=== PATIENT | male | born 1980 | race Caucasian/White ===

== ENCOUNTER 2016-07-17 12:05 | Inpatient (IN) | payer MEDICARE, OTHER ==
[2016-07-17] VITALS (30 sets, daily range): BP systolic 96–138; BP diastolic 54–75; PULSE 92–104; RESP 19–35; TEMP 97.5; Ht 165.1 cm; Wt 57.0 kg
[~2016-07-17] VITALS: Ht 165.1 cm; Wt 57.0 kg
[2016-07-17] MEDS ORDERED: MIDAZOLAM (DRIP) 50 mg/50 mL 50 ML IV STA (12:19)
[2016-07-17] MEDS ORDERED: ALBUTEROL 0.5% (NEB) 2.5 MG/0.5 ML AMP INH STA (12:19)
[2016-07-17] MEDS ORDERED: SOD CHLORIDE 0.9% 1,000 ML IV STA (12:19)
[2016-07-17] MEDS ORDERED: VANCOMYCIN 1 GM (PMX) 250 ML IVPB SCH (12:30)
[2016-07-17] MEDS ORDERED: CEFTRIAXONE 1 GM/50 ML (PMX) 50 ML IVPB ONE (12:30)
[2016-07-17] MEDS ORDERED: PIPER-TAZO 3.375 GM IV (PMX) 100 ML IVPB ONE (12:30)
[2016-07-17 12:50] LABS: ADD SCAN DIFF NO
[2016-07-17 12:53] LABS: ABNORMAL IP MESSAGE 1; HEMATOCRIT 21.5 % (42.0-52.0); MEAN CORPUSCULAR HEMOGLOBIN 30.9 pg (29.0-33.0); MEAN CORPUSCULAR HGB CONC 29.3 g/dl (32.0-37.0); MEAN CORPUSCULAR VOLUME 105.4 fl (82.0-101.0); MEAN PLATELET VOLUME 9.6 fl (7.4-10.4); PLATELET COUNT 353 10^3/UL (140-415); RED BLOOD COUNT 2.04 10^6/ul (4.70-6.10); RED CELL DISTRIBUTION WIDTH 18.2 % (11.5-14.5)
[2016-07-17] MEDS ORDERED: GLUC1KIT IJ (12:59)
[2016-07-17] MEDS ORDERED: ACET160O41 GTB (13:00)
--- NOTE | 2016-07-17 13:00 | RADRPT ---
AMENDMENT: 07/17/2016 1:02:32 PM Carlos Avila MD Addendum: This is a repeat dictation. The prior dictation was accidentally prematurely signed. Findings: No central line is identified as indicated by history. No pneumothorax is seen. Tracheo stomy tube is in good position. Heart is normal in size. There are diffuse bilateral alveolar lung infiltrates likely reflecting multilobar pneumonia. Component of edema is not completely excluded. Moderate right and small left pleural effusion is identified. The bones are osteopenic. Impression: 1. No central venous line is identified as indicated by history. Recommend clinical correlation. 2. There is no evidence of pneumothorax. 3. Diffuse bilateral alveolar lung densities. This may represent edema or pneumonia.. 3. Moderate right and small left pleural effusion. 4. Tracheostomy tube PROCEDURE: Chest x-ray CLINICAL INDICATION: Central line TECHNIQUE: Chest single view COMPARISON: None FINDINGS: No central line is identified as indicated by history. There is no evidence of IMPRESSION: No acute cardiopulmonary disease. RPTAT: HH .Carlos Avila MD, MD Date Time Electronically viewed and signed by .Carlos Avila MD, on 07/17/2016 13:02 .W/
[2016-07-17] MEDS ORDERED: BISA10SU75 PR (13:01)
[2016-07-17] MEDS ORDERED: BEN25 GTB (13:02)
[2016-07-17] MEDS ORDERED: DOCU-159 GTB ×2 (13:03→13:09)
[2016-07-17] MEDS ORDERED: MAG-19 GTB (13:03)
[2016-07-17] MEDS ORDERED: ATR1OO35 BOTH EYES (13:04)
[2016-07-17 13:07] LABS: POTASSIUM 4.8 mmol/L (3.5-5.1); SODIUM 133 mmol/L (135-144)
[2016-07-17] MEDS ORDERED: ONDA4TAB8 GTB (13:08)
[2016-07-17 13:09] LABS: ALANINE AMINOTRANSFERASE 37 IU/L (13-69); ALBUMIN/GLOBULIN RATIO 0.75; ALKALINE PHOSPHATASE 213 IU/L (42-121); ANION GAP 25 (8-16); ASPARTATE AMINO TRANSFERASE 89 IU/L (15-46); BLOOD UREA NITROGEN 84 mg/dl (7-20); CARBON DIOXIDE 13 mmol/L (21-31); CREATININE 3.87 mg/dl (0.61-1.24); GLUCOSE 273 mg/dl (70-220)
[2016-07-17] MEDS ORDERED: ZOLP5TAB GTB (13:09)
[2016-07-17] MEDS ORDERED: LORA-441 GTB (13:10)
[2016-07-17] MEDS ORDERED: CLON0.2T12 GTB (13:11)
[2016-07-17] MEDS ORDERED: QUET25TA26 GTB (13:11)
[2016-07-17 13:13] LABS: CHLORIDE 100 mmol/L (97-110)
[2016-07-17] MEDS ORDERED: INSU100C SQ (13:15)
[2016-07-17] MEDS ORDERED: LANT3I SC (13:16)
[2016-07-17 13:20] LABS: TROPONIN-I < 0.012 ng/ml (0.00-0.12)
[2016-07-17 13:26] LABS: ADD UMIC YES; URINE BILIRUBIN (Dip) NEGATIVE (NEGATIVE); URINE BLOOD (Dip) 2+ (NEGATIVE); URINE COLOR LT. YELLOW (YELLOW); URINE KETONES (Dip) NEGATIVE (NEGATIVE); URINE LEUKOCYTE ESTERASE (Dip) 2+ (NEGATIVE); URINE NITRITE (Dip) NEGATIVE (NEGATIVE); URINE TOTAL PROTEIN (Dip) 4+ (NEGATIVE); URINE UROBILINOGEN (Dip) 0.2 E.U./dL (0.1-1.0)
[2016-07-17 13:46] LABS: BACTERIA,URINE MODERATE; SQUAMOUS EPITHELIAL CELL,UR FEW; URINE RBCS >50 /HPF (0)
[2016-07-17 13:54] LABS: EOSINOPHILS # 0.5 10^3/ul (0.0-0.5); LYMPHOCYTES # 2.3 10^3/ul (0.8-2.9); MONOCYTE # 2.3 10^3/ul (0.3-0.9); MYELOCYTES # 0.5; NEUTROPHIL # 26.7 10^3/ul (1.6-7.5)
--- NOTE | 2016-07-17 14:08 | ERA ---
ER Documentation Chief Complaint Date/Time DATE: 07/17/16 TIME: 13:59 Chief Complaint BIB RA 79 S/P FULL ARREST AT SNF. ROSC ON ARRIVAL. HPI 35-year-old man brought in by EMS from skilled nursing for cardiac arrest. Nurses at the facility found him pulseless and apneic and started chest compressions and called 911, upon EMS arrival he was asystole IV line was established and they gave him 2 rounds of epinephrine 1 mg IV. Patient has at least a one-year history of tracheostomy and normally breathes spontaneously and has a fairly normal mental status. He has a history of diabetes mellitus type 1 and developed hemodialysis dependent end-stage kidney failure about a decade ago. Mom who I later spoke to states about a year ago he developed severe pneumonia requiring inpatient management, IV antibiotics, and intubation. At that time he required a tracheostomy and since then has remained on tracheostomy and developed at least 2 or 3 other episodes of pneumonia. Resuscitation at the facility resulted in return of spontaneous circulation although patient remained mostly unresponsive and was transported here on high flow oxygen via tracheostomy tube. HPI supplemented by reviewing medical records, speaking to EMS, and later his mom over the phone. ROS All systems reviewed and are negative except as per history of present illness. Medications Home Meds Reported Medications Insulin Glargine* (Lantus*) 100 Unit/Ml Soln, 3 UNIT SC QAM, #1 VIAL 07/17/16 Insulin Lispro (Humalog) 100 Unit/1 Ml Cartridge, 0-15 UNIT SQ Q6 07/17/16 Clonidine Hcl* (Catapres*) 0.2 Mg Tablet, 0.2 MG GTB Q4H Y for ELEVATED BLOOD PRESSURE, TAB FOR SBP>170 07/17/16 Quetiapine Fumarate* (Seroquel*) 25 Mg Tablet, 25 MG GTB TID, #60 TAB 07/17/16 Lorazepam* (Ativan*) 0.5 Mg Tablet, 0.5 MG GTB BID Y for ANXIETY, #30 TAB 07/17/16 Zolpidem Tartrate* (Ambien*) 5 Mg Tablet, 5 MG GTB QHS Y for INSOMNIA, #30 TAB 07/17/16 Docusate Sodium* (Docusate Sodium*) 100 Mg Capsule, 100 MG GTB BID, #60 CAP 07/17/16 Ondansetron Hcl* (Zofran*) 4 Mg Tablet, 4 MG GTB Q6 Y for NAUSEA AND/OR VOMITING , TAB 07/17/16 Atropine Sulfate* (Atropine Sulfate*) 3.5 Gm Oint, 1 APPLIC BOTH EYES QID, #1 TUB 07/17/16 Magaldrate/Simethicone* (Mylanta*) 355 Ml Susp, 30 ML GTB Q6H Y for GASTROINTESTINAL UPSET, ML 07/17/16 Docusate Sodium* (Docusate Sodium*) 100 Mg Capsule, 100 MG GTB BID, #30 CAP 07/17/16 Diphenhydramine Hcl* (Benadryl*) 25 Mg Cap, 25 MG GTB Q4 Y for ITCHING, CAP 07/17/16 Bisacodyl* (Bisacodyl*) 10 Mg Supp, 10 MG MA Q24H Y for CONSTIPATION, SUPP 07/17/16 Acetaminophen* (Acetaminophen* Susp) 160 Mg/5 Ml Oral.susp, 160 MG GTB Q4H Y for PAIN OR TEMP ABOVE 38C, ML 07/17/16 Glucagon,Human Recombinant (Glucagon Emergency Kit) 1 Mg Kit, 1 MG IJ DAILY Y for LOW GLUCOSE, KIT 07/17/16 Allergies Allergies: Coded Allergies: aspirin (Verified Allergy, Severe, 07/17/16) PMhx/Soc History of diabetes mellitus type 1 resulting in hemodialysis dependent kidney failure many years ago, respiratory failure and pneumonia developed 1 year ago necessitating tracheostomy tube placement, he has had recurrent pneumonias History of Surgery: Yes (TRACH, GTBUE) Hx Respiratory Disorders: Yes (RESP FAILURE ON TRACH, PNA) Smoking Status: Unknown if ever smoked FmHx Family History: No diabetes Physical Exam Vitals Vital Signs Date Time Temp Pulse Resp B/P Pulse Ox O2 Delivery O2 Flow Rate FiO2 07/17/16 13:30 101 16 119/62 100 Mechanical Ventilator Trach Collar 07/17/16 13:00 101 16 121/61 100 Mechanical Ventilator Trach Collar 07/17/16 12:31 109 20 100 100 07/17/16 12:30 80 16 64/38 81 Mechanical Ventilator Trach Collar 07/17/16 12:24 97.2 80 20 62/39 90 Physical Exam GENERAL: Poorly developed emaciated young man, unresponsive HEENT: Dry mucous membranes, pale conjunctival, no cervical spine deformity, no goiter, no jaundice, tracheostomy tube in place NEURO: Eyes closed, pupils minimally reactive, nonverbal, no obvious focal deficits or facial asymmetry CARDIAC: Regular rate and rhythm, no murmurs rubs or gallops LUNGS: Poor breath sounds bilaterally with diffuse crackles no stridor ABDOMEN: Soft nontender, no guarding, no rigidity, no rebound, no psoas sign no obturator sign. Normoactive bowel sounds SKIN: Cool to touch and dry, pale, no lacerations or hematomas EXTREMITIES: diffuse muscular wasting, callus bilaterally symmetrical PSYCH: Unable to assess Result Diagram: 07/17/16 1230 07/17/16 1230 Results 24 hrs Laboratory Tests Test 07/17/16 12:30 07/17/16 13:05 White Blood Count 46.010^3/ul Red Blood Count 2.0410^6/ul Hemoglobin 6.3g/dl Hematocrit 21.5% Mean Corpuscular Volume 105.4fl Mean Corpuscular Hemoglobin 30.9pg Mean Corpuscular Hemoglobin Concent 29.3g/dl Red Cell Distribution Width 18.2% Platelet Count 57174^3/UL Mean Platelet Volume 9.6fl Neutrophils % 58.0% Band Neutrophils % 29.0% Lymphocytes % 5.0% Monocytes % 5.0% Eosinophils % 1.0% Metamyelocytes % 1.0% Myelocytes % 1.0% Neutrophils # 26.710^3/ul Lymphocytes # 2.310^3/ul Monocytes # 2.310^3/ul Eosinophils # 0.510^3/ul Metamyelocytes # 0.5 Myelocytes # 0.5 Activated Partial Thromboplast Time 68.7Sec Sodium Level 133mmol/L Potassium Level 4.8mmol/L Chloride Level 100mmol/L Carbon Dioxide Level 13mmol/L Anion Gap 25 Blood Urea Nitrogen 84mg/dl Creatinine 3.87mg/dl Glucose Level 273mg/dl Lactic Acid Level 10.9mmol/L Calcium Level 9.0mg/dl Total Bilirubin 0.0mg/dl Direct Bilirubin 0.00mg/dl Indirect Bilirubin 0.0mg/dl Aspartate Amino Transf (AST/SGOT) 89IU/L Alanine Aminotransferase (ALT/SGPT) 37IU/L Alkaline Phosphatase 213IU/L Troponin I < 0.012ng/ml Total Protein 7.0g/dl Albumin 3.0g/dl Globulin 4.00g/dl Albumin/Globulin Ratio 0.75 Lipase 170U/L Urine Color LT. YELLOW Urine Clarity CLOUDY Urine pH 7.5 Urine Specific [place] 1.015 Urine Ketones NEGATIVE Urine Nitrite NEGATIVE Urine Bilirubin NEGATIVE Urine Urobilinogen 0.2 E.U./dL Urine Leukocyte Esterase 2+ Urine Microscopic RBC >50/HPF Urine Microscopic WBC >50/HPF Urine Squamous Epithelial Cells FEW Urine Bacteria MODERATE Urine Hemoglobin 2+ Urine Glucose 0.1%% Urine Total Protein 4+ Current Medications Medications (Trade) Dose Ordered Sig/Ozzie Route PRN Reason Start Time Stop Time Status Last Admin Dose Admin Sodium Chloride (NS) 1,000 ml @ 2,000 mls/hr Q30M STAT IV 07/17/16 12:19 07/17/16 12:48 DC 07/17/16 13:59 Albuterol 10 mg 10 mg ONCE STAT INH 07/17/16 12:19 07/17/16 12:26 DC 07/17/16 14:18 Ceftriaxone Sodium 50 ml @ 100 mls/hr ONCE ONCE IVPB 07/17/16 12:30 07/17/16 12:59 DC 07/17/16 14:01 Piperacillin Sod/ Tazobactam Sod 100 ml @ 200 mls/hr ONCE ONCE IVPB 07/17/16 12:30 07/17/16 12:59 DC 07/17/16 14:29 Vancomycin HCl 250 ml @ 125 mls/hr ONCE IVPB 07/17/16 12:30 07/17/16 14:29 DC 07/17/16 14:41 Midazolam HCl 50 ml @ 3 mls/hr ONCE STAT IV 07/17/16 12:19 07/18/16 04:58 Norepinephrine/ Dextrose (Levophed/D5W) 500 ml @ 1.87 mls/hr TITRATE IV 07/17/16 12:30 07/17/16 14:01 Procedures/MDM IV line was established patient was placed on child monitor rhythm strip revealed a sinus tachycardia at 100 bpm with upright P and T waves. Patient was afebrile, although I do suspect sepsis. Patient had strong pulses here in the emergency department he suffered asystolic cardiac arrest with return of spontaneous circulation, so I proceeded with IV fluid and cardiac pressor medications via central line which I placed in the ED. patient also initially received albuterol 10 mg nebulized. Tracheostomy tube was immediately placed on mechanical ventilator. Central Line Placement by me: Patient consented, sterilely draped, full prep, gown, glove, mask, time out performed. Anesthesia: 1% lidocaine locally Location: Right femoral vein Device: Multiple lumen Technique: Seldinger technique. Secured with suture. Results: Venous return from all ports with easy saline flush. No complications. The entire Guide wire retrieved and disposed of. One view chest x-ray performed, read by me revealed bilateral large infiltrates , no pneumothorax, no air under the diaphragm, tracheostomy is in place. Patient's infectious symptoms have not stabilized and the patient is at risk of rapid decompensation. The patient will be admitted for careful hydration, antibiotic therapy, and infectious source control. Severe Sepsis Assessment: Infectious Source: Bilateral pulmonary infiltrates and urinary tract infection End organ damage indicated by: Lactate > 2.0 mmol/L Hypotension( SBP < 90 or >40 mmHG drop or MAP < 65) Acute Resp Failure (sat < 92% w/o oxygen) Private [employer] Guard > 2.0 INR > 1.5 Plt < 100 Bili > 2 Severe Sepsis Managment: Blood Culture before broad spectrum antibiotics initiated within 3 hours of recognition. I treated the patient with ceftriaxone 1 g IV, vancomycin 1 g IV, and Pipracil and tazobactam 2.375 g IV. 30 ml/kg NS bolus patient received 2 L of normal saline intravenously he does have hemodialysis dependent renal failure and further fluids have been held Initial Lactate: Over 10 Repeat Lactate pending Critical Care: Time: 50 minutes, this was time separate from other procedures Treatments/Evaluations: Emergent fluid management, while maintaining close respiratory support. Immediate broad spectrum antibiotic therapy. Simultaneous assessment for possible sources in order to direct therapy. Consideration for invasive and chemical support to prevent respiratory or cardiac collapse. Septic Shock Assessment (1 hour post 30 ml/kg fluid bolus): Hypotension (SBP < 90 or 40 mmHg drop, MAP < 65): Yes Lactic acid > 4.0 yes Perfusion Reassessment for Septic Shock: Patient was afebrile, pulse equals 110 bpm, respiratory rate 16 breaths per minute on mechanical ventilator, blood pressure initially 80/60 mmHg Heart Exam: Tachycardic Lung Exam: Bilateral crackles Capillary Refill: Delayed Peripheral Pulses: Radially present Skin: Mottled, pale Hypotensive Treatment (not required for isolated lactic acid elevation): Comfort Care: No Central LIne: Right femoral vein Vasopressor started: norepinephrine EKG performed, read by me revealed a sinus tachycardia at 103 bpm, normal axis, narrow QRS complex, no concerning ST elevations or depressions noted. I considered further perfusion assessment with CVP measurement, SCVO2, bedside ultrasound volume assessment, passive leg raise, trial of further fluid bolus. And preceded with aggressive broad-spectrum IV antibiotic therapy, cardiac pressor medications, IV fluids CBC revealed a leukocytosis of 46 and severe anemia with a hematocrit of 22, electrolytes revealed kidney failure and dehydration with a BUN of 84 and a creatinine of 3.9, lactic acid was about 11, liver function tests normal, troponin negative. Urine analysis was positive for infection, ABG on mechanical ventilator revealed a pH of 7.14, PCO2 44, PaO2 250 revealing metabolic acidosis. I ordered transfusion 2 units PRBCs IV over 2 hours for severe anemia Accepting Care Team: Current data and ongoing care discussed. Time: Time of admission Primary Provider: Hospitalist Consulting: Infectious disease and pulmonary Outstanding Data: none Departure Diagnosis: Primary Impression: Cardiac arrest Additional Impressions: Bilateral pneumonia Qualified Code: J18.9 - Pneumonia of both lower lobes due to infectious organism UTI (urinary tract infection) Qualified Code: N30.00 - Acute cystitis without hematuria Anemia Qualified Code: D64.9 - Anemia, unspecified type Respiratory failure Qualified Code: J96.21 - Acute on chronic respiratory failure with hypoxia and hypercapnia End stage kidney disease Septic shock Condition: Critical MICHELLE DANIELS MD Jul 17, 2016 14:08
[2016-07-17 14:44] LABS: AADO2 Arterial 419.7 mmHg (7.0-24.0); Allen Test ACCEPTAB; Arterial Base Excess -13.6 mmol/L (-3.0-3); Arterial COHb 0.7 % (0.0-3.0); Arterial Fraction of Oxyhgb 98.1 % (93.0-99.0); Arterial HCO3 14.5 mmol/L (22.0-26.0); Arterial MetHb 0.6 % (0.0-1.5); Arterial Total Hemglobin 7.3 g/dl (12.0-18.0); MODE VENT - AC
[2016-07-17] MEDS ORDERED: SOD CHLORIDE 0.45% 1,000 ML IV SCH (15:54)
[2016-07-17] MEDS ORDERED: DEXTROSE 50% 50 ML SYRINGE IV PRN ×2 (16:00)
[2016-07-17] MEDS: ACCU-CHEK XX SCH ×8 (16:00→23:11)
[2016-07-17] MEDS ORDERED: NACL 0.9% 3 ML SYG IV SCH (16:00)
[2016-07-17] MEDS ORDERED: ONDANSETRON 4 MG INJ IV PRN (16:00)
[2016-07-17] MEDS ORDERED: BISACODYL 10 MG SUPP PR PRN (16:00)
[2016-07-17] MEDS ORDERED: INSULIN REGULAR, HUMAN 100 UNIT in SOD CHLORIDE 0.9% 99 ML IV SCH ×2 (16:00)
--- NOTE | 2016-07-17 16:23 | HP ---
DATE OF ADMISSION: 07/17/2016 CHIEF COMPLAINT: Pulseless. HISTORY OF PRESENT ILLNESS: The patient is a 35-year-old male with a history of type 1 diabetes, mu ltiple episodes of pneumonia, status post chronic vent dependency with trach as well as PEG tube. T he patient resides in a [facility] facility. Apparently, he became altered and was found to be pulseless. Paramedics were called and patient had ACLS performed and was given epinephrine and the patient had a return of circulation. In the ED, the patient has not gone pulseless. He is current ly obtunded, unable to provide any history and history is obtained by ER physician. PAST MEDICAL HISTORY: Diabetes type 1 with persistent episodes of pneumonia, status post trach and PEG. HOME MEDICATIONS: See medication reconciliation. ALLERGIES: ASPIRIN. FAMILY HISTORY: Unknown. SOCIAL HISTORY: Unknown except for resides in a [facility] facility. REVIEW OF SYSTEMS: A review of systems cannot be obtained secondary to poor mentation. PHYSICAL EXAMINATION: VITAL SIGNS: Temperature is 97.2, pulse is 104, respiratory rate is 20, blood pressure 162/63, satu ration 100% on mechanical ventilation. GENERAL: Nonverbal, not alert. HEENT: Normocephalic, atraumatic. LUNGS: Clear to auscultation. CARDIOVASCULAR: Regular rate and rhythm. ABDOMEN: Nondistended, nontender, soft. PEG noted. EXTREMITIES: No clubbing, cyanosis, or edema. LABORATORIES: White count 26.0, hemoglobin 6.3, platelets are 363. Chemistry: Sodium is 133, pota ssium is 4.8, chloride is 100, carbon dioxide 13, anion gap is 25, BUN 34, creatinine 2.87, glucose 273, lactic acid 10.9. DIAGNOSTICS: Chest x-ray shows no active disease. ASSESSMENT AND PLAN: 1. Cardiac arrest, likely secondary to pulseless electrical activity. Etiology is unknown, but the patient does have renal failure. It is unclear if it is acute or chronic. Consult nephrology. Qamar melendez has not gone pulseless since arriving to [facility]. We will admit to ICU. 2. Acute encephalopathy secondary to cardiac arrest. Will need to continue with neuro checks and e valuate for anoxic encephalopathy. 3. History of debility secondary to uncontrolled diabetes type 1 with persistent episodes of pneumo kathi, status post tracheostomy and PEG in the past. The patient does reside in a skilled nurse [facility]. The patient's sugars are elevated at this time. Will check A1c. Will put patient on an insul in drip. 4. Acute versus chronic kidney disease. The patient's renal function is unknown, likely has chroni c kidney disease. He does have lifelong ____type 1. We will get a nephrology consultation. 5. Macrocytic anemia. The patient's hemoglobin is low at 6.3. We will check stool occult blood. Will check a B12 and folate as his MCV is 105.4. 6. Prophylaxis, sequential compression devices. Dictated By: DIANE GIBBONS MD BS/NTS Conf#: [id number] DID#: [id number]
--- NOTE | 2016-07-17 16:45 | CONS ---
Date/Time of Note Date/Time of Note DATE: 07/17/16 TIME: 16:34 Assessment/Plan Assessment/Plan Chief Complaint/Hosp Course Assessment: Status post cardiac arrest - likely due to septic shock Severe sepsis with septic shock Acute hypoxic respiratory failure - on mechanical ventilation, prior tracheostomy Healthcare-associated pneumonia Diabetes mellitus, type 1 End-stage renal disease - on hemodialysis Anemia - receiving pRBC transfusions Recommendations: -Levophed as needed to keep MAP>65 -obtain transthoracic echocardiogram Problems: Consultation Date/Type/Reason Admit Date/Time Type of Consultation: Cardiology Reason for Consultation cardiac arrest Hx of Present Illness The patient is currently unresponsive. History is obtain via medical records and conversation with the emergency department physician. The patient is a 35 year-old male who is status post cardiac arrest at his long term facility. The initial rhythm is unknown. He was successfully resuscitated in the field and brought into the emergency department. He was hypotensive, and a central line has been placed and the patient has been started on a Levophed drip. Initial laboratory work up is notable for WBC 46, Hgb 6.3, and lactic acid of 10.9. Chest x-ray shows evidence of multilobar pneumonia. Unable to obtain, patient is unresponsive. Past Medical History Diabetes mellitus, type 1 End-stage renal disease - on hemodialysis Status post tracheostomy - secondary to prior respiratory failure from pneumonia Past Surgical History Tracheostomy Gastric tube Family History Significant Family History: other (unknown) Social History Unknown Smoking Status: Unknown if ever smoked Exam/Review of Systems Vital Signs Vitals Vital Signs Date Time Temp Pulse Resp B/P Pulse Ox O2 Delivery O2 Flow Rate FiO2 07/17/16 16:15 97.5 103 18 122/69 100 Mechanical Ventilator Trach Collar 07/17/16 16:09 80 Exam Constitutional: non-verbal, No alert Psych: No nl mood/affect Head: atraumatic, normocephalic Eyes: nl conjunctiva, nl lids ENMT: nl external ears & nose, nl nasal mucosa & septum Neck: other (tracheostomy) Respiratory: crackles/rales Cardiovascular: No regular rate and rhythm (tachycardic) Gastrointestinal: non-tender, soft Extremities: No clubbing, No cyanosis, No edema Neurological: No nl mental status, No nl speech Results Result Diagram: 07/17/16 1230 07/17/16 1230 Results 24 hrs Laboratory Tests Test 07/17/16 12:30 07/17/16 13:05 07/17/16 14:27 White Blood Count 46.0 H Red Blood Count 2.04 L Hemoglobin 6.3 *L Hematocrit 21.5 L Mean Corpuscular Volume 105.4 H Mean Corpuscular Hemoglobin 30.9 Mean Corpuscular Hemoglobin Concent 29.3 L Red Cell Distribution Width 18.2 H Platelet Count 353 Mean Platelet Volume 9.6 Neutrophils % 58.0 Band Neutrophils % 29.0 H Lymphocytes % 5.0 L Monocytes % 5.0 Eosinophils % 1.0 Metamyelocytes % 1.0 H Myelocytes % 1.0 H Neutrophils # 26.7 H Lymphocytes # 2.3 Monocytes # 2.3 H Eosinophils # 0.5 Metamyelocytes # 0.5 Myelocytes # 0.5 Activated Partial Thromboplast Time 68.7 H Sodium Level 133 L Potassium Level 4.8 Chloride Level 100 Carbon Dioxide Level 13 L Anion Gap 25 H Blood Urea Nitrogen 84 H Creatinine 3.87 H Glucose Level 273 H Lactic Acid Level 10.9 *H Calcium Level 9.0 Total Bilirubin 0.0 L Direct Bilirubin 0.00 Indirect Bilirubin 0.0 Aspartate Amino Transf (AST/SGOT) 89 H Alanine Aminotransferase (ALT/SGPT) 37 Alkaline Phosphatase 213 H Troponin I < 0.012 Total Protein 7.0 Albumin 3.0 L Globulin 4.00 H Albumin/Globulin Ratio 0.75 Lipase 170 Urine Color LT. YELLOW Urine Clarity CLOUDY H Urine pH 7.5 Urine Specific [place] 1.015 Urine Ketones NEGATIVE Urine Nitrite NEGATIVE Urine Bilirubin NEGATIVE Urine Urobilinogen 0.2 E.U./dL Urine Leukocyte Esterase 2+ H Urine Microscopic RBC >50 Urine Microscopic WBC >50 Urine Squamous Epithelial Cells FEW Urine Bacteria MODERATE Urine Hemoglobin 2+ H Urine Glucose 0.1% H Urine Total Protein 4+ H Blood Gas Specimen Source Blood arterial Arterial Blood Date Drawn 07/17/2016 2:35:00 PM Arterial Blood pH (Temp corrected) 7.135 *L Arterial Blood pCO2 (Temp correct) 44.1 Arterial Blood pO2 (Temp corrected) 249.2 H Arterial Blood HCO3 14.5 L Arterial Blood Base Excess -13.6 L Arterial Blood Oxygen Saturation 99.4 H Endy Test ACCEPTAB Arterial Blood Gas Puncture Site Right Radial Arterial Blood Carboxyhemoglobin 0.7 Arterial Blood Methemoglobin 0.6 Blood Gas A-a O2 Differential 419.7 H Oxyhemoglobin Percent 98.1 Total Hemoglobin 7.3 L Blood Gas Temperature 37.0 Blood Gas Respiration Rate 20.0 Blood Gas Actual Respiration Rate 26 Blood Gas Modality VENT - AC FiO2 100.0 Blood Gas Tidal Volume 500.0 Blood Gas Low PEEP Setting 5.0 Blood Gas Critical Value Read Back DR. DANIELS Blood Gas Notified Whom [place] Blood Gas Notified Time 07/17/2016 2:44:00 PM Medications Medications Current Medications Norepinephrine 16 mg/Dextrose 500 ml @ 1.87 mls/hr TITRATE IV Last administered on 07/17/16t 14:01; Admin Dose 18.75 MLS/HR; Start 07/17/16 at 12: 30 Sodium Chloride (1/2 NS) 1,000 ml @ 100 mls/hr Q10H IV ; Start 07/17/16 at 15: 54 Ondansetron HCl (Zofran Inj) 4 mg Q6H PRN IV NAUSEA AND/OR VOMITING; Start at 16:00 Pantoprazole (Protonix Iv) 40 mg DAILY@06 IV ; Start 07/18/16 at 06:00 Diagnostic Test (Pha) (Accu-Chek) 1 ea Q1H XX ; Start 07/17/16 at 16:00 Dextrose (D50w Syringe) 25 ml Q15M PRN IV Till BS 80 mg/dL or above x2; Start 07/17/16 at 16:00 Dextrose (D50w Syringe) 50 ml Q15M PRN IV Till BS 80 mg/dL or above x2; Start 07/17/16 at 16:00 Atropine Sulfate (Atropine 1% Oph Oint) 1 applic QID BOTH EYES ; Start 07/17/16 at 17:00 Bisacodyl (Dulcolax Supp) 10 mg Q24H PRN [place] CONSTIPATION; Start 07/17/16 at 16: 00 LENI DAVID MD Jul 17, 2016 16:44
[2016-07-17] MEDS ORDERED: SOD CHLORIDE 0.9% 1,000 ML IV SCH (19:30)
[2016-07-17 20:20] LABS: AADO2 Arterial 308.9 mmHg (7.0-24.0); Allen Test ACCEPTAB; Arterial Base Excess -13.3 mmol/L (-3.0-3); Arterial COHb 0.3 % (0.0-3.0); Arterial HCO3 14.2 mmol/L (22.0-26.0); Arterial MetHb 0.4 % (0.0-1.5); Arterial Total Hemglobin 8.7 g/dl (12.0-18.0); MODE VENT - AC
[2016-07-17] MEDS: ATROPINE 1% 3.5 GM OPH OINT BOTH EYES SCH ×2 (21:00→21:39)
[2016-07-17] MEDS ORDERED: LORAZEPAM 2 MG INJ IM PRN (21:30)
[2016-07-17] MEDS ORDERED: LORAZEPAM 2 MG INJ IM ONE (21:30)
[2016-07-17] MEDS ORDERED: LORAZEPAM 2 MG INJ IV ONE (22:00)
[2016-07-17] MEDS ORDERED: LORAZEPAM 2 MG INJ IV PRN ×2 (22:00→22:30)
[2016-07-17] MEDS: DEXTROSE 5%-0.9% NACL 1,000 ML IV SCH (23:11)
[2016-07-18] VITALS (66 sets, daily range): BP systolic 98–137; BP diastolic 55–78; PULSE 82–144; RESP 19–34
[2016-07-18] MEDS: ACCU-CHEK XX SCH ×3 (00:07→02:50)
[2016-07-18] MEDS ORDERED: GLUCAGON 1 MG INJ IM PRN (02:00)
[2016-07-18] MEDS ORDERED: GLUCOSE GEL 15 GRAM TUBE PO PRN ×2 (02:00)
[2016-07-18] MEDS ORDERED: INSULIN GLARGINE [LANtus] 3 ML PEN SC ONE (02:00)
[2016-07-18] MEDS ORDERED: GLUCOSE GEL 15 GRAM TUBE BUCCAL PRN (02:00)
[2016-07-18] MEDS: ACETAMINOPHEN 650MG/20.3ML CUP GTB PRN (02:03)
[2016-07-18 02:23] LABS: HEMATOCRIT 24.1 % (42.0-52.0); HEMOGLOBIN 7.8 g/dl (14.0-18.0)
[2016-07-18] MEDS: CEFEPIME 1GM/50 ML (PMX) 50 ML IVPB SCH ×3 (02:50→20:29)
[2016-07-18 05:29] LABS: ADD SCAN DIFF NO
[2016-07-18 05:53] LABS: ALBUMIN 3.1 g/dl (3.3-4.9)
[2016-07-18 05:54] LABS: POTASSIUM 5.3 mmol/L (3.5-5.1)
[2016-07-18 05:56] LABS: CREATININE 3.77 mg/dl (0.61-1.24)
[2016-07-18 05:57] LABS: ALBUMIN/GLOBULIN RATIO 0.68; CALCIUM 8.5 mg/dl (8.4-10.2); PHOSPHORUS 4.3 mg/dl (2.5-4.9); TOTAL PROTEIN 7.6 g/dl (6.1-8.1)
[2016-07-18 05:58] LABS: MAGNESIUM 2.2 mg/dl (1.7-2.5)
[2016-07-18] MEDS: INSULIN ASPART [NOVOLOG] 3 ML PEN SC SCH ×4 (06:00→20:50)
[2016-07-18 06:06] LABS: ABNORMAL IP MESSAGE 1; HEMOGLOBIN 8.1 g/dl (14.0-18.0); MEAN CORPUSCULAR HEMOGLOBIN 30.2 pg (29.0-33.0); MEAN CORPUSCULAR HGB CONC 31.2 g/dl (32.0-37.0); MEAN PLATELET VOLUME 10.2 fl (7.4-10.4); PLATELET COUNT 303 10^3/UL (140-415); RED BLOOD COUNT 2.68 10^6/ul (4.70-6.10); WHITE BLOOD COUNT 42.2 10^3/ul (4.8-10.8)
[2016-07-18] MEDS: PANTOPRAZOLE 40 MG INJ IV SCH (06:15)
--- NOTE | 2016-07-18 06:59 | CONS ---
DATE OF ADMISSION: 07/17/2016 DATE OF CONSULTATION: 07/17/2016 NEPHROLOGY CONSULTATION PHYSICIAN REQUESTING CONSULT: Dr. Stone. REASON FOR CONSULTATION: End-stage renal disease. HISTORY OF PRESENT ILLNESS: This is a 35-year-old male with a past medical history of oxygen-depend ent respiratory failure, history of diabetes, history of pneumonia, history of end-stage renal disea se on dialysis Wednesday, Wednesday, Wednesday with access left AV fistula. history of dysphagia status po st PEG, history of encephalopathy who presents to [facility] after suffering a cod e arrest at the skilled nurse facility. The patient apparently was found pulseless and 911 was call ed. The patient underwent compressions. When EMS services came, the patient was found to be in asys tole. He was given 2 rounds of epi with spontaneous return of circulation. The patient was then bro ught over to [facility]. Upon arrival, the patient had a chest x-ray which showed findings of bilateral alveolar densities that may represent pneumonia or edema. The patient, on ad mission, had a white count of 46,000, hemoglobin 6.3 and platelet count 352. The patient was also n oted to be in shock upon admission. He was given IV fluids, IV pressors and given broad spectrum an tibiotics, and was admitted to intensive care unit for continued care. Upon my evaluation of the patient at this time he is currently nonresponsive, retracts to deep painf ul stimuli. There have been no reports of hemoptysis, hematemesis or hematochezia. PAST MEDICAL HISTORY: History of diabetes, history of end-stage renal disease, history of pneumonia , history of dysphagia, history of ventilator dependent respiratory failure, history of anemia. HOME MEDICATIONS: Please see list. PAST SURGICAL HISTORY: Status post AV fistula, status post trach, status post PEG. ALLERGIES: ASPIRIN. FAMILY HISTORY: Noncontributory. SOCIAL HISTORY: Lives at a skilled nurse facility. REVIEW OF SYSTEMS: Unable to do adequate review of systems as patient is obtunded. Pertinent posit karen obtained by reviewing medical records and speaking to hospital staff as stated in HPI, otherwis e negative. PHYSICAL EXAMINATION: VITAL SIGNS: Blood pressure is 132/67, respirations 16, pulse 103, temperature 97.5. HEENT: Head is normocephalic. NECK: Shows trach. HEART: Tachycardic. LUNGS: Show diminished breath sounds at base. Also crackles. ABDOMEN: Soft, nontender to palpation. Positive PEG. EXTREMITIES: Negative for clubbing, cyanosis, or edema. DERMATOLOGIC: No rashes. MUSCULOSKELETAL: The patient has noted AV fistula in left upper extremity. NEUROLOGIC: Limited exam due to lack of patient cooperation. LABORATORY DATA: White count 46,000, hemoglobin 6.3, hematocrit 21.5, platelet count 353. Sodium 1 33, potassium 4.9, chloride 100, bicarbonate 13, BUN 84, creatinine 3.87. Lactic acid . pH 7 .135, pCO2 of 44. ASSESSMENT AND PLAN: This is a 35-year-old male who presents with: 1. End-stage renal disease: The patient is on dialysis Wednesday, Wednesday, Wednesday with access left upper extremity AV fistula. Plan is for hemodialysis. Anticipate will dialyze tomorrow morning. W ill dialyze for 3 hours on 3 K bath, calcium 2.5 for clearance. Will minimize ultrafiltration as the patient is in shock. Monitor closely. 2. Anemia: Etiology is secondary likely to chronic disease. The patient received 2 units of PRBC. Will give Epogen and monitor closely. 3. Mineral bone disease: Will monitor calcium and phosphorus levels. 4. Mixed acid base disorder: The patient has a metabolic anion gap acidosis due to chronic kidney disease., lactic acid and respiratory acidosis. The patient's pH is 1.35, pCO2 of 44. Patient's pC O2 is inappropriately elevated given this level of acidemia. Plan at this point is to continue the patient on current vent settings. Will repeat an ABG to see if acidemia has improved. If the patie nt remains significantly acidemic, would consider hemodialysis. 5. Septic shock: Etiology secondary to healthcare-associated pneumonia. The patient's chest x-ray shows bilateral infiltrates. Plan at this point is to continue pressor support. Continue IV fluid s. Continue antibiotic therapy. Follow up cultures and monitor closely. 6. Cardiac arrest secondary to PEA: Underlying etiology may have been due to underlying sepsis. T he patient is currently on pressor support. Continue to monitor. Follow up with cardiology. 7. Acute encephalopathy: Etiology is likely toxic metabolic, possible anoxic injury. Continue to monitor. 8. Hyponatremia secondary to end-stage renal disease: Continue to monitor. Thank you, Dr. Stone, for this interesting consultation. It will be a pleasure to follow patient with you throughout the hospital course. Dictated By: KENTON MATAMOROS/LAURA Conf#: [id number] DID#: [id number]
[2016-07-18 07:10] LABS: FOLATE > 20.0 ng/ml (2.8-20.0)
--- NOTE | 2016-07-18 07:57 | PN ---
DATE: 07/18/2016 SUBJECTIVE: The patient remains critically ill on full ventilatory support. The patient has minima l response, only to deep painful stimuli, but does have minimal gag. The patient is being weaned of f pressor support. No other events noted. No hemoptysis, hematemesis or hematochezia. OBJECTIVE: VITAL SIGNS: Blood pressure is 114/57, respiration 22, pulse 93, temperature 98.6. I's and O's: 1 300 in, 210 out. HEENT: Head is normocephalic. Pupils are reactive. NECK: Shows trach. HEART: Regular rate, tachycardic. LUNGS: Show diminished breath sounds at base. ABDOMEN: Soft, nontender to palpation. No rebound or guarding. EXTREMITIES: Negative for clubbing, cyanosis, edema. DERMATOLOGIC: No rashes. MUSCULOSKELETAL: No joint effusions. NEUROLOGIC: Limited exam as the patient is obtunded. LABORATORY DATA: Sodium 136, potassium 5.3, chloride 103, bicarbonate 17, BUN 93, creatinine 2.77. Lactic acid 2.9. White count 42.2, hemoglobin 8.1, hematocrit 36.0, platelet count 303. Repeat ABG shows pH 7.178, pCO2 of 39 base excess 13. MEDICATIONS: The patient's medications have been reviewed. MICROBIOLOGY: C. diff is negative. Lactic acid 2.9. ASSESSMENT AND PLAN: This is a 35-year-old male who presents with: 1. End-stage renal disease, on dialysis Wednesday, Wednesday, Wednesday. Will plan for dialysis today fo r 3 hours, 2K bath, calcium 2.5, ultrafiltrate as tolerated. 2. Anemia of chronic disease: Questionable bleed. The patient is status post blood transfusion. Will monitor hemoglobin and hematocrit. I will also give Epogen with hemodialysis. 3. Mixed acid base disorder: The patient has a metabolic anion gap acidosis and respiratory acidos is. The patient's pH is 7.178 with a pCO2 of 39. Patient's pCO2 levels are inappropriately elevate d for this level of acidemia. Plan at this point is for the patient to be dialyzed on a 40 bicarbon ate bath with considering increasing respiratory rate and tidal volume, defer to Pulmonary. Monitor blood gases closely. 4. Hyperkalemia: Secondary to end-stage renal disease, acidemia. The patient will be dialyzed on a 2 potassium bath and monitor. 5. Mineral bone disorder: Monitor calcium and phosphorus levels. 6. Status post code arrest: Etiology likely from septic shock. The patient is currently hemodynam ically stable. Continue to monitor. Follow up with cardiology. 7. Ventilator dependent respiratory failure: Vent settings have been reviewed. ABG has been revie wed. Continue to monitor. Follow up with Pulmonary. 8. Dysphagia: The patient's tube feedings are currently on hold. 9. Septic shock: Etiology is secondary to healthcare-associated pneumonia. The patient is current ly on IV antibiotics on IV fluids, being weaned off pressor support. Once the patient is off presso r support, we will discontinue IV fluids. We will follow up cultures. Consider an infectious disea se evaluation. 10. Diabetes: Continue Accu-Cheks, insulin sliding scale. 11. Acute on chronic encephalopathy: Etiology is toxic metabolic, possible anoxic injury. We will continue to monitor. 12. Leukocytosis: Etiology is presumed to be secondary to pneumonia. We will continue to monitor. Please note I spent over 40 minutes of critical care time with this patient. Dictated By: KENTON MATAMOROS/LAURA Conf#: [id number] DID#: [id number]
[2016-07-18] MEDS: ATROPINE 1% 3.5 GM OPH OINT BOTH EYES SCH ×4 (09:48→20:28)
[2016-07-18 11:38] LABS: LYMPHOCYTES # 0.4 10^3/ul (0.8-2.9); MONOCYTE # 1.3 10^3/ul (0.3-0.9); NEUTROPHIL # 24.9 10^3/ul (1.6-7.5)
[2016-07-18 12:21] LABS: HEMOGLOBIN 6.3 g/dl (14.0-18.0)
--- NOTE | 2016-07-18 13:58 | PN ---
Date/Time of Note Date/Time of Note DATE: 07/18/16 TIME: 13:51 Assessment/Plan VTE Prophylaxis VTE Prophylaxis Intervention: SCD's Assessment/Plan Chief Complaint/Hosp Course 1. Cardiac arrest possibly 2/2 Septic Shock -cont Cefepime and Levo gtt as needed, F/U on Cx's 2. Acute encephalopathy secondary to cardiac arrest -EEG to eval for anoxic encephalopathy, Neuro checks 3. History of debility secondary to uncontrolled diabetes type 1 with persistent episodes of pneumonia, status post tracheostomy and PEG in the past -Pulm consult 4. ESRD -Nephro consult 5. Macrocytic anemia -B12 and folate are WNL's PPX- SCDs Problems: Subjective 24 Hr Interval Summary Subjective hx not possible: pt non-verbal Exam/Review of Systems Vital Signs Vitals Vital Signs Date Time Temp Pulse Resp B/P Pulse Ox O2 Delivery O2 Flow Rate FiO2 07/18/16 13:00 89 26 131/75 100 Mechanical Ventilator 07/18/16 12:00 97.6 07/18/16 11:29 50 Intake and Output 07/17/16 07/17/16 07/18/16 15:00 23:00 07:00 Intake Total 673.75 ml 676.32 ml Output Total 200 ml 10 ml Balance 473.75 ml 666.32 ml Exam Constitutional: non-verbal ENMT: intubated Respiratory: clear to auscultation Cardiovascular: regular rate and rhythm Gastrointestinal: soft, No distended Musculoskeletal: nl extremities to inspection Results Result Diagram: 07/18/16 0458 07/18/16 0458 Results 24 hrs Laboratory Tests Test 07/17/16 14:27 07/17/16 17:36 07/17/16 19:06 07/17/16 19:15 Blood Gas Specimen Source Blood arterial Blood arterial Arterial Blood Date Drawn 07/17/2016 2:35:00 PM 07/17/2016 8:10:59 PM Arterial Blood pH (Temp corrected) 7.135 *L 7.178 *L Arterial Blood pCO2 (Temp correct) 44.1 39.0 Arterial Blood pO2 (Temp corrected) 249.2 H 76.0 L Arterial Blood HCO3 14.5 L 14.2 L Arterial Blood Base Excess -13.6 L -13.3 L Arterial Blood Oxygen Saturation 99.4 H 93.7 L Endy Test ACCEPTAB ACCEPTAB Arterial Blood Gas Puncture Site Right Radial Right Radial Arterial Blood Carboxyhemoglobin 0.7 0.3 Arterial Blood Methemoglobin 0.6 0.4 Blood Gas A-a O2 Differential 419.7 H 308.9 H Oxyhemoglobin Percent 98.1 93.0 Total Hemoglobin 7.3 L 8.7 L Blood Gas Temperature 37.0 37.0 Blood Gas Respiration Rate 20.0 20.0 Blood Gas Actual Respiration Rate 26 Blood Gas Modality VENT - AC VENT - AC FiO2 100.0 60.0 Blood Gas Tidal Volume 500.0 500.0 Blood Gas Low PEEP Setting 5.0 5.0 Blood Gas Critical Value Read Back DR. FRANCES LEUNG. RAJI Blood Gas Notified Whom Chester FONTANEZ Blood Gas Notified Time 07/17/2016 2:44:00 PM 07/17/2016 8:20:01 PM Bedside Glucose 282 H 343 H Test 07/17/16 19:55 07/17/16 21:19 07/17/16 21:51 07/17/16 22:55 Bedside Glucose 299 H 204 172 115 Test 07/18/16 00:05 07/18/16 01:07 07/18/16 02:11 07/18/16 02:54 Bedside Glucose 82 87 121 Hemoglobin 7.8 #L Hematocrit 24.1 L Lactic Acid Level 2.6 H Test 07/18/16 04:58 07/18/16 06:08 07/18/16 11:24 07/18/16 12:33 White Blood Count 42.2 H Red Blood Count 2.68 #L Hemoglobin 8.1 L Hematocrit 26.0 L Mean Corpuscular Volume 97.0 Mean Corpuscular Hemoglobin 30.2 Mean Corpuscular Hemoglobin Concent 31.2 L Red Cell Distribution Width 18.0 H Platelet Count 303 Mean Platelet Volume 10.2 Neutrophils % 59.0 Band Neutrophils % 37.0 H Lymphocytes % 1.0 L Monocytes % 3.0 Neutrophils # 24.9 H Lymphocytes # 0.4 L Monocytes # 1.3 H Sodium Level 136 Potassium Level 5.3 H Chloride Level 103 Carbon Dioxide Level 17 L Anion Gap 21 H Blood Urea Nitrogen 93 H Creatinine 3.77 H Glucose Level 118 # Hemoglobin A1c 5.8 Lactic Acid Level 2.9 H Calcium Level 8.5 Phosphorus Level 4.3 Magnesium Level 2.2 Total Bilirubin 0.0 L Direct Bilirubin 0.00 Indirect Bilirubin 0.0 Aspartate Amino Transf (AST/SGOT) 90 H Alanine Aminotransferase (ALT/SGPT) 39 Alkaline Phosphatase 157 H Total Protein 7.6 Albumin 3.1 L Globulin 4.50 H Albumin/Globulin Ratio 0.68 Vitamin B12 Level 828 Folate > 20.0 H Bedside Glucose 119 106 109 Medications Medications Current Medications Norepinephrine/ Dextrose (Levophed/D5W) 500 ml @ 1.87 mls/hr TITRATE IV Last administered on 07/17/16 14:01; Admin Dose 18.75 MLS/HR; Start 07/17/16 at 12: 30 Ondansetron HCl (Zofran Inj) 4 mg Q6H PRN IV NAUSEA AND/OR VOMITING; Start at 16:00 Pantoprazole (Protonix Iv) 40 mg DAILY@06 IV Last administered on 07/18/16 06: 15; Admin Dose 40 MG; Start 07/18/16 at 06:00 Atropine Sulfate (Atropine 1% Oph Oint) 1 applic QID BOTH EYES Last administered on 07/18/16 09:48; Admin Dose 1 APPLIC; Start 07/17/16 at 17:00 Bisacodyl (Dulcolax Supp) 10 mg Q24H PRN NV CONSTIPATION; Start 07/17/16 at 16: 00 Lorazepam (Ativan) 1 mg Q1H PRN IV seziure activity; Start 07/17/16 at 22:30 Lorazepam 1 mg 1 mg Q1H PRN IV seizure activity; Start 07/17/16 at 22:00 Dextrose/Sodium Chloride 1,000 ml @ 40 mls/hr Q24H IV Last administered on 23:11; Admin Dose 50 MLS/HR; Start 07/17/16 at 22:30 Cefepime HCl (Maxipime 1gm/50 ml (Pmx)) 50 ml @ 100 mls/hr Q12 IVPB Last administered on 07/18/16 11:21; Admin Dose 100 MLS/HR; Start 07/18/16 at 02:01 Acetaminophen (Tylenol Liquid) 650 mg Q6H PRN GTB PAIN AND OR ELEVATED TEMP Last administered on 07/18/16 02:03; Admin Dose 650 MG; Start 07/18/16 at 02:00 Miscellaneous Information 1 ea NOTE XX ; Start 07/18/16 at 02:00 Glucose (Glutose) 15 gm Q15M PRN PO DECREASED GLUCOSE; Start 07/18/16 at 02:00 Glucose (Glutose) 22.5 gm Q15M PRN PO DECREASED GLUCOSE; Start 07/18/16 at 02:00 Dextrose (D50w Syringe) 25 ml Q15M PRN IV DECREASED GLUCOSE; Start 07/18/16 at 02:00 Dextrose (D50w Syringe) 50 ml Q15M PRN IV DECREASED GLUCOSE; Start 07/18/16 at 02:00 Glucagon (Glucagen) 1 mg Q15M PRN IM DECREASED GLUCOSE; Start 07/18/16 at 02:00 Glucose (Glutose) 15 gm Q15M PRN BUCCAL DECREASED GLUCOSE; Start 07/18/16 at 02: 00 Insulin Aspart (Novolog Insulin Pen) NOVOLOG *MILD* ALGORI... Q4 SC ; Start 07/18 at 17:00 DIANE GIBBONS Jul 18, 2016 13:58
[2016-07-18] MEDS ORDERED: VANCOMYCIN 1 GM (PMX) 250 ML IVPB SCH (14:30)
[2016-07-18 15:05] LABS: PLATELET COUNT 289 10^3/UL (140-415)
[2016-07-18] MEDS: LEVETIRACETAM IV 750 MG in SOD CHLORIDE 0.9% 100 ML IVPB SCH ×2 (15:20→21:25)
[2016-07-18 15:28] LABS: POTASSIUM 3.8 mmol/L (3.5-5.1)
[2016-07-18 15:32] LABS: MAGNESIUM 1.9 mg/dl (1.7-2.5)
[2016-07-18] MEDS: AZITHROMYCIN 500MG/NS (PMX) 250 ML IVPB SCH (15:52)
[2016-07-18 15:53] LABS: INR 1.67; PROTIME 19.8 Sec (12.2-14.2); PT RATIO 1.5
[2016-07-18 15:54] LABS: PARTIAL THROMBOPLASTIN TIME 41.2 Sec (25.0-35.0)
--- NOTE | 2016-07-18 15:54 | CONS ---
DATE OF ADMISSION: 07/17/2016 DATE OF CONSULTATION: 07/18/2016 REASON FOR CONSULTATION: Respiratory failure. HISTORY OF PRESENT ILLNESS: Briefly, this is an unfortunate 35-year-old man with a history of type 1 diabetes, multiple episodes of prior pneumonia, status post tracheostomy for chronic vent-dependen t respiratory failure, status post G-tube, a resident of a half-way facility, who apparently at baseline is alert, awake, and completely communicative. Apparently, yesterday he was found alter ed and pulseless in his detention. When paramedics arrived ACLS was performed, with return of sp ontaneous circulation. However, the amount of time that he required CPR is unclear. He is currentl y obtunded, unresponsive, and unable to follow any commands. PAST MEDICAL HISTORY: As noted above. PAST SURGICAL HISTORY: Status post trach and PEG. MEDICATIONS: Please see MAR. ALLERGIES: ASPIRIN. FAMILY HISTORY: Unknown. SOCIAL HISTORY: Resident of a half-way facility, otherwise unknown. REVIEW OF SYSTEMS: Unable to obtain. PHYSICAL EXAMINATION: VITAL SIGNS: Blood pressure 134/78, heart rate is 90, oxygen saturation is 100% on 60% FIO2. HEENT: Tracheostomy is in place. NECK: Supple. No thyromegaly. Trach site is clear. CARDIOVASCULAR: Regular rate and rhythm. S1, S2. CHEST: There are coarse bilateral breath sounds, with some rhonchi heard bilaterally. ABDOMEN: Soft. G-tube is in place. EXTREMITIES: No cyanosis, clubbing or edema. NEUROLOGIC: He is flaccid. He is overbreathing the ventilator; however, there is no gag or corneals present. LABORATORY: WBC is 42.2, hemoglobin 6.1. ABG: pH of 7.18, pCO2 is 39, pO2 is 76, this is on 50%. PTT is 68.7. Lactic acid is 2.9. UA shows greater than 50 WBCs. Chest x-ray shows bilateral silvestre hilar airspace opacities, both in the left and right lung carter, both in the lower and upper lung z ones. IMPRESSION: 1. Status post cardiopulmonary arrest. This is likely a respiratory event, possibly due to acute m ucus plugging and central airway obstruction versus an aspiration event that led to his demise. 2. Respiratory failure, vent dependence. 3. Encephalopathy. Very concerning for severe anoxic brain injury, status post ACLS, however, is t oo soon to determine. Must also rule out non-convulsive status. 4. Chronic kidney disease. On hemodialysis. 5. Lactic acidosis. Now improved status post resuscitation post code. 6. Multifocal pneumonia. Possibly aspiration versus healthcare associated. RECOMMENDATIONS: 1. Ventilatory support. Will adjust vent settings to optimize gas exchange and ventilation. 2. Broaden antibiotics to include cefepime, vancomycin and azithromycin. 3. Will follow cultures and deescalate accordingly. 4. Patient will need an EEG to assess for possible non-convulsive status. 5. Will add Keppra for the time being. 6. The patient's prognosis is extremely poor; however, will need a little bit more time to determin e the severity of his likely anoxic brain injury. Dictated By: MARY BETH ALBA MD NK/NTS Conf#: [id number] DID#: [id number] CC: ENDER PORTER MD; DIANE GIBBONS MD;*End*
--- NOTE | 2016-07-18 16:10 | CONS ---
DATE OF ADMISSION: 07/17/2016 DATE OF CONSULTATION: 07/18/2016 TYPE OF CONSULTATION: Infectious Disease. REASON FOR CONSULTATION: Antibiotic management. HISTORY OF PRESENT ILLNESS: Juan Luis Baeza is a 35-year-old male who comes in pulseless and i s being seen now for antibiotic management. His past problems include: 1. Adult-onset diabetes mellitus. 2. Multiple episodes of pneumonia. 3. Status post chronic ventilator dependency. 4. Tracheostomy. 5. G-tube placement. The patient resides in a long term facility. He was found to be pulsel ess and he had ACLS performed, was given epinephrine with return of circulation. He is obtunded, u nable to give any history in the emergency room and noted he is status post trach and PEG. PAST MEDICAL HISTORY: Operations as outlined. FAMILY HISTORY: Noncontributory. SOCIAL HISTORY: He lives in a fdc. ALLERGIES: ASPIRIN. MEDICATIONS: Per chart. REVIEW OF SYSTEMS: Noncontributory. PHYSICAL EXAMINATION: GENERAL: The patient is a chronically ill-appearing male who is obtunded on a respirator. SKIN: Without generalized rash. HEENT: Within normal limits. NECK: Supple. Tracheostomy in place. LYMPH NODES: None palpable. CHEST: Decreased breath sounds at the bases. HEART: Without murmur or gallop. ABDOMEN: Soft, nontender, without organosplenomegaly or masses. G-tube is noted. EXTREMITIES: Without cyanosis, clubbing, or edema. RECTAL AND GENITAL: Deferred. NEUROLOGIC: No focal neurological abnormality. ANCILLARY LABORATORY DATA: On admission, his white count was 26,000, hemoglobin 6.3, platelet count 363,000. Anion gap 25, BUN and creatinine 34/2.87. IMPRESSION AND PLAN: The patient presents with cardiac arrest and was pulseless. With regards to h is blood cultures, they are negative. His Clostridium difficile was negative. Urine culture is neg ative. Chest x-ray shows a central venous line. There are diffuse bilateral alveolar densities, ei ther edema or pneumonia, no evidence of pneumothorax. He has a tracheostomy in place and moderate r ight and small left pleural effusions. There is no central line identified. The patient was begun on vancomycin and azithromycin and cefepime. ____ is grossly covered. He has had blood cultures dr lanier, lactic acid, urine cultures done and he was given vancomycin, Zosyn, ceftriaxone and now he is on vancomycin, azithromycin and cefepime. We will await his cultures. I will dictate my findings to the hospitalist and also to Dr. Serrato. Dictated By: RENEE URIOSTEGUI MD, JD/LAURA Conf#: [id number] DID#: [id number]
--- NOTE | 2016-07-18 16:28 | RADRPT ---
Echocardiogram Report Patient Name: KJ SHEKIH Gender: Male Date: 1980 Study Date: 18-Jul-2016 [place]ill Technician: MILO Location: E Ref. Physician: DIANE GIBBONS Quality: Technically Difficult Study Procedures: Transthoracic echocardiogram with complete 2D, M-Mode, and Doppler examination. Indications: Cardiac Arrest. 2D/M Mode Doppler Measurement Value Normal Ranges Measurement Value Normal Ranges AoR Diam MM 3.1 cm AV Peak Tigre 1.0 m/sec ACS MM 2.0 cm AV Peak PG 4.1 mmHg LVIDd 2D 4.3 3.5 - 5.6 cm LVOT Peak Tigre 0.8 m/sec LVIDs 2D 3.2 2.1 - 4.1 cm LVOT Peak PG 2.3 mmHg LVPWd 2D 1.3 0.6 - 1.1 cm MV E Peak Tigre 1.0 m/sec IVSd 2D 1.5 0.6 - 1.1 cm MV A Peak Tigre 0.4 m/sec EDV 2D 82.1 cm3 MV E/A 2.5 ESV 2D 32.2 cm3 MV Decel Time 178 msec LA Dimen 2D 2.7 2.3 - 4.0 cm MV Decel [place] 5 MV E/A 2.5 TR Peak Tigre 3.0 m/sec TR Peak PG 36.4 mmHg PV Peak Tigre 0.7 m/sec PV Peak PG 2.0 mmHg RVSP 39.4 mmHg Findings Left Ventricle: Lower limits of normal systolic function, but all wall segments not imaged in apical views. Normal left ventricular cavity size. Mild concentric left ventricular hypertrophy. Ejection fraction is visually estimated at 5055 %. Tissue Doppler/Mitral Doppler indices are within normal limits. Right Ventricle: Normal right ventricular size. Left Atrium: The left atrium is normal in size. Right Atrium: The right atrium is normal in size. Atrial Septum: Normal atrial septum. Ventricular septum: Normal/intact ventricular septum. Mitral Valve: Normal appearance of the mitral valve. Mild mitral valve regurgitation. Aortic Valve: No significant aortic stenosis or insufficiency. Normal trileaflet aortic valve structure. Tricuspid Valve: Normal appearance of the tricuspid valve. Estimated peak PA systolic pressure 39 mmHg. There is mild tricuspid regurgitation. Pulmonic Valve: Normal pulmonic valve appearance. There is mild pulmonic regurgitation. Pericardium: Normal pericardium with no significant pericardial effusion. Aorta: Normal aortic root. IVC: Inferior vena cava without respiratory collapse, however, patient on ventilator. Pulmonary Artery: Normal pulmonary artery size. Conclusions 1.Technically challenging study. 2.The left ventricle is normal in size with lower limits of normal systolic function. However, not all wall segments well-visualized. 3.Estimated left ventricular ejection fraction of 50-55%. 4.Mild concentric left ventricular hypertrophy. Electronically Signed By: Trenton Clark 18-Jul-2016 16:27:27 -0700 Patient Name: KJ SHEIKH Study Date: 18-Jul-2016 [id number]
[2016-07-18 16:35] LABS: D-DIMER 9545.83 ng/ml (<460)
--- NOTE | 2016-07-18 17:18 | CONS ---
Date/Time of Note Date/Time of Note DATE: 07/18/16 TIME: 17:14 Assessment/Plan Assessment/Plan Chief Complaint/Hosp Course Assessment: Status post cardiac arrest - likely due to septic shock vs respiratory event Acute encephalopathy - possible anoxic brain injury Severe sepsis with septic shock - improved and off pressors Acute hypoxic respiratory failure - on mechanical ventilation, prior tracheostomy Healthcare-associated pneumonia Diabetes mellitus, type 1 End-stage renal disease - on hemodialysis Anemia - status post pRBC transfusions Recommendations: -echocardiogram showed LVEF 50-55%, mild LVH -follow up neurology, infectious disease, pulmonology, nephrology recommendations Problems: Consultation Date/Type/Reason Admit Date/Time Jul 17, 2016 at 13:33 Initial Consult Date Type of Consultation: Cardiology 24 HR Interval Summary Free Text/Dictation On mechanical ventilation via tracheostomy. Unresponsive. Detailed Summary Additional Comments Unable to obtain review of systems due to patient's mental status. Exam/Review of Systems Vital Signs Vitals Vital Signs Date Time Temp Pulse Resp B/P Pulse Ox O2 Delivery O2 Flow Rate FiO2 07/18/16 16:00 98.6 135 24 123/69 100 Mechanical Ventilator 07/18/16 11:29 50 Intake and Output 07/17/16 07/17/16 07/18/16 15:00 23:00 07:00 Intake Total 673.75 ml 676.32 ml Output Total 200 ml 15 ml Balance 473.75 ml 661.32 ml Exam Constitutional: non-verbal, No alert Psych: No nl mood/affect Head: atraumatic, normocephalic Eyes: nl conjunctiva, nl lids ENMT: nl external ears & nose, nl nasal mucosa & septum Neck: other (tracheostomy) Respiratory: crackles/rales Cardiovascular: No regular rate and rhythm (tachycardic) Gastrointestinal: non-tender, soft Extremities: No clubbing, No cyanosis, No edema Neurological: No nl mental status, No nl speech Results Result Diagram: 07/18/16 1440 07/18/16 1440 Results 24 hrs Laboratory Tests Test 07/17/16 17:36 07/17/16 19:06 07/17/16 19:15 07/17/16 19:55 Bedside Glucose 282 H 343 H 299 H Blood Gas Specimen Source Blood arterial Arterial Blood Date Drawn 07/17/2016 8:10:59 PM Arterial Blood pH (Temp corrected) 7.178 *L Arterial Blood pCO2 (Temp correct) 39.0 Arterial Blood pO2 (Temp corrected) 76.0 L Arterial Blood HCO3 14.2 L Arterial Blood Base Excess -13.3 L Arterial Blood Oxygen Saturation 93.7 L Endy Test ACCEPTAB Arterial Blood Gas Puncture Site Right Radial Arterial Blood Carboxyhemoglobin 0.3 Arterial Blood Methemoglobin 0.4 Blood Gas A-a O2 Differential 308.9 H Oxyhemoglobin Percent 93.0 Total Hemoglobin 8.7 L Blood Gas Temperature 37.0 Blood Gas Respiration Rate 20.0 Blood Gas Modality VENT - AC FiO2 60.0 Blood Gas Tidal Volume 500.0 Blood Gas Low PEEP Setting 5.0 Blood Gas Critical Value Read Back RN. ALEGRIA Blood Gas Notified Whom EG Blood Gas Notified Time 07/17/2016 8:20:01 PM Test 07/17/16 21:19 07/17/16 21:51 07/17/16 22:55 07/18/16 00:05 Bedside Glucose 204 172 115 82 Test 07/18/16 01:07 07/18/16 02:11 07/18/16 02:54 07/18/16 04:58 Bedside Glucose 87 121 Hemoglobin 7.8 #L 8.1 L Hematocrit 24.1 L 26.0 L Lactic Acid Level 2.6 H 2.9 H White Blood Count 42.2 H Red Blood Count 2.68 #L Mean Corpuscular Volume 97.0 Mean Corpuscular Hemoglobin 30.2 Mean Corpuscular Hemoglobin Concent 31.2 L Red Cell Distribution Width 18.0 H Platelet Count 303 Mean Platelet Volume 10.2 Neutrophils % 59.0 Band Neutrophils % 37.0 H Lymphocytes % 1.0 L Monocytes % 3.0 Neutrophils # 24.9 H Lymphocytes # 0.4 L Monocytes # 1.3 H Sodium Level 136 Potassium Level 5.3 H Chloride Level 103 Carbon Dioxide Level 17 L Anion Gap 21 H Blood Urea Nitrogen 93 H Creatinine 3.77 H Glucose Level 118 # Hemoglobin A1c 5.8 Calcium Level 8.5 Phosphorus Level 4.3 Magnesium Level 2.2 Total Bilirubin 0.0 L Direct Bilirubin 0.00 Indirect Bilirubin 0.0 Aspartate Amino Transf (AST/SGOT) 90 H Alanine Aminotransferase (ALT/SGPT) 39 Alkaline Phosphatase 157 H Total Protein 7.6 Albumin 3.1 L Globulin 4.50 H Albumin/Globulin Ratio 0.68 Vitamin B12 Level 828 Folate > 20.0 H Test 07/18/16 06:08 07/18/16 11:24 07/18/16 12:33 07/18/16 14:40 Bedside Glucose 119 106 109 Platelet Count 289 Prothrombin Time 19.8 H Prothrombin Time Ratio 1.5 INR International Normalized Ratio 1.67 Activated Partial Thromboplast Time 41.2 H Thrombin Time 15.0 Fibrinogen 438.0 Plasma Fibrin Degradation Products Pending D-Dimer 9545.83 H D-Dimer Comment Potassium Level 3.8 Magnesium Level 1.9 Medications Medications Current Medications Norepinephrine/ Dextrose (Levophed/D5W) 500 ml @ 1.87 mls/hr TITRATE IV Last administered on 07/17/16 14:01; Admin Dose 18.75 MLS/HR; Start 07/17/16 at 12: 30 Ondansetron HCl (Zofran Inj) 4 mg Q6H PRN IV NAUSEA AND/OR VOMITING; Start at 16:00 Pantoprazole (Protonix Iv) 40 mg DAILY@06 IV Last administered on 07/18/16 06: 15; Admin Dose 40 MG; Start 07/18/16 at 06:00 Atropine Sulfate (Atropine 1% Oph Oint) 1 applic QID BOTH EYES Last administered on 07/18/16 15:22; Admin Dose 1 APPLIC; Start 07/17/16 at 17:00 Bisacodyl (Dulcolax Supp) 10 mg Q24H PRN [place] CONSTIPATION; Start 07/17/16 at 16: 00 Lorazepam (Ativan) 1 mg Q1H PRN IV seziure activity; Start 07/17/16 at 22:30 Lorazepam 1 mg 1 mg Q1H PRN IV seizure activity; Start 07/17/16 at 22:00 Dextrose/Sodium Chloride 1,000 ml @ 40 mls/hr Q24H IV Last administered on 23:11; Admin Dose 50 MLS/HR; Start 07/17/16 at 22:30 Cefepime HCl (Maxipime 1gm/50 ml (Pmx)) 50 ml @ 100 mls/hr Q12 IVPB Last administered on 07/18/16 11:21; Admin Dose 100 MLS/HR; Start 07/18/16 at 02:01 Acetaminophen (Tylenol Liquid) 650 mg Q6H PRN GTB PAIN AND OR ELEVATED TEMP Last administered on 07/18/16 02:03; Admin Dose 650 MG; Start 07/18/16 at 02:00 Miscellaneous Information 1 ea NOTE XX ; Start 07/18/16 at 02:00 Glucose (Glutose) 15 gm Q15M PRN PO DECREASED GLUCOSE; Start 07/18/16 at 02:00 Glucose (Glutose) 22.5 gm Q15M PRN PO DECREASED GLUCOSE; Start 07/18/16 at 02:00 Dextrose (D50w Syringe) 25 ml Q15M PRN IV DECREASED GLUCOSE; Start 07/18/16 at 02:00 Dextrose (D50w Syringe) 50 ml Q15M PRN IV DECREASED GLUCOSE; Start 07/18/16 at 02:00 Glucagon (Glucagen) 1 mg Q15M PRN IM DECREASED GLUCOSE; Start 07/18/16 at 02:00 Glucose (Glutose) 15 gm Q15M PRN BUCCAL DECREASED GLUCOSE; Start 07/18/16 at 02: 00 Insulin Aspart NOVOLOG *MILD* ALGORI... Q4 SC ; Start 07/18/16 at 17:00 Azithromycin 250 ml @ 250 mls/hr Q24H IVPB Last administered on 07/18/16 15:52 ; Admin Dose 250 MLS/HR; Start 07/18/16 at 16:00 Levetiracetam/ Sodium Chloride (Keppra Iv/NS) 107.5 ml @ 430 mls/hr Q12 IVPB Last administered on 07/18/16 15:20; Admin Dose 430 MLS/HR; Start 07/18/16 at 15: 00 LENI DAVID MD Jul 18, 2016 17:17
[2016-07-18] MEDS: DEXTROSE 50% 50 ML SYRINGE IV PRN ×2 (17:59→20:44)
[2016-07-19] VITALS (64 sets, daily range): BP systolic 98–138; BP diastolic 53–87; PULSE 86–102; RESP 19–48
[2016-07-19] MEDS: INSULIN ASPART [NOVOLOG] 3 ML PEN SC SCH ×6 (01:00→20:51)
[2016-07-19] MEDS: DEXTROSE 5%-0.9% NACL 1,000 ML IV SCH ×2 (03:45→21:22)
[2016-07-19 04:51] LABS: AADO2 Arterial 197.9 mmHg (7.0-24.0); Allen Test ACCEPTAB; Arterial Base Excess -5.9 mmol/L (-3.0-3); Arterial COHb 0.6 % (0.0-3.0); Arterial HCO3 19.3 mmol/L (22.0-26.0); Arterial MetHb 0.4 % (0.0-1.5); Arterial Total Hemglobin 8.9 g/dl (12.0-18.0); MODE VENT - AC
[2016-07-19 04:55] LABS: ADD SCAN DIFF NO
[2016-07-19 05:13] LABS: ABNORMAL IP MESSAGE 1; HEMATOCRIT 24.6 % (42.0-52.0); HEMOGLOBIN 7.6 g/dl (14.0-18.0); MEAN CORPUSCULAR HEMOGLOBIN 29.8 pg (29.0-33.0); MEAN CORPUSCULAR HGB CONC 30.9 g/dl (32.0-37.0); MEAN CORPUSCULAR VOLUME 96.5 fl (82.0-101.0); MEAN PLATELET VOLUME 10.8 fl (7.4-10.4); PLATELET COUNT 302 10^3/UL (140-415); RED BLOOD COUNT 2.55 10^6/ul (4.70-6.10); RED CELL DISTRIBUTION WIDTH 18.3 % (11.5-14.5); WHITE BLOOD COUNT 43.9 10^3/ul (4.8-10.8)
[2016-07-19 05:34] LABS: MAGNESIUM 2.1 mg/dl (1.7-2.5); PHOSPHORUS 5.2 mg/dl (2.5-4.9)
[2016-07-19 05:41] LABS: ALBUMIN 2.8 g/dl (3.3-4.9)
[2016-07-19 05:42] LABS: POTASSIUM 4.4 mmol/L (3.5-5.1)
[2016-07-19 05:44] LABS: ALBUMIN/GLOBULIN RATIO 0.7; CREATININE 2.88 mg/dl (0.61-1.24); TOTAL PROTEIN 6.8 g/dl (6.1-8.1)
[2016-07-19] MEDS: PANTOPRAZOLE 40 MG INJ IV SCH (06:34)
--- NOTE | 2016-07-19 08:24 | PN ---
DATE: 07/19/2016 SUBJECTIVE: The patient is currently off pressor support and has been hemodynamically stable. He h ad hemodialysis and tolerated well. OBJECTIVE: GENERAL: The patient remains unresponsive. VITAL SIGNS: Blood pressure 114/68, respiratory 25, pulse 93, temperature 98.6. I's AND O'S: The patient had 2 liters in with 2.3 liters out. HEENT: Head is normocephalic. NECK: Supple. HEART: Regular rate. LUNGS: Show diminished breath sounds at base. ABDOMEN: Soft, nontender to palpation without rebound or guarding. EXTREMITIES: Negative for clubbing, cyanosis, edema. DERMATOLOGIC: No rashes. MUSCULOSKELETAL: No joint effusions. NEUROLOGIC: No change in exam. MEDICATIONS: The patient's medications have been reviewed. LABORATORY DATA: Shows sodium 136, potassium 4.4, chloride 103, BUN 68, creatinine 2.88. White cou nt 43.7, hemoglobin 7.6, hematocrit 24.6, platelet count is 302. The patient's stool culture has be en reviewed. Blood culture is negative to date. ASSESSMENT AND PLAN: 1. End-stage renal disease. The patient is on dialysis Wednesday, Wednesday, Wednesday. Currently, the patient is off schedule. Plan for dialysis again today for solute clearance and volume removal. 2. Anemia of chronic disease, questionable bleed. The patient is status post blood transfusion. C ontinue Epogen with hemodialysis. 3. Hyperkalemia secondary to end-stage renal disease, acidemia, improved. Continue dialysis on a l ow potassium bath. 4. Mineral bone disorder. Continue to monitor calcium and phosphorus levels. 5. Metabolic acidosis, resolved. 6. Status post code arrest, likely from septic shock. Continue to monitor. 7. Ventilator-dependent respiratory failure. Vent settings reviewed. ABGs reviewed. Continue to monitor. Follow with pulmonary. 8. Dysphagia status post PEG. Continue tube feeding. 9. Sepsis status post shock secondary to healthcare-associated pneumonia. Continue IV antibiotics. IV fluids are being titrated down. Continue to monitor. Follow up cultures. Follow up with Infe ctious Disease. 10. Diabetes. Continue Accu-Cheks and sliding scale. 11. Acute on chronic encephalopathy. Etiology is toxic metabolic. Continue to monitor. 12. Leukocytosis. Etiology is presumed to be secondary to infectious. Continue to monitor. Please note I spent over 40 minutes of critical care time with this patient. Dictated By: KENTON MATAMOROS/LAURA Conf#: [id number] DID#: [id number]
[2016-07-19] MEDS: CEFEPIME 1GM/50 ML (PMX) 50 ML IVPB SCH (09:21)
[2016-07-19] MEDS: ATROPINE 1% 3.5 GM OPH OINT BOTH EYES SCH ×4 (09:21→20:49)
[2016-07-19] MEDS: LEVETIRACETAM IV 750 MG in SOD CHLORIDE 0.9% 100 ML IVPB SCH ×2 (09:21→22:23)
[2016-07-19 09:59] LABS: LYMPHOCYTES # 2.2 10^3/ul (0.8-2.9); MONOCYTE # 2.2 10^3/ul (0.3-0.9); NEUTROPHIL # 31.6 10^3/ul (1.6-7.5)
[2016-07-19] MEDS: MUPIROCIN 2% 22 GM OINT TOP SCH ×2 (12:32→22:24)
[2016-07-19] MEDS ORDERED: VANCOMYCIN IV PER PHARMACY XX SCH (13:00)
--- NOTE | 2016-07-19 13:24 | CONS ---
Date/Time of Note Date/Time of Note DATE: 07/19/16 TIME: 13:21 Consult Date/Type/Reason Admit Date/Time Jul 17, 2016 at 13:33 Initial Consult Date Type of Consultation: Pulm/CCM Subjective No events. Remains unresponsive on MV. Objective Vital Signs Date Time Temp Pulse Resp B/P Pulse Ox O2 Delivery O2 Flow Rate FiO2 07/19/16 12:00 94 07/19/16 11:30 28 138/87 99 07/19/16 11:00 Mechanical Ventilator 07/19/16 10:55 40 07/19/16 08:00 98.9 Intake and Output 07/18/16 07/18/16 07/19/16 15:00 23:00 07:00 Intake Total 910 ml 835.0 ml 320 ml Output Total 4100 ml 0 ml 10 ml Balance -3190 ml 835.0 ml 310 ml Exam NECK: Supple. No thyromegaly. Trach site is clear. CARDIOVASCULAR: Regular rate and rhythm. S1, S2. CHEST: There are coarse bilateral breath sounds, with some rhonchi heard bilaterally. ABDOMEN: Soft. G-tube is in place. EXTREMITIES: No cyanosis, clubbing or edema. NEUROLOGIC: He is flaccid. He is overbreathing the ventilator; however, there is no gag or corneals present. Results/Medications Result Diagram: 07/19/16 0400 07/19/16 0400 Results 24 hrs Laboratory Tests Test 07/18/16 14:40 07/18/16 17:51 07/18/16 18:15 07/18/16 20:17 Platelet Count 289 Prothrombin Time 19.8 H Prothrombin Time Ratio 1.5 INR International Normalized Ratio 1.67 Activated Partial Thromboplast Time 41.2 H Thrombin Time 15.0 Fibrinogen 438.0 Plasma Fibrin Degradation Products D-Dimer 9545.83 H D-Dimer Comment Potassium Level 3.8 Magnesium Level 1.9 Bedside Glucose 62 L 202 72 Test 07/18/16 20:36 07/18/16 21:23 07/18/16 23:19 07/19/16 00:58 Bedside Glucose 61 L 93 83 95 Test 07/19/16 04:00 07/19/16 05:00 07/19/16 05:04 07/19/16 09:11 White Blood Count 43.9 H Red Blood Count 2.55 L Hemoglobin 7.6 L Hematocrit 24.6 L Mean Corpuscular Volume 96.5 Mean Corpuscular Hemoglobin 29.8 Mean Corpuscular Hemoglobin Concent 30.9 L Red Cell Distribution Width 18.3 H Platelet Count 302 Mean Platelet Volume 10.8 H Neutrophils % 72.0 Band Neutrophils % 18.0 H Lymphocytes % 5.0 L Monocytes % 5.0 Neutrophils # 31.6 H Lymphocytes # 2.2 Monocytes # 2.2 H Sodium Level 136 Potassium Level 4.4 Chloride Level 103 Carbon Dioxide Level 21 Anion Gap 16 Blood Urea Nitrogen 68 H Creatinine 2.88 H Glucose Level 106 Lactic Acid Level 1.1 Calcium Level 8.0 L Phosphorus Level 5.2 H Magnesium Level 2.1 Total Bilirubin 0.0 L Direct Bilirubin 0.00 Indirect Bilirubin 0.0 Aspartate Amino Transf (AST/SGOT) 56 H Alanine Aminotransferase (ALT/SGPT) 36 Alkaline Phosphatase 162 H Total Protein 6.8 Albumin 2.8 L Globulin 4.00 H Albumin/Globulin Ratio 0.70 Blood Gas Specimen Source Blood arterial Arterial Blood Date Drawn 07/19/2016 4:39:23 AM Arterial Blood pH (Temp corrected) 7.337 L Arterial Blood pCO2 (Temp correct) 36.9 Arterial Blood pO2 (Temp corrected) 117.1 H Arterial Blood HCO3 19.3 L Arterial Blood Base Excess -5.9 L Arterial Blood Oxygen Saturation 98.0 Endy Test ACCEPTAB Arterial Blood Gas Puncture Site Right Radial Arterial Blood Carboxyhemoglobin 0.6 Arterial Blood Methemoglobin 0.4 Blood Gas A-a O2 Differential 197.9 H Oxyhemoglobin Percent 97.0 Total Hemoglobin 8.9 L Blood Gas Temperature 37.0 Blood Gas Respiration Rate 20.0 Blood Gas Actual Respiration Rate 20 Blood Gas Modality VENT - AC FiO2 50.0 Blood Gas Tidal Volume 500.0 Blood Gas Low PEEP Setting 5.0 Blood Gas Notified Whom LW Blood Gas Notified Time 07/19/2016 4:51:08 AM Bedside Glucose 153 258 H Medications Current Medications Norepinephrine/ Dextrose (Levophed/D5W) 500 ml @ 1.87 mls/hr TITRATE IV Last administered on 07/17/16t 14:01; Admin Dose 18.75 MLS/HR; Start 07/17/16 at 12: 30 Ondansetron HCl (Zofran Inj) 4 mg Q6H PRN IV NAUSEA AND/OR VOMITING; Start at 16:00 Pantoprazole (Protonix Iv) 40 mg DAILY@06 IV Last administered on 07/19/16 06: 34; Admin Dose 40 MG; Start 07/18/16 at 06:00 Atropine Sulfate (Atropine 1% Oph Oint) 1 applic QID BOTH EYES Last administered on 07/19/16 09:21; Admin Dose 1 APPLIC; Start 07/17/16 at 17:00 Bisacodyl (Dulcolax Supp) 10 mg Q24H PRN [place] CONSTIPATION; Start 07/17/16 at 16: 00 Lorazepam (Ativan) 1 mg Q1H PRN IV seziure activity; Start 07/17/16 at 22:30 Lorazepam 1 mg 1 mg Q1H PRN IV seizure activity; Start 07/17/16 at 22:00 Dextrose/Sodium Chloride (D5-NS) 1,000 ml @ 40 mls/hr Q24H IV Last administered on 07/19/16 03:45; Admin Dose 40 MLS/HR; Start 07/17/16 at 22:30 Acetaminophen (Tylenol Liquid) 650 mg Q6H PRN GTB PAIN AND OR ELEVATED TEMP Last administered on 07/18/16 02:03; Admin Dose 650 MG; Start 07/18/16 at 02:00 Miscellaneous Information 1 ea NOTE XX ; Start 07/18/16 at 02:00 Glucose (Glutose) 15 gm Q15M PRN PO DECREASED GLUCOSE; Start 07/18/16 at 02:00 Glucose (Glutose) 22.5 gm Q15M PRN PO DECREASED GLUCOSE; Start 07/18/16 at 02:00 Dextrose (D50w Syringe) 25 ml Q15M PRN IV DECREASED GLUCOSE Last administered on 07/18/16 20:44; Admin Dose 25 ML; Start 07/18/16 at 02:00 Dextrose (D50w Syringe) 50 ml Q15M PRN IV DECREASED GLUCOSE; Start 07/18/16 at 02:00 Glucagon (Glucagen) 1 mg Q15M PRN IM DECREASED GLUCOSE; Start 07/18/16 at 02:00 Glucose (Glutose) 15 gm Q15M PRN BUCCAL DECREASED GLUCOSE; Start 07/18/16 at 02: 00 Insulin Aspart NOVOLOG *MILD* ALGORI... Q4 SC Last administered on 07/19/16 09: 22; Admin Dose 2 UNIT; Start 07/18/16 at 17:00 Azithromycin 250 ml @ 250 mls/hr Q24H IVPB Last administered on 07/18/16 15:52 ; Admin Dose 250 MLS/HR; Start 07/18/16 at 16:00 Levetiracetam/ Sodium Chloride (Keppra Iv/NS) 107.5 ml @ 430 mls/hr Q12 IVPB Last administered on 07/19/16 09:21; Admin Dose 430 MLS/HR; Start 07/18/16 at 15: 00 Mupirocin 1 applic 1 applic BID TOP ; Start 07/19/16 at 12:00 Meropenem (Merrem 500 Mg/ 100 ml (Pmx)) 100 ml @ 200 mls/hr Q12 IVPB ; Start at 21:00; Status UNV Metronidazole (Flagyl) 500 mg Q8 PO ; Start 07/19/16 at 14:00 Assessment/Plan Additional Assessment/Plan IMPRESSION: 1. Status post cardiopulmonary arrest. This was likely a respiratory event, possibly due to mucus plugging and central airway obstruction versus an aspiration event that led to his demise. 2. Respiratory failure, vent dependence. 3. Encephalopathy. ? Anoxic 4. Chronic kidney disease. On hemodialysis. 5. Lactic acidosis. Now improved status post resuscitation post code. 6. Multifocal pneumonia. Possibly aspiration versus healthcare associated. RECOMMENDATIONS: 1. Ventilatory support. 2. Abx with plans to de-escalate pending cultures 3. Follow-up EEG to assess for possible non-convulsive status. 5. Continue keppra for the time being 6. The patient's prognosis is extremely poor; however, will need a little bit more time to determine the severity of his likely anoxic brain injury. 35 min critical care time MARY BETH ALBA MD Jul 19, 2016 13:24
[2016-07-19] MEDS: metroNIDAZOLE 500 MG TAB PO SCH ×2 (14:02→22:24)
--- NOTE | 2016-07-19 14:10 | SP ---
DATE OF PROCEDURE: 07/18/2016 INDICATION: A 35-year-old gentleman status post cardiopulmonary arrest, intubated, comatose, curren tly on Keppra. DESCRIPTION OF PROCEDURE: Routine EEG was recorded digitally. [id number] and [id number] akbar ages were recorded and reviewed. All impedances were measured and recorded. Cap electrodes were pl aced in accordance with International 10-20 system of electrode placement. Suppression burst pattern of electrical activity seen throughout the recording with suppression epis ode lasts usually from 3 to 10 seconds and bursts of electrical activity shorter usually for 1 to 3 seconds. During burst of background, background seems to be slower predominantly 4 to 6 cycles per second. No epileptiform transients were seen. No signs of ongoing electrographic seizures. IMPRESSION: Abnormal study secondary to suppression-burst pattern of background activity, as well a s slowing of background during burst of background. All reflect severity of anoxic encephalopathy. Dictated By: YARELI MENG/LAURA Conf#: [id number] DID#: [id number] CC: HUBER IBARRA MD;*End*
--- NOTE | 2016-07-19 14:26 | RADRPT ---
PROCEDURE: XR Chest. CLINICAL INDICATION: Shortness of breath TECHNIQUE: 2 frontal views of the chest COMPARISON: Chest radiograph July 17, 2016 FINDINGS: There is a tracheostomy tube. There is left mid lung and right lower lung airspace disease, slightl y improved from prior. The heart size is normal. Small bilateral pleural effusions are noted. There is no pneumothorax. There is no acute osseous abnormality. IMPRESSION: 1. Interval improvement in the left mid lung and right lower lung airspace disease, though some air space disease persists. 2. Small bilateral pleural effusions. 3. Tracheostomy tube. RPTAT: [facility] .Cornelius Mcneal MD, MD Date Time Electronically viewed and signed by .Cornelius Mcneal MD, on 07/19/2016 14:26 .K/
[2016-07-19] MEDS ORDERED: MEROPENEM 500 MG/100 ML (PMX) 100 ML IVPB SCH (15:00)
--- NOTE | 2016-07-19 15:01 | PN ---
DATE: 07/19/2016 SUBJECTIVE: No events overnight. Patient spiked a fever yesterday of 101.7. Had been afebrile ove rnight. He is lying comfortably in bed, nonverbal, noncommunicative. Mother at bedside. VITAL SIGNS: Temperature 98.9, pulse 93, respirations 28, blood pressure 138/77, saturation 99% on 40. WBC 43.9, H and H 7.6 and 24.6, platelets 302, neutrophils 72. MICROBIOLOGY: Blood cultures have been negative. 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 INDWELLINGS: Trach, PEG, Baker, left upper extremity AV fistula, right femoral triple lumen cathete r, rectal tube. ANTIMICROBIALS: The patient is on IV vancomycin, cefepime, Zithromax. PHYSICAL EXAMINATION: GENERAL: Chronically ill-appearing, middle-aged white man who is in no distress. HEENT: Head atraumatic, normocephalic. Sclerae anicteric. Buccal mucosa dry. NECK: Supple. Tracheostomy present. CHEST: Rise symmetrical. Breath sounds diminished to bases. HEART: S1, S2. ABDOMEN: Soft, bowel tones present. EXTREMITIES: With trace edema. ASSESSMENT: 1. Sepsis with persistent leukocytosis. 2. Status post cardiac arrest. 3. Diarrhea. 4. Possible aspiration pneumonia. 5. Acute encephalopathy, possibly anoxic. 6. End-stage renal disease. 7. Diabetes. PLAN: We are going to change cefepime to Meropenem, add Flagyl. Continue Bactroban to nares and ad d Hibiclens baths daily for 5 days for MRSA decolonization. Consider CT of the brain and neurology evaluation. Send sputum for cultures. Dictated By: MICKY MIRANDA PRACTICING DERMATOLOGIST for RENEE CURRY/NTS Conf#: [id number] DID#: [id number]
[2016-07-19] MEDS: AZITHROMYCIN 500MG/NS (PMX) 250 ML IVPB SCH (15:53)
--- NOTE | 2016-07-19 17:10 | PN ---
Date/Time of Note Date/Time of Note DATE: 07/19/16 TIME: 17:08 Assessment/Plan VTE Prophylaxis VTE Prophylaxis Intervention: SCD's Assessment/Plan Chief Complaint/Hosp Course 1. Cardiac arrest possibly 2/2 Septic Shock -cont Cefepime and Levo gtt as needed, F/U on Cx's 2. Acute encephalopathy secondary to cardiac arrest -EEG suggests anoxic encephalopathy, Neuro consult- aware -CT Brain today to eval 3. History of debility secondary to uncontrolled diabetes type 1 with persistent episodes of pneumonia, status post tracheostomy and PEG in the past -Pulm consult 4. ESRD -Nephro consult 5. Macrocytic anemia -B12 and folate are WNL's PPX- SCDs Problems: Subjective 24 Hr Interval Summary Subjective hx not possible: pt non-verbal Exam/Review of Systems Vital Signs Vitals Vital Signs Date Time Temp Pulse Resp B/P Pulse Ox O2 Delivery O2 Flow Rate FiO2 07/19/16 15:30 101 26 107/60 100 07/19/16 15:25 40 07/19/16 15:00 Mechanical Ventilator 07/19/16 12:30 97.9 Intake and Output 07/18/16 07/18/16 07/19/16 15:00 23:00 07:00 Intake Total 910 ml 835.0 ml 320 ml Output Total 4100 ml 0 ml 10 ml Balance -3190 ml 835.0 ml 310 ml Exam Constitutional: non-verbal Respiratory: clear to auscultation Cardiovascular: regular rate and rhythm Gastrointestinal: soft, No distended Musculoskeletal: nl extremities to inspection Results Result Diagram: 07/19/16 0400 07/19/16 0400 Results 24 hrs Laboratory Tests Test 07/18/16 17:51 07/18/16 18:15 07/18/16 20:17 07/18/16 20:36 Bedside Glucose 62 L 202 72 61 L Test 07/18/16 21:23 07/18/16 23:19 07/19/16 00:58 07/19/16 04:00 Bedside Glucose 93 83 95 White Blood Count 43.9 H Red Blood Count 2.55 L Hemoglobin 7.6 L Hematocrit 24.6 L Mean Corpuscular Volume 96.5 Mean Corpuscular Hemoglobin 29.8 Mean Corpuscular Hemoglobin Concent 30.9 L Red Cell Distribution Width 18.3 H Platelet Count 302 Mean Platelet Volume 10.8 H Neutrophils % 72.0 Band Neutrophils % 18.0 H Lymphocytes % 5.0 L Monocytes % 5.0 Neutrophils # 31.6 H Lymphocytes # 2.2 Monocytes # 2.2 H Sodium Level 136 Potassium Level 4.4 Chloride Level 103 Carbon Dioxide Level 21 Anion Gap 16 Blood Urea Nitrogen 68 H Creatinine 2.88 H Glucose Level 106 Lactic Acid Level 1.1 Calcium Level 8.0 L Phosphorus Level 5.2 H Magnesium Level 2.1 Total Bilirubin 0.0 L Direct Bilirubin 0.00 Indirect Bilirubin 0.0 Aspartate Amino Transf (AST/SGOT) 56 H Alanine Aminotransferase (ALT/SGPT) 36 Alkaline Phosphatase 162 H Total Protein 6.8 Albumin 2.8 L Globulin 4.00 H Albumin/Globulin Ratio 0.70 Test 07/19/16 05:00 07/19/16 05:04 07/19/16 09:11 07/19/16 16:28 Blood Gas Specimen Source Blood arterial Arterial Blood Date Drawn 07/19/2016 4:39:23 AM Arterial Blood pH (Temp corrected) 7.337 L Arterial Blood pCO2 (Temp correct) 36.9 Arterial Blood pO2 (Temp corrected) 117.1 H Arterial Blood HCO3 19.3 L Arterial Blood Base Excess -5.9 L Arterial Blood Oxygen Saturation 98.0 Endy Test ACCEPTAB Arterial Blood Gas Puncture Site Right Radial Arterial Blood Carboxyhemoglobin 0.6 Arterial Blood Methemoglobin 0.4 Blood Gas A-a O2 Differential 197.9 H Oxyhemoglobin Percent 97.0 Total Hemoglobin 8.9 L Blood Gas Temperature 37.0 Blood Gas Respiration Rate 20.0 Blood Gas Actual Respiration Rate 20 Blood Gas Modality VENT - AC FiO2 50.0 Blood Gas Tidal Volume 500.0 Blood Gas Low PEEP Setting 5.0 Blood Gas Notified Whom LW Blood Gas Notified Time 07/19/2016 4:51:08 AM Bedside Glucose 153 258 H 220 Medications Medications Current Medications Norepinephrine/ Dextrose (Levophed/D5W) 500 ml @ 1.87 mls/hr TITRATE IV Last administered on 07/17/16t 14:01; Admin Dose 18.75 MLS/HR; Start 07/17/16 at 12: 30 Ondansetron HCl (Zofran Inj) 4 mg Q6H PRN IV NAUSEA AND/OR VOMITING; Start at 16:00 Pantoprazole (Protonix Iv) 40 mg DAILY@06 IV Last administered on 07/19/16 06: 34; Admin Dose 40 MG; Start 07/18/16 at 06:00 Atropine Sulfate (Atropine 1% Oph Oint) 1 applic QID BOTH EYES Last administered on 07/19/16 13:55; Admin Dose 1 APPLIC; Start 07/17/16 at 17:00 Bisacodyl (Dulcolax Supp) 10 mg Q24H PRN [place] CONSTIPATION; Start 07/17/16 at 16: 00 Lorazepam (Ativan) 1 mg Q1H PRN IV seziure activity; Start 07/17/16 at 22:30 Lorazepam 1 mg 1 mg Q1H PRN IV seizure activity; Start 07/17/16 at 22:00 Dextrose/Sodium Chloride (D5-NS) 1,000 ml @ 40 mls/hr Q24H IV Last administered on 07/19/16 03:45; Admin Dose 40 MLS/HR; Start 07/17/16 at 22:30 Acetaminophen (Tylenol Liquid) 650 mg Q6H PRN GTB PAIN AND OR ELEVATED TEMP Last administered on 07/18/16 02:03; Admin Dose 650 MG; Start 07/18/16 at 02:00 Miscellaneous Information 1 ea NOTE XX ; Start 07/18/16 at 02:00 Glucose (Glutose) 15 gm Q15M PRN PO DECREASED GLUCOSE; Start 07/18/16 at 02:00 Glucose (Glutose) 22.5 gm Q15M PRN PO DECREASED GLUCOSE; Start 07/18/16 at 02:00 Dextrose (D50w Syringe) 25 ml Q15M PRN IV DECREASED GLUCOSE Last administered on 07/18/16 20:44; Admin Dose 25 ML; Start 07/18/16 at 02:00 Dextrose (D50w Syringe) 50 ml Q15M PRN IV DECREASED GLUCOSE; Start 07/18/16 at 02:00 Glucagon (Glucagen) 1 mg Q15M PRN IM DECREASED GLUCOSE; Start 07/18/16 at 02:00 Glucose (Glutose) 15 gm Q15M PRN BUCCAL DECREASED GLUCOSE; Start 07/18/16 at 02: 00 Insulin Aspart NOVOLOG *MILD* ALGORI... Q4 SC Last administered on 07/19/16 13: 58; Admin Dose 2 UNIT; Start 07/18/16 at 17:00 Azithromycin 250 ml @ 250 mls/hr Q24H IVPB Last administered on 07/19/16 15:53 ; Admin Dose 250 MLS/HR; Start 07/18/16 at 16:00 Levetiracetam/ Sodium Chloride (Keppra Iv/NS) 107.5 ml @ 430 mls/hr Q12 IVPB Last administered on 07/19/16 09:21; Admin Dose 430 MLS/HR; Start 07/18/16 at 15: 00 Mupirocin 1 applic 1 applic BID TOP Last administered on 07/19/16 12:32; Admin Dose 1 APPLIC; Start 07/19/16 at 12:00 Meropenem (Merrem 500 Mg/ 100 ml (Pmx)) 100 ml @ 200 mls/hr Q12 IVPB Last administered on 07/19/16 15:53; Admin Dose 200 MLS/HR; Start 07/19/16 at 15:00; Stop 07/19/16 at 20:00 Metronidazole 500 mg 500 mg Q8 PO Last administered on 07/19/16 14:02; Admin Dose 500 MG; Start 07/19/16 at 14:00 Meropenem (Merrem 500 Mg/ 100 ml (Pmx)) 100 ml @ 200 mls/hr Q24H IVPB ; Start 07/20/16 at 14:00 DIANE GIBBONS Jul 19, 2016 17:10
--- NOTE | 2016-07-19 20:27 | CONS ---
Date/Time of Note Date/Time of Note DATE: 07/19/16 TIME: 20:26 Assessment/Plan Assessment/Plan Chief Complaint/Hosp Course Assessment: Status post cardiac arrest - likely due to septic shock vs respiratory event Acute encephalopathy - possible anoxic brain injury Severe sepsis with septic shock - improved and off pressors Acute hypoxic respiratory failure - on mechanical ventilation, prior tracheostomy Healthcare-associated pneumonia Diabetes mellitus, type 1 End-stage renal disease - on hemodialysis Anemia - status post pRBC transfusions Recommendations: -echocardiogram showed LVEF 50-55%, mild LVH -follow up neurology, infectious disease, pulmonology, nephrology recommendations Problems: Consultation Date/Type/Reason Admit Date/Time Jul 17, 2016 at 13:33 Type of Consultation: Cardiology 24 HR Interval Summary Free Text/Dictation Remains unresponsive. Detailed Summary Additional Comments Unable to obtain review of systems, patient is unresponsive. Exam/Review of Systems Vital Signs Vitals Vital Signs Date Time Temp Pulse Resp B/P Pulse Ox O2 Delivery O2 Flow Rate FiO2 07/19/16 17:30 97 44 98/53 99 07/19/16 17:10 40 07/19/16 17:00 Mechanical Ventilator 07/19/16 16:00 98.5 Intake and Output 07/18/16 07/18/16 07/19/16 15:00 23:00 07:00 Intake Total 910 ml 835.0 ml 320 ml Output Total 4100 ml 0 ml 10 ml Balance -3190 ml 835.0 ml 310 ml Exam Constitutional: non-verbal, No alert Psych: No nl mood/affect Head: atraumatic, normocephalic Eyes: nl conjunctiva, nl lids ENMT: nl external ears & nose, nl nasal mucosa & septum Neck: other (tracheostomy) Respiratory: crackles/rales Cardiovascular: No regular rate and rhythm (tachycardic) Gastrointestinal: non-tender, soft Extremities: No clubbing, No cyanosis, No edema Neurological: No nl mental status, No nl speech Results Result Diagram: 07/19/16 0400 07/19/16 0400 Results 24 hrs Laboratory Tests Test 07/18/16 20:36 07/18/16 21:23 07/18/16 23:19 07/19/16 00:58 Bedside Glucose 61 L 93 83 95 Test 07/19/16 04:00 07/19/16 05:00 07/19/16 05:04 07/19/16 09:11 White Blood Count 43.9 H Red Blood Count 2.55 L Hemoglobin 7.6 L Hematocrit 24.6 L Mean Corpuscular Volume 96.5 Mean Corpuscular Hemoglobin 29.8 Mean Corpuscular Hemoglobin Concent 30.9 L Red Cell Distribution Width 18.3 H Platelet Count 302 Mean Platelet Volume 10.8 H Neutrophils % 72.0 Band Neutrophils % 18.0 H Lymphocytes % 5.0 L Monocytes % 5.0 Neutrophils # 31.6 H Lymphocytes # 2.2 Monocytes # 2.2 H Sodium Level 136 Potassium Level 4.4 Chloride Level 103 Carbon Dioxide Level 21 Anion Gap 16 Blood Urea Nitrogen 68 H Creatinine 2.88 H Glucose Level 106 Lactic Acid Level 1.1 Calcium Level 8.0 L Phosphorus Level 5.2 H Magnesium Level 2.1 Total Bilirubin 0.0 L Direct Bilirubin 0.00 Indirect Bilirubin 0.0 Aspartate Amino Transf (AST/SGOT) 56 H Alanine Aminotransferase (ALT/SGPT) 36 Alkaline Phosphatase 162 H Total Protein 6.8 Albumin 2.8 L Globulin 4.00 H Albumin/Globulin Ratio 0.70 Blood Gas Specimen Source Blood arterial Arterial Blood Date Drawn 07/19/2016 4:39:23 AM Arterial Blood pH (Temp corrected) 7.337 L Arterial Blood pCO2 (Temp correct) 36.9 Arterial Blood pO2 (Temp corrected) 117.1 H Arterial Blood HCO3 19.3 L Arterial Blood Base Excess -5.9 L Arterial Blood Oxygen Saturation 98.0 Endy Test ACCEPTAB Arterial Blood Gas Puncture Site Right Radial Arterial Blood Carboxyhemoglobin 0.6 Arterial Blood Methemoglobin 0.4 Blood Gas A-a O2 Differential 197.9 H Oxyhemoglobin Percent 97.0 Total Hemoglobin 8.9 L Blood Gas Temperature 37.0 Blood Gas Respiration Rate 20.0 Blood Gas Actual Respiration Rate 20 Blood Gas Modality VENT - AC FiO2 50.0 Blood Gas Tidal Volume 500.0 Blood Gas Low PEEP Setting 5.0 Blood Gas Notified Whom LW Blood Gas Notified Time 07/19/2016 4:51:08 AM Bedside Glucose 153 258 H Test 07/19/16 16:28 07/19/16 17:37 Bedside Glucose 220 264 H Medications Medications Current Medications Norepinephrine/ Dextrose (Levophed/D5W) 500 ml @ 1.87 mls/hr TITRATE IV Last administered on 07/17/16 14:01; Admin Dose 18.75 MLS/HR; Start 07/17/16 at 12: 30 Ondansetron HCl (Zofran Inj) 4 mg Q6H PRN IV NAUSEA AND/OR VOMITING; Start at 16:00 Pantoprazole (Protonix Iv) 40 mg DAILY@06 IV Last administered on 07/19/16 06: 34; Admin Dose 40 MG; Start 07/18/16 at 06:00 Atropine Sulfate (Atropine 1% Oph Oint) 1 applic QID BOTH EYES Last administered on 07/19/16 17:41; Admin Dose 1 APPLIC; Start 07/17/16 at 17:00 Bisacodyl (Dulcolax Supp) 10 mg Q24H PRN [place] CONSTIPATION; Start 07/17/16 at 16: 00 Lorazepam (Ativan) 1 mg Q1H PRN IV seziure activity; Start 07/17/16 at 22:30 Lorazepam 1 mg 1 mg Q1H PRN IV seizure activity; Start 07/17/16 at 22:00 Dextrose/Sodium Chloride (D5-NS) 1,000 ml @ 40 mls/hr Q24H IV Last administered on 07/19/16 03:45; Admin Dose 40 MLS/HR; Start 07/17/16 at 22:30 Acetaminophen (Tylenol Liquid) 650 mg Q6H PRN GTB PAIN AND OR ELEVATED TEMP Last administered on 07/18/16 02:03; Admin Dose 650 MG; Start 07/18/16 at 02:00 Miscellaneous Information 1 ea NOTE XX ; Start 07/18/16 at 02:00 Glucose (Glutose) 15 gm Q15M PRN PO DECREASED GLUCOSE; Start 07/18/16 at 02:00 Glucose (Glutose) 22.5 gm Q15M PRN PO DECREASED GLUCOSE; Start 07/18/16 at 02:00 Dextrose (D50w Syringe) 25 ml Q15M PRN IV DECREASED GLUCOSE Last administered on 07/18/16 20:44; Admin Dose 25 ML; Start 07/18/16 at 02:00 Dextrose (D50w Syringe) 50 ml Q15M PRN IV DECREASED GLUCOSE; Start 07/18/16 at 02:00 Glucagon (Glucagen) 1 mg Q15M PRN IM DECREASED GLUCOSE; Start 07/18/16 at 02:00 Glucose (Glutose) 15 gm Q15M PRN BUCCAL DECREASED GLUCOSE; Start 07/18/16 at 02: 00 Insulin Aspart NOVOLOG *MILD* ALGORI... Q4 SC Last administered on 07/19/16 17: 40; Admin Dose 4 UNIT; Start 07/18/16 at 17:00 Azithromycin 250 ml @ 250 mls/hr Q24H IVPB Last administered on 07/19/16 15:53 ; Admin Dose 250 MLS/HR; Start 07/18/16 at 16:00 Levetiracetam/ Sodium Chloride (Keppra Iv/NS) 107.5 ml @ 430 mls/hr Q12 IVPB Last administered on 07/19/16 09:21; Admin Dose 430 MLS/HR; Start 07/18/16 at 15: 00 Mupirocin (Bactroban) 1 applic BID TOP Last administered on 07/19/16 12:32; Admin Dose 1 APPLIC; Start 07/19/16 at 12:00 Metronidazole 500 mg 500 mg Q8 PO Last administered on 07/19/16 14:02; Admin Dose 500 MG; Start 07/19/16 at 14:00 Meropenem (Merrem 500 Mg/ 100 ml (Pmx)) 100 ml @ 200 mls/hr Q24H IVPB ; Start 07/20/16 at 14:00 Miscellaneous Information (*Rx Drug Level Order Reminder*) RANDOM VANCOMYCIN LEVEL ... ONCE ONCE XX ; Start 07/20/16 at 05:00; Stop 07/20/16 at 05:01 LENI DAVID MD Jul 19, 2016 20:27
[2016-07-19] MEDS ORDERED: MUPIROCIN 2% 22 GM OINT TOP SCH (21:00)
[2016-07-20] VITALS (40 sets, daily range): BP systolic 75–137; BP diastolic 40–85; PULSE 77–106; RESP 19–46
[2016-07-20] MEDS: INSULIN ASPART [NOVOLOG] 3 ML PEN SC SCH ×6 (01:02→20:34)
--- NOTE | 2016-07-20 04:55 | RADRPT ---
PROCEDURE: CT Brain without contrast. CLINICAL INDICATION: Seizure TECHNIQUE: Axial images from the skull base through the vertex without IV contrast. Multiplanar r eformatted images were made. Images were reviewed on a PACS workstation. The CTDIvol is 45.01 mGy and the DLP is 810.25 mGycm. One or more of the following dose reduction techniques were used: auto mated exposure control, adjustment of the mA and/or kV according to patient size, or use of iterativ e reconstruction technique. COMPARISON: None. FINDINGS: The ventricles and cisterns are normal for age. There is a single tiny low attenuation focus in the left frontal lobe white matter. There is no definite evidence for acute territorial infarction or intracranial hemorrhage. No mass or midline shift is seen. No extraaxial fluid collection is seen. The espinosa - white differentiation is somewhat less than expected bilaterally and diffusely. The vi sualized paranasal sinuses are clear. There is complete opacification of both mastoids which may be due to acute or chronic mastoiditis. IMPRESSION: Slightly less espinosa-white differentiation than expected bilaterally and diffusely. This may well be incidental but MRI followup is suggested. Thin section coronal imaging can also help to evaluate fo r possible source of seizure. Acute versus chronic bilateral mastoiditis. RPTAT: [facility]BE Physician Bayron Date Time Electronically viewed and signed by Physician Bayron on 07/20/2016 04:55 LE/
[2016-07-20 04:58] LABS: AADO2 Arterial 173.4 mmHg (7.0-24.0); Allen Test ACCEPTAB; Arterial COHb 0.4 % (0.0-3.0); Arterial Fraction of Oxyhgb 92.9 % (93.0-99.0); Arterial HCO3 19.7 mmol/L (22.0-26.0); Arterial MetHb 0.3 % (0.0-1.5); Arterial Total Hemglobin 8.9 g/dl (12.0-18.0); MODE VENT - AC
[2016-07-20] MEDS: PANTOPRAZOLE 40 MG INJ IV SCH (06:01)
[2016-07-20] MEDS: metroNIDAZOLE 500 MG TAB PO SCH ×3 (06:01→21:45)
[2016-07-20] MEDS: ACETAMINOPHEN 650MG/20.3ML CUP GTB PRN ×2 (06:25→08:14)
[2016-07-20 06:34] LABS: ADD SCAN DIFF NO
[2016-07-20 06:38] LABS: ABNORMAL IP MESSAGE 1; HEMATOCRIT 25.4 % (42.0-52.0); HEMOGLOBIN 7.9 g/dl (14.0-18.0); MEAN CORPUSCULAR HEMOGLOBIN 30.3 pg (29.0-33.0); MEAN CORPUSCULAR HGB CONC 31.1 g/dl (32.0-37.0); MEAN CORPUSCULAR VOLUME 97.3 fl (82.0-101.0); MEAN PLATELET VOLUME 10.6 fl (7.4-10.4); PLATELET COUNT 345 10^3/UL (140-415); RED BLOOD COUNT 2.61 10^6/ul (4.70-6.10); RED CELL DISTRIBUTION WIDTH 17.8 % (11.5-14.5); WHITE BLOOD COUNT 37.8 10^3/ul (4.8-10.8)
[2016-07-20 06:53] LABS: POTASSIUM 3.5 mmol/L (3.5-5.1)
[2016-07-20 06:55] LABS: CREATININE 2.52 mg/dl (0.61-1.24)
[2016-07-20 06:56] LABS: CALCIUM 8.2 mg/dl (8.4-10.2); PHOSPHORUS 5.2 mg/dl (2.5-4.9)
[2016-07-20] MEDS ORDERED: EPOETIN 4000 UNITS/1 ML INJ (ESRD) SC ONE (07:30)
--- NOTE | 2016-07-20 07:54 | PN ---
DATE: 07/20/2016 SUBJECTIVE: The patient had hemodialysis yesterday with 2 liters removed. No other events noted. No hemoptysis, hematemesis, or hematochezia. OBJECTIVE: VITAL SIGNS: Blood pressure 112/155, respirations 21, pulse , temperature 101.3. HEENT: Head is normocephalic. NECK: Supple. HEART: Regular rate. LUNGS: Show diminished breath sounds at the base. ABDOMEN: Soft, nontender to palpation. No rebound or guarding. EXTREMITIES: Negative for clubbing, cyanosis. No edema. DERMATOLOGIC: No rashes. MUSCULOSKELETAL: No joint effusions. NEUROLOGIC: No change in exam. LABORATORY DATA: Shows a white count of 37.8, hemoglobin 7.9, hematocrit of 25.4, platelet count is 345. Sodium 137, potassium 3.5, chloride 97, BUN ____, creatinine 2.52. The patient's ABG was rev iewed. IMAGING: Chest x-ray on 07/19/2016 shows small bilateral pleural effusion and improvement in right mid lung airspace disease. CT scan of brain was reviewed. No acute findings. ASSESSMENT AND PLAN: 1. End-stage renal disease. The patient is on dialysis Wednesday, Wednesday, Wednesday with access via t he AV fistula. The patient is currently off schedule. Will anticipate next dialysis tomorrow with for 3 hours, 2K bath, calcium 2.5. 2. Anemia of chronic disease, questionable bleed. The patient is status post blood transfusion. C ontinue to monitor hemoglobin and hematocrit levels. Continue Epogen. 3. Mineral bone disorder. Continue to monitor calcium and phosphorus levels. 4. Status post code arrest, likely from septic shock. Continue to monitor. 5. Ventilator dependent respiratory failure. Vent settings reviewed. ABGs reviewed. Continue to monitor. 6. Dysphagia. Status post percutaneous endoscopic gastrostomy. Continue tube feeding. 7. Sepsis, status post shock secondary to healthcare-associated pneumonia. The patient is currentl y on intravenous antibiotics and off pressors. Will discontinue intravenous fluids and monitor. 8. Diabetes. Continue Accu-Cheks and sliding scale. 9. Acute on chronic encephalopathy. Etiology is toxic metabolic. 10. Leukocytosis, etiology is presumed to be infectious. Continue to monitor. 11. Status post metabolic acidosis. Please note I spent over 40 minutes of critical care time with this patient. Dictated By: KENTON MATAMOROS/LAURA Conf#: [id number] DID#: [id number]
[2016-07-20] MEDS: LEVETIRACETAM IV 750 MG in SOD CHLORIDE 0.9% 100 ML IVPB SCH ×2 (08:14→20:32)
[2016-07-20] MEDS: ATROPINE 1% 3.5 GM OPH OINT BOTH EYES SCH ×4 (08:15→20:32)
[2016-07-20] MEDS: MUPIROCIN 2% 22 GM OINT TOP SCH ×2 (08:15→20:35)
--- NOTE | 2016-07-20 08:27 | RADRPT ---
PROCEDURE: XR Chest. CLINICAL INDICATION: Shortness of breath. TECHNIQUE: Single frontal view. COMPARISON: 07/19/2016. FINDINGS: The tracheostomy tube remains in satisfactory position. There is air space disease in the right low er lung zone and left upper lung zone is not with bilateral multifocal pneumonia, unchanged. The ketty ngs are otherwise clear. The heart size is normal. There are small bilateral pleural effusions, unchanged. There is no pneumothorax. IMPRESSION: 1. No change from 07/19/2016. RPTAT: QQ .Dank Snyder MD, MD Date Time Electronically viewed and signed by .Dank Snyder MD, MD on 07/20/2016 08:27 .R/
--- NOTE | 2016-07-20 09:50 | CONS ---
Date/Time of Note Date/Time of Note DATE: 07/20/16 TIME: 09:46 Consult Date/Type/Reason Admit Date/Time Jul 17, 2016 at 13:33 Initial Consult Date Type of Consultation: pulmona/critical care medicine Subjective Patient remains unresponsive on mechanical ventilation, No gag reflex Not breathing above the set ventilator rate Objective Vital Signs Date Time Temp Pulse Resp B/P Pulse Ox O2 Delivery O2 Flow Rate FiO2 07/20/16 09:00 94 20 118/62 100 Mechanical Ventilator 07/20/16 08:00 100.1 07/20/16 05:05 40 Intake and Output 07/19/16 07/19/16 07/20/16 15:00 23:00 07:00 Intake Total 517.5 ml 1277.5 ml 460 ml Output Total 0 ml 2500 ml 5 ml Balance 517.5 ml -1222.5 ml 455 ml Exam PHYSICAL EXAMINATION GENERAL: Chronically ill-appearing young gentleman on mechanical ventilation via tracheostomy VITAL SIGNS: see below. HEENT: Pupils equal, round, and reactive to light. Tracheostomy site clean and intact. CARDIAC: S1, S2, no added sounds or murmurs CHEST: Diminished air entry bilaterally. ABDOMEN: Mildly distended. Diminished bowel sounds bilaterally no rales or wheezes EXTREMITIES: No cyanosis, clubbing or edema. NEUROLOGIC: Significant weakness opening eyes or following commands no gag reflex Results/Medications Result Diagram: 07/20/16 0430 07/20/16 0430 Results 24 hrs Laboratory Tests Test 07/19/16 16:28 07/19/16 17:37 07/19/16 20:47 07/20/16 00:58 Bedside Glucose 220 264 H 214 232 H Test 07/20/16 04:30 07/20/16 05:00 07/20/16 06:00 07/20/16 08:13 White Blood Count 37.8 H Red Blood Count 2.61 L Hemoglobin 7.9 L Hematocrit 25.4 L Mean Corpuscular Volume 97.3 Mean Corpuscular Hemoglobin 30.3 Mean Corpuscular Hemoglobin Concent 31.1 L Red Cell Distribution Width 17.8 H Platelet Count 345 Mean Platelet Volume 10.6 H Sodium Level 137 Potassium Level 3.5 Chloride Level 97 Carbon Dioxide Level 20 L Anion Gap 24 #H Blood Urea Nitrogen 56 H Creatinine 2.52 H Glucose Level 221 #H Calcium Level 8.2 L Phosphorus Level 5.2 H Magnesium Level 2.0 Random Vancomycin Level 13.7 Blood Gas Specimen Source Blood arterial Arterial Blood Date Drawn 07/20/2016 4:25:33 AM Arterial Blood pH (Temp corrected) 7.373 Arterial Blood pCO2 (Temp correct) 34.6 L Arterial Blood pO2 (Temp corrected) 72.0 L Arterial Blood HCO3 19.7 L Arterial Blood Base Excess -5.0 L Arterial Blood Oxygen Saturation 93.6 L Endy Test ACCEPTAB Arterial Blood Gas Puncture Site Right Radial Arterial Blood Carboxyhemoglobin 0.4 Arterial Blood Methemoglobin 0.3 Blood Gas A-a O2 Differential 173.4 H Oxyhemoglobin Percent 92.9 L Total Hemoglobin 8.9 L Blood Gas Temperature 37.0 Blood Gas Respiration Rate 20.0 Blood Gas Actual Respiration Rate 20 Blood Gas Modality VENT - AC FiO2 40.0 Blood Gas Tidal Volume 500.0 Blood Gas Low PEEP Setting 5.0 Blood Gas Notified Whom MG Blood Gas Notified Time 07/20/2016 4:58:43 AM Bedside Glucose 264 H 229 H Medications Current Medications Norepinephrine/ Dextrose (Levophed/D5W) 500 ml @ 1.87 mls/hr TITRATE IV Last administered on 07/17/16 14:01; Admin Dose 18.75 MLS/HR; Start 07/17/16 at 12: 30 Ondansetron HCl (Zofran Inj) 4 mg Q6H PRN IV NAUSEA AND/OR VOMITING; Start at 16:00 Pantoprazole (Protonix Iv) 40 mg DAILY@06 IV Last administered on 07/20/16 06: 01; Admin Dose 40 MG; Start 07/18/16 at 06:00 Atropine Sulfate (Atropine 1% Oph Oint) 1 applic QID BOTH EYES Last administered on 07/20/16 08:15; Admin Dose 1 APPLIC; Start 07/17/16 at 17:00 Bisacodyl (Dulcolax Supp) 10 mg Q24H PRN [place] CONSTIPATION; Start 07/17/16 at 16: 00 Lorazepam (Ativan) 1 mg Q1H PRN IV seziure activity; Start 07/17/16 at 22:30 Lorazepam (Ativan) 1 mg Q1H PRN IV seizure activity; Start 07/17/16 at 22:00 Acetaminophen (Tylenol Liquid) 650 mg Q6H PRN GTB PAIN AND OR ELEVATED TEMP Last administered on 07/20/16 08:14; Admin Dose 650 MG; Start 07/18/16 at 02:00 Miscellaneous Information 1 ea NOTE XX ; Start 07/18/16 at 02:00 Glucose (Glutose) 15 gm Q15M PRN PO DECREASED GLUCOSE; Start 07/18/16 at 02:00 Glucose (Glutose) 22.5 gm Q15M PRN PO DECREASED GLUCOSE; Start 07/18/16 at 02:00 Dextrose (D50w Syringe) 25 ml Q15M PRN IV DECREASED GLUCOSE Last administered on 07/18/16 20:44; Admin Dose 25 ML; Start 07/18/16 at 02:00 Dextrose (D50w Syringe) 50 ml Q15M PRN IV DECREASED GLUCOSE; Start 07/18/16 at 02:00 Glucagon (Glucagen) 1 mg Q15M PRN IM DECREASED GLUCOSE; Start 07/18/16 at 02:00 Glucose (Glutose) 15 gm Q15M PRN BUCCAL DECREASED GLUCOSE; Start 07/18/16 at 02: 00 Insulin Aspart NOVOLOG *MILD* ALGORI... Q4 SC Last administered on 07/20/16 08: 17; Admin Dose 3 UNIT; Start 07/18/16 at 17:00 Azithromycin 250 ml @ 250 mls/hr Q24H IVPB Last administered on 07/19/16 15:53 ; Admin Dose 250 MLS/HR; Start 07/18/16 at 16:00 Levetiracetam/ Sodium Chloride (Keppra Iv/NS) 107.5 ml @ 430 mls/hr Q12 IVPB Last administered on 07/20/16 08:14; Admin Dose 430 MLS/HR; Start 07/18/16 at 15: 00 Mupirocin (Bactroban) 1 applic BID TOP Last administered on 07/20/16 08:15; Admin Dose 1 APPLIC; Start 07/19/16 at 12:00 Metronidazole 500 mg 500 mg Q8 PO Last administered on 07/20/16 06:01; Admin Dose 500 MG; Start 07/19/16 at 14:00 Meropenem (Merrem 500 Mg/ 100 ml (Pmx)) 100 ml @ 200 mls/hr Q24H IVPB ; Start 07/20/16 at 14:00 Assessment/Plan Chief Complaint/Hosp Course IMPRESSION: 1. Status post cardiopulmonary arrest. This was likely a respiratory event, possibly due to mucus plugging and central airway obstruction versus an aspiration event that led to his demise. 2. Respiratory failure, vent dependence. 3. Encephalopathy. ? Anoxic pending EEG may require apnea testing 4. Chronic kidney disease. On hemodialysis. 5. Lactic acidosis. Now improved status post resuscitation post code. 6. Multifocal pneumonia. Possibly aspiration versus healthcare associated. Worsening right lower lobe infiltrate RECOMMENDATIONS: 1. Ventilatory support. 2. Abx with plans to de-escalate pending cultures 3. Follow-up EEG to assess for possible non-convulsive status. 5. Continue keppra for the time being 6. The patient's prognosis is extremely poor; however, will need a little bit more time to determine the severity of his likely anoxic brain injury. 35 min critical care time Disposition Discussion with patient's mother at bedside explained clinical condition and possibility of significant anoxic brain injury which she understands. Palliative care input Problems: ENDER PORTER MD, [facility] Jul 20, 2016 09:50
[2016-07-20 09:57] LABS: LYMPHOCYTES # 1.5 10^3/ul (0.8-2.9); MONOCYTE # 2.3 10^3/ul (0.3-0.9)
[2016-07-20 09:58] LABS: POLYCHROMASIA 1+
[2016-07-20] MEDS ORDERED: VANCOMYCIN 1 GM in NS 250 ML IVPB SCH (10:30)
[2016-07-20] MEDS ORDERED: INSULIN GLARGINE [LANtus] 3 ML PEN SC SCH (10:30)
--- NOTE | 2016-07-20 10:32 | PN ---
Date/Time of Note Date/Time of Note DATE: 07/20/16 TIME: 10:01 Assessment/Plan VTE Prophylaxis VTE Prophylaxis Intervention: SCD's Lines/Catheters IV Catheter Type (from [facility]): Peripheral IV Urinary Cath still in place: Yes Reason Cath still needed: other (indicate) Assessment/Plan Assessment/Plan 1. Cardiac arrest possibly 2/2 Septic Shock now off pressors 2. Acute encephalopathy likely anoxic secondary to cardiac arrest with possible brain 3. Diabetes type 1 : Uncontrolled 4. Chronic debility secondary to uncontrolled diabetes type 1 with persistent episodes of pneumonia, status post tracheostomy and PEG in the past with chronic msc wasting and foot drop 5. ESRD on HD 6. Macrocytic anemia 2/2 CKD 7. Acute on chronic resp failure chronically vent dependent 8. MRSA nares PLAN: * F/u EEG / neurology assessment on brain * Will also order NM brain scan * Continue ICU care * Cont Cefepime and Levo gtt as needed, * Start low dose lantus * Spoke with mother in detail at bedside PPX- SCDs / Protonix CRITICAL CARE TIME: >35 mins Subjective 24 Hr Interval Summary Free Text/Dictation spoke with mother no pupillary reflex Subjective hx not possible: pt non-verbal Exam/Review of Systems Vital Signs Vitals Vital Signs Date Time Temp Pulse Resp B/P Pulse Ox O2 Delivery O2 Flow Rate FiO2 07/20/16 09:00 94 20 118/62 100 Mechanical Ventilator 07/20/16 08:00 100.1 07/20/16 05:05 40 Intake and Output 07/19/16 07/19/16 07/20/16 15:00 23:00 07:00 Intake Total 517.5 ml 1277.5 ml 460 ml Output Total 0 ml 2500 ml 5 ml Balance 517.5 ml -1222.5 ml 455 ml Exam Constitutional: non-verbal, No alert, No oriented Head: normocephalic Eyes: other (Pupils fixed and dilated), No PERRL Neck: other (Trach to vent) Respiratory: clear to auscultation, diminished breath sounds Cardiovascular: regular rate and rhythm, No murmurs/extra sounds Gastrointestinal: non-tender, soft Extremities: other (foot drop R >>L ) Neurological: unresponsive, No nl mental status, No reflexes Results Result Diagram: 07/20/160 07/20/16 043 Results 24 hrs Laboratory Tests Test 07/19/16 16:28 07/19/16 17:37 07/19/16 20:47 07/20/16 00:58 Bedside Glucose 220 264 H 214 232 H Test 07/20/16 04:30 07/20/16 05:00 07/20/16 06:00 07/20/16 08:13 White Blood Count 37.8 H Red Blood Count 2.61 L Hemoglobin 7.9 L Hematocrit 25.4 L Mean Corpuscular Volume 97.3 Mean Corpuscular Hemoglobin 30.3 Mean Corpuscular Hemoglobin Concent 31.1 L Red Cell Distribution Width 17.8 H Platelet Count 345 Mean Platelet Volume 10.6 H Neutrophils % 90.0 H Lymphocytes % 4.0 L Monocytes % 6.0 Neutrophils # 34.0 H Lymphocytes # 1.5 Monocytes # 2.3 H Polychromasia 1+ Sodium Level 137 Potassium Level 3.5 Chloride Level 97 Carbon Dioxide Level 20 L Anion Gap 24 #H Blood Urea Nitrogen 56 H Creatinine 2.52 H Glucose Level 221 #H Calcium Level 8.2 L Phosphorus Level 5.2 H Magnesium Level 2.0 Random Vancomycin Level 13.7 Blood Gas Specimen Source Blood arterial Arterial Blood Date Drawn 07/20/2016 4:25:33 AM Arterial Blood pH (Temp corrected) 7.373 Arterial Blood pCO2 (Temp correct) 34.6 L Arterial Blood pO2 (Temp corrected) 72.0 L Arterial Blood HCO3 19.7 L Arterial Blood Base Excess -5.0 L Arterial Blood Oxygen Saturation 93.6 L Endy Test ACCEPTAB Arterial Blood Gas Puncture Site Right Radial Arterial Blood Carboxyhemoglobin 0.4 Arterial Blood Methemoglobin 0.3 Blood Gas A-a O2 Differential 173.4 H Oxyhemoglobin Percent 92.9 L Total Hemoglobin 8.9 L Blood Gas Temperature 37.0 Blood Gas Respiration Rate 20.0 Blood Gas Actual Respiration Rate 20 Blood Gas Modality VENT - AC FiO2 40.0 Blood Gas Tidal Volume 500.0 Blood Gas Low PEEP Setting 5.0 Blood Gas Notified Whom MG Blood Gas Notified Time 07/20/2016 4:58:43 AM Bedside Glucose 264 H 229 H Medications Medications Current Medications Norepinephrine/ Dextrose (Levophed/D5W) 500 ml @ 1.87 mls/hr TITRATE IV Last administered on 07/17/16t 14:01; Admin Dose 18.75 MLS/HR; Start 07/17/16 at 12: 30 Ondansetron HCl (Zofran Inj) 4 mg Q6H PRN IV NAUSEA AND/OR VOMITING; Start at 16:00 Pantoprazole (Protonix Iv) 40 mg DAILY@06 IV Last administered on 07/20/16 06: 01; Admin Dose 40 MG; Start 07/18/16 at 06:00 Atropine Sulfate (Atropine 1% Oph Oint) 1 applic QID BOTH EYES Last administered on 07/20/16 08:15; Admin Dose 1 APPLIC; Start 07/17/16 at 17:00 Bisacodyl (Dulcolax Supp) 10 mg Q24H PRN [place] CONSTIPATION; Start 07/17/16 at 16: 00 Lorazepam (Ativan) 1 mg Q1H PRN IV seziure activity; Start 07/17/16 at 22:30 Acetaminophen (Tylenol Liquid) 650 mg Q6H PRN GTB PAIN AND OR ELEVATED TEMP Last administered on 07/20/16 08:14; Admin Dose 650 MG; Start 07/18/16 at 02:00 Miscellaneous Information 1 ea NOTE XX ; Start 07/18/16 at 02:00 Glucose (Glutose) 15 gm Q15M PRN PO DECREASED GLUCOSE; Start 07/18/16 at 02:00 Glucose (Glutose) 22.5 gm Q15M PRN PO DECREASED GLUCOSE; Start 07/18/16 at 02:00 Dextrose (D50w Syringe) 25 ml Q15M PRN IV DECREASED GLUCOSE Last administered on 07/18/16 20:44; Admin Dose 25 ML; Start 07/18/16 at 02:00 Dextrose (D50w Syringe) 50 ml Q15M PRN IV DECREASED GLUCOSE; Start 07/18/16 at 02:00 Glucagon (Glucagen) 1 mg Q15M PRN IM DECREASED GLUCOSE; Start 07/18/16 at 02:00 Glucose (Glutose) 15 gm Q15M PRN BUCCAL DECREASED GLUCOSE; Start 07/18/16 at 02: 00 Insulin Aspart NOVOLOG *MILD* ALGORI... Q4 SC Last administered on 07/20/16 08: 17; Admin Dose 3 UNIT; Start 07/18/16 at 17:00 Azithromycin 250 ml @ 250 mls/hr Q24H IVPB Last administered on 07/19/16 15:53 ; Admin Dose 250 MLS/HR; Start 07/18/16 at 16:00 Levetiracetam/ Sodium Chloride (Keppra Iv/NS) 107.5 ml @ 430 mls/hr Q12 IVPB Last administered on 07/20/16 08:14; Admin Dose 430 MLS/HR; Start 07/18/16 at 15: 00 Mupirocin (Bactroban) 1 applic BID TOP Last administered on 07/20/16 08:15; Admin Dose 1 APPLIC; Start 07/19/16 at 12:00 Metronidazole 500 mg 500 mg Q8 PO Last administered on 07/20/16 06:01; Admin Dose 500 MG; Start 07/19/16 at 14:00 Meropenem (Merrem 500 Mg/ 100 ml (Pmx)) 100 ml @ 200 mls/hr Q24H IVPB ; Start 07/20/16 at 14:00 Procedures Procedures PROCEDURE: XR Chest. CLINICAL INDICATION: Shortness of breath. TECHNIQUE: Single frontal view. COMPARISON: 07/19/2016. FINDINGS: The tracheostomy tube remains in satisfactory position. There is air space disease in the right lower lung zone and left upper lung zone is not with bilateral multifocal pneumonia, unchanged. The lungs are otherwise clear. The heart size is normal. There are small bilateral pleural effusions, unchanged. There is no pneumothorax. IMPRESSION: 1. No change from 07/19/2016. RPTAT: QQ .Dank Snyder MD, MD Date Time Electronically viewed and signed by .Dank Snyder MD, MD on 07/20/2016 08:27 .R/ CC: MARY BETH ALBA MD, BOLATITO M. Jul 20, 2016 10:11
[2016-07-20] MEDS: MEROPENEM 500 MG/100 ML (PMX) 100 ML IVPB SCH (13:42)
--- NOTE | 2016-07-20 14:38 | PN ---
DATE: 07/20/2016 INFECTIOUS DISEASE PROGRESS NOTE SUBJECTIVE: The patient is lying comfortably in bed, spiked a fever of 101.3 this morning. He is n onverbal, noncommunicative. VITAL SIGNS: Pulse 87, respirations 20, blood pressure 97/54, saturation 100 on vent. LABORATORY DATA: WBC 37.8, H and H 7.9 and 25.4, platelets 345, neutrophils 90, no bands. MICROBIOLOGY: Stool for C difficile was negative. Nares swab was positive for MRSA. INDWELLINGS: Trach, PEG, right femoral triple lumen catheter, left upper extremity AV fistula, rect al tube. ANTIMICROBIALS: The patient is on: 1. IV vancomycin. 2. Meropenem. 3. Flagyl. 4. Topical Bactroban to nares. 5. Zithromax. PHYSICAL EXAMINATION: GENERAL: This is a chronically ill-appearing, middle-aged white man who is lying comfortably in bed . HEENT: Head atraumatic, normocephalic. Sclerae anicteric. Buccal mucosa dry. NECK: Supple. Tracheostomy present. CHEST: Rise symmetrical. Breath sounds diminished. HEART: S1, S2. ABDOMEN: Soft, bowel sounds present. EXTREMITIES: Without cyanosis. ASSESSMENT: 1. Acute encephalopathy status post cardiopulmonary arrest with EEG-revealed anoxia. 2. Persistent fevers with leukocytosis, on broad-spectrum antibiotics. 3. Possible aspiration pneumonia. 4. Diarrhea, on empiric Flagyl. 5. Chronic respiratory failure. 6. Diabetes. PLAN: The patient remains hemodynamically stable, again with on and off fevers. We are going to [place] repeat blood cultures. Continue him on current antimicrobials. Pending apnea test today. The patient is full code. Dictated By: MICKY MIRANDA CAFE COOK for RENEE CURRY/NTS Conf#: [id number] DID#: [id number]
[2016-07-20 14:43] LABS: AADO2 Arterial 150.9 mmHg (7.0-24.0); Allen Test ACCEPTAB; Arterial Base Excess -2.8 mmol/L (-3.0-3); Arterial COHb 0.3 % (0.0-3.0); Arterial Fraction of Oxyhgb 96.4 % (93.0-99.0); Arterial HCO3 21.2 mmol/L (22.0-26.0); Arterial MetHb 0.2 % (0.0-1.5); Arterial Total Hemglobin 8.6 g/dl (12.0-18.0); MODE VENT - AC
--- NOTE | 2016-07-20 15:43 | CONS ---
Date/Time of Note Date/Time of Note DATE: 07/20/16 TIME: 15:42 Assessment/Plan Assessment/Plan Chief Complaint/Hosp Course Assessment: Status post cardiac arrest - likely due to septic shock vs respiratory event Acute encephalopathy - likely anoxic brain injury Status post septic shock - off pressors Acute hypoxic respiratory failure - on mechanical ventilation, prior tracheostomy Healthcare-associated pneumonia Diabetes mellitus, type 1 End-stage renal disease - on hemodialysis Anemia - status post pRBC transfusions Recommendations: -echocardiogram showed LVEF 50-55%, mild LVH -follow up neurology, infectious disease, pulmonology, nephrology recommendations Problems: Consultation Date/Type/Reason Admit Date/Time Jul 17, 2016 at 13:33 Type of Consultation: Cardiology 24 HR Interval Summary Free Text/Dictation Remains unresponsive. Detailed Summary Additional Comments Unable to obtain review of systems, patient is unresponsive. Exam/Review of Systems Vital Signs Vitals Vital Signs Date Time Temp Pulse Resp B/P Pulse Ox O2 Delivery O2 Flow Rate FiO2 07/20/16 15:00 77 20 108/68 100 Mechanical Ventilator 07/20/16 14:35 100 07/20/16 12:00 98.4 Intake and Output 07/19/16 07/19/16 07/20/16 14:59 22:59 06:59 Intake Total 517.5 ml 1170 ml 607.5 ml Output Total 0 ml 2500 ml 5 ml Balance 517.5 ml -1330 ml 602.5 ml Exam Constitutional: non-verbal, No alert Psych: No nl mood/affect Head: atraumatic, normocephalic Eyes: nl conjunctiva, nl lids ENMT: nl external ears & nose, nl nasal mucosa & septum Neck: other (tracheostomy) Respiratory: crackles/rales Cardiovascular: No regular rate and rhythm (tachycardic) Gastrointestinal: non-tender, soft Extremities: No clubbing, No cyanosis, No edema Neurological: No nl mental status, No nl speech Results Result Diagram: 07/20/16 0430 07/20/16 0430 Results 24 hrs Laboratory Tests Test 07/19/16 16:28 07/19/16 17:37 07/19/16 20:47 07/20/16 00:58 Bedside Glucose 220 264 H 214 232 H Test 07/20/16 04:30 07/20/16 05:00 07/20/16 06:00 07/20/16 08:13 White Blood Count 37.8 H Red Blood Count 2.61 L Hemoglobin 7.9 L Hematocrit 25.4 L Mean Corpuscular Volume 97.3 Mean Corpuscular Hemoglobin 30.3 Mean Corpuscular Hemoglobin Concent 31.1 L Red Cell Distribution Width 17.8 H Platelet Count 345 Mean Platelet Volume 10.6 H Neutrophils % 90.0 H Lymphocytes % 4.0 L Monocytes % 6.0 Neutrophils # 34.0 H Lymphocytes # 1.5 Monocytes # 2.3 H Polychromasia 1+ Sodium Level 137 Potassium Level 3.5 Chloride Level 97 Carbon Dioxide Level 20 L Anion Gap 24 #H Blood Urea Nitrogen 56 H Creatinine 2.52 H Glucose Level 221 #H Calcium Level 8.2 L Phosphorus Level 5.2 H Magnesium Level 2.0 Random Vancomycin Level 13.7 Blood Gas Specimen Source Blood arterial Arterial Blood Date Drawn 07/20/2016 4:25:33 AM Arterial Blood pH (Temp corrected) 7.373 Arterial Blood pCO2 (Temp correct) 34.6 L Arterial Blood pO2 (Temp corrected) 72.0 L Arterial Blood HCO3 19.7 L Arterial Blood Base Excess -5.0 L Arterial Blood Oxygen Saturation 93.6 L Endy Test ACCEPTAB Arterial Blood Gas Puncture Site Right Radial Arterial Blood Carboxyhemoglobin 0.4 Arterial Blood Methemoglobin 0.3 Blood Gas A-a O2 Differential 173.4 H Oxyhemoglobin Percent 92.9 L Total Hemoglobin 8.9 L Blood Gas Temperature 37.0 Blood Gas Respiration Rate 20.0 Blood Gas Actual Respiration Rate 20 Blood Gas Modality VENT - AC FiO2 40.0 Blood Gas Tidal Volume 500.0 Blood Gas Low PEEP Setting 5.0 Blood Gas Notified Whom MG Blood Gas Notified Time 07/20/2016 4:58:43 AM Bedside Glucose 264 H 229 H Test 07/20/16 12:05 07/20/16 14:26 Bedside Glucose 173 Blood Gas Specimen Source Blood arterial Arterial Blood Date Drawn 07/20/2016 2:30:02 PM Arterial Blood pH (Temp corrected) 7.423 Arterial Blood pCO2 (Temp correct) 33.2 L Arterial Blood pO2 (Temp corrected) 96.1 Arterial Blood HCO3 21.2 L Arterial Blood Base Excess -2.8 Arterial Blood Oxygen Saturation 96.9 Endy Test ACCEPTAB Arterial Blood Gas Puncture Site Right Radial Arterial Blood Carboxyhemoglobin 0.3 Arterial Blood Methemoglobin 0.2 Blood Gas A-a O2 Differential 150.9 H Oxyhemoglobin Percent 96.4 Total Hemoglobin 8.6 L Blood Gas Temperature 37.0 Blood Gas Respiration Rate 20.0 Blood Gas Actual Respiration Rate 20 Blood Gas Modality VENT - AC FiO2 40.0 Blood Gas Tidal Volume 500.0 Blood Gas Low PEEP Setting 5.0 Blood Gas Notified Whom JLD Blood Gas Notified Time 07/20/2016 2:43:45 PM Medications Medications Current Medications Norepinephrine/ Dextrose (Levophed/D5W) 500 ml @ 1.87 mls/hr TITRATE IV Last administered on 07/17/16 14:01; Admin Dose 18.75 MLS/HR; Start 07/17/16 at 12: 30 Ondansetron HCl (Zofran Inj) 4 mg Q6H PRN IV NAUSEA AND/OR VOMITING; Start at 16:00 Pantoprazole (Protonix Iv) 40 mg DAILY@06 IV Last administered on 07/20/16 06: 01; Admin Dose 40 MG; Start 07/18/16 at 06:00 Atropine Sulfate (Atropine 1% Oph Oint) 1 applic QID BOTH EYES Last administered on 07/20/16 12:07; Admin Dose 1 APPLIC; Start 07/17/16 at 17:00 Bisacodyl (Dulcolax Supp) 10 mg Q24H PRN [place] CONSTIPATION; Start 07/17/16 at 16: 00 Lorazepam (Ativan) 1 mg Q1H PRN IV seziure activity; Start 07/17/16 at 22:30 Acetaminophen (Tylenol Liquid) 650 mg Q6H PRN GTB PAIN AND OR ELEVATED TEMP Last administered on 07/20/16 08:14; Admin Dose 650 MG; Start 07/18/16 at 02:00 Miscellaneous Information 1 ea NOTE XX ; Start 07/18/16 at 02:00 Glucose (Glutose) 15 gm Q15M PRN PO DECREASED GLUCOSE; Start 07/18/16 at 02:00 Glucose (Glutose) 22.5 gm Q15M PRN PO DECREASED GLUCOSE; Start 07/18/16 at 02:00 Dextrose (D50w Syringe) 25 ml Q15M PRN IV DECREASED GLUCOSE Last administered on 07/18/16 20:44; Admin Dose 25 ML; Start 07/18/16 at 02:00 Dextrose (D50w Syringe) 50 ml Q15M PRN IV DECREASED GLUCOSE; Start 07/18/16 at 02:00 Glucagon (Glucagen) 1 mg Q15M PRN IM DECREASED GLUCOSE; Start 07/18/16 at 02:00 Glucose 15 gm 15 gm Q15M PRN BUCCAL DECREASED GLUCOSE; Start 07/18/16 at 02:00 Azithromycin 250 ml @ 250 mls/hr Q24H IVPB Last administered on 07/19/16 15:53 ; Admin Dose 250 MLS/HR; Start 07/18/16 at 16:00 Levetiracetam/ Sodium Chloride (Keppra Iv/NS) 107.5 ml @ 430 mls/hr Q12 IVPB Last administered on 07/20/16 08:14; Admin Dose 430 MLS/HR; Start 07/18/16 at 15: 00 Mupirocin (Bactroban) 1 applic BID TOP Last administered on 07/20/16 08:15; Admin Dose 1 APPLIC; Start 07/19/16 at 12:00 Metronidazole 500 mg 500 mg Q8 PO Last administered on 07/20/16 13:42; Admin Dose 500 MG; Start 07/19/16 at 14:00 Meropenem (Merrem 500 Mg/ 100 ml (Pmx)) 100 ml @ 200 mls/hr Q24H IVPB Last administered on 07/20/16 13:42; Admin Dose 200 MLS/HR; Start 07/20/16 at 14:00 Insulin Aspart (Novolog Insulin Pen) NOVOLOG *MODERATE* ALGORI... Q4 SC Last administered on 07/20/16 12:08; Admin Dose 2 UNIT; Start 07/20/16 at 13:00 Insulin Glargine (Lantus) 10 unit DAILY@08 SC Last administered on 07/20/16 12: 08; Admin Dose 10 UNIT; Start 07/20/16 at 10:30 LENI DAVID MD Jul 20, 2016 15:43
[2016-07-20] MEDS: AZITHROMYCIN 500MG/NS (PMX) 250 ML IVPB SCH (16:20)
--- NOTE | 2016-07-20 17:06 | CONS ---
DATE OF ADMISSION: 07/17/2016 DATE OF CONSULTATION: 07/20/2016 HISTORY OF PRESENT ILLNESS: This is a 35-year-old gentleman who is in the intensive care unit at [facility] who was brought to the emergency room from a subacute unit on 07/17/2016 status post cardiac arrest. The patient currently still remains in the intensive care unit and is si gnificantly encephalopathic currently undergoing an apnea test. He has already had an EEG done which shows acute encephalopathy secondary to anoxic injury. Going back to his previous admission medica l problems, gentleman has a history of type 1 diabetes. Apparently has had multiple episodes of pne umonia in the past. He is chronically PEG trached, but it is unclear. We have an incomplete databa se as to why this gentleman at this age group is PEG trached and is a resident of subacute facility or how long he has been there. It is known from speaking with his primary care team and information obtained from the patient's mother, that the patient possibly had his trach tube plugged and had a c ardiac arrest thereafter. This is day #4, the patient has been evaluated by [facility], and because he does not fit criteria for brain , he will not be considered for organ transplantation. Thi s gentleman is a FULL CODE at this time, the mother's has been at the bedside, however she is not av ailable at this time. MEDICATIONS: Please refer to reconciliation sheets. ALLERGIES: ASPIRIN. MAJOR MEDICAL PROBLEMS IN THE PAST: As per history of present illness, otherwise we have an incompl ete database. SOCIAL HISTORY: Unknown. FAMILY HISTORY: Unknown. REVIEW OF SYSTEMS: Cannot be obtained. PHYSICAL EXAMINATION: GENERAL: Shows a nonresponsive male, nonresponsive to any verbal or tactile stimulation. VITAL SIGNS: Blood pressure was 94/55, pulse of 83 and regular, respirations are 20, temperature 98 .4 degrees, 100% saturations on 40% FIO2. HEENT: He is normocephalic and atraumatic. Anicteric, acyanotic. He appears to be very ashen-appe aring on examination. CHEST: Shows distant breath sounds throughout both lung carter. COR: S1, S2, without S3, S4, murmur, gallop, rub. Normal rate, normal rhythm. ABDOMEN: Benign and scaphoid. Grossly without rigidity on abdomen examination. He has distant giuliana l sounds. NEUROLOGIC: He is off sedation and he has no response to any verbal or tactile stimulation. There is no pupillary light reflex, cornea reflex, gag reflex or doll's eyes on examination. He does no s pontaneous movement. He is not over breathing on the ventilator. ASSESSMENT AND PLAN: This is an unfortunate 35-year-old gentleman status post cardiac arrest, unkno wn exact etiology, who has been in the intensive care unit since 07/17/2016 and displays signs of cl inical brain without objective criteria, although he is having an apnea test to be done at thi s time. His EEG shows severe anoxic injury. IMPRESSIONS: Abnormal study secondary to suppressive depression burst pattern of background activit y, as well as slowing of background during bursts of background. All reflect severity of anoxic ence phalopathy read out by Rashaun Pedersen MD. Once again, this gentleman is a FULL CODE. I will reach out to the patient's mother, unfortunately there is no hope for recovery. We will support her and establish level of care that is in conducive to the patient's mother's expectation for goals of recovery. Dictated By: IBETH COLLIER MD, LP/LAURA Conf#: [id number] DID#: [id number]
[2016-07-20] MEDS ORDERED: ALBUMIN HUMAN 25% 100 ML IV ONE (18:00)
[2016-07-20] MEDS ORDERED: SOD CHLORIDE 0.9% 250 ML IV ONE (18:00)
[2016-07-20] MEDS: DEXTROSE 50% 50 ML SYRINGE IV PRN ×3 (20:11→21:53)
[2016-07-20 20:26] LABS: CHLORIDE 101 mmol/L (97-110); POTASSIUM 3.2 mmol/L (3.5-5.1); SODIUM 137 mmol/L (135-144)
[2016-07-20 20:29] LABS: ANION GAP 17 (8-16); BLOOD UREA NITROGEN 65 mg/dl (7-20); CALCIUM 8.3 mg/dl (8.4-10.2); CARBON DIOXIDE 22 mmol/L (21-31)
[2016-07-20 20:45] LABS: GLUCOSE < 20 mg/dl (70-220)
[2016-07-20] MEDS ORDERED: DEXTROSE 10% 1,000 ML IV SCH (21:10)
[2016-07-20] MEDS ORDERED: METOCLOPRAMIDE 10 MG INJ IV PRN (22:00)
--- NOTE | 2016-07-20 22:25 | CONS ---
DATE OF ADMISSION: 07/17/2016 DATE OF CONSULTATION: 07/20/2016 HISTORY OF PRESENT ILLNESS: The patient is a 35-year-old gentleman with diabetes, chronic ventilator dependency with tracheostomy and a PEG tube, who went into pulseless electrical activity at his subacute place and does not seem to be improving. He had EEG done, which shows a burst suppression pattern of background as well as slowing of background, so reflects severity of anoxic encephalopathy. He had CAT scan of the head, which was read as slight less espinosa-white differentiation than expected bilaterally and diffusely. MRI followup suggested. His labs show a WBC count 37, hemoglobin 7.9, hematocrit 25, platelets 345, neutrophils 90. BUN 56, creatinine 2.52. Rest of basic metabolic panel within normal limits. AST 56, alkaline phosphatase 162. Albumin 2.8. PT 19, PTT 41. Urinalysis: 2+ leukocyte esterase, more than 50 WBCs. CURRENT MEDICATIONS: 1. Meropenem. 2. Insulin. 3. Flagyl. 4. Vancomycin. 5. Keppra 500 twice daily. 6. Protonix. ALLERGIES: ASPIRIN. SOCIAL HISTORY: No alcohol, tobacco, drug use. FAMILY HISTORY: Noncontributory. PHYSICAL EXAMINATION: VITAL SIGNS: T-max 101.3, 83 pulse, respirations 20, 108/68 blood pressure. GENERAL: He is not in acute distress, somewhat emaciated. HEENT: Normocephalic head. NECK: Status post tracheostomy. LUNGS: Clear bilaterally. CARDIAC: Normal cardiac rhythm and sounds. ABDOMEN: Soft, nontender. EXTREMITIES: No cyanosis, clubbing, or edema. NEUROLOGIC: He is lethargic, not sedated. Unresponsive to voice or command. Eyes closed. No response to visual threat. Pupils about 4 mm, fixed. No spontaneous eye movements or movements on oculocephalic maneuver. Corneal reflexes absent bilaterally. I was not able to obtain gag reflex. Flaccid extremities. No response to painful stimuli. Deep tendon reflexes 1+ upper extremities, absent in lower extremities. No response to plantar stimulation. IMPRESSION: Complete unresponsiveness on examination. Electroencephalogram 2 days ago shows electrical activity, though severely abnormal pattern of suppression burst activity. Per nurse, apnea test provoked respiratory movements. Severe anoxic encephalopathy. Poor prognosis. Thank you very much for this interesting consultation. Dictated By: YARELI MENG/LAURA Conf#: [id number] DID#: [id number] CC: HUBER IBARRA MD;*EndCC* MTDD
[2016-07-21] VITALS (44 sets, daily range): BP systolic 98–139; BP diastolic 59–82; PULSE 75–101; RESP 20–25
[2016-07-21] MEDS: POTASSIUM CHLORIDE 50 ML IVPB SCH ×2 (00:07→02:24)
[2016-07-21] MEDS: INSULIN ASPART [NOVOLOG] 3 ML PEN SC SCH ×6 (01:00→20:54)
[2016-07-21 04:41] LABS: ADD SCAN DIFF NO
[2016-07-21 05:20] LABS: CREATININE 3.02 mg/dl (0.61-1.24)
[2016-07-21 05:21] LABS: CALCIUM 8.3 mg/dl (8.4-10.2); PHOSPHORUS 5.7 mg/dl (2.5-4.9)
[2016-07-21] MEDS: metroNIDAZOLE 500 MG TAB PO SCH ×3 (05:25→21:36)
[2016-07-21] MEDS: PANTOPRAZOLE 40 MG INJ IV SCH (05:25)
[2016-07-21 05:27] LABS: ABNORMAL IP MESSAGE 1; BASOPHIL # 0.1 10^3/ul (0.0-0.1); BASOPHILS % 0.3 % (0.0-2.0); EOSINOPHILS # 0.1 10^3/ul (0.0-0.5); EOSINOPHILS % 0.3 % (0.0-7.0); HEMATOCRIT 26.1 % (42.0-52.0); HEMOGLOBIN 8.3 g/dl (14.0-18.0); LYMPHOCYTES # 1.2 10^3/ul (0.8-2.9); LYMPHOCYTES % 6.1 % (15.0-51.0); MEAN CORPUSCULAR HEMOGLOBIN 30.2 pg (29.0-33.0); MEAN CORPUSCULAR HGB CONC 31.8 g/dl (32.0-37.0); MEAN CORPUSCULAR VOLUME 94.9 fl (82.0-101.0); MEAN PLATELET VOLUME 10.4 fl (7.4-10.4); MONOCYTE # 1.6 10^3/ul (0.3-0.9); MONOCYTES % 7.9 % (0.0-11.0); NEUTROPHILS % 84.9 % (39.0-77.0); PLATELET COUNT 323 10^3/UL (140-415); RED BLOOD COUNT 2.75 10^6/ul (4.70-6.10); RED CELL DISTRIBUTION WIDTH 17.6 % (11.5-14.5)
[2016-07-21] MEDS: ATROPINE 1% 3.5 GM OPH OINT BOTH EYES SCH (08:46)
[2016-07-21] MEDS: MUPIROCIN 2% 22 GM OINT TOP SCH ×2 (08:59→20:51)
[2016-07-21] MEDS: LEVETIRACETAM IV 750 MG in SOD CHLORIDE 0.9% 100 ML IVPB SCH ×2 (08:59→20:51)
--- NOTE | 2016-07-21 09:11 | PN ---
DATE: 07/21/2016 SUBJECTIVE: Overnight the patient had an episode of hypoglycemia, was placed on D10 drip. No other acute events noted. No hemoptysis, hematemesis or hematochezia. OBJECTIVE: VITAL SIGNS: Blood pressure is 142/71, respiratory rate 20, pulse 81, temperature 98.0. HEENT: Head is normocephalic. NECK: Supple. HEART: Regular rate. LUNGS: Show diminished breath sounds at the base. ABDOMEN: Soft, nontender to palpation. No rebound or guarding. EXTREMITIES: Negative for clubbing, cyanosis, no edema. DERMATOLOGIC: No rashes. MUSCULOSKELETAL: No joint effusions. NEUROLOGIC: No change in exam. LABORATORY DATA: Shows a white count 20.0, hemoglobin 8.3, hematocrit 26.1, platelet count 323. So dium 136, potassium 4.0, chloride 100, bicarbonate 20, BUN 70, creatinine 3.02, phosphorus 5.7. ASSESSMENT AND PLAN: 1. End-stage renal disease. The patient is on dialysis Wednesday, Wednesday, Wednesday, access AV fistul a. The patient is currently off schedule, anticipate dialysis today for 3 hours on a 3 K bath, calc ium 2.5 with minimal ultrafiltration. 3. Anemia of chronic disease. Continue to monitor hemoglobin and hematocrit levels. Continue Epog en. The patient is status post blood transfusion. 4. Mineral bone disorder. Continue to monitor calcium and phosphorus levels. 5. Status post code arrest, likely secondary from sepsis. Continue to monitor. 6. Ventilator dependent respiratory failure. Vent settings have been reviewed. ABG is reviewed. Follow up with pulmonary. 7. Dysphagia status post percutaneous endoscopic gastrostomy. Continue tube feeds. 8. Sepsis, status post shock secondary to ____/pneumonia. Continue current antibiotic regimen off pressors. Follow up cultures. 9. Diabetes. Continue current insulin regimen. 10. Acute on chronic encephalopathy. The patient's EEG showed diffuse slowing and follow up with n eurology. Possible apnea test to assess whether there is brain . 11. Leukocytosis secondary to sepsis, clinically improving. Continue to monitor. Dictated By: KENTON MATAMOROS/NTS Conf#: [id number] DID#: [id number]
--- NOTE | 2016-07-21 09:21 | CONS ---
Date/Time of Note Date/Time of Note DATE: 07/21/16 TIME: 09:19 Assessment/Plan Assessment/Plan Additional Assessment/Plan Ventilator settings; AC of 20, tidal volume 500, PEEP of 5, 30% FiO2. Chest x-ray was reviewed from yesterday which is showing improvement in extensive bilateral pneumonia. Assessment recommendations; next 1. Patient admitted for cardiac arrest status post CPR resulting in what appears to be significant anoxic brain injury. 2. History of chronic respiratory failure patient apparently maintained on tracheostomy. Not requiring invasive mechanical ventilation. 3. Severe bilateral pneumonia possibly multifocal aspiration with significant radiological improvement. 4. Chronic renal failure on hemodialysis. Continue current treatment. Prognosis is poor. Consultation Date/Type/Reason Admit Date/Time Jul 17, 2016 at 13:33 Initial Consult Date Type of Consultation: Pulmonary/critical care 24 HR Interval Summary Free Text/Dictation Patient condition remains critical. Requiring full ventilator support. Remains completely unresponsive. No seizure activity noted. Has remained hemodynamically stable. General exam; young male, on ventilator via tracheostomy unresponsive. Currently in no distress. Exam/Review of Systems Vital Signs Vitals Vital Signs Date Time Temp Pulse Resp B/P Pulse Ox O2 Delivery O2 Flow Rate FiO2 07/21/16 06:00 98.0 81 20 114/71 99 Mechanical Ventilator 07/21/16 05:25 30 Intake and Output 07/20/16 07/20/16 07/21/16 15:00 23:00 07:00 Intake Total 557.5 ml 657.5 ml 550 ml Output Total 65 ml 155 ml 215 ml Balance 492.5 ml 502.5 ml 335 ml Exam HEENT exam is; supple neck, no JVD. No lymphadenopathy. Midline trachea. No thyromegaly. Tracheostomy placed with clean insertion site. Pupils are dilated and nonreactive to light. Chest examination UT: Diminished but clear breath sounds. S1-S2 audible, no murmurs. Regular rhythm. Abdomen examination; soft, nondistended. No organomegaly. Bowel is audible. Extremity exam is; no peripheral edema. Pulses 1+ bilaterally. UNDERWEAR TRIMMER examination; patient remains unresponsive. Severe generalized muscular wasting. Results Result Diagram: 07/21/16 0430 07/21/16 0430 Results 24 hrs Laboratory Tests Test 07/20/16 12:05 07/20/16 14:26 07/20/16 16:25 07/20/16 16:43 Bedside Glucose 173 59 L 113 Blood Gas Specimen Source Blood arterial Arterial Blood Date Drawn 07/20/2016 2:30:02 PM Arterial Blood pH (Temp corrected) 7.423 Arterial Blood pCO2 (Temp correct) 33.2 L Arterial Blood pO2 (Temp corrected) 96.1 Arterial Blood HCO3 21.2 L Arterial Blood Base Excess -2.8 Arterial Blood Oxygen Saturation 96.9 Endy Test ACCEPTAB Arterial Blood Gas Puncture Site Right Radial Arterial Blood Carboxyhemoglobin 0.3 Arterial Blood Methemoglobin 0.2 Blood Gas A-a O2 Differential 150.9 H Oxyhemoglobin Percent 96.4 Total Hemoglobin 8.6 L Blood Gas Temperature 37.0 Blood Gas Respiration Rate 20.0 Blood Gas Actual Respiration Rate 20 Blood Gas Modality VENT - AC FiO2 40.0 Blood Gas Tidal Volume 500.0 Blood Gas Low PEEP Setting 5.0 Blood Gas Notified Whom JLD Blood Gas Notified Time 07/20/2016 2:43:45 PM Test 07/20/16 17:07 07/20/16 20:04 07/20/16 20:07 07/20/16 20:12 Bedside Glucose 109 < 13 *L 19 *L Sodium Level 137 Potassium Level 3.2 L Chloride Level 101 Carbon Dioxide Level 22 Anion Gap 17 #H Blood Urea Nitrogen 65 H Creatinine 2.80 H Glucose Level < 20 #*L Calcium Level 8.3 L Test 07/20/16 20:17 07/20/16 20:25 07/20/16 20:36 07/20/16 20:48 Bedside Glucose 137 108 97 68 L Test 07/20/16 21:04 07/20/16 21:25 07/20/16 21:47 07/20/16 22:10 Bedside Glucose 104 73 63 L 115 Test 07/20/16 22:30 07/20/16 22:50 07/20/16 23:25 07/21/16 00:10 Bedside Glucose 95 87 76 71 Test 07/21/16 00:47 07/21/16 01:55 07/21/16 02:52 07/21/16 04:27 Bedside Glucose 79 76 86 109 Test 07/21/16 04:30 07/21/16 06:36 07/21/16 08:52 White Blood Count 20.0 #H Red Blood Count 2.75 L Hemoglobin 8.3 L Hematocrit 26.1 L Mean Corpuscular Volume 94.9 Mean Corpuscular Hemoglobin 30.2 Mean Corpuscular Hemoglobin Concent 31.8 L Red Cell Distribution Width 17.6 H Platelet Count 323 Mean Platelet Volume 10.4 Neutrophils % 84.9 H Lymphocytes % 6.1 L Monocytes % 7.9 Eosinophils % 0.3 Basophils % 0.3 Nucleated Red Blood Cells % 0.0 Neutrophils # 17.0 H Lymphocytes # 1.2 Monocytes # 1.6 H Eosinophils # 0.1 Basophils # 0.1 Nucleated Red Blood Cells # 0.0 Sodium Level 136 Potassium Level 4.0 Chloride Level 100 Carbon Dioxide Level 20 L Anion Gap 20 H Blood Urea Nitrogen 70 H Creatinine 3.02 H Glucose Level 120 # Calcium Level 8.3 L Phosphorus Level 5.7 H Magnesium Level 2.0 Bedside Glucose 193 263 H Medications Medications Current Medications Norepinephrine/ Dextrose (Levophed/D5W) 500 ml @ 1.87 mls/hr TITRATE IV Last administered on 07/17/16 14:01; Admin Dose 18.75 MLS/HR; Start 07/17/16 at 12: 30 Ondansetron HCl (Zofran Inj) 4 mg Q6H PRN IV NAUSEA AND/OR VOMITING; Start at 16:00 Pantoprazole (Protonix Iv) 40 mg DAILY@06 IV Last administered on 07/21/16 05: 25; Admin Dose 40 MG; Start 07/18/16 at 06:00 Atropine Sulfate (Atropine 1% Oph Oint) 1 applic QID BOTH EYES Last administered on 07/20/16 20:32; Admin Dose 1 APPLIC; Start 07/17/16 at 17:00 Bisacodyl (Dulcolax Supp) 10 mg Q24H PRN [place] CONSTIPATION; Start 07/17/16 at 16: 00 Lorazepam (Ativan) 1 mg Q1H PRN IV seziure activity; Start 07/17/16 at 22:30 Acetaminophen (Tylenol Liquid) 650 mg Q6H PRN GTB PAIN AND OR ELEVATED TEMP Last administered on 07/20/16 08:14; Admin Dose 650 MG; Start 07/18/16 at 02:00 Miscellaneous Information 1 ea NOTE XX ; Start 07/18/16 at 02:00 Glucose (Glutose) 15 gm Q15M PRN PO DECREASED GLUCOSE; Start 07/18/16 at 02:00 Glucose (Glutose) 22.5 gm Q15M PRN PO DECREASED GLUCOSE; Start 07/18/16 at 02:00 Dextrose (D50w Syringe) 25 ml Q15M PRN IV DECREASED GLUCOSE Last administered on 07/20/16 21:53; Admin Dose 25 ML; Start 07/18/16 at 02:00 Dextrose (D50w Syringe) 50 ml Q15M PRN IV DECREASED GLUCOSE Last administered on 07/20/16 20:11; Admin Dose 50 ML; Start 07/18/16 at 02:00 Glucagon (Glucagen) 1 mg Q15M PRN IM DECREASED GLUCOSE; Start 07/18/16 at 02:00 Glucose 15 gm 15 gm Q15M PRN BUCCAL DECREASED GLUCOSE; Start 07/18/16 at 02:00 Azithromycin 250 ml @ 250 mls/hr Q24H IVPB Last administered on 07/20/16 16:20 ; Admin Dose 250 MLS/HR; Start 07/18/16 at 16:00 Levetiracetam/ Sodium Chloride (Keppra Iv/NS) 107.5 ml @ 430 mls/hr Q12 IVPB Last administered on 07/21/16 08:59; Admin Dose 430 MLS/HR; Start 07/18/16 at 15: 00 Mupirocin (Bactroban) 1 applic BID TOP Last administered on 07/21/16 08:59; Admin Dose 1 APPLIC; Start 07/19/16 at 12:00 Metronidazole 500 mg 500 mg Q8 PO Last administered on 07/21/16 05:25; Admin Dose 500 MG; Start 07/19/16 at 14:00 Meropenem (Merrem 500 Mg/ 100 ml (Pmx)) 100 ml @ 200 mls/hr Q24H IVPB Last administered on 07/20/16 13:42; Admin Dose 200 MLS/HR; Start 07/20/16 at 14:00 Insulin Aspart (Novolog Insulin Pen) NOVOLOG *MODERATE* ALGORI... Q4 SC Last administered on 07/20/16 12:08; Admin Dose 2 UNIT; Start 07/20/16 at 13:00 Insulin Glargine 10 unit 10 unit DAILY@08 SC Last administered on 07/20/16 12: 08; Admin Dose 10 UNIT; Start 07/20/16 at 10:30; Status Future Hold Dextrose (D10w) 1,000 ml @ 50 mls/hr Q20H IV Last administered on 07/20/16 21: 41; Admin Dose 30 MLS/HR; Start 07/20/16 at 21:10 Metoclopramide HCl (Reglan) 10 mg Q6H PRN IV GI MOTILITY Last administered on 22:05; Admin Dose 10 MG; Start 07/20/16 at 22:00 CHANCE AVILA Jul 21, 2016 09:21
[2016-07-21] MEDS: POLYETHYLENE GLYCOL 17 GM PACKET NGT SCH (10:56)
--- NOTE | 2016-07-21 11:29 | PN ---
DATE: 07/21/2016 FAMILY CONFERENCE I had an extensive 1 hour conversation with the patient's mother. She gave me a past medical histor y of this gentleman being type 1 diabetes since it was 12 years old, and having had multiple complic ations over the years, culminating in unfortunately patient having respiratory failure and required PEG and trach in September and October of 2015. He has been on hemodialysis for an extended period of time also. We covered his current medical condition and I reviewed the EEG and results of the apnea test and discussed that with patient's mother in detail. Unfortunately, she did not completely and unfo rtunately grasp the gravity of Mr. Baeza's current neurological condition. She asked me to speak with her brother, who I did. He does understand and he says he was afraid that this was going to h appen and that he was not surprised that patient was severely impaired. I did discuss options at th is point. He states he wanted to speak with her understandably and would get back to us, options be ing continue on in his vegetative condition and eventually being transferred back to a subacute unit or compassionate extubation. Followup note will be done after I speak with patient's uncle and mot her once again. Dictated By: IBETH COLLIER MD, LP/LAURA Conf#: [id number] DID#: [id number]
--- NOTE | 2016-07-21 11:37 | PN ---
DATE: 07/21/2016 SUBJECTIVE: Nursing reports no new clinical overnight events. The patient remains completely unres ponsive and remains on ____ liters. In testing findings from yesterday include: 1. The patient did have 2 breaths within 4 minutes during the ____. 2. The patient has been on ____ since admission, but indication that is not quite clear at this lena e. PHYSICAL EXAMINATION: VITAL SIGNS: Temperature 96, pulse 86, respirations 20, blood pressure 119/76, saturation is 99%, r emains on mechanical ventilator with FIO2 of 30%. GENERAL: Obtunded, unresponsive. HEENT: Head is normocephalic. Pupils fixed and dilated. NECK: Trach to vent. RESPIRATORY: Clear to auscultation. Diminished breath sounds. CARDIOVASCULAR: Regular rate and rhythm. No murmurs. ABDOMEN: Soft, nondistended. Having high residuals per report. EXTREMITIES: Chronic muscle wasting, foot drop right greater than left bilaterally. NEUROLOGIC: Unresponsive. No mental status. No reflexes. GENITOURINARY: Baker to bedside draining minimal concentrated urine. LABORATORY DATA: Today, WBC count is down to 20,000, hemoglobin is better at 8.3, continues to have mild hypochromia and platelet count is normal. Neutrophilia is 84%. No bandemia at this time. Ch emistry: The patient had an episode of hypoglycemia to 14 overnight, but this is much better now on the glucose infusion. His creatinine is 3.02, BUN 70. Phosphorus is elevated at 5.7. Magnesium i s normal at 2. Coagulation profile, there is nothing to report today. His last INR was 1.6, 2016 MICROBIOLOGY: Urine culture is stained with mixed gram-positive organisms. Stool did show 3+ colif orm and C. difficile assay was negative. Blood cultures on admission on 07/18/2015 have been negati ve to date. ASSESSMENT: A 35-year-old unfortunate male, who was admitted after a cardiac arrest, managed now in the intensive care unit as follows: 1. Cardiac arrest secondary to septic shock. The patient now remains off pressors. 2. Acute encephalopathy, likely anoxic secondary to cardiac arrest with possibility of brain or definitely severe anoxic brain injury. 3. 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 4. Chronic debility secondary to chronically uncontrolled diabetes type 1 with recurrent episodes o f pneumonia causing recurrent hospitalization and now trach and gastrostomy placement, with chronic muscle wasting and foot drop. 5. End-stage renal disease on hemodialysis. 6. Acute on chronic respiratory failure, remains ventilator-dependent. 7. Anemia secondary to chronic kidney disease. 8. Methicillin-resistant Staphylococcus aureus nares. 9. Chronic dysphagia, on PEG feeds with high residuals. PLAN 1. Appreciate neurology review and input. Recommendation is to follow up nuclear medicine brain st [facility] to assess presence of brain . However, with nonspecific apnea testing and the use of ____ chronically on this patient, I will hold off on nuclear medicine testing for now and see how the pat ient does over the next couple of days. If there is no improvement, we will order a nuclear medicin e brain flow at that time. 2. Continue aggressive antibiotics and p.r.n. pressor support as needed. 3. Continue ventilator management and care. Appreciate pulmonary input. 4. Stop all insulin for now and use sliding scale only with low-dose dextrose in the IV fluids. I f the patient remains hyperglycemic, change IV fluids to plain NS. 5. Hold tube feeds for now until the residuals have cleared. Continue Reglan therapy. Also start fiber supplementation. 6. Continue Bactroban for MRSA nares. 7. Repeat coagulation profile. 8. Continue Keppra for seizure prophylaxis based on EEG findings. 9. For prophylaxis, the patient to be continued on PPI intravenously and as he was coagulopathic wi th an INR of 1.6, we will continue with SCDs only. I have spoken extensively with mother at the bedside. She is aware of the fact that patient has a v jamaal grim prognosis. She, however, remains hopeful for the best. Critical care time so far has been about 45 minutes. I have also spoken with palliative care, I hav e spoken with pulmonary. I will be speaking with infectious disease. [facility]. Dictated By: ERMA JACOBS MD, BA/NTS Conf#: [id number] DID#: [id number]
--- NOTE | 2016-07-21 12:45 | PN ---
DATE: 07/21/2016 SUBJECTIVE: No acute changes. No fevers. The patient is lying comfortably in bed. VITAL SIGNS: Temperature 98.6, pulse 86, respirations 20, blood pressure 121/71, saturation 100% on vent. LABORATORY DATA: WBC 20, H and H 8.3 and 26.1, platelets 323. INDWELLINGS: Right femoral triple-lumen catheter, trach, PEG, rectal tube, left upper extremity AV fistula. ANTIMICROBIALS: 1. Vancomycin IV. 2. Flagyl. 3. Zithromax. 4. Meropenem. PHYSICAL EXAMINATION: GENERAL: Chronically ill-appearing, middle-aged white man who is lying comfortably in bed. HEENT: Head atraumatic, normocephalic. Sclerae anicteric. Buccal mucosa dry. NECK: Supple. Tracheostomy present. CHEST: Rise symmetrical. Breath sounds diminished to bases. HEART: S1, S2. ABDOMEN: Soft. Bowel sounds present. EXTREMITIES: No cyanosis. ASSESSMENT: 1. Sepsis, status post shock. 2. Anoxic encephalopathy status post cardiopulmonary arrest. 3. Healthcare-associated pneumonia, possibly aspiration. 4. Diarrhea, on empiric Flagyl. 5. End-stage renal disease, hemodialysis dependent. 6. Diabetes. 7. Methicillin-resistant Staphylococcus aureus nares colonization. PLAN: The patient remains unchanged. Neurology on case. He is covered with broad-spectrum antibio tics, pending sputum cultures. He is getting topical Bactroban to nares and Hibiclens baths daily. Dictated By: MICKY MIRANDA SURFACE LAY OUT TECHNICIAN for RENEE CURRY/NTS Conf#: [id number] DID#: [id number]
--- NOTE | 2016-07-21 13:48 | CONS ---
Date/Time of Note Date/Time of Note DATE: 07/21/16 TIME: 13:47 Assessment/Plan Assessment/Plan Chief Complaint/Hosp Course Assessment: Status post cardiac arrest - likely due to septic shock vs respiratory event Acute encephalopathy - likely severe anoxic brain injury, rule out brain Status post septic shock - off pressors Acute hypoxic respiratory failure - on mechanical ventilation, prior tracheostomy Healthcare-associated pneumonia Diabetes mellitus, type 1 End-stage renal disease - on hemodialysis Anemia - status post pRBC transfusions Recommendations: -echocardiogram showed LVEF 50-55%, mild LVH -follow up neurology, infectious disease, pulmonology, nephrology recommendations Problems: Consultation Date/Type/Reason Admit Date/Time Jul 17, 2016 at 13:33 Type of Consultation: Cardiology 24 HR Interval Summary Free Text/Dictation Remains unresponsive. On mechanical ventilation. Detailed Summary Additional Comments Unable to obtain review of systems, patient is unresponsive. Exam/Review of Systems Vital Signs Vitals Vital Signs Date Time Temp Pulse Resp B/P Pulse Ox O2 Delivery O2 Flow Rate FiO2 07/21/16 13:00 97 22 98/59 98 Mechanical Ventilator 07/21/16 12:00 98.7 07/21/16 11:00 30 Intake and Output 07/20/16 07/20/16 07/21/16 15:00 23:00 07:00 Intake Total 557.5 ml 657.5 ml 550 ml Output Total 65 ml 155 ml 215 ml Balance 492.5 ml 502.5 ml 335 ml Exam Constitutional: non-verbal, No alert Psych: No nl mood/affect Head: atraumatic, normocephalic Eyes: nl conjunctiva, nl lids ENMT: nl external ears & nose, nl nasal mucosa & septum Neck: other (tracheostomy) Respiratory: crackles/rales Cardiovascular: No regular rate and rhythm (tachycardic) Gastrointestinal: non-tender, soft Extremities: No clubbing, No cyanosis, No edema Neurological: No nl mental status, No nl speech Results Result Diagram: 07/21/16 0430 07/21/16 0430 Results 24 hrs Laboratory Tests Test 07/20/16 14:26 07/20/16 16:25 07/20/16 16:43 07/20/16 17:07 Blood Gas Specimen Source Blood arterial Arterial Blood Date Drawn 07/20/2016 2:30:02 PM Arterial Blood pH (Temp corrected) 7.423 Arterial Blood pCO2 (Temp correct) 33.2 L Arterial Blood pO2 (Temp corrected) 96.1 Arterial Blood HCO3 21.2 L Arterial Blood Base Excess -2.8 Arterial Blood Oxygen Saturation 96.9 Endy Test ACCEPTAB Arterial Blood Gas Puncture Site Right Radial Arterial Blood Carboxyhemoglobin 0.3 Arterial Blood Methemoglobin 0.2 Blood Gas A-a O2 Differential 150.9 H Oxyhemoglobin Percent 96.4 Total Hemoglobin 8.6 L Blood Gas Temperature 37.0 Blood Gas Respiration Rate 20.0 Blood Gas Actual Respiration Rate 20 Blood Gas Modality VENT - AC FiO2 40.0 Blood Gas Tidal Volume 500.0 Blood Gas Low PEEP Setting 5.0 Blood Gas Notified Whom JLD Blood Gas Notified Time 07/20/2016 2:43:45 PM Bedside Glucose 59 L 113 109 Test 07/20/16 20:04 07/20/16 20:07 07/20/16 20:12 07/20/16 20:17 Bedside Glucose < 13 *L 19 *L 137 Sodium Level 137 Potassium Level 3.2 L Chloride Level 101 Carbon Dioxide Level 22 Anion Gap 17 #H Blood Urea Nitrogen 65 H Creatinine 2.80 H Glucose Level < 20 #*L Calcium Level 8.3 L Test 07/20/16 20:25 07/20/16 20:36 07/20/16 20:48 07/20/16 21:04 Bedside Glucose 108 97 68 L 104 Test 07/20/16 21:25 07/20/16 21:47 07/20/16 22:10 07/20/16 22:30 Bedside Glucose 73 63 L 115 95 Test 07/20/16 22:50 07/20/16 23:25 07/21/16 00:10 07/21/16 00:47 Bedside Glucose 87 76 71 79 Test 07/21/16 01:55 07/21/16 02:52 07/21/16 04:27 07/21/16 04:30 Bedside Glucose 76 86 109 White Blood Count 20.0 #H Red Blood Count 2.75 L Hemoglobin 8.3 L Hematocrit 26.1 L Mean Corpuscular Volume 94.9 Mean Corpuscular Hemoglobin 30.2 Mean Corpuscular Hemoglobin Concent 31.8 L Red Cell Distribution Width 17.6 H Platelet Count 323 Mean Platelet Volume 10.4 Neutrophils % 84.9 H Lymphocytes % 6.1 L Monocytes % 7.9 Eosinophils % 0.3 Basophils % 0.3 Nucleated Red Blood Cells % 0.0 Neutrophils # 17.0 H Lymphocytes # 1.2 Monocytes # 1.6 H Eosinophils # 0.1 Basophils # 0.1 Nucleated Red Blood Cells # 0.0 Sodium Level 136 Potassium Level 4.0 Chloride Level 100 Carbon Dioxide Level 20 L Anion Gap 20 H Blood Urea Nitrogen 70 H Creatinine 3.02 H Glucose Level 120 # Calcium Level 8.3 L Phosphorus Level 5.7 H Magnesium Level 2.0 Test 07/21/16 06:36 07/21/16 08:52 07/21/16 12:31 Bedside Glucose 193 263 H 266 H Medications Medications Current Medications Norepinephrine/ Dextrose (Levophed/D5W) 500 ml @ 1.87 mls/hr TITRATE IV Last administered on 07/17/16 14:01; Admin Dose 18.75 MLS/HR; Start 07/17/16 at 12: 30 Ondansetron HCl (Zofran Inj) 4 mg Q6H PRN IV NAUSEA AND/OR VOMITING; Start at 16:00 Pantoprazole (Protonix Iv) 40 mg DAILY@06 IV Last administered on 07/21/16 05: 25; Admin Dose 40 MG; Start 07/18/16 at 06:00 Bisacodyl (Dulcolax Supp) 10 mg Q24H PRN [place] CONSTIPATION; Start 07/17/16 at 16: 00 Lorazepam (Ativan) 1 mg Q1H PRN IV seziure activity; Start 07/17/16 at 22:30 Acetaminophen (Tylenol Liquid) 650 mg Q6H PRN GTB PAIN AND OR ELEVATED TEMP Last administered on 07/20/16 08:14; Admin Dose 650 MG; Start 07/18/16 at 02:00 Miscellaneous Information 1 ea NOTE XX ; Start 07/18/16 at 02:00 Glucose (Glutose) 15 gm Q15M PRN PO DECREASED GLUCOSE; Start 07/18/16 at 02:00 Glucose (Glutose) 22.5 gm Q15M PRN PO DECREASED GLUCOSE; Start 07/18/16 at 02:00 Dextrose (D50w Syringe) 25 ml Q15M PRN IV DECREASED GLUCOSE Last administered on 07/20/16 21:53; Admin Dose 25 ML; Start 07/18/16 at 02:00 Dextrose (D50w Syringe) 50 ml Q15M PRN IV DECREASED GLUCOSE Last administered on 07/20/16 20:11; Admin Dose 50 ML; Start 07/18/16 at 02:00 Glucagon (Glucagen) 1 mg Q15M PRN IM DECREASED GLUCOSE; Start 07/18/16 at 02:00 Glucose 15 gm 15 gm Q15M PRN BUCCAL DECREASED GLUCOSE; Start 07/18/16 at 02:00 Azithromycin 250 ml @ 250 mls/hr Q24H IVPB Last administered on 07/20/16 16:20 ; Admin Dose 250 MLS/HR; Start 07/18/16 at 16:00 Levetiracetam/ Sodium Chloride (Keppra Iv/NS) 107.5 ml @ 430 mls/hr Q12 IVPB Last administered on 07/21/16 08:59; Admin Dose 430 MLS/HR; Start 07/18/16 at 15: 00 Mupirocin (Bactroban) 1 applic BID TOP Last administered on 07/21/16 08:59; Admin Dose 1 APPLIC; Start 07/19/16 at 12:00 Metronidazole 500 mg 500 mg Q8 PO Last administered on 07/21/16 05:25; Admin Dose 500 MG; Start 07/19/16 at 14:00 Meropenem 100 ml @ 200 mls/hr Q24H IVPB Last administered on 07/20/16 13:42; Admin Dose 200 MLS/HR; Start 07/20/16 at 14:00 Dextrose (D10w) 1,000 ml @ 50 mls/hr Q20H IV Last administered on 07/20/16 21: 41; Admin Dose 30 MLS/HR; Start 07/20/16 at 21:10 Insulin Aspart (Novolog Insulin Pen) NOVOLOG *MILD* ALGORI... Q4 SC ; Start 07/21 at 13:00 Insulin Glargine (Lantus) 3 unit DAILY@08 SC ; Start 07/22/16 at 08:00 Metoclopramide HCl (Reglan) 5 mg Q6H IV ; Start 07/21/16 at 16:00 Polyethylene Glycol (Miralax) 17 gm DAILY NGT ; Start 07/21/16 at 11:00 LENI DAVID MD Jul 21, 2016 13:48
[2016-07-21] MEDS: MEROPENEM 500 MG/100 ML (PMX) 100 ML IVPB SCH (13:59)
[2016-07-21] MEDS ORDERED: DEXTROSE 5%-0.45% NACL 1,000 ML IV SCH (14:00)
[2016-07-21] MEDS ORDERED: LIDOCAINE 1% (MDV) 20 ML INJ SC ONE (14:00)
[2016-07-21] MEDS ORDERED: SOD CHLORIDE 0.9% 100 ML ONE (15:35)
[2016-07-21] MEDS: AZITHROMYCIN 500MG/NS (PMX) 250 ML IVPB SCH (17:10)
[2016-07-21] MEDS: METOCLOPRAMIDE 10 MG INJ IV SCH ×2 (17:10→21:36)
[2016-07-21] MEDS: EPOETIN 4000 UNITS/1 ML INJ (ESRD) SC SCH (18:31)
[2016-07-22] VITALS (35 sets, daily range): BP systolic 120–161; BP diastolic 76–95; PULSE 82–98; RESP 20–27
[2016-07-22] MEDS: INSULIN ASPART [NOVOLOG] 3 ML PEN SC SCH ×6 (00:45→20:53)
[2016-07-22] MEDS: ACETAMINOPHEN 650MG/20.3ML CUP GTB PRN (01:05)
[2016-07-22] MEDS: METOCLOPRAMIDE 10 MG INJ IV SCH ×4 (04:50→22:26)
[2016-07-22 04:58] LABS: ADD SCAN DIFF NO
[2016-07-22] MEDS: PANTOPRAZOLE 40 MG INJ IV SCH (05:00)
[2016-07-22 05:03] LABS: BASOPHILS % 0.4 % (0.0-2.0); EOSINOPHILS % 0.2 % (0.0-7.0); HEMATOCRIT 27.8 % (42.0-52.0); HEMOGLOBIN 8.6 g/dl (14.0-18.0); LYMPHOCYTES # 1.1 10^3/ul (0.8-2.9); LYMPHOCYTES % 10.1 % (15.0-51.0); MEAN CORPUSCULAR HEMOGLOBIN 29.7 pg (29.0-33.0); MEAN CORPUSCULAR HGB CONC 30.9 g/dl (32.0-37.0); MEAN CORPUSCULAR VOLUME 95.9 fl (82.0-101.0); MEAN PLATELET VOLUME 10.4 fl (7.4-10.4); MONOCYTE # 1.4 10^3/ul (0.3-0.9); NEUTROPHILS % 75.9 % (39.0-77.0); PLATELET COUNT 322 10^3/UL (140-415); RED CELL DISTRIBUTION WIDTH 17.6 % (11.5-14.5); WHITE BLOOD COUNT 10.6 10^3/ul (4.8-10.8)
[2016-07-22 05:25] LABS: POTASSIUM 3.3 mmol/L (3.5-5.1)
[2016-07-22 05:27] LABS: INR 1.56; PROTIME 18.8 Sec (12.2-14.2); PT RATIO 1.5
[2016-07-22 05:28] LABS: CREATININE 2.28 mg/dl (0.61-1.24); PARTIAL THROMBOPLASTIN TIME 34.3 Sec (25.0-35.0)
[2016-07-22 05:29] LABS: CALCIUM 8.7 mg/dl (8.4-10.2); MAGNESIUM 2.1 mg/dl (1.7-2.5)
[2016-07-22 05:31] LABS: ALBUMIN 2.9 g/dl (3.3-4.9)
[2016-07-22 05:34] LABS: TOTAL PROTEIN 6.7 g/dl (6.1-8.1)
[2016-07-22] MEDS: metroNIDAZOLE 500 MG TAB PO SCH ×3 (05:34→22:25)
[2016-07-22] MEDS: POTASSIUM CHLORIDE 50 ML IVPB SCH ×2 (07:51→09:14)
[2016-07-22] MEDS ORDERED: INSULIN GLARGINE [LANtus] 3 ML PEN SC SCH (08:00)
--- NOTE | 2016-07-22 08:50 | PN ---
DATE: 07/22/2016 SUBJECTIVE: The patient had hemodialysis yesterday, tolerated it well. No other acute events noted . No hemoptysis, hematemesis, or hematochezia. The patient remains unresponsive. OBJECTIVE: VITAL SIGNS: Blood pressure 141/87, respirations 20, pulse 87, temperature 98.6. HEENT: Head is normocephalic. NECK: Supple. HEART: Regular rate. LUNGS: Show diminished breath sounds at the base. ABDOMEN: Soft, nontender to palpation, no rebound or guarding. EXTREMITIES: Negative for clubbing, cyanosis, no edema. DERMATOLOGIC: No rashes. MUSCULOSKELETAL: No joint effusions. NEUROLOGIC: No change in exam. MEDICATIONS: The patient's medications have been reviewed. LABORATORY DATA: Shows a sodium 144, potassium 3.3, chloride 106, BUN 41, creatinine 2.28. White c ount 10.6, hemoglobin 9.6, hematocrit 27.8, platelet count is 322. ASSESSMENT AND PLAN: 1. End-stage renal disease. The patient's dialysis Wednesday, Wednesday, Wednesday, access AV fistula. The patient is currently off schedule. Will anticipate dialysis tomorrow for 3 hours, 4K bath, calc ium 2.5. 2. Hypokalemia, replete potassium chloride, dialyzed on a high potassium bath. 3. Anemia of chronic disease. Continue to monitor H and H levels. Continue Epogen. 4. Mineral bone disorder. Continue to monitor calcium and phosphorus levels. 5. Status post code arrest. Continue to monitor. 6. Ventilator dependent respiratory failure. Vent settings have been reviewed. ABG has been revie wed. Continue to monitor. Follow up with pulmonary 7. Dysphagia, status post PEG. Continue tube feeding. 8. Sepsis, status post shock. The patient is currently on IV antibiotics, continue. Cultures have been reviewed. 9. Diabetes, continue Accu-Cheks and insulin sliding scale. 10. Ckylz-bu-zqqkfzu encephalopathy. The patient's EEG shows diffuse slowing, severe anoxic injury . Continue to monitor. Dictated By: KENTON MATAMOROS/LAURA Conf#: [id number] DID#: [id number]
[2016-07-22] MEDS: MUPIROCIN 2% 22 GM OINT TOP SCH ×2 (09:03→20:48)
[2016-07-22] MEDS: LEVETIRACETAM IV 750 MG in SOD CHLORIDE 0.9% 100 ML IVPB SCH ×2 (09:03→20:46)
[2016-07-22] MEDS: POLYETHYLENE GLYCOL 17 GM PACKET NGT SCH (09:03)
--- NOTE | 2016-07-22 09:43 | CONS ---
Date/Time of Note Date/Time of Note DATE: 07/22/16 TIME: 09:39 Assessment/Plan Assessment/Plan Additional Assessment/Plan Ventilator settings; AC of 20, tidal volume 500, PEEP of 5, 30% FiO2. Assessment recommendations; Patient admitted with a cardiac arrest status post CPR likely resulting in significant anoxic brain injury. 2. Multifocal pneumonia likely aspiration. However clinically and radiologically improved. 3. History of seizure disorder. 4. Status post tracheostomy and G-tube placement. Continue current supportive care. Prognosis appears extremely poor. Consultation Date/Type/Reason Admit Date/Time Jul 17, 2016 at 13:33 Type of Consultation: Pulmonary/critical care 24 HR Interval Summary Free Text/Dictation Patient condition remains critical. Remains completely unresponsive. However no overt seizure activity noted. General exam; young male, on ventilator via tracheostomy unresponsive, currently in no distress. Exam/Review of Systems Vital Signs Vitals Vital Signs Date Time Temp Pulse Resp B/P Pulse Ox O2 Delivery O2 Flow Rate FiO2 07/22/16 07:00 86 20 141/87 100 Mechanical Ventilator 07/22/16 05:21 30 07/22/16 03:00 98.5 Intake and Output 07/21/16 07/21/16 07/22/16 15:00 23:00 07:00 Intake Total 707.5 ml 757.5 ml 400 ml Output Total 2600 ml 0 ml 0 ml Balance -1892.5 ml 757.5 ml 400 ml Exam H EENT exam; supple neck, dilated pupils nonreactive to light , no neck masses. Patient has fair dentition. Tracheostomy in place with clean insertion site. Chest exam is; diminished but clear vessel bilaterally. S1-S2 audible, no murmurs. Regular rhythm. Abdomen examination; soft, G-tube in place. Nondistended. Bowel sounds audible. Extremity exam is; no peripheral edema. WOMEN'S SWIM COACH examination; patient remains completely unresponsive. Results Result Diagram: 07/22/16 0410 07/22/16 0410 Results 24 hrs Laboratory Tests Test 07/21/16 12:31 07/21/16 17:10 07/21/16 20:52 07/22/16 00:41 Bedside Glucose 266 H 282 H 241 H 296 H Test 07/22/16 04:10 07/22/16 04:48 07/22/16 09:01 White Blood Count 10.6 # Red Blood Count 2.90 L Hemoglobin 8.6 L Hematocrit 27.8 L Mean Corpuscular Volume 95.9 Mean Corpuscular Hemoglobin 29.7 Mean Corpuscular Hemoglobin Concent 30.9 L Red Cell Distribution Width 17.6 H Platelet Count 322 Mean Platelet Volume 10.4 Neutrophils % 75.9 Lymphocytes % 10.1 L Monocytes % 13.0 H Eosinophils % 0.2 Basophils % 0.4 Nucleated Red Blood Cells % 0.0 Neutrophils # 8.0 H Lymphocytes # 1.1 Monocytes # 1.4 H Eosinophils # 0.0 Basophils # 0.0 Nucleated Red Blood Cells # 0.0 Prothrombin Time 18.8 H Prothrombin Time Ratio 1.5 INR International Normalized Ratio 1.56 Activated Partial Thromboplast Time 34.3 Sodium Level 144 Potassium Level 3.3 L Chloride Level 106 Carbon Dioxide Level 22 Anion Gap 19 H Blood Urea Nitrogen 41 #H Creatinine 2.28 H Glucose Level 218 Calcium Level 8.7 Phosphorus Level 4.0 Magnesium Level 2.1 Total Bilirubin 0.0 L Direct Bilirubin 0.00 Indirect Bilirubin 0.0 Aspartate Amino Transf (AST/SGOT) 46 Alanine Aminotransferase (ALT/SGPT) 23 Alkaline Phosphatase 135 H Total Protein 6.7 Albumin 2.9 L Bedside Glucose 226 H 306 H Medications Medications Current Medications Norepinephrine/ Dextrose (Levophed/D5W) 500 ml @ 1.87 mls/hr TITRATE IV Last administered on 07/17/16 14:01; Admin Dose 18.75 MLS/HR; Start 07/17/16 at 12: 30 Ondansetron HCl (Zofran Inj) 4 mg Q6H PRN IV NAUSEA AND/OR VOMITING; Start at 16:00 Pantoprazole (Protonix Iv) 40 mg DAILY@06 IV Last administered on 07/22/16 05: 00; Admin Dose 40 MG; Start 07/18/16 at 06:00 Bisacodyl (Dulcolax Supp) 10 mg Q24H PRN [place] CONSTIPATION; Start 07/17/16 at 16: 00 Lorazepam (Ativan) 1 mg Q1H PRN IV seziure activity; Start 07/17/16 at 22:30 Acetaminophen (Tylenol Liquid) 650 mg Q6H PRN GTB PAIN AND OR ELEVATED TEMP Last administered on 07/22/16 01:05; Admin Dose 650 MG; Start 07/18/16 at 02:00 Miscellaneous Information 1 ea NOTE XX ; Start 07/18/16 at 02:00 Glucose (Glutose) 15 gm Q15M PRN PO DECREASED GLUCOSE; Start 07/18/16 at 02:00 Glucose (Glutose) 22.5 gm Q15M PRN PO DECREASED GLUCOSE; Start 07/18/16 at 02:00 Dextrose (D50w Syringe) 25 ml Q15M PRN IV DECREASED GLUCOSE Last administered on 07/20/16 21:53; Admin Dose 25 ML; Start 07/18/16 at 02:00 Dextrose (D50w Syringe) 50 ml Q15M PRN IV DECREASED GLUCOSE Last administered on 07/20/16 20:11; Admin Dose 50 ML; Start 07/18/16 at 02:00 Glucagon (Glucagen) 1 mg Q15M PRN IM DECREASED GLUCOSE; Start 07/18/16 at 02:00 Glucose 15 gm 15 gm Q15M PRN BUCCAL DECREASED GLUCOSE; Start 07/18/16 at 02:00 Azithromycin 250 ml @ 250 mls/hr Q24H IVPB Last administered on 07/21/16 17:10 ; Admin Dose 250 MLS/HR; Start 07/18/16 at 16:00 Levetiracetam/ Sodium Chloride (Keppra Iv/NS) 107.5 ml @ 430 mls/hr Q12 IVPB Last administered on 07/22/16 09:03; Admin Dose 430 MLS/HR; Start 07/18/16 at 15: 00 Mupirocin (Bactroban) 1 applic BID TOP Last administered on 07/22/16 09:03; Admin Dose 1 APPLIC; Start 07/19/16 at 12:00 Metronidazole 500 mg 500 mg Q8 PO Last administered on 07/22/16 05:34; Admin Dose 500 MG; Start 07/19/16 at 14:00 Meropenem (Merrem 500 Mg/ 100 ml (Pmx)) 100 ml @ 200 mls/hr Q24H IVPB Last administered on 07/21/16 13:59; Admin Dose 200 MLS/HR; Start 07/20/16 at 14:00 Insulin Aspart (Novolog Insulin Pen) NOVOLOG *MILD* ALGORI... Q4 SC Last administered on 07/22/16 09:05; Admin Dose 4 UNIT; Start 07/21/16 at 13:00 Metoclopramide HCl (Reglan) 5 mg Q6H IV Last administered on 07/22/16 04:50; Admin Dose 5 MG; Start 07/21/16 at 16:00 Polyethylene Glycol 17 gm 17 gm DAILY NGT Last administered on 07/22/16 09:03; Admin Dose 17 GM; Start 07/21/16 at 11:00 Dextrose/Sodium Chloride 1,000 ml @ 50 mls/hr Q20H IV Last administered on 07/21 14:56; Admin Dose 50 MLS/HR; Start 07/21/16 at 14:00 Potassium Chloride (KCl 20 MEQ/50 ML SW) 50 ml @ 25 mls/hr Q2H IVPB Last administered on 07/22/16 09:14; Admin Dose 25 MLS/HR; Start 07/22/16 at 07:30; Stop 07/22/16 at 11:29 CHANCE AVILA Jul 22, 2016 09:43
[2016-07-22] MEDS: SOD CHLORIDE 0.45% 1,000 ML IV SCH (10:46)
--- NOTE | 2016-07-22 11:02 | PN ---
Date/Time of Note Date/Time of Note DATE: 07/22/16 TIME: 10:58 Assessment/Plan VTE Prophylaxis VTE Prophylaxis Intervention: SCD's Lines/Catheters IV Catheter Type (from [facility]): Central Line Central line still needed: Yes Urinary Cath still in place: Yes Reason Cath still needed: other (indicate) Assessment/Plan Assessment/Plan A 35-year-old unfortunate male, who was admitted after a cardiac arrest, managed now in the intensive care unit as follows: 1. Cardiac arrest secondary to septic shock. The patient now remains off pressors. 2. Acute encephalopathy, likely anoxic secondary to cardiac arrest with possibility of brain or definitely severe anoxic brain injury. 3. 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 4. Chronic debility secondary to chronically uncontrolled diabetes type 1 with recurrent episodes of pneumonia causing recurrent hospitalization and now trach and gastrostomy placement, with chronic muscle wasting and foot drop. 5. End-stage renal disease on hemodialysis. 6. Acute on chronic respiratory failure, remains ventilator-dependent. 7. Anemia secondary to chronic kidney disease. 8. Methicillin-resistant Staphylococcus aureus nares. 9. Chronic dysphagia, on PEG feeds with high residuals. PLAN * resume PEG feeds at low dose and uptitrate * d/c D5 IVF and change to 1/2 NS for 1L only for hyperglycemia (hyperglycemia is likely 2/2 D5IVF) * Continue SSI for now, will determine insulin requirements based on SSI values * patient has been 2 days off atropine drops and pupils remain dilated. Will get brain scan to assess for brain * Continue vent support * Continue abx * Continuie HD per renal * Continue supportive care CRITICAL CARE TIME: >35 mins Subjective 24 Hr Interval Summary Subjective hx not possible: pt non-verbal, pt critical status Exam/Review of Systems Vital Signs Vitals Vital Signs Date Time Temp Pulse Resp B/P Pulse Ox O2 Delivery O2 Flow Rate FiO2 07/22/16 07:00 86 20 141/87 100 Mechanical Ventilator 07/22/16 05:21 30 07/22/16 03:00 98.5 Intake and Output 07/21/16 07/21/16 07/22/16 15:00 23:00 07:00 Intake Total 707.5 ml 757.5 ml 400 ml Output Total 2600 ml 0 ml 0 ml Balance -1892.5 ml 757.5 ml 400 ml Exam GENERAL: Obtunded, unresponsive. HEENT: Head is normocephalic. Pupils remain fixed and dilated. NECK: Trach to vent. RESPIRATORY: Clear to auscultation. Diminished breath sounds. CARDIOVASCULAR: Regular rate and rhythm. No murmurs. ABDOMEN: Soft, nondistended. Having high residuals per report. EXTREMITIES: Chronic muscle wasting, foot drop right greater than left bilaterally. NEUROLOGIC: Unresponsive. No mental status. No reflexes. GENITOURINARY: Baker to bedside draining minimal concentrated urine. Results Result Diagram: 07/22/16 0410 07/22/16 0410 Results 24 hrs Laboratory Tests Test 07/21/16 12:31 07/21/16 17:10 07/21/16 20:52 07/22/16 00:41 Bedside Glucose 266 H 282 H 241 H 296 H Test 07/22/16 04:10 07/22/16 04:48 07/22/16 09:01 White Blood Count 10.6 # Red Blood Count 2.90 L Hemoglobin 8.6 L Hematocrit 27.8 L Mean Corpuscular Volume 95.9 Mean Corpuscular Hemoglobin 29.7 Mean Corpuscular Hemoglobin Concent 30.9 L Red Cell Distribution Width 17.6 H Platelet Count 322 Mean Platelet Volume 10.4 Neutrophils % 75.9 Lymphocytes % 10.1 L Monocytes % 13.0 H Eosinophils % 0.2 Basophils % 0.4 Nucleated Red Blood Cells % 0.0 Neutrophils # 8.0 H Lymphocytes # 1.1 Monocytes # 1.4 H Eosinophils # 0.0 Basophils # 0.0 Nucleated Red Blood Cells # 0.0 Prothrombin Time 18.8 H Prothrombin Time Ratio 1.5 INR International Normalized Ratio 1.56 Activated Partial Thromboplast Time 34.3 Sodium Level 144 Potassium Level 3.3 L Chloride Level 106 Carbon Dioxide Level 22 Anion Gap 19 H Blood Urea Nitrogen 41 #H Creatinine 2.28 H Glucose Level 218 Calcium Level 8.7 Phosphorus Level 4.0 Magnesium Level 2.1 Total Bilirubin 0.0 L Direct Bilirubin 0.00 Indirect Bilirubin 0.0 Aspartate Amino Transf (AST/SGOT) 46 Alanine Aminotransferase (ALT/SGPT) 23 Alkaline Phosphatase 135 H Total Protein 6.7 Albumin 2.9 L Bedside Glucose 226 H 306 H Medications Medications Current Medications Norepinephrine/ Dextrose (Levophed/D5W) 500 ml @ 1.87 mls/hr TITRATE IV Last administered on 07/17/16 14:01; Admin Dose 18.75 MLS/HR; Start 07/17/16 at 12: 30 Ondansetron HCl (Zofran Inj) 4 mg Q6H PRN IV NAUSEA AND/OR VOMITING; Start at 16:00 Pantoprazole (Protonix Iv) 40 mg DAILY@06 IV Last administered on 07/22/16 05: 00; Admin Dose 40 MG; Start 07/18/16 at 06:00 Bisacodyl (Dulcolax Supp) 10 mg Q24H PRN [place] CONSTIPATION; Start 07/17/16 at 16: 00 Lorazepam (Ativan) 1 mg Q1H PRN IV seziure activity; Start 07/17/16 at 22:30 Acetaminophen (Tylenol Liquid) 650 mg Q6H PRN GTB PAIN AND OR ELEVATED TEMP Last administered on 07/22/16 01:05; Admin Dose 650 MG; Start 07/18/16 at 02:00 Miscellaneous Information 1 ea NOTE XX ; Start 07/18/16 at 02:00 Glucose (Glutose) 15 gm Q15M PRN PO DECREASED GLUCOSE; Start 07/18/16 at 02:00 Glucose (Glutose) 22.5 gm Q15M PRN PO DECREASED GLUCOSE; Start 07/18/16 at 02:00 Dextrose (D50w Syringe) 25 ml Q15M PRN IV DECREASED GLUCOSE Last administered on 07/20/16 21:53; Admin Dose 25 ML; Start 07/18/16 at 02:00 Dextrose (D50w Syringe) 50 ml Q15M PRN IV DECREASED GLUCOSE Last administered on 07/20/16 20:11; Admin Dose 50 ML; Start 07/18/16 at 02:00 Glucagon (Glucagen) 1 mg Q15M PRN IM DECREASED GLUCOSE; Start 07/18/16 at 02:00 Glucose 15 gm 15 gm Q15M PRN BUCCAL DECREASED GLUCOSE; Start 07/18/16 at 02:00 Azithromycin 250 ml @ 250 mls/hr Q24H IVPB Last administered on 07/21/16 17:10 ; Admin Dose 250 MLS/HR; Start 07/18/16 at 16:00 Levetiracetam/ Sodium Chloride (Keppra Iv/NS) 107.5 ml @ 430 mls/hr Q12 IVPB Last administered on 07/22/16 09:03; Admin Dose 430 MLS/HR; Start 07/18/16 at 15: 00 Mupirocin (Bactroban) 1 applic BID TOP Last administered on 07/22/16 09:03; Admin Dose 1 APPLIC; Start 07/19/16 at 12:00 Metronidazole 500 mg 500 mg Q8 PO Last administered on 07/22/16 05:34; Admin Dose 500 MG; Start 07/19/16 at 14:00 Meropenem (Merrem 500 Mg/ 100 ml (Pmx)) 100 ml @ 200 mls/hr Q24H IVPB Last administered on 07/21/16 13:59; Admin Dose 200 MLS/HR; Start 07/20/16 at 14:00 Insulin Aspart (Novolog Insulin Pen) NOVOLOG *MILD* ALGORI... Q4 SC Last administered on 07/22/16 09:05; Admin Dose 4 UNIT; Start 07/21/16 at 13:00 Metoclopramide HCl (Reglan) 5 mg Q6H IV Last administered on 07/22/16 10:46; Admin Dose 5 MG; Start 07/21/16 at 16:00 Polyethylene Glycol 17 gm 17 gm DAILY NGT Last administered on 07/22/16 09:03; Admin Dose 17 GM; Start 07/21/16 at 11:00 Potassium Chloride 50 ml @ 25 mls/hr Q2H IVPB Last administered on 07/22/16 09: 14; Admin Dose 25 MLS/HR; Start 07/22/16 at 07:30; Stop 07/22/16 at 11:29 Sodium Chloride (1/2 NS) 1,000 ml @ 50 mls/hr Q20H IV Last administered on 07/22 10:46; Admin Dose 50 MLS/HR; Start 07/22/16 at 10:30 ERMA JACOBS Jul 22, 2016 11:02
--- NOTE | 2016-07-22 12:35 | PN ---
DATE: 07/22/2016 PALLIATIVE CARE PROGRESS NOTE SUBJECTIVE: There has been no change in patient's overall medical condition. He remains unresponsi ve. Mother is not at the bedside at this time. Please refer to my note, 07/21/2016, for my convers ation with his mother and uncle. At the end of the conversation yesterday, the uncle states that he would get back to me after he spoke to his sister. OBJECTIVE: VITAL SIGNS: Blood pressure 137/82, pulse of 96 and regular, respirations of 20, 100% saturation on 30% FIO2. NEUROLOGICAL: He has no corneal reflex, pupillary light reflex, or doll's eyes on examination. He is not over breathing the ventilator, and there is no obvious gag reflex. LABORATORY: Tests have been reviewed. ASSESSMENT AND PLAN: I will reorder EEG at this time. Reevaluate the patient's underlying neurolog ical condition once again. Refer further workup to Dr. Rashaun Pedersen. Dictated By: IBETH COLLIER MD, LP/LAURA Conf#: [id number] DID#: [id number]
[2016-07-22] MEDS: MEROPENEM 500 MG/100 ML (PMX) 100 ML IVPB SCH (13:07)
--- NOTE | 2016-07-22 13:50 | PN ---
DATE: 07/22/2016 INFECTIOUS DISEASE PROGRESS NOTE SUBJECTIVE: No acute events. The patient is lying comfortably in bed. VITAL SIGNS: T-max 101.1, T-current 98.4, heart rate 96, respirations 20, blood pressure 137/82, sa turation 100 on vent. WBC 10.6, H and H 8.6 and 27.8, platelets 322, neutrophils 75.9, no bands. MICROBIOLOGY: Blood cultures since 07/20/2016 remain negative. ANTIMICROBIALS: The patient is on 1. Flagyl. 2. Meropenem. 3. Vancomycin. 4. He is also getting Bactroban to nares. 5. He is on Zithromax. INDWELLINGS: Trach, PEG, left upper extremity AV fistula and rectal tube and right femoral triple-l umen catheter. PHYSICAL EXAMINATION: GENERAL: Chronically ill-appearing, middle-aged white man who is unresponsive. HEENT: Head atraumatic, normocephalic. Pupils are dilated. Buccal mucosa dry. NECK: Supple. Tracheostomy present. CHEST: Rise symmetrical. Breath sounds diminished to bases. HEART: S1, S2. ABDOMEN: Soft. Bowel tones present. EXTREMITIES: Without cyanosis. ASSESSMENT: 1. Sepsis with recurrent fevers and resolving leukocytosis. 2. Urinary tract infection per urinalysis. 3. Diarrhea, on empiric Flagyl. 4. Chronic respiratory failure, possible aspiration. 5. Anoxic encephalopathy status post cardiopulmonary arrest. 6. Diabetes. 7. Methicillin-resistant Staphylococcus aureus nares colonization. 8. End-stage renal disease, hemodialysis dependent. PLAN: The patient remains unchanged. We are going to repeat urine culture. Continue him on curren t antimicrobials. Continue Bactroban to nares and Hibiclens bath daily, pending brain perfusion susan t. Prognosis poor. The patient is FULL CODE. Dictated By: MICKY MIRANDA TINT LAYER for RENEE CURRY/NTS Conf#: [id number] DID#: [id number]
[2016-07-22] MEDS: AZITHROMYCIN 500MG/NS (PMX) 250 ML IVPB SCH (16:48)
--- NOTE | 2016-07-22 18:33 | RADRPT ---
PROCEDURE: Intracerebral perfusion study CLINICAL INDICATION: 35 year old patient with altered mental status. TECHNIQUE: Following the intravenous injection of approximately 15.0 mCi of Tc-99m pertechnetate, multiple dynamic anterior images of the head were obtained along with multiple delayed anterior, pos terior and lateral images of the head up to 20 minutes post injection. COMPARISON: CT scan of the brain dated July 19, 2016. FINDINGS: Multiple anterior dynamic images of the head demonstrate blood flow in the carotid arteries bilatera lly. Normally expected trident appearance of the intracerebral vessels is visualized. Delayed anterior, posterior and lateral spot images of the head demonstrate activity in the transver se and sagittal sinuses. IMPRESSION: No definite scintigraphic evidence to suggest the presence of brain . RPTAT: HH .Margaret Richards MD, Date Time Electronically viewed and signed by .Margaret Richards MD, on 07/22/2016 18:33 .L/
[2016-07-23] VITALS (38 sets, daily range): BP systolic 90–148; BP diastolic 57–98; PULSE 69–111; RESP 17–27
[2016-07-23] MEDS: INSULIN ASPART [NOVOLOG] 3 ML PEN SC SCH ×6 (00:17→21:00)
[2016-07-23 05:27] LABS: ADD SCAN DIFF NO
[2016-07-23] MEDS: PANTOPRAZOLE 40 MG INJ IV SCH (05:28)
[2016-07-23] MEDS: metroNIDAZOLE 500 MG TAB PO SCH ×3 (05:28→21:40)
[2016-07-23] MEDS: METOCLOPRAMIDE 10 MG INJ IV SCH ×4 (05:28→21:40)
[2016-07-23 05:35] LABS: BASOPHIL # 0.1 10^3/ul (0.0-0.1); BASOPHILS % 0.3 % (0.0-2.0); EOSINOPHILS # 0.2 10^3/ul (0.0-0.5); EOSINOPHILS % 1.2 % (0.0-7.0); HEMATOCRIT 32.9 % (42.0-52.0); LYMPHOCYTES # 1.7 10^3/ul (0.8-2.9); LYMPHOCYTES % 11.4 % (15.0-51.0); MEAN CORPUSCULAR HEMOGLOBIN 29.9 pg (29.0-33.0); MEAN CORPUSCULAR HGB CONC 30.4 g/dl (32.0-37.0); MEAN CORPUSCULAR VOLUME 98.5 fl (82.0-101.0); MEAN PLATELET VOLUME 10.2 fl (7.4-10.4); MONOCYTE # 1.2 10^3/ul (0.3-0.9); MONOCYTES % 8.4 % (0.0-11.0); NEUTROPHIL # 11.4 10^3/ul (1.6-7.5); NEUTROPHILS % 78.2 % (39.0-77.0); PLATELET COUNT 328 10^3/UL (140-415); RED BLOOD COUNT 3.34 10^6/ul (4.70-6.10); RED CELL DISTRIBUTION WIDTH 17.4 % (11.5-14.5); WHITE BLOOD COUNT 14.6 10^3/ul (4.8-10.8)
[2016-07-23 05:57] LABS: POTASSIUM 4.3 mmol/L (3.5-5.1)
[2016-07-23 05:59] LABS: CREATININE 2.99 mg/dl (0.61-1.24)
[2016-07-23 06:00] LABS: PHOSPHORUS 4.3 mg/dl (2.5-4.9)
[2016-07-23 06:01] LABS: CALCIUM 8.7 mg/dl (8.4-10.2); MAGNESIUM 2.1 mg/dl (1.7-2.5)
[2016-07-23] MEDS: SOD CHLORIDE 0.45% 1,000 ML IV SCH (08:00)
[2016-07-23] MEDS: POLYETHYLENE GLYCOL 17 GM PACKET NGT SCH (08:31)
[2016-07-23] MEDS: LEVETIRACETAM IV 750 MG in SOD CHLORIDE 0.9% 100 ML IVPB SCH ×2 (08:36→23:57)
[2016-07-23] MEDS: MUPIROCIN 2% 22 GM OINT TOP SCH ×2 (08:36→21:43)
--- NOTE | 2016-07-23 09:16 | CONS ---
Date/Time of Note Date/Time of Note DATE: 07/23/16 TIME: 09:13 Assessment/Plan Assessment/Plan Additional Assessment/Plan Ventilator settings are; AC of 20, tidal volume 500, PEEP of 5, 30% FiO2. Assessment recommendations; next 1. Patient admitted for cardiac arrest status post CPR likely with severe resulting anoxic encephalopathy. 2. History of chronic respiratory failure. 3. History of renal failure. 4. Severe bilateral pneumonia. Continue current supportive care. Prognosis is dismal. Consultation Date/Type/Reason Admit Date/Time Jul 17, 2016 at 13:33 Type of Consultation: Pulmonary/critical care 24 HR Interval Summary Free Text/Dictation Patient condition remains critical. Remains completely unresponsive. No overt seizure activity noted. General exam; young male, on ventilator via tracheostomy unresponsive. Exam/Review of Systems Vital Signs Vitals Vital Signs Date Time Temp Pulse Resp B/P Pulse Ox O2 Delivery O2 Flow Rate FiO2 07/23/16 08:00 95 07/23/16 08:00 30 07/23/16 06:00 23 141/91 100 07/23/16 04:00 97.8 07/23/16 00:00 Mechanical Ventilator Intake and Output 07/22/16 07/22/16 07/23/16 15:00 23:00 07:00 Intake Total 757.5 ml 840 ml 540 ml Output Total 15 ml 300 ml 500 ml Balance 742.5 ml 540 ml 40 ml Exam HEENT exam is; supple neck, no JVD. No lymphadenopathy. Midline trachea. Tracheostomy placed with clean insertion site. Pupils are widely dilated and nonreactive to light. Doll's eye movements are absent. Chest examination IL: Diminished but clear breath sounds. S1-S2 audible, no murmurs. Regular rhythm. Abdomen exam is; soft, G-tube in place. Bowel sounds audible. No organomegaly. Nondistended. Extremity exam is; no peripheral edema. ELECTRONICS WORKER exam; patient remains completely unresponsive. Results Result Diagram: 07/23/16 0500 07/23/16 0500 Results 24 hrs Laboratory Tests Test 07/22/16 13:06 07/22/16 16:54 07/22/16 20:47 07/23/16 00:14 Bedside Glucose 202 179 202 174 Test 07/23/16 05:00 07/23/16 05:06 07/23/16 08:36 White Blood Count 14.6 #H Red Blood Count 3.34 L Hemoglobin 10.0 L Hematocrit 32.9 L Mean Corpuscular Volume 98.5 Mean Corpuscular Hemoglobin 29.9 Mean Corpuscular Hemoglobin Concent 30.4 L Red Cell Distribution Width 17.4 H Platelet Count 328 Mean Platelet Volume 10.2 Neutrophils % 78.2 H Lymphocytes % 11.4 L Monocytes % 8.4 Eosinophils % 1.2 Basophils % 0.3 Nucleated Red Blood Cells % 0.0 Neutrophils # 11.4 H Lymphocytes # 1.7 Monocytes # 1.2 H Eosinophils # 0.2 Basophils # 0.1 Nucleated Red Blood Cells # 0.0 Sodium Level 144 Potassium Level 4.3 Chloride Level 106 Carbon Dioxide Level 18 L Anion Gap 24 H Blood Urea Nitrogen 48 H Creatinine 2.99 H Glucose Level 297 H Calcium Level 8.7 Phosphorus Level 4.3 Magnesium Level 2.1 Random Vancomycin Level 17.3 Bedside Glucose 284 H 272 H Medications Medications Current Medications Norepinephrine/ Dextrose (Levophed/D5W) 500 ml @ 1.87 mls/hr TITRATE IV Last administered on 07/17/16 14:01; Admin Dose 18.75 MLS/HR; Start 07/17/16 at 12: 30 Ondansetron HCl (Zofran Inj) 4 mg Q6H PRN IV NAUSEA AND/OR VOMITING; Start at 16:00 Pantoprazole (Protonix Iv) 40 mg DAILY@06 IV Last administered on 07/23/16 05: 28; Admin Dose 40 MG; Start 07/18/16 at 06:00 Bisacodyl (Dulcolax Supp) 10 mg Q24H PRN [place] CONSTIPATION; Start 07/17/16 at 16: 00 Lorazepam (Ativan) 1 mg Q1H PRN IV seziure activity; Start 07/17/16 at 22:30 Acetaminophen (Tylenol Liquid) 650 mg Q6H PRN GTB PAIN AND OR ELEVATED TEMP Last administered on 07/22/16 01:05; Admin Dose 650 MG; Start 07/18/16 at 02:00 Miscellaneous Information 1 ea NOTE XX ; Start 07/18/16 at 02:00 Glucose (Glutose) 15 gm Q15M PRN PO DECREASED GLUCOSE; Start 07/18/16 at 02:00 Glucose (Glutose) 22.5 gm Q15M PRN PO DECREASED GLUCOSE; Start 07/18/16 at 02:00 Dextrose (D50w Syringe) 25 ml Q15M PRN IV DECREASED GLUCOSE Last administered on 07/20/16 21:53; Admin Dose 25 ML; Start 07/18/16 at 02:00 Dextrose (D50w Syringe) 50 ml Q15M PRN IV DECREASED GLUCOSE Last administered on 07/20/16 20:11; Admin Dose 50 ML; Start 07/18/16 at 02:00 Glucagon (Glucagen) 1 mg Q15M PRN IM DECREASED GLUCOSE; Start 07/18/16 at 02:00 Glucose 15 gm 15 gm Q15M PRN BUCCAL DECREASED GLUCOSE; Start 07/18/16 at 02:00 Azithromycin 250 ml @ 250 mls/hr Q24H IVPB Last administered on 07/22/16 16:48 ; Admin Dose 250 MLS/HR; Start 07/18/16 at 16:00 Levetiracetam/ Sodium Chloride (Keppra Iv/NS) 107.5 ml @ 430 mls/hr Q12 IVPB Last administered on 07/23/16 08:36; Admin Dose 430 MLS/HR; Start 07/18/16 at 15: 00 Mupirocin (Bactroban) 1 applic BID TOP Last administered on 07/23/16 08:36; Admin Dose 1 APPLIC; Start 07/19/16 at 12:00 Metronidazole 500 mg 500 mg Q8 PO Last administered on 07/23/16 05:28; Admin Dose 500 MG; Start 07/19/16 at 14:00 Meropenem (Merrem 500 Mg/ 100 ml (Pmx)) 100 ml @ 200 mls/hr Q24H IVPB Last administered on 07/22/16 13:07; Admin Dose 200 MLS/HR; Start 07/20/16 at 14:00 Insulin Aspart (Novolog Insulin Pen) NOVOLOG *MILD* ALGORI... Q4 SC Last administered on 07/23/16 08:38; Admin Dose 3 UNIT; Start 07/21/16 at 13:00 Metoclopramide HCl (Reglan) 5 mg Q6H IV Last administered on 07/23/16 05:28; Admin Dose 5 MG; Start 07/21/16 at 16:00 Polyethylene Glycol 17 gm 17 gm DAILY NGT Last administered on 07/22/16 09:03; Admin Dose 17 GM; Start 07/21/16 at 11:00 Sodium Chloride (1/2 NS) 1,000 ml @ 50 mls/hr Q20H IV Last administered on 07/22 10:46; Admin Dose 50 MLS/HR; Start 07/22/16 at 10:30 Collagenase 1 applic 1 applic DAILY PRN TOP WHEN SOILED; Start 07/22/16 at 16:30 Vancomycin HCl/ Sodium Chloride (Vancocin/NS) 150 ml @ 75 mls/hr Q96H IVPB ; Start 07/23/16 at 17:00 CHANCE AVILA Jul 23, 2016 09:16
[2016-07-23] MEDS ORDERED: VANCOMYCIN 1 GM in NS 250 ML IVPB ONE (10:00)
--- NOTE | 2016-07-23 10:38 | PN ---
Date/Time of Note Date/Time of Note DATE: 07/23/16 TIME: 10:28 Assessment/Plan VTE Prophylaxis VTE Prophylaxis Intervention: heparin Lines/Catheters IV Catheter Type (from [facility]): Central Line Central line still needed: Yes Urinary Cath still in place: Yes Reason Cath still needed: other (indicate) Assessment/Plan Assessment/Plan A 35-year-old unfortunate male, who was admitted after a cardiac arrest, managed now as follows: 1. Cardiac arrest secondary to septic shock. The patient now remains off pressors. 2. Severe anoxic encephalopathy with rasta fixed and dilated pupils * Brain assessment shows residual brain function * Patient was chronically on atropine eye drops which might explain dilated pupils. these have been stopped since 07/20/16 3. 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 4. Bilateral Multifocal Pneumonia causing Sepsis 5. End-stage renal disease on hemodialysis. 6. Acute on chronic respiratory failure, remains ventilator-dependent. 7. Anemia secondary to chronic kidney disease. 8. Methicillin-resistant Staphylococcus aureus nares. 9. Chronic dysphagia, on PEG feeds with high residuals. 10. Chronic debility secondary to chronically uncontrolled diabetes type 1 with recurrent episodes of pneumonia causing recurrent hospitalization and now trach and gastrostomy placement, with chronic muscle wasting and foot drop. PLAN * Start low dose lantus and Continue SSI for now. Titrate insulin depending on SSI * Continue vent support * Continue abx * Continue HD per renal * Continue supportive care * Ok to downgrade to tele [facility] bed if ok with pulm CRITICAL CARE TIME: >35 mins Subjective 24 Hr Interval Summary Free Text/Dictation Patient seen and examined. Remains unresponsive Subjective hx not possible: pt non-verbal Exam/Review of Systems Vital Signs Vitals Vital Signs Date Time Temp Pulse Resp B/P Pulse Ox O2 Delivery O2 Flow Rate FiO2 07/23/16 10:16 104 07/23/16 09:00 20 07/23/16 08:00 30 07/23/16 07:20 100 07/23/16 06:00 141/91 07/23/16 04:00 97.8 07/23/16 00:00 Mechanical Ventilator Intake and Output 07/22/16 07/22/16 07/23/16 14:59 22:59 06:59 Intake Total 747.5 ml 830 ml 610 ml Output Total 10 ml 305 ml 500 ml Balance 737.5 ml 525 ml 110 ml Exam GENERAL: Obtunded, unresponsive. HEENT: Head is normocephalic. Pupils remain fixed and dilated. NECK: Trach to vent. RESPIRATORY: Clear to auscultation. Diminished breath sounds. CARDIOVASCULAR: Regular rate and rhythm. No murmurs. ABDOMEN: Soft, nondistended. Having high residuals per report. EXTREMITIES: Chronic muscle wasting, foot drop right greater than left bilaterally. NEUROLOGIC: Unresponsive. No mental status. No reflexes. GENITOURINARY: Baker to bedside draining minimal concentrated urine. Results Result Diagram: 07/23/16 0500 07/23/16 0500 Results 24 hrs Laboratory Tests Test 07/22/16 13:06 07/22/16 16:54 07/22/16 20:47 07/23/16 00:14 Bedside Glucose 202 179 202 174 Test 07/23/16 05:00 07/23/16 05:06 07/23/16 08:36 White Blood Count 14.6 #H Red Blood Count 3.34 L Hemoglobin 10.0 L Hematocrit 32.9 L Mean Corpuscular Volume 98.5 Mean Corpuscular Hemoglobin 29.9 Mean Corpuscular Hemoglobin Concent 30.4 L Red Cell Distribution Width 17.4 H Platelet Count 328 Mean Platelet Volume 10.2 Neutrophils % 78.2 H Lymphocytes % 11.4 L Monocytes % 8.4 Eosinophils % 1.2 Basophils % 0.3 Nucleated Red Blood Cells % 0.0 Neutrophils # 11.4 H Lymphocytes # 1.7 Monocytes # 1.2 H Eosinophils # 0.2 Basophils # 0.1 Nucleated Red Blood Cells # 0.0 Sodium Level 144 Potassium Level 4.3 Chloride Level 106 Carbon Dioxide Level 18 L Anion Gap 24 H Blood Urea Nitrogen 48 H Creatinine 2.99 H Glucose Level 297 H Calcium Level 8.7 Phosphorus Level 4.3 Magnesium Level 2.1 Random Vancomycin Level 17.3 Bedside Glucose 284 H 272 H Medications Medications Current Medications Norepinephrine/ Dextrose (Levophed/D5W) 500 ml @ 1.87 mls/hr TITRATE IV Last administered on 07/17/16t 14:01; Admin Dose 18.75 MLS/HR; Start 07/17/16 at 12: 30 Ondansetron HCl (Zofran Inj) 4 mg Q6H PRN IV NAUSEA AND/OR VOMITING; Start at 16:00 Pantoprazole (Protonix Iv) 40 mg DAILY@06 IV Last administered on 07/23/16 05: 28; Admin Dose 40 MG; Start 07/18/16 at 06:00 Bisacodyl (Dulcolax Supp) 10 mg Q24H PRN [place] CONSTIPATION; Start 07/17/16 at 16: 00 Lorazepam (Ativan) 1 mg Q1H PRN IV seziure activity; Start 07/17/16 at 22:30 Acetaminophen (Tylenol Liquid) 650 mg Q6H PRN GTB PAIN AND OR ELEVATED TEMP Last administered on 07/22/16 01:05; Admin Dose 650 MG; Start 07/18/16 at 02:00 Miscellaneous Information 1 ea NOTE XX ; Start 07/18/16 at 02:00 Glucose (Glutose) 15 gm Q15M PRN PO DECREASED GLUCOSE; Start 07/18/16 at 02:00 Glucose (Glutose) 22.5 gm Q15M PRN PO DECREASED GLUCOSE; Start 07/18/16 at 02:00 Dextrose (D50w Syringe) 25 ml Q15M PRN IV DECREASED GLUCOSE Last administered on 07/20/16 21:53; Admin Dose 25 ML; Start 07/18/16 at 02:00 Dextrose (D50w Syringe) 50 ml Q15M PRN IV DECREASED GLUCOSE Last administered on 07/20/16 20:11; Admin Dose 50 ML; Start 07/18/16 at 02:00 Glucagon (Glucagen) 1 mg Q15M PRN IM DECREASED GLUCOSE; Start 07/18/16 at 02:00 Glucose 15 gm 15 gm Q15M PRN BUCCAL DECREASED GLUCOSE; Start 07/18/16 at 02:00 Azithromycin 250 ml @ 250 mls/hr Q24H IVPB Last administered on 07/22/16 16:48 ; Admin Dose 250 MLS/HR; Start 07/18/16 at 16:00 Levetiracetam/ Sodium Chloride (Keppra Iv/NS) 107.5 ml @ 430 mls/hr Q12 IVPB Last administered on 07/23/16 08:36; Admin Dose 430 MLS/HR; Start 07/18/16 at 15: 00 Mupirocin (Bactroban) 1 applic BID TOP Last administered on 07/23/16 08:36; Admin Dose 1 APPLIC; Start 07/19/16 at 12:00 Metronidazole 500 mg 500 mg Q8 PO Last administered on 07/23/16 05:28; Admin Dose 500 MG; Start 07/19/16 at 14:00 Meropenem (Merrem 500 Mg/ 100 ml (Pmx)) 100 ml @ 200 mls/hr Q24H IVPB Last administered on 07/22/16 13:07; Admin Dose 200 MLS/HR; Start 07/20/16 at 14:00 Insulin Aspart (Novolog Insulin Pen) NOVOLOG *MILD* ALGORI... Q4 SC Last administered on 07/23/16 08:38; Admin Dose 3 UNIT; Start 07/21/16 at 13:00 Metoclopramide HCl (Reglan) 5 mg Q6H IV Last administered on 07/23/16 05:28; Admin Dose 5 MG; Start 07/21/16 at 16:00 Polyethylene Glycol 17 gm 17 gm DAILY NGT Last administered on 07/22/16 09:03; Admin Dose 17 GM; Start 07/21/16 at 11:00 Sodium Chloride (1/2 NS) 1,000 ml @ 50 mls/hr Q20H IV Last administered on 07/22 10:46; Admin Dose 50 MLS/HR; Start 07/22/16 at 10:30 Collagenase 1 applic 1 applic DAILY PRN TOP WHEN SOILED; Start 07/22/16 at 16:30 Vancomycin HCl/ Sodium Chloride (Vancocin/NS) 150 ml @ 75 mls/hr Q96H IVPB ; Start 07/23/16 at 17:00 Procedures Procedures PROCEDURE: Intracerebral perfusion study CLINICAL INDICATION: 35 year old patient with altered mental status. TECHNIQUE: Following the intravenous injection of approximately 15.0 mCi of Tc -99m pertechnetate, multiple dynamic anterior images of the head were obtained along with multiple delayed anterior, posterior and lateral images of the head up to 20 minutes post injection. COMPARISON: CT scan of the brain dated July 19, 2016. FINDINGS: Multiple anterior dynamic images of the head demonstrate blood flow in the carotid arteries bilaterally. Normally expected trident appearance of the intracerebral vessels is visualized. Delayed anterior, posterior and lateral spot images of the head demonstrate activity in the transverse and sagittal sinuses. IMPRESSION: No definite scintigraphic evidence to suggest the presence of brain . RPTAT: HH .Margaret Richards MD, MD Date Time Electronically viewed and signed by .Margaret Richards MD, MD on 07/22/2016 18:33 .L/ CC: ERMA JACOBS BOLATITO M. Jul 23, 2016 10:38
--- NOTE | 2016-07-23 11:51 | PN ---
DATE: 07/23/2016 PALLIATIVE CARE PROGRESS NOTE Mr. Baeza has not had any improvement in his overall neurological condition. Cognitively, he rem ains vegetative, although he is overbreathing the ventilator. Family members and decision makers a re primarily the patient's mother and uncle. His uncle lives in [place] and has been very helpf ul in communication between his and caregivers. Hopes, quality of life had been discussed with the patient's mother. However, she is conflicted at this time and another conference will be sched uled with her. PHYSICAL EXAMINATION: There is no response to any verbal or tactile stimulation. He has no oculoce phalics on examination, no gag reflex, but he is overbreathing the ventilator. Prognosis is extrem bridgette poor. Goals of care will be discussed with patient's once again. PTS is less than 10. RECOMMENDATIONS: Family support and once again, we will have a family meeting and discuss options, which I have discussed with patient's mother already. Once again, she seems conflicted and may not understand the gravity of his neurological condition. There are no ethical issues at this time. Th e patient's code status is FULL CODE and I will discuss this with his mother as soon as she visits michi coates. Dictated By: IBETH COLLIER MD, LP/LAURA Conf#: [id number] DID#: [id number]
[2016-07-23] MEDS: INSULIN GLARGINE [LANtus] 3 ML PEN SC SCH (11:56)
[2016-07-23] MEDS: MEROPENEM 500 MG/100 ML (PMX) 100 ML IVPB SCH (15:04)
[2016-07-23] MEDS: EPOETIN 4000 UNITS/1 ML INJ (ESRD) SC SCH (15:05)
--- NOTE | 2016-07-23 15:08 | CONS ---
Date/Time of Note Date/Time of Note DATE: 07/23/16 TIME: 15:05 Consult Date/Type/Reason Admit Date/Time Jul 17, 2016 at 13:33 Initial Consult Date Type of Consultation: neph Subjective The patient is on hemodialysis today, tolerated it well. No other acute events noted. No hemoptysis, hematemesis, or hematochezia. The patient remains unresponsive. palliative care dw family. OBJECTIVE: HEENT: Head is normocephalic. NECK: Supple. HEART: Regular rate. LUNGS: Show diminished breath sounds at the base. ABDOMEN: Soft, nontender to palpation, no rebound or guarding. EXTREMITIES: Negative for clubbing, cyanosis, no edema. DERMATOLOGIC: No rashes. MUSCULOSKELETAL: No joint effusions. NEUROLOGIC: No change in exam. MEDICATIONS: The patient's medications have been reviewed. Objective Vital Signs Date Time Temp Pulse Resp B/P Pulse Ox O2 Delivery O2 Flow Rate FiO2 07/23/16 13:49 96 07/23/16 13:03 20 99 30 07/23/16 13:00 97.9 113/72 Mechanical Ventilator Intake and Output 07/22/16 07/22/16 07/23/16 15:00 23:00 07:00 Intake Total 757.5 ml 840 ml 540 ml Output Total 15 ml 300 ml 500 ml Balance 742.5 ml 540 ml 40 ml Results/Medications Result Diagram: 07/23/16 0500 07/23/16 0500 Results 24 hrs Laboratory Tests Test 07/22/16 16:54 07/22/16 20:47 07/23/16 00:14 07/23/16 05:00 Bedside Glucose 179 202 174 White Blood Count 14.6 #H Red Blood Count 3.34 L Hemoglobin 10.0 L Hematocrit 32.9 L Mean Corpuscular Volume 98.5 Mean Corpuscular Hemoglobin 29.9 Mean Corpuscular Hemoglobin Concent 30.4 L Red Cell Distribution Width 17.4 H Platelet Count 328 Mean Platelet Volume 10.2 Neutrophils % 78.2 H Lymphocytes % 11.4 L Monocytes % 8.4 Eosinophils % 1.2 Basophils % 0.3 Nucleated Red Blood Cells % 0.0 Neutrophils # 11.4 H Lymphocytes # 1.7 Monocytes # 1.2 H Eosinophils # 0.2 Basophils # 0.1 Nucleated Red Blood Cells # 0.0 Sodium Level 144 Potassium Level 4.3 Chloride Level 106 Carbon Dioxide Level 18 L Anion Gap 24 H Blood Urea Nitrogen 48 H Creatinine 2.99 H Glucose Level 297 H Calcium Level 8.7 Phosphorus Level 4.3 Magnesium Level 2.1 Random Vancomycin Level 17.3 Test 07/23/16 05:06 07/23/16 08:36 07/23/16 11:50 Bedside Glucose 284 H 272 H 212 Medications Current Medications Ondansetron HCl (Zofran Inj) 4 mg Q6H PRN IV NAUSEA AND/OR VOMITING; Start at 16:00 Pantoprazole (Protonix Iv) 40 mg DAILY@06 IV Last administered on 07/23/16 05: 28; Admin Dose 40 MG; Start 07/18/16 at 06:00 Bisacodyl (Dulcolax Supp) 10 mg Q24H PRN [place] CONSTIPATION; Start 07/17/16 at 16: 00 Lorazepam (Ativan) 1 mg Q1H PRN IV seziure activity; Start 07/17/16 at 22:30 Acetaminophen (Tylenol Liquid) 650 mg Q6H PRN GTB PAIN AND OR ELEVATED TEMP Last administered on 07/22/16 01:05; Admin Dose 650 MG; Start 07/18/16 at 02:00 Miscellaneous Information 1 ea NOTE XX ; Start 07/18/16 at 02:00 Glucose (Glutose) 15 gm Q15M PRN PO DECREASED GLUCOSE; Start 07/18/16 at 02:00 Glucose (Glutose) 22.5 gm Q15M PRN PO DECREASED GLUCOSE; Start 07/18/16 at 02:00 Dextrose (D50w Syringe) 25 ml Q15M PRN IV DECREASED GLUCOSE Last administered on 07/20/16 21:53; Admin Dose 25 ML; Start 07/18/16 at 02:00 Dextrose (D50w Syringe) 50 ml Q15M PRN IV DECREASED GLUCOSE Last administered on 07/20/16 20:11; Admin Dose 50 ML; Start 07/18/16 at 02:00 Glucagon (Glucagen) 1 mg Q15M PRN IM DECREASED GLUCOSE; Start 07/18/16 at 02:00 Glucose 15 gm 15 gm Q15M PRN BUCCAL DECREASED GLUCOSE; Start 07/18/16 at 02:00 Azithromycin 250 ml @ 250 mls/hr Q24H IVPB Last administered on 07/22/16 16:48 ; Admin Dose 250 MLS/HR; Start 07/18/16 at 16:00 Levetiracetam/ Sodium Chloride (Keppra Iv/NS) 107.5 ml @ 430 mls/hr Q12 IVPB Last administered on 07/23/16 08:36; Admin Dose 430 MLS/HR; Start 07/18/16 at 15: 00 Mupirocin (Bactroban) 1 applic BID TOP Last administered on 07/23/16 08:36; Admin Dose 1 APPLIC; Start 07/19/16 at 12:00 Metronidazole 500 mg 500 mg Q8 PO Last administered on 07/23/16 14:26; Admin Dose 500 MG; Start 07/19/16 at 14:00 Meropenem (Merrem 500 Mg/ 100 ml (Pmx)) 100 ml @ 200 mls/hr Q24H IVPB Last administered on 07/22/16 13:07; Admin Dose 200 MLS/HR; Start 07/20/16 at 14:00 Insulin Aspart (Novolog Insulin Pen) NOVOLOG *MILD* ALGORI... Q4 SC Last administered on 07/23/16 12:01; Admin Dose 2 UNIT; Start 07/21/16 at 13:00 Metoclopramide HCl (Reglan) 5 mg Q6H IV Last administered on 07/23/16 14:26; Admin Dose 5 MG; Start 07/21/16 at 16:00 Polyethylene Glycol (Miralax) 17 gm DAILY NGT Last administered on 07/22/16 09: 03; Admin Dose 17 GM; Start 07/21/16 at 11:00 Collagenase 1 applic 1 applic DAILY PRN TOP WHEN SOILED; Start 07/22/16 at 16:30 Vancomycin HCl/ Sodium Chloride (Vancocin/NS) 150 ml @ 75 mls/hr Q96H IVPB ; Start 07/23/16 at 17:00 Heparin Sodium (Porcine) (Heparin (5000 Units/0.5 ml)) 5,000 unit BID SC ; Start 07/23/16 at 21:00 Insulin Glargine (Lantus) 5 unit DAILY@08 SC Last administered on 07/23/16 11: 56; Admin Dose 5 UNIT; Start 07/23/16 at 11:00 Assessment/Plan Chief Complaint/Hosp Course ASSESSMENT AND PLAN: 1. End-stage renal disease. The patient's dialysis Wednesday, Wednesday, Wednesday, access AV fistula. The patient is currently off schedule. Will anticipate dialysis qod. assess daily for hd needs.all meds dosed ok for renal function 2. Hypokalemia, replete potassium chloride, dialyzed on a high potassium bath. 3. Anemia of chronic disease. Continue to monitor H and H levels. Continue Epogen. 4. Mineral bone disorder. Continue to monitor calcium and phosphorus levels. 5. Status post code arrest. Continue to monitor. 6. Ventilator dependent respiratory failure. Vent settings have been reviewed. ABG has been reviewed. Continue to monitor. Follow up with pulmonary 7. Dysphagia, status post PEG. Continue tube feeding. 8. Sepsis, status post shock. The patient is currently on IV antibiotics, continue. Cultures have been reviewed. 9. Diabetes, continue Accu-Cheks and insulin sliding scale. 10. Gpbvy-sd-[id number] encephalopathy. The patient's EEG shows diffuse slowing, severe anoxic injury. Continue to monitor. Problems: IQRA TSANG MD Jul 23, 2016 15:08
--- NOTE | 2016-07-23 15:21 | CONS ---
Date/Time of Note Date/Time of Note DATE: 07/23/16 TIME: 15:19 Assessment/Plan Assessment/Plan Chief Complaint/Hosp Course SUBJECTIVE: No acute events. The patient is lying comfortably in bed. No fevers MICROBIOLOGY: Blood cultures since 07/20/2016 remain negative. ANTIMICROBIALS: The patient is on 1. Flagyl. 2. Meropenem. 3. Vancomycin. 4. Bactroban to nares. 5. Zithromax. INDWELLINGS: Trach, PEG, left upper extremity AV fistula and rectal tube and right femoral triple-lumen catheter. PHYSICAL EXAMINATION: GENERAL: Chronically ill-appearing, middle-aged white man who is unresponsive. HEENT: Head atraumatic, normocephalic. Pupils are dilated. Buccal mucosa dry. NECK: Supple. Tracheostomy present. CHEST: Rise symmetrical. Breath sounds diminished to bases. HEART: S1, S2. ABDOMEN: Soft. Bowel tones present. EXTREMITIES: Without cyanosis. ASSESSMENT: 1. Sepsis ==> resolving 2. Urinary tract infection per urinalysis. 3. Diarrhea, on empiric Flagyl. 4. Chronic respiratory failure, possible aspiration. 5. Anoxic encephalopathy status post cardiopulmonary arrest. 6. Diabetes. 7. Methicillin-resistant Staphylococcus aureus nares colonization. 8. End-stage renal disease, hemodialysis dependent. PLAN: The patient remains unchanged. Continue abx, f/u repeat urine culture. Dc Zithromax. [facility] staff Problems: Consultation Date/Type/Reason Admit Date/Time Jul 17, 2016 at 13:33 Initial Consult Date Type of Consultation: id Exam/Review of Systems Vital Signs Vitals Vital Signs Date Time Temp Pulse Resp B/P Pulse Ox O2 Delivery O2 Flow Rate FiO2 07/23/16 15:13 98.2 90 19 105/59 99 07/23/16 13:03 30 07/23/16 13:00 Mechanical Ventilator Intake and Output 07/22/16 07/22/16 07/23/16 15:00 23:00 07:00 Intake Total 757.5 ml 840 ml 540 ml Output Total 15 ml 300 ml 500 ml Balance 742.5 ml 540 ml 40 ml Results Result Diagram: 07/23/16 0500 07/23/16 0500 Results 24 hrs Laboratory Tests Test 07/22/16 16:54 07/22/16 20:47 07/23/16 00:14 07/23/16 05:00 Bedside Glucose 179 202 174 White Blood Count 14.6 #H Red Blood Count 3.34 L Hemoglobin 10.0 L Hematocrit 32.9 L Mean Corpuscular Volume 98.5 Mean Corpuscular Hemoglobin 29.9 Mean Corpuscular Hemoglobin Concent 30.4 L Red Cell Distribution Width 17.4 H Platelet Count 328 Mean Platelet Volume 10.2 Neutrophils % 78.2 H Lymphocytes % 11.4 L Monocytes % 8.4 Eosinophils % 1.2 Basophils % 0.3 Nucleated Red Blood Cells % 0.0 Neutrophils # 11.4 H Lymphocytes # 1.7 Monocytes # 1.2 H Eosinophils # 0.2 Basophils # 0.1 Nucleated Red Blood Cells # 0.0 Sodium Level 144 Potassium Level 4.3 Chloride Level 106 Carbon Dioxide Level 18 L Anion Gap 24 H Blood Urea Nitrogen 48 H Creatinine 2.99 H Glucose Level 297 H Calcium Level 8.7 Phosphorus Level 4.3 Magnesium Level 2.1 Random Vancomycin Level 17.3 Test 07/23/16 05:06 07/23/16 08:36 07/23/16 11:50 Bedside Glucose 284 H 272 H 212 Medications Medications Current Medications Ondansetron HCl (Zofran Inj) 4 mg Q6H PRN IV NAUSEA AND/OR VOMITING; Start at 16:00 Pantoprazole (Protonix Iv) 40 mg DAILY@06 IV Last administered on 07/23/16 05: 28; Admin Dose 40 MG; Start 07/18/16 at 06:00 Bisacodyl (Dulcolax Supp) 10 mg Q24H PRN [place] CONSTIPATION; Start 07/17/16 at 16: 00 Lorazepam (Ativan) 1 mg Q1H PRN IV seziure activity; Start 07/17/16 at 22:30 Acetaminophen (Tylenol Liquid) 650 mg Q6H PRN GTB PAIN AND OR ELEVATED TEMP Last administered on 07/22/16 01:05; Admin Dose 650 MG; Start 07/18/16 at 02:00 Miscellaneous Information 1 ea NOTE XX ; Start 07/18/16 at 02:00 Glucose (Glutose) 15 gm Q15M PRN PO DECREASED GLUCOSE; Start 07/18/16 at 02:00 Glucose (Glutose) 22.5 gm Q15M PRN PO DECREASED GLUCOSE; Start 07/18/16 at 02:00 Dextrose (D50w Syringe) 25 ml Q15M PRN IV DECREASED GLUCOSE Last administered on 07/20/16 21:53; Admin Dose 25 ML; Start 07/18/16 at 02:00 Dextrose (D50w Syringe) 50 ml Q15M PRN IV DECREASED GLUCOSE Last administered on 07/20/16 20:11; Admin Dose 50 ML; Start 07/18/16 at 02:00 Glucagon (Glucagen) 1 mg Q15M PRN IM DECREASED GLUCOSE; Start 07/18/16 at 02:00 Glucose 15 gm 15 gm Q15M PRN BUCCAL DECREASED GLUCOSE; Start 07/18/16 at 02:00 Azithromycin 250 ml @ 250 mls/hr Q24H IVPB Last administered on 07/22/16 16:48 ; Admin Dose 250 MLS/HR; Start 07/18/16 at 16:00 Levetiracetam/ Sodium Chloride (Keppra Iv/NS) 107.5 ml @ 430 mls/hr Q12 IVPB Last administered on 07/23/16 08:36; Admin Dose 430 MLS/HR; Start 07/18/16 at 15: 00 Mupirocin (Bactroban) 1 applic BID TOP Last administered on 07/23/16 08:36; Admin Dose 1 APPLIC; Start 07/19/16 at 12:00 Metronidazole 500 mg 500 mg Q8 PO Last administered on 07/23/16 14:26; Admin Dose 500 MG; Start 07/19/16 at 14:00 Meropenem (Merrem 500 Mg/ 100 ml (Pmx)) 100 ml @ 200 mls/hr Q24H IVPB Last administered on 07/23/16 15:04; Admin Dose 200 MLS/HR; Start 07/20/16 at 14:00 Insulin Aspart (Novolog Insulin Pen) NOVOLOG *MILD* ALGORI... Q4 SC Last administered on 07/23/16 12:01; Admin Dose 2 UNIT; Start 07/21/16 at 13:00 Metoclopramide HCl (Reglan) 5 mg Q6H IV Last administered on 07/23/16 14:26; Admin Dose 5 MG; Start 07/21/16 at 16:00 Polyethylene Glycol (Miralax) 17 gm DAILY NGT Last administered on 07/22/16 09: 03; Admin Dose 17 GM; Start 07/21/16 at 11:00 Collagenase 1 applic 1 applic DAILY PRN TOP WHEN SOILED; Start 07/22/16 at 16:30 Vancomycin HCl/ Sodium Chloride (Vancocin/NS) 150 ml @ 75 mls/hr Q96H IVPB Last administered on 07/23/16 15:06; Admin Dose 75 MLS/HR; Start 07/23/16 at 17: 00 Heparin Sodium (Porcine) (Heparin (5000 Units/0.5 ml)) 5,000 unit BID SC ; Start 07/23/16 at 21:00 Insulin Glargine (Lantus) 5 unit DAILY@08 SC Last administered on 07/23/16 11: 56; Admin Dose 5 UNIT; Start 07/23/16 at 11:00 MICKY MIRANDA NP Jul 23, 2016 15:21
[2016-07-23] MEDS ORDERED: VANCOMYCIN 750 MG in SOD CHLORIDE 0.9% 150 ML IVPB SCH (17:00)
--- NOTE | 2016-07-23 20:04 | CONS ---
Date/Time of Note Date/Time of Note DATE: 07/23/16 TIME: 20:02 Assessment/Plan Assessment/Plan Chief Complaint/Hosp Course Assessment: Status post cardiac arrest - likely due to septic shock vs respiratory event Acute encephalopathy - likely severe anoxic brain injury, rule out brain Status post septic shock - off pressors Acute hypoxic respiratory failure - on mechanical ventilation, prior tracheostomy Healthcare-associated pneumonia Diabetes mellitus, type 1 End-stage renal disease - on hemodialysis Anemia - status post pRBC transfusions Recommendations: -echocardiogram showed LVEF 50-55%, mild LVH -follow up neurology, infectious disease, pulmonology, nephrology recommendations Problems: Consultation Date/Type/Reason Admit Date/Time Jul 17, 2016 at 13:33 Type of Consultation: Cardiology 24 HR Interval Summary Free Text/Dictation Transferred out of ICU. Remains unresponsive. Detailed Summary Additional Comments Unable to obtain review of systems, patient is unresponsive. Exam/Review of Systems Vital Signs Vitals Vital Signs Date Time Temp Pulse Resp B/P Pulse Ox O2 Delivery O2 Flow Rate FiO2 07/23/16 19:29 85 20 100 30 07/23/16 15:13 98.2 105/59 07/23/16 13:00 Mechanical Ventilator Intake and Output 07/22/16 07/22/16 07/23/16 15:00 23:00 07:00 Intake Total 757.5 ml 840 ml 540 ml Output Total 15 ml 300 ml 500 ml Balance 742.5 ml 540 ml 40 ml Exam Constitutional: non-verbal, No alert Psych: No nl mood/affect Head: atraumatic, normocephalic Eyes: nl conjunctiva, nl lids ENMT: nl external ears & nose, nl nasal mucosa & septum Neck: other (tracheostomy) Respiratory: crackles/rales Cardiovascular: Regular rate and rhythm Gastrointestinal: non-tender, soft Extremities: No clubbing, No cyanosis, No edema Neurological: No nl mental status, No nl speech Results Result Diagram: 07/23/16 0500 07/23/16 0500 Results 24 hrs Laboratory Tests Test 07/22/16 20:47 07/23/16 00:14 07/23/16 05:00 07/23/16 05:06 Bedside Glucose 202 174 284 H White Blood Count 14.6 #H Red Blood Count 3.34 L Hemoglobin 10.0 L Hematocrit 32.9 L Mean Corpuscular Volume 98.5 Mean Corpuscular Hemoglobin 29.9 Mean Corpuscular Hemoglobin Concent 30.4 L Red Cell Distribution Width 17.4 H Platelet Count 328 Mean Platelet Volume 10.2 Neutrophils % 78.2 H Lymphocytes % 11.4 L Monocytes % 8.4 Eosinophils % 1.2 Basophils % 0.3 Nucleated Red Blood Cells % 0.0 Neutrophils # 11.4 H Lymphocytes # 1.7 Monocytes # 1.2 H Eosinophils # 0.2 Basophils # 0.1 Nucleated Red Blood Cells # 0.0 Sodium Level 144 Potassium Level 4.3 Chloride Level 106 Carbon Dioxide Level 18 L Anion Gap 24 H Blood Urea Nitrogen 48 H Creatinine 2.99 H Glucose Level 297 H Calcium Level 8.7 Phosphorus Level 4.3 Magnesium Level 2.1 Random Vancomycin Level 17.3 Test 07/23/16 08:36 07/23/16 11:50 07/23/16 16:51 Bedside Glucose 272 H 212 84 Medications Medications Current Medications Ondansetron HCl (Zofran Inj) 4 mg Q6H PRN IV NAUSEA AND/OR VOMITING; Start at 16:00 Pantoprazole (Protonix Iv) 40 mg DAILY@06 IV Last administered on 07/23/16 05: 28; Admin Dose 40 MG; Start 07/18/16 at 06:00 Bisacodyl (Dulcolax Supp) 10 mg Q24H PRN [place] CONSTIPATION; Start 07/17/16 at 16: 00 Lorazepam (Ativan) 1 mg Q1H PRN IV seziure activity; Start 07/17/16 at 22:30 Acetaminophen (Tylenol Liquid) 650 mg Q6H PRN GTB PAIN AND OR ELEVATED TEMP Last administered on 07/22/16 01:05; Admin Dose 650 MG; Start 07/18/16 at 02:00 Miscellaneous Information 1 ea NOTE XX ; Start 07/18/16 at 02:00 Glucose (Glutose) 15 gm Q15M PRN PO DECREASED GLUCOSE; Start 07/18/16 at 02:00 Glucose (Glutose) 22.5 gm Q15M PRN PO DECREASED GLUCOSE; Start 07/18/16 at 02:00 Dextrose (D50w Syringe) 25 ml Q15M PRN IV DECREASED GLUCOSE Last administered on 07/20/16 21:53; Admin Dose 25 ML; Start 07/18/16 at 02:00 Dextrose (D50w Syringe) 50 ml Q15M PRN IV DECREASED GLUCOSE Last administered on 07/20/16 20:11; Admin Dose 50 ML; Start 07/18/16 at 02:00 Glucagon (Glucagen) 1 mg Q15M PRN IM DECREASED GLUCOSE; Start 07/18/16 at 02:00 Glucose 15 gm 15 gm Q15M PRN BUCCAL DECREASED GLUCOSE; Start 07/18/16 at 02:00 Levetiracetam/ Sodium Chloride (Keppra Iv/NS) 107.5 ml @ 430 mls/hr Q12 IVPB Last administered on 07/23/16 08:36; Admin Dose 430 MLS/HR; Start 07/18/16 at 15: 00 Mupirocin (Bactroban) 1 applic BID TOP Last administered on 07/23/16 08:36; Admin Dose 1 APPLIC; Start 07/19/16 at 12:00 Metronidazole 500 mg 500 mg Q8 PO Last administered on 07/23/16 14:26; Admin Dose 500 MG; Start 07/19/16 at 14:00 Meropenem (Merrem 500 Mg/ 100 ml (Pmx)) 100 ml @ 200 mls/hr Q24H IVPB Last administered on 07/23/16 15:04; Admin Dose 200 MLS/HR; Start 07/20/16 at 14:00 Insulin Aspart (Novolog Insulin Pen) NOVOLOG *MILD* ALGORI... Q4 SC Last administered on 07/23/16 12:01; Admin Dose 2 UNIT; Start 07/21/16 at 13:00 Metoclopramide HCl (Reglan) 5 mg Q6H IV Last administered on 07/23/16 14:26; Admin Dose 5 MG; Start 07/21/16 at 16:00 Polyethylene Glycol (Miralax) 17 gm DAILY NGT Last administered on 07/22/16 09: 03; Admin Dose 17 GM; Start 07/21/16 at 11:00 Collagenase 1 applic 1 applic DAILY PRN TOP WHEN SOILED; Start 07/22/16 at 16:30 Vancomycin HCl/ Sodium Chloride (Vancocin/NS) 150 ml @ 75 mls/hr Q96H IVPB Last administered on 07/23/16 15:06; Admin Dose 75 MLS/HR; Start 07/23/16 at 17: 00 Heparin Sodium (Porcine) (Heparin (5000 Units/0.5 ml)) 5,000 unit BID SC ; Start 07/23/16 at 21:00 Insulin Glargine (Lantus) 5 unit DAILY@08 SC Last administered on 07/23/16t 11: 56; Admin Dose 5 UNIT; Start 07/23/16 at 11:00 LENI DAVID MD Jul 23, 2016 20:04
[2016-07-23] MEDS: HEPARIN 5,000 UNIT/0.5 ML VIAL SC SCH (21:42)
[2016-07-24] VITALS (24 sets, daily range): BP systolic 116–147; BP diastolic 69–84; PULSE 85–109; RESP 16–26
[2016-07-24] MEDS: INSULIN ASPART [NOVOLOG] 3 ML PEN SC SCH ×6 (01:00→21:00)
[2016-07-24] MEDS: METOCLOPRAMIDE 10 MG INJ IV SCH ×4 (04:07→22:05)
[2016-07-24] MEDS: PANTOPRAZOLE 40 MG INJ IV SCH (06:16)
[2016-07-24] MEDS: metroNIDAZOLE 500 MG TAB PO SCH ×3 (06:16→22:05)
[2016-07-24] MEDS: INSULIN GLARGINE [LANtus] 3 ML PEN SC SCH ×2 (08:00→12:08)
[2016-07-24] MEDS: POLYETHYLENE GLYCOL 17 GM PACKET NGT SCH (08:17)
[2016-07-24] MEDS: MUPIROCIN 2% 22 GM OINT TOP SCH ×2 (09:01→21:11)
[2016-07-24] MEDS: HEPARIN 5,000 UNIT/0.5 ML VIAL SC SCH ×2 (09:02→21:21)
[2016-07-24] MEDS: LEVETIRACETAM IV 750 MG in SOD CHLORIDE 0.9% 100 ML IVPB SCH ×2 (09:05→21:10)
[2016-07-24] MEDS: COLLAGENASE 30 GM TUBE TOP PRN (12:07)
--- NOTE | 2016-07-24 14:27 | PN ---
Date/Time of Note Date/Time of Note DATE: 07/24/16 TIME: 14:23 Assessment/Plan VTE Prophylaxis VTE Prophylaxis Intervention: other Lines/Catheters IV Catheter Type (from Nrs): Central Line Central line still needed: Yes Urinary Cath still in place: Yes Reason Cath still needed: urinary retention Assessment/Plan Assessment/Plan 1. End-stage renal disease. The patient's dialysis Wednesday, Wednesday, Wednesday, access AV fistula. The patient is currently off schedule. Will anticipate dialysis qod. assess daily for hd needs.all meds dosed ok for renal function 2. Hypokalemia, replete potassium chloride, dialyzed on a high potassium bath. 3. Anemia of chronic disease. Continue to monitor H and H levels. Continue Epogen. 4. Mineral bone disorder. Continue to monitor calcium and phosphorus levels. 5. Status post code arrest. Continue to monitor. 6. Ventilator dependent respiratory failure. Vent settings have been reviewed. ABG has been reviewed. Continue to monitor. Follow up with pulmonary 7. Dysphagia, status post PEG. Continue tube feeding. 8. Sepsis, status post shock. The patient is currently on IV antibiotics, continue. Cultures have been reviewed. 9. Diabetes, continue Accu-Cheks and insulin sliding scale. 10. [id number] encephalopathy. The patient's EEG shows diffuse slowing, severe anoxic injury. Continue to monitor. Subjective 24 Hr Interval Summary Free Text/Dictation had hd yesterday. No other acute events noted. No hemoptysis, hematemesis, or hematochezia. The patient remains unresponsive. OBJECTIVE: HEENT: Head is normocephalic. NECK: Supple. HEART: Regular rate. LUNGS: Show diminished breath sounds at the base. ABDOMEN: Soft, nontender to palpation, no rebound or guarding. EXTREMITIES: Negative for clubbing, cyanosis, no edema. DERMATOLOGIC: No rashes. MUSCULOSKELETAL: No joint effusions. NEUROLOGIC: No change in exam. MEDICATIONS: The patient's medications have been reviewed. Exam/Review of Systems Vital Signs Vitals Vital Signs Date Time Temp Pulse Resp B/P Pulse Ox O2 Delivery O2 Flow Rate FiO2 07/24/16 13:08 94 26 100 30 07/24/16 12:19 98.3 120/74 07/23/16 13:00 Mechanical Ventilator Intake and Output 07/23/16 07/23/16 07/24/16 15:00 23:00 07:00 Intake Total 807.5 ml 170 ml Output Total 2300 ml 1000 ml Balance -1492.5 ml -830 ml Results Result Diagram: 07/23/16 0500 07/23/16 0500 Results 24 hrs Laboratory Tests Test 07/23/16 16:51 07/23/16 20:49 07/24/16 01:36 07/24/16 05:41 Bedside Glucose 84 98 163 282 H Test 07/24/16 07:54 07/24/16 09:09 07/24/16 12:00 Bedside Glucose 277 H 297 H 232 H Medications Medications Current Medications Ondansetron HCl (Zofran Inj) 4 mg Q6H PRN IV NAUSEA AND/OR VOMITING; Start at 16:00 Pantoprazole (Protonix Iv) 40 mg DAILY@06 IV Last administered on 07/24/16 06: 16; Admin Dose 40 MG; Start 07/18/16 at 06:00 Bisacodyl (Dulcolax Supp) 10 mg Q24H PRN [place] CONSTIPATION; Start 07/17/16 at 16: 00 Lorazepam (Ativan) 1 mg Q1H PRN IV seziure activity; Start 07/17/16 at 22:30 Acetaminophen (Tylenol Liquid) 650 mg Q6H PRN GTB PAIN AND OR ELEVATED TEMP Last administered on 07/22/16 01:05; Admin Dose 650 MG; Start 07/18/16 at 02:00 Miscellaneous Information 1 ea NOTE XX ; Start 07/18/16 at 02:00 Glucose (Glutose) 15 gm Q15M PRN PO DECREASED GLUCOSE; Start 07/18/16 at 02:00 Glucose (Glutose) 22.5 gm Q15M PRN PO DECREASED GLUCOSE; Start 07/18/16 at 02:00 Dextrose (D50w Syringe) 25 ml Q15M PRN IV DECREASED GLUCOSE Last administered on 07/20/16 21:53; Admin Dose 25 ML; Start 07/18/16 at 02:00 Dextrose (D50w Syringe) 50 ml Q15M PRN IV DECREASED GLUCOSE Last administered on 07/20/16 20:11; Admin Dose 50 ML; Start 07/18/16 at 02:00 Glucagon (Glucagen) 1 mg Q15M PRN IM DECREASED GLUCOSE; Start 07/18/16 at 02:00 Glucose 15 gm 15 gm Q15M PRN BUCCAL DECREASED GLUCOSE; Start 07/18/16 at 02:00 Levetiracetam/ Sodium Chloride (Keppra Iv/NS) 107.5 ml @ 430 mls/hr Q12 IVPB Last administered on 07/24/16 09:05; Admin Dose 430 MLS/HR; Start 07/18/16 at 15: 00 Mupirocin (Bactroban) 1 applic BID TOP Last administered on 07/24/16 09:01; Admin Dose 1 APPLIC; Start 07/19/16 at 12:00 Metronidazole 500 mg 500 mg Q8 PO Last administered on 07/24/16 11:57; Admin Dose 500 MG; Start 07/19/16 at 14:00 Meropenem (Merrem 500 Mg/ 100 ml (Pmx)) 100 ml @ 200 mls/hr Q24H IVPB Last administered on 07/23/16 15:04; Admin Dose 200 MLS/HR; Start 07/20/16 at 14:00 Insulin Aspart (Novolog Insulin Pen) NOVOLOG *MILD* ALGORI... Q4 SC Last administered on 07/24/16 12:09; Admin Dose 3 UNIT; Start 07/21/16 at 13:00 Polyethylene Glycol (Miralax) 17 gm DAILY NGT Last administered on 07/22/16 09: 03; Admin Dose 17 GM; Start 07/21/16 at 11:00 Collagenase 1 applic 1 applic DAILY PRN TOP WHEN SOILED Last administered on 12:07; Admin Dose 1 APPLIC; Start 07/22/16 at 16:30 Vancomycin HCl/ Sodium Chloride (Vancocin/NS) 150 ml @ 75 mls/hr Q96H IVPB Last administered on 07/23/16 15:06; Admin Dose 75 MLS/HR; Start 07/23/16 at 17: 00 Heparin Sodium (Porcine) (Heparin (5000 Units/0.5 ml)) 5,000 unit BID SC Last administered on 07/24/16 09:02; Admin Dose 5,000 UNIT; Start 07/23/16 at 21:00 Insulin Glargine (Lantus) 5 unit DAILY@08 SC Last administered on 07/24/16 12: 08; Admin Dose 5 UNIT; Start 07/23/16 at 11:00 Metoclopramide HCl (Reglan) 5 mg Q6H IV ; Start 07/24/16 at 16:00 GUSTAVO MATHEWS DO Jul 24, 2016 14:27
--- NOTE | 2016-07-24 14:45 | PN ---
Date/Time of Note Date/Time of Note DATE: 07/24/16 TIME: 14:42 Assessment/Plan VTE Prophylaxis VTE Prophylaxis Intervention: SCD's Lines/Catheters IV Catheter Type (from [facility]): Central Line Central line still needed: Yes Urinary Cath still in place: Yes Reason Cath still needed: other (indicate) Assessment/Plan Assessment/Plan A 35-year-old unfortunate male, who was admitted after a cardiac arrest, managed now as follows: 1. Cardiac arrest secondary to septic shock. The patient now remains off pressors. 2. Severe anoxic encephalopathy with rasta fixed and dilated pupils * Brain assessment shows residual brain function * Patient was chronically on atropine eye drops which might explain dilated pupils. these have been stopped since 07/20/16 3. 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 4. Bilateral Multifocal Pneumonia causing Sepsis 5. End-stage renal disease on hemodialysis. 6. Acute on chronic respiratory failure, remains ventilator-dependent. 7. Anemia secondary to chronic kidney disease. 8. Methicillin-resistant Staphylococcus aureus nares. 9. Chronic dysphagia, on PEG feeds with high residuals. 10. Chronic debility secondary to chronically uncontrolled diabetes type 1 with recurrent episodes of pneumonia causing recurrent hospitalization and now trach and gastrostomy placement, with chronic muscle wasting and foot drop. PLAN * Mother has been refusing Lantus therapy, I have spoken with her, she will consent to low dose * Continue vent support * Continue abx * Continue HD per renal * Continue supportive care * [facility]: >35 mins Subjective 24 Hr Interval Summary Free Text/Dictation Spoke with mum in detail Discharge planning commenced Subjective hx not possible: pt non-verbal, pt critical status Exam/Review of Systems Vital Signs Vitals Vital Signs Date Time Temp Pulse Resp B/P Pulse Ox O2 Delivery O2 Flow Rate FiO2 07/24/16 13:08 94 26 100 30 07/24/16 12:19 98.3 120/74 07/23/16 13:00 Mechanical Ventilator Intake and Output 07/23/16 07/23/16 07/24/16 14:59 22:59 06:59 Intake Total 807.5 ml 170 ml Output Total 2300 ml 1000 ml Balance -1492.5 ml -830 ml Exam GENERAL: Obtunded, unresponsive. HEENT: Head is normocephalic. Pupils remain fixed and dilated. NECK: Trach to vent. RESPIRATORY: Clear to auscultation. Diminished breath sounds. CARDIOVASCULAR: Regular rate and rhythm. No murmurs. ABDOMEN: Soft, nondistended. Having high residuals per report. EXTREMITIES: Chronic muscle wasting, foot drop right greater than left bilaterally. NEUROLOGIC: Unresponsive. No mental status. No reflexes. GENITOURINARY: Baker to bedside draining minimal concentrated urine. Results Result Diagram: 07/23/16 0500 07/23/16 0500 Results 24 hrs Laboratory Tests Test 07/23/16 16:51 07/23/16 20:49 07/24/16 01:36 07/24/16 05:41 Bedside Glucose 84 98 163 282 H Test 07/24/16 07:54 07/24/16 09:09 07/24/16 12:00 Bedside Glucose 277 H 297 H 232 H Medications Medications Current Medications Ondansetron HCl (Zofran Inj) 4 mg Q6H PRN IV NAUSEA AND/OR VOMITING; Start at 16:00 Pantoprazole (Protonix Iv) 40 mg DAILY@06 IV Last administered on 07/24/16 06: 16; Admin Dose 40 MG; Start 07/18/16 at 06:00 Bisacodyl (Dulcolax Supp) 10 mg Q24H PRN [place] CONSTIPATION; Start 07/17/16 at 16: 00 Lorazepam (Ativan) 1 mg Q1H PRN IV seziure activity; Start 07/17/16 at 22:30 Acetaminophen (Tylenol Liquid) 650 mg Q6H PRN GTB PAIN AND OR ELEVATED TEMP Last administered on 07/22/16 01:05; Admin Dose 650 MG; Start 07/18/16 at 02:00 Miscellaneous Information 1 ea NOTE XX ; Start 07/18/16 at 02:00 Glucose (Glutose) 15 gm Q15M PRN PO DECREASED GLUCOSE; Start 07/18/16 at 02:00 Glucose (Glutose) 22.5 gm Q15M PRN PO DECREASED GLUCOSE; Start 07/18/16 at 02:00 Dextrose (D50w Syringe) 25 ml Q15M PRN IV DECREASED GLUCOSE Last administered on 07/20/16 21:53; Admin Dose 25 ML; Start 07/18/16 at 02:00 Dextrose (D50w Syringe) 50 ml Q15M PRN IV DECREASED GLUCOSE Last administered on 07/20/16 20:11; Admin Dose 50 ML; Start 07/18/16 at 02:00 Glucagon (Glucagen) 1 mg Q15M PRN IM DECREASED GLUCOSE; Start 07/18/16 at 02:00 Glucose 15 gm 15 gm Q15M PRN BUCCAL DECREASED GLUCOSE; Start 07/18/16 at 02:00 Levetiracetam/ Sodium Chloride (Keppra Iv/NS) 107.5 ml @ 430 mls/hr Q12 IVPB Last administered on 07/24/16 09:05; Admin Dose 430 MLS/HR; Start 07/18/16 at 15: 00 Mupirocin (Bactroban) 1 applic BID TOP Last administered on 07/24/16 09:01; Admin Dose 1 APPLIC; Start 07/19/16 at 12:00 Metronidazole 500 mg 500 mg Q8 PO Last administered on 07/24/16 11:57; Admin Dose 500 MG; Start 07/19/16 at 14:00 Meropenem (Merrem 500 Mg/ 100 ml (Pmx)) 100 ml @ 200 mls/hr Q24H IVPB Last administered on 07/23/16 15:04; Admin Dose 200 MLS/HR; Start 07/20/16 at 14:00 Insulin Aspart (Novolog Insulin Pen) NOVOLOG *MILD* ALGORI... Q4 SC Last administered on 07/24/16 12:09; Admin Dose 3 UNIT; Start 07/21/16 at 13:00 Polyethylene Glycol (Miralax) 17 gm DAILY NGT Last administered on 07/22/16 09: 03; Admin Dose 17 GM; Start 07/21/16 at 11:00 Collagenase 1 applic 1 applic DAILY PRN TOP WHEN SOILED Last administered on 12:07; Admin Dose 1 APPLIC; Start 07/22/16 at 16:30 Vancomycin HCl/ Sodium Chloride (Vancocin/NS) 150 ml @ 75 mls/hr Q96H IVPB Last administered on 07/23/16 15:06; Admin Dose 75 MLS/HR; Start 07/23/16 at 17: 00 Heparin Sodium (Porcine) (Heparin (5000 Units/0.5 ml)) 5,000 unit BID SC Last administered on 07/24/16 09:02; Admin Dose 5,000 UNIT; Start 07/23/16 at 21:00 Insulin Glargine (Lantus) 5 unit DAILY@08 SC Last administered on 07/24/16t 12: 08; Admin Dose 5 UNIT; Start 07/23/16 at 11:00 Metoclopramide HCl (Reglan) 5 mg Q6H IV ; Start 07/24/16 at 16:00 ERMA JACOBS Jul 24, 2016 14:45
--- NOTE | 2016-07-24 15:47 | CONS ---
Date/Time of Note Date/Time of Note DATE: 07/24/16 TIME: 15:46 Assessment/Plan Assessment/Plan Chief Complaint/Hosp Course Assessment: Status post cardiac arrest - likely due to septic shock vs respiratory event Acute encephalopathy - likely severe anoxic brain injury, rule out brain Status post septic shock - off pressors Acute hypoxic respiratory failure - on mechanical ventilation, prior tracheostomy Healthcare-associated pneumonia Diabetes mellitus, type 1 End-stage renal disease - on hemodialysis Anemia - status post pRBC transfusions Recommendations: -echocardiogram showed LVEF 50-55%, mild LVH -follow up neurology, infectious disease, pulmonology, nephrology recommendations -discharge planning per primary team, possible Perez Problems: Consultation Date/Type/Reason Admit Date/Time Jul 17, 2016 at 13:33 Type of Consultation: Cardiology 24 HR Interval Summary Free Text/Dictation Remains unresponsive. Detailed Summary Additional Comments Unable to obtain review of systems, patient is unresponsive. Exam/Review of Systems Vital Signs Vitals Vital Signs Date Time Temp Pulse Resp B/P Pulse Ox O2 Delivery O2 Flow Rate FiO2 07/24/16 15:13 95 24 100 30 07/24/16 12:19 98.3 120/74 07/23/16 13:00 Mechanical Ventilator Intake and Output 07/23/16 07/23/16 07/24/16 15:00 23:00 07:00 Intake Total 807.5 ml 170 ml Output Total 2300 ml 1000 ml Balance -1492.5 ml -830 ml Exam Constitutional: non-verbal, No alert Psych: No nl mood/affect Head: atraumatic, normocephalic Eyes: nl conjunctiva, nl lids ENMT: nl external ears & nose, nl nasal mucosa & septum Neck: other (tracheostomy) Respiratory: crackles/rales Cardiovascular: Regular rate and rhythm Gastrointestinal: non-tender, soft Extremities: No clubbing, No cyanosis, No edema Neurological: No nl mental status, No nl speech Results Result Diagram: 07/23/16 0500 07/23/16 0500 Results 24 hrs Laboratory Tests Test 07/23/16 16:51 07/23/16 20:49 07/24/16 01:36 07/24/16 05:41 Bedside Glucose 84 98 163 282 H Test 07/24/16 07:54 07/24/16 09:09 07/24/16 12:00 Bedside Glucose 277 H 297 H 232 H Medications Medications Current Medications Ondansetron HCl (Zofran Inj) 4 mg Q6H PRN IV NAUSEA AND/OR VOMITING; Start at 16:00 Pantoprazole (Protonix Iv) 40 mg DAILY@06 IV Last administered on 07/24/16 06: 16; Admin Dose 40 MG; Start 07/18/16 at 06:00 Bisacodyl (Dulcolax Supp) 10 mg Q24H PRN [place] CONSTIPATION; Start 07/17/16 at 16: 00 Lorazepam (Ativan) 1 mg Q1H PRN IV seziure activity; Start 07/17/16 at 22:30 Acetaminophen (Tylenol Liquid) 650 mg Q6H PRN GTB PAIN AND OR ELEVATED TEMP Last administered on 07/22/16 01:05; Admin Dose 650 MG; Start 07/18/16 at 02:00 Miscellaneous Information 1 ea NOTE XX ; Start 07/18/16 at 02:00 Glucose (Glutose) 15 gm Q15M PRN PO DECREASED GLUCOSE; Start 07/18/16 at 02:00 Glucose (Glutose) 22.5 gm Q15M PRN PO DECREASED GLUCOSE; Start 07/18/16 at 02:00 Dextrose (D50w Syringe) 25 ml Q15M PRN IV DECREASED GLUCOSE Last administered on 07/20/16 21:53; Admin Dose 25 ML; Start 07/18/16 at 02:00 Dextrose (D50w Syringe) 50 ml Q15M PRN IV DECREASED GLUCOSE Last administered on 07/20/16 20:11; Admin Dose 50 ML; Start 07/18/16 at 02:00 Glucagon (Glucagen) 1 mg Q15M PRN IM DECREASED GLUCOSE; Start 07/18/16 at 02:00 Glucose 15 gm 15 gm Q15M PRN BUCCAL DECREASED GLUCOSE; Start 07/18/16 at 02:00 Levetiracetam/ Sodium Chloride (Keppra Iv/NS) 107.5 ml @ 430 mls/hr Q12 IVPB Last administered on 07/24/16 09:05; Admin Dose 430 MLS/HR; Start 07/18/16 at 15: 00 Mupirocin (Bactroban) 1 applic BID TOP Last administered on 07/24/16 09:01; Admin Dose 1 APPLIC; Start 07/19/16 at 12:00 Metronidazole 500 mg 500 mg Q8 PO Last administered on 07/24/16 11:57; Admin Dose 500 MG; Start 07/19/16 at 14:00 Meropenem (Merrem 500 Mg/ 100 ml (Pmx)) 100 ml @ 200 mls/hr Q24H IVPB Last administered on 07/23/16 15:04; Admin Dose 200 MLS/HR; Start 07/20/16 at 14:00 Insulin Aspart (Novolog Insulin Pen) NOVOLOG *MILD* ALGORI... Q4 SC Last administered on 07/24/16 12:09; Admin Dose 3 UNIT; Start 07/21/16 at 13:00 Polyethylene Glycol (Miralax) 17 gm DAILY NGT Last administered on 07/22/16 09: 03; Admin Dose 17 GM; Start 07/21/16 at 11:00 Collagenase 1 applic 1 applic DAILY PRN TOP WHEN SOILED Last administered on 12:07; Admin Dose 1 APPLIC; Start 07/22/16 at 16:30 Vancomycin HCl/ Sodium Chloride (Vancocin/NS) 150 ml @ 75 mls/hr Q96H IVPB Last administered on 07/23/16 15:06; Admin Dose 75 MLS/HR; Start 07/23/16 at 17: 00 Heparin Sodium (Porcine) (Heparin (5000 Units/0.5 ml)) 5,000 unit BID SC Last administered on 07/24/16 09:02; Admin Dose 5,000 UNIT; Start 07/23/16 at 21:00 Insulin Glargine (Lantus) 5 unit DAILY@08 SC Last administered on 07/24/16 12: 08; Admin Dose 5 UNIT; Start 07/23/16 at 11:00 Metoclopramide HCl (Reglan) 5 mg Q6H IV ; Start 07/24/16 at 16:00 LENI DAVID MD Jul 24, 2016 15:47
[2016-07-24] MEDS: MEROPENEM 500 MG/100 ML (PMX) 100 ML IVPB SCH (15:51)
--- NOTE | 2016-07-24 15:51 | CONS ---
Date/Time of Note Date/Time of Note DATE: 07/24/16 TIME: 15:50 Assessment/Plan Assessment/Plan Chief Complaint/Hosp Course SUBJECTIVE: No changes. The patient is lying comfortably in bed. No fevers MICROBIOLOGY: Blood cultures since 07/20/2016 remain negative. ANTIMICROBIALS: The patient is on 1. Flagyl. 2. Meropenem. 3. Vancomycin. 4. Bactroban to nares. INDWELLINGS: Trach, PEG, left upper extremity AV fistula and rectal tube and right femoral triple-lumen catheter. PHYSICAL EXAMINATION: GENERAL: Chronically ill-appearing, middle-aged white man who is unresponsive. HEENT: Head atraumatic, normocephalic. Pupils are dilated. Buccal mucosa dry. NECK: Supple. Tracheostomy present. CHEST: Rise symmetrical. Breath sounds diminished to bases. HEART: S1, S2. ABDOMEN: Soft. Bowel tones present. EXTREMITIES: Without cyanosis. ASSESSMENT: 1. Sepsis ==> resolving 2. Urinary tract infection per urinalysis. 3. Diarrhea, on empiric Flagyl. 4. Chronic respiratory failure, possible aspiration. 5. Anoxic encephalopathy status post cardiopulmonary arrest. 6. Diabetes. 7. Methicillin-resistant Staphylococcus aureus nares colonization. 8. End-stage renal disease, hemodialysis dependent. PLAN: The patient remains unchanged. Continue abx, consider dc femoral catheter staff Problems: Consultation Date/Type/Reason Admit Date/Time Jul 17, 2016 at 13:33 Type of Consultation: ID Exam/Review of Systems Vital Signs Vitals Vital Signs Date Time Temp Pulse Resp B/P Pulse Ox O2 Delivery O2 Flow Rate FiO2 07/24/16 15:13 95 24 100 30 07/24/16 12:19 98.3 120/74 07/23/16 13:00 Mechanical Ventilator Intake and Output 07/23/16 07/23/16 07/24/16 15:00 23:00 07:00 Intake Total 807.5 ml 170 ml Output Total 2300 ml 1000 ml Balance -1492.5 ml -830 ml Results Result Diagram: 07/23/16 0500 07/23/16 0500 Results 24 hrs Laboratory Tests Test 07/23/16 16:51 07/23/16 20:49 07/24/16 01:36 07/24/16 05:41 Bedside Glucose 84 98 163 282 H Test 07/24/16 07:54 07/24/16 09:09 07/24/16 12:00 Bedside Glucose 277 H 297 H 232 H Medications Medications Current Medications Ondansetron HCl (Zofran Inj) 4 mg Q6H PRN IV NAUSEA AND/OR VOMITING; Start at 16:00 Pantoprazole (Protonix Iv) 40 mg DAILY@06 IV Last administered on 07/24/16 06: 16; Admin Dose 40 MG; Start 07/18/16 at 06:00 Bisacodyl (Dulcolax Supp) 10 mg Q24H PRN [place] CONSTIPATION; Start 07/17/16 at 16: 00 Lorazepam (Ativan) 1 mg Q1H PRN IV seziure activity; Start 07/17/16 at 22:30 Acetaminophen (Tylenol Liquid) 650 mg Q6H PRN GTB PAIN AND OR ELEVATED TEMP Last administered on 07/22/16 01:05; Admin Dose 650 MG; Start 07/18/16 at 02:00 Miscellaneous Information 1 ea NOTE XX ; Start 07/18/16 at 02:00 Glucose (Glutose) 15 gm Q15M PRN PO DECREASED GLUCOSE; Start 07/18/16 at 02:00 Glucose (Glutose) 22.5 gm Q15M PRN PO DECREASED GLUCOSE; Start 07/18/16 at 02:00 Dextrose (D50w Syringe) 25 ml Q15M PRN IV DECREASED GLUCOSE Last administered on 07/20/16 21:53; Admin Dose 25 ML; Start 07/18/16 at 02:00 Dextrose (D50w Syringe) 50 ml Q15M PRN IV DECREASED GLUCOSE Last administered on 07/20/16 20:11; Admin Dose 50 ML; Start 07/18/16 at 02:00 Glucagon (Glucagen) 1 mg Q15M PRN IM DECREASED GLUCOSE; Start 07/18/16 at 02:00 Glucose 15 gm 15 gm Q15M PRN BUCCAL DECREASED GLUCOSE; Start 07/18/16 at 02:00 Levetiracetam/ Sodium Chloride (Keppra Iv/NS) 107.5 ml @ 430 mls/hr Q12 IVPB Last administered on 07/24/16 09:05; Admin Dose 430 MLS/HR; Start 07/18/16 at 15: 00 Mupirocin (Bactroban) 1 applic BID TOP Last administered on 07/24/16 09:01; Admin Dose 1 APPLIC; Start 07/19/16 at 12:00 Metronidazole 500 mg 500 mg Q8 PO Last administered on 07/24/16 11:57; Admin Dose 500 MG; Start 07/19/16 at 14:00 Meropenem (Merrem 500 Mg/ 100 ml (Pmx)) 100 ml @ 200 mls/hr Q24H IVPB Last administered on 07/23/16 15:04; Admin Dose 200 MLS/HR; Start 07/20/16 at 14:00 Insulin Aspart (Novolog Insulin Pen) NOVOLOG *MILD* ALGORI... Q4 SC Last administered on 07/24/16 12:09; Admin Dose 3 UNIT; Start 07/21/16 at 13:00 Polyethylene Glycol (Miralax) 17 gm DAILY NGT Last administered on 07/22/16 09: 03; Admin Dose 17 GM; Start 07/21/16 at 11:00 Collagenase 1 applic 1 applic DAILY PRN TOP WHEN SOILED Last administered on 12:07; Admin Dose 1 APPLIC; Start 07/22/16 at 16:30 Vancomycin HCl/ Sodium Chloride (Vancocin/NS) 150 ml @ 75 mls/hr Q96H IVPB Last administered on 07/23/16 15:06; Admin Dose 75 MLS/HR; Start 07/23/16 at 17: 00 Heparin Sodium (Porcine) (Heparin (5000 Units/0.5 ml)) 5,000 unit BID SC Last administered on 07/24/16 09:02; Admin Dose 5,000 UNIT; Start 07/23/16 at 21:00 Insulin Glargine (Lantus) 5 unit DAILY@08 SC Last administered on 07/24/16 12: 08; Admin Dose 5 UNIT; Start 07/23/16 at 11:00 Metoclopramide HCl (Reglan) 5 mg Q6H IV ; Start 07/24/16 at 16:00 MICKY MIRANDA NP Jul 24, 2016 15:51
--- NOTE | 2016-07-24 16:01 | CONS ---
Date/Time of Note Date/Time of Note DATE: 07/24/16 TIME: 15:59 Consult Date/Type/Reason Admit Date/Time Jul 17, 2016 at 13:33 Type of Consultation: pulmonary Subjective No significant changes remains largely somnolent Objective Vital Signs Date Time Temp Pulse Resp B/P Pulse Ox O2 Delivery O2 Flow Rate FiO2 07/24/16 15:13 95 24 100 30 07/24/16 12:19 98.3 120/74 07/23/16 13:00 Mechanical Ventilator Intake and Output 07/23/16 07/23/16 07/24/16 15:00 23:00 07:00 Intake Total 807.5 ml 170 ml Output Total 2300 ml 1000 ml Balance -1492.5 ml -830 ml Results/Medications Result Diagram: 07/23/16 0500 07/23/16 0500 Results 24 hrs Laboratory Tests Test 07/23/16 16:51 07/23/16 20:49 07/24/16 01:36 07/24/16 05:41 Bedside Glucose 84 98 163 282 H Test 07/24/16 07:54 07/24/16 09:09 07/24/16 12:00 Bedside Glucose 277 H 297 H 232 H Medications Current Medications Ondansetron HCl (Zofran Inj) 4 mg Q6H PRN IV NAUSEA AND/OR VOMITING; Start at 16:00 Pantoprazole (Protonix Iv) 40 mg DAILY@06 IV Last administered on 07/24/16 06: 16; Admin Dose 40 MG; Start 07/18/16 at 06:00 Bisacodyl (Dulcolax Supp) 10 mg Q24H PRN [place] CONSTIPATION; Start 07/17/16 at 16: 00 Lorazepam (Ativan) 1 mg Q1H PRN IV seziure activity; Start 07/17/16 at 22:30 Acetaminophen (Tylenol Liquid) 650 mg Q6H PRN GTB PAIN AND OR ELEVATED TEMP Last administered on 07/22/16 01:05; Admin Dose 650 MG; Start 07/18/16 at 02:00 Miscellaneous Information 1 ea NOTE XX ; Start 07/18/16 at 02:00 Glucose (Glutose) 15 gm Q15M PRN PO DECREASED GLUCOSE; Start 07/18/16 at 02:00 Glucose (Glutose) 22.5 gm Q15M PRN PO DECREASED GLUCOSE; Start 07/18/16 at 02:00 Dextrose (D50w Syringe) 25 ml Q15M PRN IV DECREASED GLUCOSE Last administered on 07/20/16 21:53; Admin Dose 25 ML; Start 07/18/16 at 02:00 Dextrose (D50w Syringe) 50 ml Q15M PRN IV DECREASED GLUCOSE Last administered on 07/20/16 20:11; Admin Dose 50 ML; Start 07/18/16 at 02:00 Glucagon (Glucagen) 1 mg Q15M PRN IM DECREASED GLUCOSE; Start 07/18/16 at 02:00 Glucose 15 gm 15 gm Q15M PRN BUCCAL DECREASED GLUCOSE; Start 07/18/16 at 02:00 Levetiracetam/ Sodium Chloride (Keppra Iv/NS) 107.5 ml @ 430 mls/hr Q12 IVPB Last administered on 07/24/16 09:05; Admin Dose 430 MLS/HR; Start 07/18/16 at 15: 00 Mupirocin (Bactroban) 1 applic BID TOP Last administered on 07/24/16 09:01; Admin Dose 1 APPLIC; Start 07/19/16 at 12:00 Metronidazole 500 mg 500 mg Q8 PO Last administered on 07/24/16 11:57; Admin Dose 500 MG; Start 07/19/16 at 14:00 Meropenem (Merrem 500 Mg/ 100 ml (Pmx)) 100 ml @ 200 mls/hr Q24H IVPB Last administered on 07/24/16 15:51; Admin Dose 200 MLS/HR; Start 07/20/16 at 14:00 Insulin Aspart (Novolog Insulin Pen) NOVOLOG *MILD* ALGORI... Q4 SC Last administered on 07/24/16 12:09; Admin Dose 3 UNIT; Start 07/21/16 at 13:00 Polyethylene Glycol (Miralax) 17 gm DAILY NGT Last administered on 07/22/16 09: 03; Admin Dose 17 GM; Start 07/21/16 at 11:00 Collagenase 1 applic 1 applic DAILY PRN TOP WHEN SOILED Last administered on 12:07; Admin Dose 1 APPLIC; Start 07/22/16 at 16:30 Vancomycin HCl/ Sodium Chloride (Vancocin/NS) 150 ml @ 75 mls/hr Q96H IVPB Last administered on 07/23/16 15:06; Admin Dose 75 MLS/HR; Start 07/23/16 at 17: 00 Heparin Sodium (Porcine) (Heparin (5000 Units/0.5 ml)) 5,000 unit BID SC Last administered on 07/24/16 09:02; Admin Dose 5,000 UNIT; Start 07/23/16 at 21:00 Insulin Glargine (Lantus) 5 unit DAILY@08 SC Last administered on 07/24/16 12: 08; Admin Dose 5 UNIT; Start 07/23/16 at 11:00 Metoclopramide HCl (Reglan) 5 mg Q6H IV Last administered on 07/24/16 15:51; Admin Dose 5 MG; Start 07/24/16 at 16:00 Assessment/Plan Chief Complaint/Hosp Course IMPRESSION: 1. Status post cardiopulmonary arrest. This was likely a respiratory event, possibly due to mucus plugging and central airway obstruction versus an aspiration event that led to his demise. 2. Respiratory failure, vent dependence. 3. Encephalopathy. ? Anoxic pending EEG may require apnea testing 4. Chronic kidney disease. On hemodialysis. 5. Lactic acidosis. Now improved status post resuscitation post code. 6. Multifocal pneumonia. Possibly aspiration versus healthcare associated. Worsening right lower lobe infiltrate RECOMMENDATIONS: 1. Ventilatory support. 2. Antibiotics per ID 3. Neuro recommendations 5. Continue antiseizure medication Palliative care recommendations Patient's condition consistent with very severe anoxic brain injury Family still deciding about goals of care Problems: ENDER PORTER MD, [facility] Jul 24, 2016 16:01
--- NOTE | 2016-07-24 16:06 | SP ---
DATE OF PROCEDURE: 07/22/2016 HISTORY: This is a 35-year-old male with history of severe anoxic encephalopathy. This is a repea t EEG. CURRENT MEDICATIONS: 1. Vancomycin. 2. Keppra. 3. Protonix. 4. Glucagon. PROCEDURE: Utilizing a 16-channel EEG machine, cap scalp electrodes were applied in accordance with International 10-20 system. [id number] and [id number] montages were displayed. Electrical i mpedances were measured and reported. DESCRIPTION: During the resting state, a clear background rhythm was not seen at the sensitivity of 7 with decreasing sensitivity to 3. A dominant rhythm was seen in the range of 5 to 7, with epilep tiform activity in bifrontal and bitemporal region. IMPRESSION: This is an abnormal EEG due to the presence of severe suppression of bihemispheric dist ribution with epileptiform activity in the bifrontal and bitemporal region, consistent with severe e ncephalopathy. Please correlate these findings with the patient's clinical picture. Dictated By: TRISHA MARTINS/LAURA Conf#: [id number] DID#: [id number]
[2016-07-24] MEDS: DEXTROSE 50% 50 ML SYRINGE IV PRN (17:48)
[2016-07-25] VITALS (30 sets, daily range): BP systolic 88–138; BP diastolic 50–77; PULSE 65–111; RESP 15–23
[2016-07-25] MEDS: INSULIN ASPART [NOVOLOG] 3 ML PEN SC SCH ×4 (01:54→14:26)
[2016-07-25] MEDS: METOCLOPRAMIDE 10 MG INJ IV SCH ×4 (04:00→20:07)
[2016-07-25] MEDS: PANTOPRAZOLE 40 MG INJ IV SCH (05:52)
[2016-07-25] MEDS: metroNIDAZOLE 500 MG TAB PO SCH ×3 (05:53→20:07)
[2016-07-25 06:39] LABS: ADD SCAN DIFF NO
[2016-07-25 07:19] LABS: POTASSIUM 4.4 mmol/L (3.5-5.1)
[2016-07-25 07:20] LABS: BASOPHIL # 0.1 10^3/ul (0.0-0.1); BASOPHILS % 0.3 % (0.0-2.0); EOSINOPHILS # 0.1 10^3/ul (0.0-0.5); EOSINOPHILS % 0.8 % (0.0-7.0); HEMATOCRIT 32.3 % (42.0-52.0); HEMOGLOBIN 9.9 g/dl (14.0-18.0); LYMPHOCYTES # 1.2 10^3/ul (0.8-2.9); LYMPHOCYTES % 8.1 % (15.0-51.0); MEAN CORPUSCULAR HEMOGLOBIN 30.5 pg (29.0-33.0); MEAN CORPUSCULAR HGB CONC 30.7 g/dl (32.0-37.0); MEAN CORPUSCULAR VOLUME 99.4 fl (82.0-101.0); MEAN PLATELET VOLUME 10.8 fl (7.4-10.4); MONOCYTE # 1.1 10^3/ul (0.3-0.9); MONOCYTES % 7.5 % (0.0-11.0); NEUTROPHIL # 12.1 10^3/ul (1.6-7.5); NEUTROPHILS % 82.7 % (39.0-77.0); PLATELET COUNT 325 10^3/UL (140-415); RED BLOOD COUNT 3.25 10^6/ul (4.70-6.10); RED CELL DISTRIBUTION WIDTH 17.1 % (11.5-14.5); WHITE BLOOD COUNT 14.6 10^3/ul (4.8-10.8)
[2016-07-25 07:22] LABS: CREATININE 3.13 mg/dl (0.61-1.24)
[2016-07-25 07:23] LABS: MAGNESIUM 2.3 mg/dl (1.7-2.5)
[2016-07-25] MEDS: INSULIN GLARGINE [LANtus] 3 ML PEN SC SCH (08:00)
[2016-07-25] MEDS: POLYETHYLENE GLYCOL 17 GM PACKET NGT SCH (08:55)
[2016-07-25] MEDS: HEPARIN 5,000 UNIT/0.5 ML VIAL SC SCH ×2 (09:00→20:12)
[2016-07-25] MEDS: MUPIROCIN 2% 22 GM OINT TOP SCH ×2 (09:00→20:07)
[2016-07-25] MEDS: LEVETIRACETAM IV 750 MG in SOD CHLORIDE 0.9% 100 ML IVPB SCH ×2 (10:31→20:07)
--- NOTE | 2016-07-25 10:50 | CONS ---
Date/Time of Note Date/Time of Note DATE: 07/25/16 TIME: 10:50 Consult Date/Type/Reason Admit Date/Time Jul 17, 2016 at 13:33 Type of Consultation: neph Subjective on hd today. No other acute events noted. No hemoptysis, hematemesis, or hematochezia. The patient remains unresponsive. OBJECTIVE: HEENT: Head is normocephalic. NECK: Supple. HEART: Regular rate. LUNGS: Show diminished breath sounds at the base. ABDOMEN: Soft, nontender to palpation, no rebound or guarding. EXTREMITIES: Negative for clubbing, cyanosis, no edema. DERMATOLOGIC: No rashes. MUSCULOSKELETAL: No joint effusions. NEUROLOGIC: No change in exam. Objective Vital Signs Date Time Temp Pulse Resp B/P Pulse Ox O2 Delivery O2 Flow Rate FiO2 07/25/16 09:10 90 20 100 30 07/25/16 07:52 98.2 114/72 07/23/16 13:00 Mechanical Ventilator Intake and Output 07/24/16 07/24/16 07/25/16 15:00 23:00 07:00 Intake Total 290 ml 460 ml Output Total 100 ml 100 ml Balance 190 ml 360 ml Results/Medications Result Diagram: 07/25/16 0530 07/25/16 0530 Results 24 hrs Laboratory Tests Test 07/24/16 12:00 07/24/16 17:02 07/24/16 17:43 07/24/16 18:09 Bedside Glucose 232 H 70 53 L 117 Test 07/24/16 18:30 07/24/16 21:07 07/25/16 01:36 07/25/16 04:56 Bedside Glucose 113 96 271 H 265 H Test 07/25/16 05:30 07/25/16 05:35 07/25/16 08:24 White Blood Count 14.6 H Red Blood Count 3.25 L Hemoglobin 9.9 L Hematocrit 32.3 L Mean Corpuscular Volume 99.4 Mean Corpuscular Hemoglobin 30.5 Mean Corpuscular Hemoglobin Concent 30.7 L Red Cell Distribution Width 17.1 H Platelet Count 325 Mean Platelet Volume 10.8 H Neutrophils % 82.7 H Lymphocytes % 8.1 L Monocytes % 7.5 Eosinophils % 0.8 Basophils % 0.3 Nucleated Red Blood Cells % 0.0 Neutrophils # 12.1 H Lymphocytes # 1.2 Monocytes # 1.1 H Eosinophils # 0.1 Basophils # 0.1 Nucleated Red Blood Cells # 0.0 Sodium Level 140 Potassium Level 4.4 Chloride Level 104 Carbon Dioxide Level 17 L Anion Gap 23 H Blood Urea Nitrogen 50 H Creatinine 3.13 H Glucose Level 288 H Calcium Level 9.0 Magnesium Level 2.3 Bedside Glucose 273 H 239 H Medications Current Medications Ondansetron HCl (Zofran Inj) 4 mg Q6H PRN IV NAUSEA AND/OR VOMITING; Start at 16:00 Pantoprazole (Protonix Iv) 40 mg DAILY@06 IV Last administered on 07/25/16 05: 52; Admin Dose 40 MG; Start 07/18/16 at 06:00 Bisacodyl (Dulcolax Supp) 10 mg Q24H PRN [place] CONSTIPATION; Start 07/17/16 at 16: 00 Lorazepam (Ativan) 1 mg Q1H PRN IV seziure activity; Start 07/17/16 at 22:30 Acetaminophen (Tylenol Liquid) 650 mg Q6H PRN GTB PAIN AND OR ELEVATED TEMP Last administered on 07/22/16 01:05; Admin Dose 650 MG; Start 07/18/16 at 02:00 Miscellaneous Information 1 ea NOTE XX ; Start 07/18/16 at 02:00 Glucose (Glutose) 15 gm Q15M PRN PO DECREASED GLUCOSE; Start 07/18/16 at 02:00 Glucose (Glutose) 22.5 gm Q15M PRN PO DECREASED GLUCOSE; Start 07/18/16 at 02:00 Dextrose (D50w Syringe) 25 ml Q15M PRN IV DECREASED GLUCOSE Last administered on 07/24/16 17:48; Admin Dose 25 ML; Start 07/18/16 at 02:00 Dextrose (D50w Syringe) 50 ml Q15M PRN IV DECREASED GLUCOSE Last administered on 07/20/16 20:11; Admin Dose 50 ML; Start 07/18/16 at 02:00 Glucagon (Glucagen) 1 mg Q15M PRN IM DECREASED GLUCOSE; Start 07/18/16 at 02:00 Glucose 15 gm 15 gm Q15M PRN BUCCAL DECREASED GLUCOSE; Start 07/18/16 at 02:00 Levetiracetam/ Sodium Chloride (Keppra Iv/NS) 107.5 ml @ 430 mls/hr Q12 IVPB Last administered on 07/24/16 21:10; Admin Dose 430 MLS/HR; Start 07/18/16 at 15: 00 Mupirocin (Bactroban) 1 applic BID TOP Last administered on 07/25/16 09:00; Admin Dose 1 APPLIC; Start 07/19/16 at 12:00 Metronidazole 500 mg 500 mg Q8 PO Last administered on 07/25/16 05:53; Admin Dose 500 MG; Start 07/19/16 at 14:00 Meropenem (Merrem 500 Mg/ 100 ml (Pmx)) 100 ml @ 200 mls/hr Q24H IVPB Last administered on 07/24/16 15:51; Admin Dose 200 MLS/HR; Start 07/20/16 at 14:00 Insulin Aspart (Novolog Insulin Pen) NOVOLOG *MILD* ALGORI... Q4 SC Last administered on 07/25/16 06:01; Admin Dose 4 UNIT; Start 07/21/16 at 13:00 Polyethylene Glycol (Miralax) 17 gm DAILY NGT Last administered on 07/22/16 09: 03; Admin Dose 17 GM; Start 07/21/16 at 11:00 Collagenase 1 applic 1 applic DAILY PRN TOP WHEN SOILED Last administered on 12:07; Admin Dose 1 APPLIC; Start 07/22/16 at 16:30 Vancomycin HCl/ Sodium Chloride (Vancocin/NS) 150 ml @ 75 mls/hr Q96H IVPB Last administered on 07/23/16 15:06; Admin Dose 75 MLS/HR; Start 07/23/16 at 17: 00 Heparin Sodium (Porcine) (Heparin (5000 Units/0.5 ml)) 5,000 unit BID SC Last administered on 07/24/16 21:21; Admin Dose 5,000 UNIT; Start 07/23/16 at 21:00 Insulin Glargine (Lantus) 5 unit DAILY@08 SC Last administered on 07/24/16 12: 08; Admin Dose 5 UNIT; Start 07/23/16 at 11:00 Metoclopramide HCl (Reglan) 5 mg Q6H IV Last administered on 07/24/16 22:05; Admin Dose 5 MG; Start 07/24/16 at 16:00 Assessment/Plan Chief Complaint/Hosp Course ASSESSMENT AND PLAN: 1. End-stage renal disease. The patient's dialysis Wednesday, Wednesday, Wednesday, access AV fistula. The patient is currently off schedule. Will anticipate dialysis qod. assess daily for hd needs.all meds dosed ok for renal function 2. Hypokalemia, replete potassium chloride, dialyzed on a high potassium bath. 3. Anemia of chronic disease. Continue to monitor H and H levels. Continue Epogen. 4. Mineral bone disorder. Continue to monitor calcium and phosphorus levels. 5. Status post code arrest. Continue to monitor. 6. Ventilator dependent respiratory failure. Vent settings have been reviewed. ABG has been reviewed. Continue to monitor. Follow up with pulmonary 7. Dysphagia, status post PEG. Continue tube feeding. 8. Sepsis, status post shock. The patient is currently on IV antibiotics, continue. Cultures have been reviewed. 9. Diabetes, continue Accu-Cheks and insulin sliding scale. 10. [id number] encephalopathy. The patient's EEG shows diffuse slowing, severe anoxic injury. Continue to monitor. Problems: IQRA TSANG MD Jul 25, 2016 10:50
--- NOTE | 2016-07-25 11:51 | CONS ---
Date/Time of Note Date/Time of Note DATE: 07/25/16 TIME: 11:51 Assessment/Plan Assessment/Plan Chief Complaint/Hosp Course ID PROGRESS NOTE CURRENT ABX=> Vanco IV + Merrem + FLagyl 24H INTERVAL SUMMARY * Resting comfortably -- Trach-Vent, HD in session via LUEXT AVF PHYSICAL EXAMINATION: GENERAL: VSS, NAD, Afebrile HEENT: Unremarkable NECK: Supple, trachea secure CHEST: Rise symmetrical, without dyspnea on observation HEART: Pulse RRR ABDOMEN: Soft EXTREMITIES: Warm ID ASSESSMENT 35 yo M admit with: 1. Sepsis => resolving * BCx 07/17 (-) & 07/20 (-) 2. Urinary tract infection per urinalysis. 3. Diarrhea, on empiric Flagyl. 4. Chronic respiratory failure, possible aspiration. 5. Anoxic encephalopathy status post cardiopulmonary arrest. 6. Diabetes w/suspected polyneuropathies, autonomic, nephropathy 7. End-stage renal disease, hemodialysis dependent. (+)MRSA Nares ->Bactroban INVASIVES: PIV, LUEXT AVF ABX ALLERGY: None to ABX CURRENT ABX: => Vanco IV + Merrem + FLagyl ID RECOMMENDATIONS 1. Continue current ABX 2. Observe over the weekend on ABX -> Reassess by ID team next week . Problems: Consultation Date/Type/Reason Admit Date/Time Jul 17, 2016 at 13:33 Initial Consult Date Type of Consultation: ID Exam/Review of Systems Vital Signs Vitals Vital Signs Date Time Temp Pulse Resp B/P Pulse Ox O2 Delivery O2 Flow Rate FiO2 07/25/16 11:40 97.9 98 20 109/67 100 07/25/16 11:00 30 07/23/16 13:00 Mechanical Ventilator Intake and Output 07/24/16 07/24/16 07/25/16 15:00 23:00 07:00 Intake Total 290 ml 460 ml Output Total 100 ml 100 ml Balance 190 ml 360 ml Results Result Diagram: 07/25/16 0530 07/25/16 0530 Results 24 hrs Laboratory Tests Test 07/24/16 12:00 07/24/16 17:02 07/24/16 17:43 07/24/16 18:09 Bedside Glucose 232 H 70 53 L 117 Test 07/24/16 18:30 07/24/16 21:07 07/25/16 01:36 07/25/16 04:56 Bedside Glucose 113 96 271 H 265 H Test 07/25/16 05:30 07/25/16 05:35 07/25/16 08:24 07/25/16 10:33 White Blood Count 14.6 H Red Blood Count 3.25 L Hemoglobin 9.9 L Hematocrit 32.3 L Mean Corpuscular Volume 99.4 Mean Corpuscular Hemoglobin 30.5 Mean Corpuscular Hemoglobin Concent 30.7 L Red Cell Distribution Width 17.1 H Platelet Count 325 Mean Platelet Volume 10.8 H Neutrophils % 82.7 H Lymphocytes % 8.1 L Monocytes % 7.5 Eosinophils % 0.8 Basophils % 0.3 Nucleated Red Blood Cells % 0.0 Neutrophils # 12.1 H Lymphocytes # 1.2 Monocytes # 1.1 H Eosinophils # 0.1 Basophils # 0.1 Nucleated Red Blood Cells # 0.0 Sodium Level 140 Potassium Level 4.4 Chloride Level 104 Carbon Dioxide Level 17 L Anion Gap 23 H Blood Urea Nitrogen 50 H Creatinine 3.13 H Glucose Level 288 H Calcium Level 9.0 Magnesium Level 2.3 Bedside Glucose 273 H 239 H 301 H Medications Medications Current Medications Ondansetron HCl (Zofran Inj) 4 mg Q6H PRN IV NAUSEA AND/OR VOMITING; Start at 16:00 Pantoprazole (Protonix Iv) 40 mg DAILY@06 IV Last administered on 07/25/16 05: 52; Admin Dose 40 MG; Start 07/18/16 at 06:00 Bisacodyl (Dulcolax Supp) 10 mg Q24H PRN [place] CONSTIPATION; Start 07/17/16 at 16: 00 Lorazepam (Ativan) 1 mg Q1H PRN IV seziure activity; Start 07/17/16 at 22:30 Acetaminophen (Tylenol Liquid) 650 mg Q6H PRN GTB PAIN AND OR ELEVATED TEMP Last administered on 07/22/16 01:05; Admin Dose 650 MG; Start 07/18/16 at 02:00 Miscellaneous Information 1 ea NOTE XX ; Start 07/18/16 at 02:00 Glucose (Glutose) 15 gm Q15M PRN PO DECREASED GLUCOSE; Start 07/18/16 at 02:00 Glucose (Glutose) 22.5 gm Q15M PRN PO DECREASED GLUCOSE; Start 07/18/16 at 02:00 Dextrose (D50w Syringe) 25 ml Q15M PRN IV DECREASED GLUCOSE Last administered on 07/24/16 17:48; Admin Dose 25 ML; Start 07/18/16 at 02:00 Dextrose (D50w Syringe) 50 ml Q15M PRN IV DECREASED GLUCOSE Last administered on 07/20/16 20:11; Admin Dose 50 ML; Start 07/18/16 at 02:00 Glucagon (Glucagen) 1 mg Q15M PRN IM DECREASED GLUCOSE; Start 07/18/16 at 02:00 Glucose 15 gm 15 gm Q15M PRN BUCCAL DECREASED GLUCOSE; Start 07/18/16 at 02:00 Levetiracetam/ Sodium Chloride (Keppra Iv/NS) 107.5 ml @ 430 mls/hr Q12 IVPB Last administered on 07/25/16 10:31; Admin Dose 430 MLS/HR; Start 07/18/16 at 15: 00 Mupirocin (Bactroban) 1 applic BID TOP Last administered on 07/25/16 09:00; Admin Dose 1 APPLIC; Start 07/19/16 at 12:00 Metronidazole 500 mg 500 mg Q8 PO Last administered on 07/25/16 05:53; Admin Dose 500 MG; Start 07/19/16 at 14:00 Meropenem (Merrem 500 Mg/ 100 ml (Pmx)) 100 ml @ 200 mls/hr Q24H IVPB Last administered on 07/24/16 15:51; Admin Dose 200 MLS/HR; Start 07/20/16 at 14:00 Insulin Aspart (Novolog Insulin Pen) NOVOLOG *MILD* ALGORI... Q4 SC Last administered on 07/25/16 10:54; Admin Dose 5 UNIT; Start 07/21/16 at 13:00 Polyethylene Glycol (Miralax) 17 gm DAILY NGT Last administered on 07/22/16 09: 03; Admin Dose 17 GM; Start 07/21/16 at 11:00 Collagenase 1 applic 1 applic DAILY PRN TOP WHEN SOILED Last administered on 12:07; Admin Dose 1 APPLIC; Start 07/22/16 at 16:30 Vancomycin HCl/ Sodium Chloride (Vancocin/NS) 150 ml @ 75 mls/hr Q96H IVPB Last administered on 07/23/16 15:06; Admin Dose 75 MLS/HR; Start 07/23/16 at 17: 00 Heparin Sodium (Porcine) (Heparin (5000 Units/0.5 ml)) 5,000 unit BID SC Last administered on 07/24/16 21:21; Admin Dose 5,000 UNIT; Start 07/23/16 at 21:00 Insulin Glargine (Lantus) 5 unit DAILY@08 SC Last administered on 07/24/16 12: 08; Admin Dose 5 UNIT; Start 07/23/16 at 11:00 Metoclopramide HCl (Reglan) 5 mg Q6H IV Last administered on 07/24/16 22:05; Admin Dose 5 MG; Start 07/24/16 at 16:00 ERIKA WILSON NP Jul 25, 2016 11:51
--- NOTE | 2016-07-25 13:02 | PN ---
Date/Time of Note Date/Time of Note DATE: 07/25/16 TIME: 12:52 Assessment/Plan VTE Prophylaxis VTE Prophylaxis Intervention: SCD's Lines/Catheters IV [facility] (from [facility] Central Line Central line still needed: Yes Urinary Cath still in place: Yes Reason Cath still needed: other (indicate) Assessment/Plan Assessment/Plan A 35-year-old unfortunate male, who was admitted after a cardiac arrest, managed now as follows: 1. Cardiac arrest secondary to septic shock. The patient now remains off pressors. 2. Severe anoxic encephalopathy with rasta fixed and dilated pupils * Brain assessment shows minimal residual brain function * Patient was chronically on atropine eye drops which might explain dilated pupils. these have been stopped since 07/20/16 3. 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 4. Bilateral Multifocal Pneumonia causing Sepsis 5. End-stage renal disease on hemodialysis. 6. Acute on chronic respiratory failure, remains ventilator-dependent. 7. Anemia secondary to chronic kidney disease. 8. Methicillin-resistant Staphylococcus aureus nares. 9. Chronic dysphagia, on PEG feeds with high residuals. 10. Chronic debility secondary to chronically uncontrolled diabetes type 1 with recurrent episodes of pneumonia causing recurrent hospitalization and now trach and gastrostomy placement, with chronic muscle wasting and foot drop. PLAN * Will get endocrinology consult to help with DM control * Continue vent support * Continue abx * Continue HD per renal * Continue supportive care * Ana osuna Subjective 24 Hr Interval Summary Free Text/Dictation Spoke with mum in detail Discharge planning commenced Subjective hx not possible: pt non-verbal, pt critical status Exam/Review of Systems Vital Signs Vitals Vital Signs Date Time Temp Pulse Resp B/P Pulse Ox O2 Delivery O2 Flow Rate FiO2 07/25/16 12:19 96 07/25/16 11:40 97.9 20 109/67 100 07/25/16 11:00 30 07/23/16 13:00 Mechanical Ventilator Intake and Output 07/24/16 07/24/16 07/25/16 15:00 23:00 07:00 Intake Total 290 ml 460 ml Output Total 100 ml 100 ml Balance 190 ml 360 ml Exam GENERAL: Obtunded, unresponsive. HEENT: Head is normocephalic. Pupils remain fixed and dilated. NECK: Trach to vent. RESPIRATORY: Clear to auscultation. Diminished breath sounds. CARDIOVASCULAR: Regular rate and rhythm. No murmurs. ABDOMEN: Soft, nondistended. Having high residuals per report. EXTREMITIES: Chronic muscle wasting, foot drop right greater than left bilaterally. NEUROLOGIC: Unresponsive. No mental status. No reflexes. GENITOURINARY: Baker to bedside draining minimal concentrated urine. Results Result Diagram: 07/25/16 0530 07/25/16 0530 Results 24 hrs Laboratory Tests Test 07/24/16 17:02 07/24/16 17:43 07/24/16 18:09 07/24/16 18:30 Bedside Glucose 70 53 L 117 113 Test 07/24/16 21:07 07/25/16 01:36 07/25/16 04:56 07/25/16 05:30 Bedside Glucose 96 271 H 265 H White Blood Count 14.6 H Red Blood Count 3.25 L Hemoglobin 9.9 L Hematocrit 32.3 L Mean Corpuscular Volume 99.4 Mean Corpuscular Hemoglobin 30.5 Mean Corpuscular Hemoglobin Concent 30.7 L Red Cell Distribution Width 17.1 H Platelet Count 325 Mean Platelet Volume 10.8 H Neutrophils % 82.7 H Lymphocytes % 8.1 L Monocytes % 7.5 Eosinophils % 0.8 Basophils % 0.3 Nucleated Red Blood Cells % 0.0 Neutrophils # 12.1 H Lymphocytes # 1.2 Monocytes # 1.1 H Eosinophils # 0.1 Basophils # 0.1 Nucleated Red Blood Cells # 0.0 Sodium Level 140 Potassium Level 4.4 Chloride Level 104 Carbon Dioxide Level 17 L Anion Gap 23 H Blood Urea Nitrogen 50 H Creatinine 3.13 H Glucose Level 288 H Calcium Level 9.0 Magnesium Level 2.3 Test 07/25/16 05:35 07/25/16 08:24 07/25/16 10:33 Bedside Glucose 273 H 239 H 301 H Medications Medications Current Medications Ondansetron HCl (Zofran Inj) 4 mg Q6H PRN IV NAUSEA AND/OR VOMITING; Start at 16:00 Pantoprazole (Protonix Iv) 40 mg DAILY@06 IV Last administered on 07/25/16t 05: 52; Admin Dose 40 MG; Start 07/18/16 at 06:00 Bisacodyl (Dulcolax Supp) 10 mg Q24H PRN [place] CONSTIPATION; Start 07/17/16 at 16: 00 Lorazepam (Ativan) 1 mg Q1H PRN IV seziure activity; Start 07/17/16 at 22:30 Acetaminophen (Tylenol Liquid) 650 mg Q6H PRN GTB PAIN AND OR ELEVATED TEMP Last administered on 07/22/16 01:05; Admin Dose 650 MG; Start 07/18/16 at 02:00 Miscellaneous Information 1 ea NOTE XX ; Start 07/18/16 at 02:00 Glucose (Glutose) 15 gm Q15M PRN PO DECREASED GLUCOSE; Start 07/18/16 at 02:00 Glucose (Glutose) 22.5 gm Q15M PRN PO DECREASED GLUCOSE; Start 07/18/16 at 02:00 Dextrose (D50w Syringe) 25 ml Q15M PRN IV DECREASED GLUCOSE Last administered on 07/24/16 17:48; Admin Dose 25 ML; Start 07/18/16 at 02:00 Dextrose (D50w Syringe) 50 ml Q15M PRN IV DECREASED GLUCOSE Last administered on 07/20/16 20:11; Admin Dose 50 ML; Start 07/18/16 at 02:00 Glucagon (Glucagen) 1 mg Q15M PRN IM DECREASED GLUCOSE; Start 07/18/16 at 02:00 Glucose 15 gm 15 gm Q15M PRN BUCCAL DECREASED GLUCOSE; Start 07/18/16 at 02:00 Levetiracetam/ Sodium Chloride (Keppra Iv/NS) 107.5 ml @ 430 mls/hr Q12 IVPB Last administered on 07/25/16 10:31; Admin Dose 430 MLS/HR; Start 07/18/16 at 15: 00 Mupirocin (Bactroban) 1 applic BID TOP Last administered on 07/25/16 09:00; Admin Dose 1 APPLIC; Start 07/19/16 at 12:00 Metronidazole 500 mg 500 mg Q8 PO Last administered on 07/25/16 05:53; Admin Dose 500 MG; Start 07/19/16 at 14:00 Meropenem (Merrem 500 Mg/ 100 ml (Pmx)) 100 ml @ 200 mls/hr Q24H IVPB Last administered on 07/24/16 15:51; Admin Dose 200 MLS/HR; Start 07/20/16 at 14:00 Insulin Aspart (Novolog Insulin Pen) NOVOLOG *MILD* ALGORI... Q4 SC Last administered on 07/25/16 10:54; Admin Dose 5 UNIT; Start 07/21/16 at 13:00 Polyethylene Glycol (Miralax) 17 gm DAILY NGT Last administered on 07/22/16 09: 03; Admin Dose 17 GM; Start 07/21/16 at 11:00 Collagenase 1 applic 1 applic DAILY PRN TOP WHEN SOILED Last administered on 12:07; Admin Dose 1 APPLIC; Start 07/22/16 at 16:30 Vancomycin HCl/ Sodium Chloride (Vancocin/NS) 150 ml @ 75 mls/hr Q96H IVPB Last administered on 07/23/16 15:06; Admin Dose 75 MLS/HR; Start 07/23/16 at 17: 00 Heparin Sodium (Porcine) (Heparin (5000 Units/0.5 ml)) 5,000 unit BID SC Last administered on 07/24/16 21:21; Admin Dose 5,000 UNIT; Start 07/23/16 at 21:00 Insulin Glargine (Lantus) 5 unit DAILY@08 SC Last administered on 07/24/16 12: 08; Admin Dose 5 UNIT; Start 07/23/16 at 11:00 Metoclopramide HCl (Reglan) 5 mg Q6H IV Last administered on 07/24/16 22:05; Admin Dose 5 MG; Start 07/24/16 at 16:00 ERMA JACOBS Jul 25, 2016 13:02
[2016-07-25] MEDS: MEROPENEM 500 MG/100 ML (PMX) 100 ML IVPB SCH (14:14)
[2016-07-25] MEDS: INSULIN REGULAR, HUMAN 100 UNIT/1 ML 3ML VIAL SC SCH ×2 (17:40→23:03)
[2016-07-25] MEDS: EPOETIN 4000 UNITS/1 ML INJ (ESRD) SC SCH (18:25)
--- NOTE | 2016-07-25 19:24 | CONS ---
Date/Time of Note Date/Time of Note DATE: 07/25/16 TIME: 19:23 Consult Date/Type/Reason Admit Date/Time Jul 17, 2016 at 13:33 Type of Consultation: Pulm Subjective not responsive or following commands Objective Vital Signs Date Time Temp Pulse Resp B/P Pulse Ox O2 Delivery O2 Flow Rate FiO2 07/25/16 17:10 88 20 100 30 07/25/16 15:54 97.9 107/67 07/23/16 13:00 Mechanical Ventilator Intake and Output 07/24/16 07/24/16 07/25/16 15:00 23:00 07:00 Intake Total 290 ml 460 ml Output Total 100 ml 100 ml Balance 190 ml 360 ml Exam HEENT: Neck supple; no JVD; no LAD, trach site clear CVS: RRR, S1 and S2 CHEST: Clear ABD: Soft, NT, + BS EXT: No c/c/e Results/Medications Result Diagram: 07/25/16 0530 07/25/16 0530 Results 24 hrs Laboratory Tests Test 07/24/16 21:07 07/25/16 01:36 07/25/16 04:56 07/25/16 05:30 Bedside Glucose 96 271 H 265 H White Blood Count 14.6 H Red Blood Count 3.25 L Hemoglobin 9.9 L Hematocrit 32.3 L Mean Corpuscular Volume 99.4 Mean Corpuscular Hemoglobin 30.5 Mean Corpuscular Hemoglobin Concent 30.7 L Red Cell Distribution Width 17.1 H Platelet Count 325 Mean Platelet Volume 10.8 H Neutrophils % 82.7 H Lymphocytes % 8.1 L Monocytes % 7.5 Eosinophils % 0.8 Basophils % 0.3 Nucleated Red Blood Cells % 0.0 Neutrophils # 12.1 H Lymphocytes # 1.2 Monocytes # 1.1 H Eosinophils # 0.1 Basophils # 0.1 Nucleated Red Blood Cells # 0.0 Sodium Level 140 Potassium Level 4.4 Chloride Level 104 Carbon Dioxide Level 17 L Anion Gap 23 H Blood Urea Nitrogen 50 H Creatinine 3.13 H Glucose Level 288 H Calcium Level 9.0 Magnesium Level 2.3 Test 07/25/16 05:35 07/25/16 08:24 07/25/16 10:33 07/25/16 14:09 Bedside Glucose 273 H 239 H 301 H 222 H Test 07/25/16 17:29 Bedside Glucose 132 Medications Current Medications Ondansetron HCl (Zofran Inj) 4 mg Q6H PRN IV NAUSEA AND/OR VOMITING; Start at 16:00 Pantoprazole (Protonix Iv) 40 mg DAILY@06 IV Last administered on 07/25/16 05: 52; Admin Dose 40 MG; Start 07/18/16 at 06:00 Bisacodyl (Dulcolax Supp) 10 mg Q24H PRN [place] CONSTIPATION; Start 07/17/16 at 16: 00 Lorazepam (Ativan) 1 mg Q1H PRN IV seziure activity; Start 07/17/16 at 22:30 Acetaminophen (Tylenol Liquid) 650 mg Q6H PRN GTB PAIN AND OR ELEVATED TEMP Last administered on 07/22/16 01:05; Admin Dose 650 MG; Start 07/18/16 at 02:00 Miscellaneous Information 1 ea NOTE XX ; Start 07/18/16 at 02:00 Glucose (Glutose) 15 gm Q15M PRN PO DECREASED GLUCOSE; Start 07/18/16 at 02:00 Glucose (Glutose) 22.5 gm Q15M PRN PO DECREASED GLUCOSE; Start 07/18/16 at 02:00 Dextrose (D50w Syringe) 25 ml Q15M PRN IV DECREASED GLUCOSE Last administered on 07/24/16 17:48; Admin Dose 25 ML; Start 07/18/16 at 02:00 Dextrose (D50w Syringe) 50 ml Q15M PRN IV DECREASED GLUCOSE Last administered on 07/20/16 20:11; Admin Dose 50 ML; Start 07/18/16 at 02:00 Glucagon (Glucagen) 1 mg Q15M PRN IM DECREASED GLUCOSE; Start 07/18/16 at 02:00 Glucose 15 gm 15 gm Q15M PRN BUCCAL DECREASED GLUCOSE; Start 07/18/16 at 02:00 Levetiracetam/ Sodium Chloride (Keppra Iv/NS) 107.5 ml @ 430 mls/hr Q12 IVPB Last administered on 07/25/16 10:31; Admin Dose 430 MLS/HR; Start 07/18/16 at 15: 00 Mupirocin (Bactroban) 1 applic BID TOP Last administered on 07/25/16 09:00; Admin Dose 1 APPLIC; Start 07/19/16 at 12:00 Metronidazole 500 mg 500 mg Q8 PO Last administered on 07/25/16 14:14; Admin Dose 500 MG; Start 07/19/16 at 14:00 Meropenem (Merrem 500 Mg/ 100 ml (Pmx)) 100 ml @ 200 mls/hr Q24H IVPB Last administered on 07/25/16 14:14; Admin Dose 200 MLS/HR; Start 07/20/16 at 14:00 Polyethylene Glycol (Miralax) 17 gm DAILY NGT Last administered on 07/22/16 09: 03; Admin Dose 17 GM; Start 07/21/16 at 11:00 Collagenase 1 applic 1 applic DAILY PRN TOP WHEN SOILED Last administered on 12:07; Admin Dose 1 APPLIC; Start 07/22/16 at 16:30 Vancomycin HCl/ Sodium Chloride (Vancocin/NS) 150 ml @ 75 mls/hr Q96H IVPB Last administered on 07/23/16 15:06; Admin Dose 75 MLS/HR; Start 07/23/16 at 17: 00 Heparin Sodium (Porcine) (Heparin (5000 Units/0.5 ml)) 5,000 unit BID SC Last administered on 07/24/16 21:21; Admin Dose 5,000 UNIT; Start 07/23/16 at 21:00 Metoclopramide HCl (Reglan) 5 mg Q6H IV Last administered on 07/25/16 17:30; Admin Dose 5 MG; Start 07/24/16 at 16:00 Insulin Human Regular (Humulin R) 2 unit Q6 SC Last administered on 07/25/16 17 :40; Admin Dose 2 UNIT; Start 07/25/16 at 18:00 Assessment/Plan Additional Assessment/Plan MPRESSION: 1. Status post cardiopulmonary arrest. This was likely a respiratory event, possibly due to mucus plugging and central airway obstruction versus an aspiration event that led to his demise. 2. Respiratory failure, vent dependence. 3. Encephalopathy--Anoxic 4. Chronic kidney disease. On hemodialysis. RECOMMENDATIONS: 1. Ventilatory support. 2. Abx with plans to de-escalate pending cultures 3. Goals of care to be discussed further MARY BETH ALBA MD Jul 25, 2016 19:24
--- NOTE | 2016-07-25 22:04 | CONS ---
Date/Time of Note Date/Time of Note DATE: 07/25/16 TIME: 21:53 Assessment/Plan Assessment/Plan Problems: (1) Diabetes type I Status: Chronic Comment: With multiple complications. Erratic glycemic control likely combination Hemodialysis with possible high dextrose concentration in dialysate and continuous feeds. Additional Assessment/Plan Will discontinue current insulin regimen and change to Humulin R to be administered [id number] Thank you for asking me to participate in this patient's care. Consultation Date/Type/Reason Admit Date/Time Jul 17, 2016 at 13:33 Date of Consultation: Jul 25, 2016 Type of Consultation: Endocrinology Reason for Consultation Glucose Management Hx of Present Illness The patient is currently unresponsive. History is obtain via medical records. The patient is a 35 year-old male who is status post cardiac arrest at his intermediate facility.Now with anoxic encephalopathy. Patient is receiving continuous tube feeds. Blood sugars have been erratic. Unable to assess. Subjective hx not possible: pt non-verbal Psychological: No nl mood/affect Past Medical History Medical History: diabetes, renal disease Past Surgical History Past Surgical Hx: other (Not known) Family History Significant Family History: other (Not Known) Social History Not known Alcohol Use: other Smoking Status: Unknown if ever smoked Exam/Review of Systems Vital Signs Vitals Vital Signs Date Time Temp Pulse Resp B/P Pulse Ox O2 Delivery O2 Flow Rate FiO2 07/25/16 21:09 89 20 99 30 07/25/16 20:00 97.1 97/59 07/23/16 13:00 Mechanical Ventilator Intake and Output 07/24/16 07/24/16 07/25/16 15:00 23:00 07:00 Intake Total 290 ml 460 ml Output Total 100 ml 100 ml Balance 190 ml 360 ml Exam Constitutional: frail, non-verbal, other (thin) ENMT: intubated (via tracheostomy) Neck: other (tracheostomy) Respiratory: clear to auscultation Cardiovascular: regular rate and rhythm Results POC glucose reviewed Result Diagram: 07/25/1652907/25/16529 Results 24 hrs Laboratory Tests Test 07/25/16 01:36 07/25/16 04:56 07/25/16 05:30 07/25/16 05:35 Bedside Glucose 271 H 265 H 273 H White Blood Count 14.6 H Red Blood Count 3.25 L Hemoglobin 9.9 L Hematocrit 32.3 L Mean Corpuscular Volume 99.4 Mean Corpuscular Hemoglobin 30.5 Mean Corpuscular Hemoglobin Concent 30.7 L Red Cell Distribution Width 17.1 H Platelet Count 325 Mean Platelet Volume 10.8 H Neutrophils % 82.7 H Lymphocytes % 8.1 L Monocytes % 7.5 Eosinophils % 0.8 Basophils % 0.3 Nucleated Red Blood Cells % 0.0 Neutrophils # 12.1 H Lymphocytes # 1.2 Monocytes # 1.1 H Eosinophils # 0.1 Basophils # 0.1 Nucleated Red Blood Cells # 0.0 Sodium Level 140 Potassium Level 4.4 Chloride Level 104 Carbon Dioxide Level 17 L Anion Gap 23 H Blood Urea Nitrogen 50 H Creatinine 3.13 H Glucose Level 288 H Calcium Level 9.0 Magnesium Level 2.3 Test 07/25/16 08:24 07/25/16 10:33 07/25/16 14:09 07/25/16 17:29 Bedside Glucose 239 H 301 H 222 H 132 Medications Medications Current Medications Ondansetron HCl (Zofran Inj) 4 mg Q6H PRN IV NAUSEA AND/OR VOMITING; Start at 16:00 Pantoprazole (Protonix Iv) 40 mg DAILY@06 IV Last administered on 07/25/16 05: 52; Admin Dose 40 MG; Start 07/18/16 at 06:00 Bisacodyl (Dulcolax Supp) 10 mg Q24H PRN [place] CONSTIPATION; Start 07/17/16 at 16: 00 Lorazepam (Ativan) 1 mg Q1H PRN IV seziure activity; Start 07/17/16 at 22:30 Acetaminophen (Tylenol Liquid) 650 mg Q6H PRN GTB PAIN AND OR ELEVATED TEMP Last administered on 07/22/16 01:05; Admin Dose 650 MG; Start 07/18/16 at 02:00 Miscellaneous Information 1 ea NOTE XX ; Start 07/18/16 at 02:00 Glucose (Glutose) 15 gm Q15M PRN PO DECREASED GLUCOSE; Start 07/18/16 at 02:00 Glucose (Glutose) 22.5 gm Q15M PRN PO DECREASED GLUCOSE; Start 07/18/16 at 02:00 Dextrose (D50w Syringe) 25 ml Q15M PRN IV DECREASED GLUCOSE Last administered on 07/24/16 17:48; Admin Dose 25 ML; Start 07/18/16 at 02:00 Dextrose (D50w Syringe) 50 ml Q15M PRN IV DECREASED GLUCOSE Last administered on 07/20/16 20:11; Admin Dose 50 ML; Start 07/18/16 at 02:00 Glucagon (Glucagen) 1 mg Q15M PRN IM DECREASED GLUCOSE; Start 07/18/16 at 02:00 Glucose 15 gm 15 gm Q15M PRN BUCCAL DECREASED GLUCOSE; Start 07/18/16 at 02:00 Levetiracetam/ Sodium Chloride (Keppra Iv/NS) 107.5 ml @ 430 mls/hr Q12 IVPB Last administered on 07/25/16 20:07; Admin Dose 430 MLS/HR; Start 07/18/16 at 15: 00 Mupirocin (Bactroban) 1 applic BID TOP Last administered on 07/25/16 20:07; Admin Dose 1 APPLIC; Start 07/19/16 at 12:00 Metronidazole 500 mg 500 mg Q8 PO Last administered on 07/25/16 20:07; Admin Dose 500 MG; Start 07/19/16 at 14:00 Meropenem (Merrem 500 Mg/ 100 ml (Pmx)) 100 ml @ 200 mls/hr Q24H IVPB Last administered on 07/25/16 14:14; Admin Dose 200 MLS/HR; Start 07/20/16 at 14:00 Polyethylene Glycol (Miralax) 17 gm DAILY NGT Last administered on 07/22/16 09: 03; Admin Dose 17 GM; Start 07/21/16 at 11:00 Collagenase 1 applic 1 applic DAILY PRN TOP WHEN SOILED Last administered on 12:07; Admin Dose 1 APPLIC; Start 07/22/16 at 16:30 Vancomycin HCl/ Sodium Chloride (Vancocin/NS) 150 ml @ 75 mls/hr Q96H IVPB Last administered on 07/23/16 15:06; Admin Dose 75 MLS/HR; Start 07/23/16 at 17: 00 Heparin Sodium (Porcine) (Heparin (5000 Units/0.5 ml)) 5,000 unit BID SC Last administered on 07/25/16 20:12; Admin Dose 5,000 UNIT; Start 07/23/16 at 21:00 Metoclopramide HCl (Reglan) 5 mg Q6H IV Last administered on 07/25/16 20:07; Admin Dose 5 MG; Start 07/24/16 at 16:00 Insulin Human Regular (Humulin R) 2 unit Q6 SC Last administered on 07/25/16 17 :40; Admin Dose 2 UNIT; Start 07/25/16 at 18:00 MANASA LOWE MD Jul 25, 2016 22:04
[2016-07-26] VITALS (23 sets, daily range): BP systolic 107–138; BP diastolic 65–84; PULSE 89–103; RESP 15–25
[2016-07-26] MEDS: metroNIDAZOLE 500 MG TAB PO SCH ×3 (05:05→21:37)
[2016-07-26] MEDS: METOCLOPRAMIDE 10 MG INJ IV SCH ×4 (05:05→23:20)
[2016-07-26] MEDS: PANTOPRAZOLE 40 MG INJ IV SCH (05:05)
[2016-07-26] MEDS: INSULIN REGULAR, HUMAN 100 UNIT/1 ML 3ML VIAL SC SCH ×4 (05:10→23:26)
[2016-07-26 06:25] LABS: ADD SCAN DIFF NO
[2016-07-26 06:41] LABS: BASOPHIL # 0.1 10^3/ul (0.0-0.1); BASOPHILS % 0.3 % (0.0-2.0); EOSINOPHILS # 0.1 10^3/ul (0.0-0.5); EOSINOPHILS % 0.5 % (0.0-7.0); HEMATOCRIT 34.2 % (42.0-52.0); HEMOGLOBIN 10.2 g/dl (14.0-18.0); LYMPHOCYTES # 1.1 10^3/ul (0.8-2.9); LYMPHOCYTES % 7.2 % (15.0-51.0); MEAN CORPUSCULAR HEMOGLOBIN 30.2 pg (29.0-33.0); MEAN CORPUSCULAR HGB CONC 29.8 g/dl (32.0-37.0); MEAN CORPUSCULAR VOLUME 101.2 fl (82.0-101.0); MEAN PLATELET VOLUME 10.9 fl (7.4-10.4); MONOCYTE # 0.7 10^3/ul (0.3-0.9); MONOCYTES % 4.8 % (0.0-11.0); NEUTROPHIL # 12.8 10^3/ul (1.6-7.5); NEUTROPHILS % 86.8 % (39.0-77.0); PLATELET COUNT 323 10^3/UL (140-415); RED BLOOD COUNT 3.38 10^6/ul (4.70-6.10); RED CELL DISTRIBUTION WIDTH 17.5 % (11.5-14.5); WHITE BLOOD COUNT 14.8 10^3/ul (4.8-10.8)
[2016-07-26 06:54] LABS: POTASSIUM 4.1 mmol/L (3.5-5.1)
[2016-07-26 06:57] LABS: CREATININE 2.83 mg/dl (0.61-1.24)
[2016-07-26 06:58] LABS: CALCIUM 9.1 mg/dl (8.4-10.2)
[2016-07-26] MEDS: POLYETHYLENE GLYCOL 17 GM PACKET NGT SCH (07:42)
--- NOTE | 2016-07-26 08:42 | PN ---
Date/Time of Note Date/Time of Note DATE: 07/26/16 TIME: 08:32 Assessment/Plan VTE Prophylaxis VTE Prophylaxis Intervention: heparin Lines/Catheters IV [facility] Urinary Cath still in place: Yes Reason Cath still needed: urinary retention Assessment/Plan Assessment/Plan A 35-year-old unfortunate male, who was admitted after a cardiac arrest, managed now as follows: 1. Cardiac arrest secondary to septic shock. The patient now remains off pressors. 2. Severe anoxic encephalopathy with rasta fixed and dilated pupils * Brain assessment shows minimal residual brain function * Patient was chronically on atropine eye drops which might explain dilated pupils but these have been stopped since 07/20/16 3. 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 4. Bilateral Multifocal Pneumonia causing Sepsis 5. End-stage renal disease on hemodialysis. 6. Acute on chronic respiratory failure, remains ventilator-dependent. 7. Anemia secondary to chronic kidney disease. 8. Methicillin-resistant Staphylococcus aureus nares. 9. Chronic dysphagia, on PEG feeds with high residuals. 10. Chronic debility secondary to chronically uncontrolled diabetes type 1 with recurrent episodes of pneumonia causing recurrent hospitalization and now trach and gastrostomy placement, with chronic muscle wasting and foot drop. 11. Diarrhea + high PEG feed residuals PLAN * Repeat C-diff / KUB abd to r/o ileus / Fibre added to regimen to hopefully thicken stools / TSH to r/o hyperthyroidism * Continue DM control per endo, appreciate review * Continue vent support / electrolyte and lab monitoring and intervene as indicated * Continue abx * Continue HD per renal / Note: Baker was placed on arrival, may need to be changed or d/c soon * Continue supportive care * [facility] cannot accept patient / SNF placement clser to mum pending PROPHYLAXIS: Heparin + Protonix IV Subjective 24 Hr Interval Summary Subjective hx not possible: pt non-verbal, pt critical status Exam/Review of Systems Vital Signs Vitals Vital Signs Date Time Temp Pulse Resp B/P Pulse Ox O2 Delivery O2 Flow Rate FiO2 07/26/16 08:18 95 24 100 30 07/26/16 07:13 98.7 138/84 07/23/16 13:00 Mechanical Ventilator Intake and Output 07/25/16 07/25/16 07/26/16 15:00 23:00 07:00 Intake Total 500 ml 460 ml Output Total 1300 ml 500 ml Balance -800 ml -40 ml Exam GENERAL: Obtunded, unresponsive. HEENT: Head is normocephalic. Pupils remain fixed and dilated. NECK: Trach to vent. RESPIRATORY: Clear to auscultation. Diminished breath sounds. CARDIOVASCULAR: Regular rate and rhythm. No murmurs. ABDOMEN: Soft, nondistended. Having high residuals per report. EXTREMITIES: Chronic muscle wasting, foot drop right greater than left bilaterally. NEUROLOGIC: Unresponsive. No mental status. No reflexes. GENITOURINARY: Baker to bedside draining minimal concentrated urine. Results Result Diagram: 07/26/16 0545 07/26/16 0545 Results 24 hrs Laboratory Tests Test 07/25/16 10:33 07/25/16 14:09 07/25/16 17:29 07/25/16 22:55 Bedside Glucose 301 H 222 H 132 142 Test 07/26/16 05:02 07/26/16 05:45 Bedside Glucose 329 H White Blood Count 14.8 H Red Blood Count 3.38 L Hemoglobin 10.2 L Hematocrit 34.2 L Mean Corpuscular Volume 101.2 H Mean Corpuscular Hemoglobin 30.2 Mean Corpuscular Hemoglobin Concent 29.8 L Red Cell Distribution Width 17.5 H Platelet Count 323 Mean Platelet Volume 10.9 H Neutrophils % 86.8 H Lymphocytes % 7.2 L Monocytes % 4.8 Eosinophils % 0.5 Basophils % 0.3 Nucleated Red Blood Cells % 0.0 Neutrophils # 12.8 H Lymphocytes # 1.1 Monocytes # 0.7 Eosinophils # 0.1 Basophils # 0.1 Nucleated Red Blood Cells # 0.0 Sodium Level 143 Potassium Level 4.1 Chloride Level 104 Carbon Dioxide Level 18 L Anion Gap 25 H Blood Urea Nitrogen 42 H Creatinine 2.83 H Glucose Level 364 H Calcium Level 9.1 Medications Medications Current Medications Ondansetron HCl (Zofran Inj) 4 mg Q6H PRN IV NAUSEA AND/OR VOMITING; Start at 16:00 Pantoprazole (Protonix Iv) 40 mg DAILY@06 IV Last administered on 07/26/16t 05: 05; Admin Dose 40 MG; Start 07/18/16 at 06:00 Bisacodyl (Dulcolax Supp) 10 mg Q24H PRN [place] CONSTIPATION; Start 07/17/16 at 16: 00 Lorazepam (Ativan) 1 mg Q1H PRN IV seziure activity; Start 07/17/16 at 22:30 Acetaminophen (Tylenol Liquid) 650 mg Q6H PRN GTB PAIN AND OR ELEVATED TEMP Last administered on 07/22/16 01:05; Admin Dose 650 MG; Start 07/18/16 at 02:00 Miscellaneous Information 1 ea NOTE XX ; Start 07/18/16 at 02:00 Glucose (Glutose) 15 gm Q15M PRN PO DECREASED GLUCOSE; Start 07/18/16 at 02:00 Glucose (Glutose) 22.5 gm Q15M PRN PO DECREASED GLUCOSE; Start 07/18/16 at 02:00 Dextrose (D50w Syringe) 25 ml Q15M PRN IV DECREASED GLUCOSE Last administered on 07/24/16 17:48; Admin Dose 25 ML; Start 07/18/16 at 02:00 Dextrose (D50w Syringe) 50 ml Q15M PRN IV DECREASED GLUCOSE Last administered on 07/20/16 20:11; Admin Dose 50 ML; Start 07/18/16 at 02:00 Glucagon (Glucagen) 1 mg Q15M PRN IM DECREASED GLUCOSE; Start 07/18/16 at 02:00 Glucose 15 gm 15 gm Q15M PRN BUCCAL DECREASED GLUCOSE; Start 07/18/16 at 02:00 Levetiracetam/ Sodium Chloride (Keppra Iv/NS) 107.5 ml @ 430 mls/hr Q12 IVPB Last administered on 07/25/16 20:07; Admin Dose 430 MLS/HR; Start 07/18/16 at 15: 00 Mupirocin (Bactroban) 1 applic BID TOP Last administered on 07/25/16 20:07; Admin Dose 1 APPLIC; Start 07/19/16 at 12:00 Metronidazole 500 mg 500 mg Q8 PO Last administered on 07/26/16 05:05; Admin Dose 500 MG; Start 07/19/16 at 14:00 Meropenem (Merrem 500 Mg/ 100 ml (Pmx)) 100 ml @ 200 mls/hr Q24H IVPB Last administered on 07/25/16 14:14; Admin Dose 200 MLS/HR; Start 07/20/16 at 14:00 Polyethylene Glycol (Miralax) 17 gm DAILY NGT Last administered on 07/22/16 09: 03; Admin Dose 17 GM; Start 07/21/16 at 11:00 Collagenase 1 applic 1 applic DAILY PRN TOP WHEN SOILED Last administered on 12:07; Admin Dose 1 APPLIC; Start 07/22/16 at 16:30 Vancomycin HCl/ Sodium Chloride (Vancocin/NS) 150 ml @ 75 mls/hr Q96H IVPB Last administered on 07/23/16 15:06; Admin Dose 75 MLS/HR; Start 07/23/16 at 17: 00 Heparin Sodium (Porcine) (Heparin (5000 Units/0.5 ml)) 5,000 unit BID SC Last administered on 07/25/16 20:12; Admin Dose 5,000 UNIT; Start 07/23/16 at 21:00 Metoclopramide HCl (Reglan) 5 mg Q6H IV Last administered on 07/26/16 05:05; Admin Dose 5 MG; Start 07/24/16 at 16:00 Insulin Human Regular (Humulin R) 2 unit Q6 SC Last administered on 07/26/16 05 :10; Admin Dose 2 UNIT; Start 07/25/16 at 18:00 ERMA JACOBS Jul 26, 2016 08:42
[2016-07-26] MEDS: MUPIROCIN 2% 22 GM OINT TOP SCH ×2 (10:03→20:25)
[2016-07-26] MEDS: LEVETIRACETAM IV 750 MG in SOD CHLORIDE 0.9% 100 ML IVPB SCH ×2 (10:03→20:25)
[2016-07-26] MEDS: HEPARIN 5,000 UNIT/0.5 ML VIAL SC SCH ×2 (10:13→20:33)
--- NOTE | 2016-07-26 12:07 | CONS ---
Date/Time of Note Date/Time of Note DATE: 07/26/16 TIME: 12:06 Consult Date/Type/Reason Admit Date/Time Jul 17, 2016 at 13:33 Type of Consultation: neph Subjective tolerated hd yesterday. No other acute events noted. No hemoptysis, hematemesis, or hematochezia. The patient remains unresponsive. poc reviewed with dr. etienne. OBJECTIVE: HEENT: Head is normocephalic. NECK: Supple. HEART: Regular rate. LUNGS: Show diminished breath sounds at the base. ABDOMEN: Soft, nontender to palpation, no rebound or guarding. EXTREMITIES: Negative for clubbing, cyanosis, no edema. DERMATOLOGIC: No rashes. MUSCULOSKELETAL: No joint effusions. NEUROLOGIC: No change in exam. Objective Vital Signs Date Time Temp Pulse Resp B/P Pulse Ox O2 Delivery O2 Flow Rate FiO2 07/26/16 11:10 93 20 99 30 07/26/16 07:13 98.7 138/84 07/23/16 13:00 Mechanical Ventilator Intake and Output 07/25/16 07/25/16 07/26/16 15:00 23:00 07:00 Intake Total 500 ml 460 ml Output Total 1300 ml 500 ml Balance -800 ml -40 ml Results/Medications Result Diagram: 07/26/16 0545 07/26/16 0545 Results 24 hrs Laboratory Tests Test 07/25/16 14:09 07/25/16 17:29 07/25/16 22:55 07/26/16 05:02 Bedside Glucose 222 H 132 142 329 H Test 07/26/16 05:45 White Blood Count 14.8 H Red Blood Count 3.38 L Hemoglobin 10.2 L Hematocrit 34.2 L Mean Corpuscular Volume 101.2 H Mean Corpuscular Hemoglobin 30.2 Mean Corpuscular Hemoglobin Concent 29.8 L Red Cell Distribution Width 17.5 H Platelet Count 323 Mean Platelet Volume 10.9 H Neutrophils % 86.8 H Lymphocytes % 7.2 L Monocytes % 4.8 Eosinophils % 0.5 Basophils % 0.3 Nucleated Red Blood Cells % 0.0 Neutrophils # 12.8 H Lymphocytes # 1.1 Monocytes # 0.7 Eosinophils # 0.1 Basophils # 0.1 Nucleated Red Blood Cells # 0.0 Sodium Level 143 Potassium Level 4.1 Chloride Level 104 Carbon Dioxide Level 18 L Anion Gap 25 H Blood Urea Nitrogen 42 H Creatinine 2.83 H Glucose Level 364 H Calcium Level 9.1 Thyroid Stimulating Hormone (TSH) 2.710 Medications Current Medications Ondansetron HCl (Zofran Inj) 4 mg Q6H PRN IV NAUSEA AND/OR VOMITING; Start at 16:00 Pantoprazole (Protonix Iv) 40 mg DAILY@06 IV Last administered on 07/26/16 05: 05; Admin Dose 40 MG; Start 07/18/16 at 06:00 Bisacodyl (Dulcolax Supp) 10 mg Q24H PRN [place] CONSTIPATION; Start 07/17/16 at 16: 00 Lorazepam (Ativan) 1 mg Q1H PRN IV seziure activity; Start 07/17/16 at 22:30 Acetaminophen (Tylenol Liquid) 650 mg Q6H PRN GTB PAIN AND OR ELEVATED TEMP Last administered on 07/22/16 01:05; Admin Dose 650 MG; Start 07/18/16 at 02:00 Miscellaneous Information 1 ea NOTE XX ; Start 07/18/16 at 02:00 Glucose (Glutose) 15 gm Q15M PRN PO DECREASED GLUCOSE; Start 07/18/16 at 02:00 Glucose (Glutose) 22.5 gm Q15M PRN PO DECREASED GLUCOSE; Start 07/18/16 at 02:00 Dextrose (D50w Syringe) 25 ml Q15M PRN IV DECREASED GLUCOSE Last administered on 07/24/16 17:48; Admin Dose 25 ML; Start 07/18/16 at 02:00 Dextrose (D50w Syringe) 50 ml Q15M PRN IV DECREASED GLUCOSE Last administered on 07/20/16 20:11; Admin Dose 50 ML; Start 07/18/16 at 02:00 Glucagon (Glucagen) 1 mg Q15M PRN IM DECREASED GLUCOSE; Start 07/18/16 at 02:00 Glucose 15 gm 15 gm Q15M PRN BUCCAL DECREASED GLUCOSE; Start 07/18/16 at 02:00 Levetiracetam/ Sodium Chloride (Keppra Iv/NS) 107.5 ml @ 430 mls/hr Q12 IVPB Last administered on 07/26/16 10:03; Admin Dose 430 MLS/HR; Start 07/18/16 at 15: 00 Mupirocin (Bactroban) 1 applic BID TOP Last administered on 07/26/16 10:03; Admin Dose 1 APPLIC; Start 07/19/16 at 12:00 Metronidazole 500 mg 500 mg Q8 PO Last administered on 07/26/16 05:05; Admin Dose 500 MG; Start 07/19/16 at 14:00 Meropenem (Merrem 500 Mg/ 100 ml (Pmx)) 100 ml @ 200 mls/hr Q24H IVPB Last administered on 07/25/16 14:14; Admin Dose 200 MLS/HR; Start 07/20/16 at 14:00 Polyethylene Glycol (Miralax) 17 gm DAILY NGT Last administered on 07/22/16 09: 03; Admin Dose 17 GM; Start 07/21/16 at 11:00 Collagenase 1 applic 1 applic DAILY PRN TOP WHEN SOILED Last administered on 12:07; Admin Dose 1 APPLIC; Start 07/22/16 at 16:30 Vancomycin HCl/ Sodium Chloride (Vancocin/NS) 150 ml @ 75 mls/hr Q96H IVPB Last administered on 07/23/16 15:06; Admin Dose 75 MLS/HR; Start 07/23/16 at 17: 00 Heparin Sodium (Porcine) (Heparin (5000 Units/0.5 ml)) 5,000 unit BID SC Last administered on 07/26/16 10:13; Admin Dose 5,000 UNIT; Start 07/23/16 at 21:00 Metoclopramide HCl (Reglan) 5 mg Q6H IV Last administered on 07/26/16 05:05; Admin Dose 5 MG; Start 07/24/16 at 16:00 Insulin Human Regular (Humulin R) 2 unit Q6 SC Last administered on 07/26/16 05 :10; Admin Dose 2 UNIT; Start 07/25/16 at 18:00 Assessment/Plan Chief Complaint/Hosp Course 1. End-stage renal disease. The patient's dialysis Wednesday, Wednesday, Wednesday, access AV fistula. The patient is currently off schedule. Will anticipate dialysis qod. assess daily for hd needs.all meds dosed ok for renal function. will be back on schedule after. 2. Hypokalemia, repleted potassium chloride, dialyzed on a high potassium bath. 3. Anemia of chronic disease. Continue to monitor H and H levels. Continue Epogen. 4. Mineral bone disorder. Continue to monitor calcium and phosphorus levels. 5. Status post code arrest. Continue to monitor. 6. Ventilator dependent respiratory failure. Vent settings have been reviewed. ABG has been reviewed. Continue to monitor. Follow up with pulmonary 7. Dysphagia, status post PEG. Continue tube feeding. 8. Sepsis, status post shock. The patient is currently on IV antibiotics, continue. Cultures have been reviewed. 9. Diabetes, continue Accu-Cheks and insulin sliding scale. 10. [id number] encephalopathy. The patient's EEG shows diffuse slowing, severe anoxic injury. Continue to monitor. Problems: IQRA TSANG MD Jul 26, 2016 12:07
[2016-07-26] MEDS: MEROPENEM 500 MG/100 ML (PMX) 100 ML IVPB SCH (14:34)
--- NOTE | 2016-07-26 16:14 | CONS ---
Date/Time of Note Date/Time of Note DATE: 07/26/16 TIME: 16:11 Assessment/Plan Assessment/Plan Chief Complaint/Hosp Course The patient is currently unresponsive. History is obtain via medical records. The patient is a 35 year-old male who is status post cardiac arrest at his shelter facility.Now with anoxic encephalopathy. Patient is receiving continuous tube feeds. Blood sugars have been erratic. Problems: (1) Diabetes type I Status: Chronic Comment: On continues tube feeds. Insulin changed from Lantus and aspart to Humulin R to be given Q6 hours. Blood glucose suboptimal on current dose of 2 units. Will increase dose to 3 units Q6 hours. Additional Assessment/Plan Continue to monitor and adjust Humulin R dose upward as needed Consultation Date/Type/Reason Admit Date/Time Jul 17, 2016 at 13:33 Initial Consult Date 07/25/16 Type of Consultation: endocrine Reason for Consultation glycemic management 24 HR Interval Summary Subjective hx not possible: pt non-verbal Exam/Review of Systems Vital Signs Vitals Vital Signs Date Time Temp Pulse Resp B/P Pulse Ox O2 Delivery O2 Flow Rate FiO2 07/26/16 15:16 97.9 97 20 107/65 97 07/26/16 15:15 30 07/23/16 13:00 Mechanical Ventilator Intake and Output 07/25/16 07/25/16 07/26/16 15:00 23:00 07:00 Intake Total 500 ml 460 ml Output Total 1300 ml 500 ml Balance -800 ml -40 ml Exam Constitutional: non-verbal ENMT: intubated (via tracheostomy) Results POC glucose reviewed Result Diagram: 07/26/16 0545 07/26/16 0545 Results 24 hrs Laboratory Tests Test 07/25/16 17:29 07/25/16 22:55 07/26/16 05:02 07/26/16 05:45 Bedside Glucose 132 142 329 H White Blood Count 14.8 H Red Blood Count 3.38 L Hemoglobin 10.2 L Hematocrit 34.2 L Mean Corpuscular Volume 101.2 H Mean Corpuscular Hemoglobin 30.2 Mean Corpuscular Hemoglobin Concent 29.8 L Red Cell Distribution Width 17.5 H Platelet Count 323 Mean Platelet Volume 10.9 H Neutrophils % 86.8 H Lymphocytes % 7.2 L Monocytes % 4.8 Eosinophils % 0.5 Basophils % 0.3 Nucleated Red Blood Cells % 0.0 Neutrophils # 12.8 H Lymphocytes # 1.1 Monocytes # 0.7 Eosinophils # 0.1 Basophils # 0.1 Nucleated Red Blood Cells # 0.0 Sodium Level 143 Potassium Level 4.1 Chloride Level 104 Carbon Dioxide Level 18 L Anion Gap 25 H Blood Urea Nitrogen 42 H Creatinine 2.83 H Glucose Level 364 H Calcium Level 9.1 Thyroid Stimulating Hormone (TSH) 2.710 Test 07/26/16 12:21 Bedside Glucose 353 H Medications Medications Current Medications Ondansetron HCl (Zofran Inj) 4 mg Q6H PRN IV NAUSEA AND/OR VOMITING; Start at 16:00 Pantoprazole (Protonix Iv) 40 mg DAILY@06 IV Last administered on 07/26/16 05: 05; Admin Dose 40 MG; Start 07/18/16 at 06:00 Bisacodyl (Dulcolax Supp) 10 mg Q24H PRN [place] CONSTIPATION; Start 07/17/16 at 16: 00 Lorazepam (Ativan) 1 mg Q1H PRN IV seziure activity; Start 07/17/16 at 22:30 Acetaminophen (Tylenol Liquid) 650 mg Q6H PRN GTB PAIN AND OR ELEVATED TEMP Last administered on 07/22/16 01:05; Admin Dose 650 MG; Start 07/18/16 at 02:00 Miscellaneous Information 1 ea NOTE XX ; Start 07/18/16 at 02:00 Glucose (Glutose) 15 gm Q15M PRN PO DECREASED GLUCOSE; Start 07/18/16 at 02:00 Glucose (Glutose) 22.5 gm Q15M PRN PO DECREASED GLUCOSE; Start 07/18/16 at 02:00 Dextrose (D50w Syringe) 25 ml Q15M PRN IV DECREASED GLUCOSE Last administered on 07/24/16 17:48; Admin Dose 25 ML; Start 07/18/16 at 02:00 Dextrose (D50w Syringe) 50 ml Q15M PRN IV DECREASED GLUCOSE Last administered on 07/20/16 20:11; Admin Dose 50 ML; Start 07/18/16 at 02:00 Glucagon (Glucagen) 1 mg Q15M PRN IM DECREASED GLUCOSE; Start 07/18/16 at 02:00 Glucose 15 gm 15 gm Q15M PRN BUCCAL DECREASED GLUCOSE; Start 07/18/16 at 02:00 Levetiracetam/ Sodium Chloride (Keppra Iv/NS) 107.5 ml @ 430 mls/hr Q12 IVPB Last administered on 07/26/16 10:03; Admin Dose 430 MLS/HR; Start 07/18/16 at 15: 00 Mupirocin (Bactroban) 1 applic BID TOP Last administered on 07/26/16 10:03; Admin Dose 1 APPLIC; Start 07/19/16 at 12:00 Metronidazole 500 mg 500 mg Q8 PO Last administered on 07/26/16 14:34; Admin Dose 500 MG; Start 07/19/16 at 14:00 Meropenem (Merrem 500 Mg/ 100 ml (Pmx)) 100 ml @ 200 mls/hr Q24H IVPB Last administered on 07/26/16 14:34; Admin Dose 200 MLS/HR; Start 07/20/16 at 14:00 Polyethylene Glycol (Miralax) 17 gm DAILY NGT Last administered on 07/22/16 09: 03; Admin Dose 17 GM; Start 07/21/16 at 11:00 Collagenase 1 applic 1 applic DAILY PRN TOP WHEN SOILED Last administered on 12:07; Admin Dose 1 APPLIC; Start 07/22/16 at 16:30 Vancomycin HCl/ Sodium Chloride (Vancocin/NS) 150 ml @ 75 mls/hr Q96H IVPB Last administered on 07/23/16 15:06; Admin Dose 75 MLS/HR; Start 07/23/16 at 17: 00 Heparin Sodium (Porcine) (Heparin (5000 Units/0.5 ml)) 5,000 unit BID SC Last administered on 07/26/16 10:13; Admin Dose 5,000 UNIT; Start 07/23/16 at 21:00 Insulin Human Regular (Humulin R) 3 unit Q6 SC ; Start 07/26/16 at 18:00 Metoclopramide HCl (Reglan) 5 mg Q6H IV ; Start 07/26/16 at 18:00 MANASA LOWE MD Jul 26, 2016 16:14
--- NOTE | 2016-07-26 16:31 | CONS ---
Date/Time of Note Date/Time of Note DATE: 07/26/16 TIME: 16:30 Consult Date/Type/Reason Admit Date/Time Jul 17, 2016 at 13:33 Type of Consultation: Pulm Subjective Non-verbal on vent. Objective Vital Signs Date Time Temp Pulse Resp B/P Pulse Ox O2 Delivery O2 Flow Rate FiO2 07/26/16 16:21 91 07/26/16 15:16 97.9 20 107/65 97 07/26/16 15:15 30 07/23/16 13:00 Mechanical Ventilator Intake and Output 07/25/16 07/25/16 07/26/16 15:00 23:00 07:00 Intake Total 500 ml 460 ml Output Total 1300 ml 500 ml Balance -800 ml -40 ml Exam HEENT: Neck supple; no JVD; no LAD, trach site clear CVS: RRR, S1 and S2 CHEST: Clear ABD: Soft, NT, + BS EXT: No c/c/e Results/Medications Result Diagram: 07/26/16 0545 07/26/16 0545 Results 24 hrs Laboratory Tests Test 07/25/16 17:29 07/25/16 22:55 07/26/16 05:02 07/26/16 05:45 Bedside Glucose 132 142 329 H White Blood Count 14.8 H Red Blood Count 3.38 L Hemoglobin 10.2 L Hematocrit 34.2 L Mean Corpuscular Volume 101.2 H Mean Corpuscular Hemoglobin 30.2 Mean Corpuscular Hemoglobin Concent 29.8 L Red Cell Distribution Width 17.5 H Platelet Count 323 Mean Platelet Volume 10.9 H Neutrophils % 86.8 H Lymphocytes % 7.2 L Monocytes % 4.8 Eosinophils % 0.5 Basophils % 0.3 Nucleated Red Blood Cells % 0.0 Neutrophils # 12.8 H Lymphocytes # 1.1 Monocytes # 0.7 Eosinophils # 0.1 Basophils # 0.1 Nucleated Red Blood Cells # 0.0 Sodium Level 143 Potassium Level 4.1 Chloride Level 104 Carbon Dioxide Level 18 L Anion Gap 25 H Blood Urea Nitrogen 42 H Creatinine 2.83 H Glucose Level 364 H Calcium Level 9.1 Thyroid Stimulating Hormone (TSH) 2.710 Test 07/26/16 12:21 Bedside Glucose 353 H Medications Current Medications Ondansetron HCl (Zofran Inj) 4 mg Q6H PRN IV NAUSEA AND/OR VOMITING; Start at 16:00 Pantoprazole (Protonix Iv) 40 mg DAILY@06 IV Last administered on 07/26/16 05: 05; Admin Dose 40 MG; Start 07/18/16 at 06:00 Bisacodyl (Dulcolax Supp) 10 mg Q24H PRN [place] CONSTIPATION; Start 07/17/16 at 16: 00 Lorazepam (Ativan) 1 mg Q1H PRN IV seziure activity; Start 07/17/16 at 22:30 Acetaminophen (Tylenol Liquid) 650 mg Q6H PRN GTB PAIN AND OR ELEVATED TEMP Last administered on 07/22/16 01:05; Admin Dose 650 MG; Start 07/18/16 at 02:00 Miscellaneous Information 1 ea NOTE XX ; Start 07/18/16 at 02:00 Glucose (Glutose) 15 gm Q15M PRN PO DECREASED GLUCOSE; Start 07/18/16 at 02:00 Glucose (Glutose) 22.5 gm Q15M PRN PO DECREASED GLUCOSE; Start 07/18/16 at 02:00 Dextrose (D50w Syringe) 25 ml Q15M PRN IV DECREASED GLUCOSE Last administered on 07/24/16 17:48; Admin Dose 25 ML; Start 07/18/16 at 02:00 Dextrose (D50w Syringe) 50 ml Q15M PRN IV DECREASED GLUCOSE Last administered on 07/20/16 20:11; Admin Dose 50 ML; Start 07/18/16 at 02:00 Glucagon (Glucagen) 1 mg Q15M PRN IM DECREASED GLUCOSE; Start 07/18/16 at 02:00 Glucose 15 gm 15 gm Q15M PRN BUCCAL DECREASED GLUCOSE; Start 07/18/16 at 02:00 Levetiracetam/ Sodium Chloride (Keppra Iv/NS) 107.5 ml @ 430 mls/hr Q12 IVPB Last administered on 07/26/16 10:03; Admin Dose 430 MLS/HR; Start 07/18/16 at 15: 00 Mupirocin (Bactroban) 1 applic BID TOP Last administered on 07/26/16 10:03; Admin Dose 1 APPLIC; Start 07/19/16 at 12:00 Metronidazole 500 mg 500 mg Q8 PO Last administered on 07/26/16 14:34; Admin Dose 500 MG; Start 07/19/16 at 14:00 Meropenem (Merrem 500 Mg/ 100 ml (Pmx)) 100 ml @ 200 mls/hr Q24H IVPB Last administered on 07/26/16 14:34; Admin Dose 200 MLS/HR; Start 07/20/16 at 14:00 Polyethylene Glycol (Miralax) 17 gm DAILY NGT Last administered on 07/22/16 09: 03; Admin Dose 17 GM; Start 07/21/16 at 11:00 Collagenase 1 applic 1 applic DAILY PRN TOP WHEN SOILED Last administered on 12:07; Admin Dose 1 APPLIC; Start 07/22/16 at 16:30 Vancomycin HCl/ Sodium Chloride (Vancocin/NS) 150 ml @ 75 mls/hr Q96H IVPB Last administered on 07/23/16 15:06; Admin Dose 75 MLS/HR; Start 07/23/16 at 17: 00 Heparin Sodium (Porcine) (Heparin (5000 Units/0.5 ml)) 5,000 unit BID SC Last administered on 07/26/16 10:13; Admin Dose 5,000 UNIT; Start 07/23/16 at 21:00 Insulin Human Regular (Humulin R) 3 unit Q6 SC ; Start 07/26/16 at 18:00 Metoclopramide HCl (Reglan) 5 mg Q6H IV ; Start 07/26/16 at 18:00 Assessment/Plan Additional Assessment/Plan IMP: 1. Status post cardiopulmonary arrest. This was likely a respiratory event, possibly due to mucus plugging and central airway obstruction versus an aspiration event that led to his demise. 2. Respiratory failure, vent dependence. 3. Encephalopathy--Anoxic 4. Chronic kidney disease. On hemodialysis. RECS: 1. Ventilatory support. 2. Abx with plans to de-escalate pending cultures 3. Goals of care to be discussed further 4. Am labs/CXR MARY BETH ALBA MD Jul 26, 2016 16:31
--- NOTE | 2016-07-26 20:11 | CONS ---
Date/Time of Note Date/Time of Note DATE: 07/26/16 TIME: 20:10 Assessment/Plan Assessment/Plan Chief Complaint/Hosp Course ID PROGRESS NOTE CURRENT ABX=> Vanco IV + Merrem + FLagyl 24H INTERVAL SUMMARY * Nonverbal on the Vent -- looks comfortable, No fevers, VSS * s/p HD session yesterday PHYSICAL EXAMINATION: GENERAL: VSS, NAD, Afebrile HEENT: Unremarkable NECK: Supple, trachea secure CHEST: Rise symmetrical, without dyspnea on observation HEART: Pulse RRR ABDOMEN: Soft EXTREMITIES: Warm ID ASSESSMENT 35 yo M admit with: 1. Sepsis => resolving * BCx 07/17 (-) & 07/20 (-) 2. Urinary tract infection per urinalysis. 3. Diarrhea, on empiric Flagyl. 4. Chronic respiratory failure, possible aspiration. 5. Anoxic encephalopathy status post cardiopulmonary arrest. 6. Diabetes w/suspected polyneuropathies, autonomic, nephropathy 7. End-stage renal disease, hemodialysis dependent. (+)MRSA Nares ->Bactroban INVASIVES: PIV, LUEXT AVF ABX ALLERGY: None to ABX CURRENT ABX: => Vanco IV + Merrem + FLagyl ID RECOMMENDATIONS 1. Continue current ABX 2. Observe over the weekend on ABX -> Reassess by ID team next week . Problems: Consultation Date/Type/Reason Admit Date/Time Jul 17, 2016 at 13:33 Type of Consultation: ID Exam/Review of Systems Vital Signs Vitals Vital Signs Date Time Temp Pulse Resp B/P Pulse Ox O2 Delivery O2 Flow Rate FiO2 07/26/16 17:10 89 21 99 30 07/26/16 15:16 97.9 107/65 07/23/16 13:00 Mechanical Ventilator Intake and Output 07/25/16 07/25/16 07/26/16 15:00 23:00 07:00 Intake Total 500 ml 460 ml Output Total 1300 ml 500 ml Balance -800 ml -40 ml Results Result Diagram: 07/26/16 0545 07/26/16 0545 Results 24 hrs Laboratory Tests Test 07/25/16 22:55 07/26/16 05:02 07/26/16 05:45 07/26/16 12:21 Bedside Glucose 142 329 H 353 H White Blood Count 14.8 H Red Blood Count 3.38 L Hemoglobin 10.2 L Hematocrit 34.2 L Mean Corpuscular Volume 101.2 H Mean Corpuscular Hemoglobin 30.2 Mean Corpuscular Hemoglobin Concent 29.8 L Red Cell Distribution Width 17.5 H Platelet Count 323 Mean Platelet Volume 10.9 H Neutrophils % 86.8 H Lymphocytes % 7.2 L Monocytes % 4.8 Eosinophils % 0.5 Basophils % 0.3 Nucleated Red Blood Cells % 0.0 Neutrophils # 12.8 H Lymphocytes # 1.1 Monocytes # 0.7 Eosinophils # 0.1 Basophils # 0.1 Nucleated Red Blood Cells # 0.0 Sodium Level 143 Potassium Level 4.1 Chloride Level 104 Carbon Dioxide Level 18 L Anion Gap 25 H Blood Urea Nitrogen 42 H Creatinine 2.83 H Glucose Level 364 H Calcium Level 9.1 Thyroid Stimulating Hormone (TSH) 2.710 Test 07/26/16 17:06 Bedside Glucose 250 H Medications Medications Current Medications Ondansetron HCl (Zofran Inj) 4 mg Q6H PRN IV NAUSEA AND/OR VOMITING; Start at 16:00 Pantoprazole (Protonix Iv) 40 mg DAILY@06 IV Last administered on 07/26/16 05: 05; Admin Dose 40 MG; Start 07/18/16 at 06:00 Bisacodyl (Dulcolax Supp) 10 mg Q24H PRN [place] CONSTIPATION; Start 07/17/16 at 16: 00 Lorazepam (Ativan) 1 mg Q1H PRN IV seziure activity; Start 07/17/16 at 22:30 Acetaminophen (Tylenol Liquid) 650 mg Q6H PRN GTB PAIN AND OR ELEVATED TEMP Last administered on 07/22/16 01:05; Admin Dose 650 MG; Start 07/18/16 at 02:00 Miscellaneous Information 1 ea NOTE XX ; Start 07/18/16 at 02:00 Glucose (Glutose) 15 gm Q15M PRN PO DECREASED GLUCOSE; Start 07/18/16 at 02:00 Glucose (Glutose) 22.5 gm Q15M PRN PO DECREASED GLUCOSE; Start 07/18/16 at 02:00 Dextrose (D50w Syringe) 25 ml Q15M PRN IV DECREASED GLUCOSE Last administered on 07/24/16 17:48; Admin Dose 25 ML; Start 07/18/16 at 02:00 Dextrose (D50w Syringe) 50 ml Q15M PRN IV DECREASED GLUCOSE Last administered on 07/20/16 20:11; Admin Dose 50 ML; Start 07/18/16 at 02:00 Glucagon (Glucagen) 1 mg Q15M PRN IM DECREASED GLUCOSE; Start 07/18/16 at 02:00 Glucose 15 gm 15 gm Q15M PRN BUCCAL DECREASED GLUCOSE; Start 07/18/16 at 02:00 Levetiracetam/ Sodium Chloride (Keppra Iv/NS) 107.5 ml @ 430 mls/hr Q12 IVPB Last administered on 07/26/16 10:03; Admin Dose 430 MLS/HR; Start 07/18/16 at 15: 00 Mupirocin (Bactroban) 1 applic BID TOP Last administered on 07/26/16 10:03; Admin Dose 1 APPLIC; Start 07/19/16 at 12:00 Metronidazole 500 mg 500 mg Q8 PO Last administered on 07/26/16 14:34; Admin Dose 500 MG; Start 07/19/16 at 14:00 Meropenem (Merrem 500 Mg/ 100 ml (Pmx)) 100 ml @ 200 mls/hr Q24H IVPB Last administered on 07/26/16 14:34; Admin Dose 200 MLS/HR; Start 07/20/16 at 14:00 Polyethylene Glycol (Miralax) 17 gm DAILY NGT Last administered on 07/22/16 09: 03; Admin Dose 17 GM; Start 07/21/16 at 11:00 Collagenase 1 applic 1 applic DAILY PRN TOP WHEN SOILED Last administered on 12:07; Admin Dose 1 APPLIC; Start 07/22/16 at 16:30 Vancomycin HCl/ Sodium Chloride (Vancocin/NS) 150 ml @ 75 mls/hr Q96H IVPB Last administered on 07/23/16 15:06; Admin Dose 75 MLS/HR; Start 07/23/16 at 17: 00 Heparin Sodium (Porcine) (Heparin (5000 Units/0.5 ml)) 5,000 unit BID SC Last administered on 07/26/16 10:13; Admin Dose 5,000 UNIT; Start 07/23/16 at 21:00 Insulin Human Regular (Humulin R) 3 unit Q6 SC Last administered on 4/9/17at 17 :15; Admin Dose 3 UNIT; Start 07/26/16 at 18:00 Metoclopramide HCl (Reglan) 5 mg Q6H IV Last administered on 07/26/16t 17:10; Admin Dose 5 MG; Start 07/26/16 at 18:00 ERIKA WILSON NP Jul 26, 2016 20:11
[2016-07-26] MEDS: COLLAGENASE 30 GM TUBE TOP PRN (23:34)
[2016-07-27] VITALS (31 sets, daily range): BP systolic 97–150; BP diastolic 58–85; PULSE 68–101; RESP 13–20
[2016-07-27] MEDS: metroNIDAZOLE 500 MG TAB PO SCH ×3 (05:18→22:37)
[2016-07-27] MEDS: METOCLOPRAMIDE 10 MG INJ IV SCH ×3 (05:18→17:16)
[2016-07-27] MEDS: PANTOPRAZOLE 40 MG INJ IV SCH (05:18)
[2016-07-27] MEDS: INSULIN REGULAR, HUMAN 100 UNIT/1 ML 3ML VIAL SC SCH ×3 (05:33→17:21)
--- NOTE | 2016-07-27 06:25 | RADRPT ---
PROCEDURE: XR Chest. CLINICAL INDICATION: Respiratory failure TECHNIQUE: A single AP view of the chest was obtained. COMPARISON: Chest x-ray dated 07/20/2016 FINDINGS: A tracheostomy tube is in place. The lungs are hyperinflated with mild coarsening of the interstitial markings. There are right lowe r lobe interstitial opacities and small right pleural effusion. No pneumothorax is seen. The cardi omediastinal silhouette is within normal limits for size. The osseous structures are unremarkable. IMPRESSION: 1. Significant interval improvement in lung aeration when compared to the prior examination. There are mild residual right lower lobe interstitial opacities and small right pleural effusion. 2. Tracheostomy tube in place. RPTAT: HH .Kelly Bal MD, Date Time Electronically viewed and signed by .eKlly Bal MD, on 07/27/2016 06:25 .G/
--- NOTE | 2016-07-27 06:26 | RADRPT ---
PROCEDURE: XR Abdomen. CLINICAL INDICATION: Abdominal distension TECHNIQUE: A single AP view of the abdomen was obtained. COMPARISON: None. FINDINGS: There is a nonobstructive bowel gas pattern. There is a gastrostomy tube within the left upper quadr ant. No abnormal soft tissue calcifications are seen. The visualized portions of the lung bases ar e clear. The osseous structures are unremarkable. IMPRESSION: 1. Left upper quadrant gastrostomy tube. 2. Nonobstructive bowel gas pattern. RPTAT: HH .Kelly Bal MD, MD Date Time Electronically viewed and signed by .Kelly Bal MD, MD on 07/27/2016 06:26 .G/
[2016-07-27 06:29] LABS: ADD SCAN DIFF NO
[2016-07-27 06:30] LABS: BASOPHIL # 0.1 10^3/ul (0.0-0.1); BASOPHILS % 0.4 % (0.0-2.0); EOSINOPHILS # 0.1 10^3/ul (0.0-0.5); HEMATOCRIT 36.2 % (42.0-52.0); HEMOGLOBIN 10.8 g/dl (14.0-18.0); LYMPHOCYTES # 1.5 10^3/ul (0.8-2.9); LYMPHOCYTES % 10.9 % (15.0-51.0); MEAN CORPUSCULAR HEMOGLOBIN 29.6 pg (29.0-33.0); MEAN CORPUSCULAR HGB CONC 29.8 g/dl (32.0-37.0); MEAN CORPUSCULAR VOLUME 99.2 fl (82.0-101.0); MEAN PLATELET VOLUME 10.5 fl (7.4-10.4); MONOCYTE # 0.6 10^3/ul (0.3-0.9); MONOCYTES % 4.4 % (0.0-11.0); NEUTROPHIL # 11.5 10^3/ul (1.6-7.5); NEUTROPHILS % 82.9 % (39.0-77.0); PLATELET COUNT 302 10^3/UL (140-415); RED BLOOD COUNT 3.65 10^6/ul (4.70-6.10); RED CELL DISTRIBUTION WIDTH 17.9 % (11.5-14.5); WHITE BLOOD COUNT 13.9 10^3/ul (4.8-10.8)
[2016-07-27 06:44] LABS: INR 1.5; PROTIME 18.2 Sec (12.2-14.2); PT RATIO 1.4
[2016-07-27 06:45] LABS: PARTIAL THROMBOPLASTIN TIME 33.2 Sec (25.0-35.0)
[2016-07-27 06:49] LABS: POTASSIUM 4.2 mmol/L (3.5-5.1)
[2016-07-27 06:51] LABS: CREATININE 3.44 mg/dl (0.61-1.24)
[2016-07-27 06:52] LABS: CALCIUM 9.1 mg/dl (8.4-10.2)
[2016-07-27] MEDS: HEPARIN 5,000 UNIT/0.5 ML VIAL SC SCH ×2 (08:57→22:42)
[2016-07-27] MEDS: LEVETIRACETAM IV 750 MG in SOD CHLORIDE 0.9% 100 ML IVPB SCH ×2 (08:59→22:37)
[2016-07-27] MEDS: POLYETHYLENE GLYCOL 17 GM PACKET NGT SCH (08:59)
[2016-07-27] MEDS: MUPIROCIN 2% 22 GM OINT TOP SCH ×2 (09:00→22:37)
--- NOTE | 2016-07-27 10:10 | PN ---
DATE: 07/27/2016 SUBJECTIVE: The patient is stable. No events overnight. No hemoptysis, hematemesis hematochezia. OBJECTIVE: VITAL SIGNS: Blood pressure 117/79, respirations 13, pulse 88, temperature 97.6. HEENT: Head is normocephalic. NECK: Supple. HEART: Regular rate. LUNGS: Show diminished breath sounds at the base. ABDOMEN: Soft, nontender to palpation without rebound or guarding. EXTREMITIES: Negative for clubbing, cyanosis, no edema. DERMATOLOGIC: No rashes. MUSCULOSKELETAL: No joint effusions. NEUROLOGIC: No change in exam. MEDICATIONS: The patient's medications have been reviewed. LABORATORY DATA: Sodium 145, potassium 4.2, chloride 107, BUN 55, creatinine 3.44. White count 13. 9, hemoglobin 10.8, hematocrit 36.2, platelet count of 302. ASSESSMENT AND PLAN: 1. End-stage renal disease. The patient is scheduled for hemodialysis today. Will dialyze for 3 h ours, 2K bath, calcium 2.5. 2. Hypernatremia. Will increase free water flushes 200 mL q.6h. 3. Anemia of chronic disease. Monitor hemoglobin and hematocrit levels. Continue Epogen. 4. Mineral bone disorder. Continue to monitor calcium and phosphorus levels. 5. Status post code arrest. 6. Ventilator dependent respiratory failure. Vent settings have been reviewed. ABG has been revie wed. Continue to monitor. 7. Dysphagia. Status post percutaneous endoscopic gastrostomy. Continue tube feeds. 8. Sepsis, status post shock. The patient is completing antibiotic course. We will continue. 9. Encephalopathy with evidence of anoxic injury. Continue to monitor. Follow up with neurology. 10. Diabetes. Continue Accu-Cheks, insulin sliding scale. Dictated By: KENTON BLAKE DO NR/NTS Conf#: [id number] DID#: [id number]
--- NOTE | 2016-07-27 13:21 | CONS ---
Date/Time of Note Date/Time of Note DATE: 07/27/16 TIME: 13:19 Assessment/Plan Assessment/Plan Additional Assessment/Plan Ventilator settings; AC of 20, tidal volume 500, PEEP of 5, 30% FiO2. Assessment recommendations; 1. Patient admitted for cardiac arrest resulting in severe anoxic brain injury. 2. History of chronic respiratory failure. 3. Extensive bilateral pneumonia with marked radiological improvement. 4. End-stage renal disease on hemodialysis. 5. Stable seizure disorder. Continue current supportive care. Discontinue antibiotics. [facility] Prognosis remains poor. Consultation Date/Type/Reason Admit Date/Time Jul 17, 2016 at 13:33 Type of Consultation: Pulmonary 24 HR Interval Summary Free Text/Dictation Patient condition remains unchanged. Remains profoundly unresponsive. General exam; young male, on ventilator via tracheostomy unresponsive. Currently in no distress. Exam/Review of Systems Vital Signs Vitals Vital Signs Date Time Temp Pulse Resp B/P Pulse Ox O2 Delivery O2 Flow Rate FiO2 07/27/16 13:04 90 20 99 30 07/27/16 12:43 98.6 150/85 07/27/16 04:00 Mechanical Ventilator Intake and Output 07/26/16 07/26/16 07/27/16 15:00 23:00 07:00 Intake Total 660 ml Output Total 225 ml Balance 435 ml Exam HEENT exam is; supple neck, no JVD. No lymphadenopathy. Midline trachea. No thyromegaly. Tracheostomy in place with clean insertion site. Pupils are dilated and nonreactive to light. Chest examination; clear to auscultation. S1-S2 audible, no murmurs. Regular rhythm. Abdomen examination; soft, nondistended. No organomegaly. G-tube in place. Bowel sounds audible. Extremity examination; no peripheral edema. [employer] examination; patient remains unresponsive. Results Result Diagram: 07/27/16 0550 07/27/16 0550 Results 24 hrs Laboratory Tests Test 07/26/16 17:06 07/26/16 23:19 07/27/16 05:27 07/27/16 05:50 Bedside Glucose 250 H 94 165 White Blood Count 13.9 H Red Blood Count 3.65 L Hemoglobin 10.8 L Hematocrit 36.2 L Mean Corpuscular Volume 99.2 Mean Corpuscular Hemoglobin 29.6 Mean Corpuscular Hemoglobin Concent 29.8 L Red Cell Distribution Width 17.9 H Platelet Count 302 Mean Platelet Volume 10.5 H Neutrophils % 82.9 H Lymphocytes % 10.9 L Monocytes % 4.4 Eosinophils % 1.0 Basophils % 0.4 Nucleated Red Blood Cells % 0.0 Neutrophils # 11.5 H Lymphocytes # 1.5 Monocytes # 0.6 Eosinophils # 0.1 Basophils # 0.1 Nucleated Red Blood Cells # 0.0 Prothrombin Time 18.2 H Prothrombin Time Ratio 1.4 INR International Normalized Ratio 1.50 Activated Partial Thromboplast Time 33.2 Sodium Level 145 H Potassium Level 4.2 Chloride Level 107 Carbon Dioxide Level 19 L Anion Gap 23 H Blood Urea Nitrogen 55 H Creatinine 3.44 H Glucose Level 167 # Calcium Level 9.1 Magnesium Level 2.3 Test 07/27/16 12:22 Bedside Glucose 201 Medications Medications Current Medications Ondansetron HCl (Zofran Inj) 4 mg Q6H PRN IV NAUSEA AND/OR VOMITING; Start at 16:00 Pantoprazole (Protonix Iv) 40 mg DAILY@06 IV Last administered on 07/27/16 05: 18; Admin Dose 40 MG; Start 07/18/16 at 06:00 Bisacodyl (Dulcolax Supp) 10 mg Q24H PRN [place] CONSTIPATION; Start 07/17/16 at 16: 00 Lorazepam (Ativan) 1 mg Q1H PRN IV seziure activity; Start 07/17/16 at 22:30 Acetaminophen (Tylenol Liquid) 650 mg Q6H PRN GTB PAIN AND OR ELEVATED TEMP Last administered on 07/22/16 01:05; Admin Dose 650 MG; Start 07/18/16 at 02:00 Miscellaneous Information 1 ea NOTE XX ; Start 07/18/16 at 02:00 Glucose (Glutose) 15 gm Q15M PRN PO DECREASED GLUCOSE; Start 07/18/16 at 02:00 Glucose (Glutose) 22.5 gm Q15M PRN PO DECREASED GLUCOSE; Start 07/18/16 at 02:00 Dextrose (D50w Syringe) 25 ml Q15M PRN IV DECREASED GLUCOSE Last administered on 07/24/16 17:48; Admin Dose 25 ML; Start 07/18/16 at 02:00 Dextrose (D50w Syringe) 50 ml Q15M PRN IV DECREASED GLUCOSE Last administered on 07/20/16 20:11; Admin Dose 50 ML; Start 07/18/16 at 02:00 Glucagon (Glucagen) 1 mg Q15M PRN IM DECREASED GLUCOSE; Start 07/18/16 at 02:00 Glucose 15 gm 15 gm Q15M PRN BUCCAL DECREASED GLUCOSE; Start 07/18/16 at 02:00 Levetiracetam/ Sodium Chloride (Keppra Iv/NS) 107.5 ml @ 430 mls/hr Q12 IVPB Last administered on 07/27/16 08:59; Admin Dose 430 MLS/HR; Start 07/18/16 at 15 :00 Mupirocin (Bactroban) 1 applic BID TOP Last administered on 07/27/16 09:00; Admin Dose 1 APPLIC; Start 07/19/16 at 12:00 Metronidazole 500 mg 500 mg Q8 PO Last administered on 07/27/16 05:18; Admin Dose 500 MG; Start 07/19/16 at 14:00 Meropenem (Merrem 500 Mg/ 100 ml (Pmx)) 100 ml @ 200 mls/hr Q24H IVPB Last administered on 07/26/16 14:34; Admin Dose 200 MLS/HR; Start 07/20/16 at 14:00 Polyethylene Glycol (Miralax) 17 gm DAILY NGT Last administered on 07/27/16 08 :59; Admin Dose 17 GM; Start 07/21/16 at 11:00 Collagenase 1 applic 1 applic DAILY PRN TOP WHEN SOILED Last administered on 23:34; Admin Dose 1 APPLIC; Start 07/22/16 at 16:30 Vancomycin HCl/ Sodium Chloride (Vancocin/NS) 150 ml @ 75 mls/hr Q96H IVPB Last administered on 07/23/16 15:06; Admin Dose 75 MLS/HR; Start 07/23/16 at 17: 00 Heparin Sodium (Porcine) (Heparin (5000 Units/0.5 ml)) 5,000 unit BID SC Last administered on 07/27/16 08:57; Admin Dose 5,000 UNIT; Start 07/23/16 at 21:00 Insulin Human Regular (Humulin R) 3 unit Q6 SC Last administered on 07/27/16 12:25; Admin Dose 3 UNIT; Start 07/26/16 at 18:00 Metoclopramide HCl (Reglan) 5 mg Q6H IV Last administered on 07/27/16t 12:24; Admin Dose 5 MG; Start 07/26/16 at 18:00 CHANCE AVILA Jul 27, 2016 13:21
--- NOTE | 2016-07-27 17:02 | PN ---
DATE: 07/27/2016 SUBJECTIVE: No events overnight. The patient is nonverbal, noncommunicative, lying comfortably in bed. No fevers. WBC 13.9, platelets 302, neutrophils 82.9. INDWELLINGS: Trach, PEG, Baker, right femoral triple-lumen catheter, left upper extremity AV fistula. ANTIMICROBIALS: 1. Vancomycin. 2. Topical Bactroban to nares. 3. Flagyl. 4. Meropenem. PHYSICAL EXAMINATION: GENERAL: This is a chronically ill-appearing middle-aged man who is in no distress. HEENT: Head atraumatic, normocephalic. Sclerae anicteric. Buccal mucosa dry. NECK: Supple, trachea midline. CHEST: Rise symmetrical. Breath sounds diminished to bases. HEART: S1, S2. ABDOMEN: Soft. Bowel tones present. EXTREMITIES: Wasted without cyanosis. ASSESSMENT: 1. Status post septic shock. 2. Status post acute cardiopulmonary arrest. 3. Anoxic encephalopathy. 4. Chronic kidney disease, hemodialysis dependent. 5. Diarrhea, on empiric Flagyl. 6. Methicillin-resistant Staphylococcus aureus nares colonization. PLAN: The patient remains stable. Vancomycin and Merrem were discontinued this am by pulmonary team, will keep him on Flagyl for persistent diarrhea. Continue topical Bactroban to nares for total of 2 weeks. Possible discharge planning to SNF. Dictated By: MICKY MIRANDA [employer] for RENEE CURRY/LAURA Conf#: [id number] DID#: [id number] NESHA
--- NOTE | 2016-07-27 17:59 | CONS ---
Date/Time of Note Date/Time of Note DATE: 07/27/16 TIME: 17:56 Assessment/Plan Assessment/Plan Problems: (1) Diabetes type I Status: Chronic Comment: This gentleman came to us with a full cardiac arrest from an ECF. We have limited data about him. I am not entirely certain that he is a type I diabetic but regardless we will go with that information. He is now on regular [id number] insulin to match his tube feedings. His sugars have come under control. Have to watch carefully to determine his overall long-term prognosis. Qualifiers: Diabetes mellitus complication status: with unspecified complications Qualified Code: E10.8 - Type 1 diabetes mellitus with complication Consultation Date/Type/Reason Admit Date/Time Jul 17, 2016 at 13:33 Initial Consult Date 07/25/16 Type of Consultation: Endocrinology Reason for Consultation Diabetes mellitus type 2 in a patient with anoxic brain injury on tube feedings 24 HR Interval Summary Subjective hx not possible: pt non-verbal Exam/Review of Systems Vital Signs Vitals Vital Signs Date Time Temp Pulse Resp B/P Pulse Ox O2 Delivery O2 Flow Rate FiO2 07/27/16 16:59 97.5 92 18 137/85 96 07/27/16 16:54 30 07/27/16 04:00 Mechanical Ventilator Intake and Output 07/26/16 07/26/16 07/27/16 15:00 23:00 07:00 Intake Total 660 ml Output Total 225 ml Balance 435 ml Exam Constitutional: non-verbal Results Result Diagram: 07/27/16 0550 07/27/16 0550 Results 24 hrs Laboratory Tests Test 07/26/16 23:19 07/27/16 05:27 07/27/16 05:50 07/27/16 12:22 Bedside Glucose 94 165 201 White Blood Count 13.9 H Red Blood Count 3.65 L Hemoglobin 10.8 L Hematocrit 36.2 L Mean Corpuscular Volume 99.2 Mean Corpuscular Hemoglobin 29.6 Mean Corpuscular Hemoglobin Concent 29.8 L Red Cell Distribution Width 17.9 H Platelet Count 302 Mean Platelet Volume 10.5 H Neutrophils % 82.9 H Lymphocytes % 10.9 L Monocytes % 4.4 Eosinophils % 1.0 Basophils % 0.4 Nucleated Red Blood Cells % 0.0 Neutrophils # 11.5 H Lymphocytes # 1.5 Monocytes # 0.6 Eosinophils # 0.1 Basophils # 0.1 Nucleated Red Blood Cells # 0.0 Prothrombin Time 18.2 H Prothrombin Time Ratio 1.4 INR International Normalized Ratio 1.50 Activated Partial Thromboplast Time 33.2 Sodium Level 145 H Potassium Level 4.2 Chloride Level 107 Carbon Dioxide Level 19 L Anion Gap 23 H Blood Urea Nitrogen 55 H Creatinine 3.44 H Glucose Level 167 # Calcium Level 9.1 Magnesium Level 2.3 Test 07/27/16 17:14 Bedside Glucose 97 Medications Medications Current Medications Ondansetron HCl (Zofran Inj) 4 mg Q6H PRN IV NAUSEA AND/OR VOMITING; Start at 16:00 Pantoprazole (Protonix Iv) 40 mg DAILY@06 IV Last administered on 07/27/16 05: 18; Admin Dose 40 MG; Start 07/18/16 at 06:00 Bisacodyl (Dulcolax Supp) 10 mg Q24H PRN [place] CONSTIPATION; Start 07/17/16 at 16: 00 Lorazepam (Ativan) 1 mg Q1H PRN IV seziure activity; Start 07/17/16 at 22:30 Acetaminophen (Tylenol Liquid) 650 mg Q6H PRN GTB PAIN AND OR ELEVATED TEMP Last administered on 07/22/16 01:05; Admin Dose 650 MG; Start 07/18/16 at 02:00 Miscellaneous Information 1 ea NOTE XX ; Start 07/18/16 at 02:00 Glucose (Glutose) 15 gm Q15M PRN PO DECREASED GLUCOSE; Start 07/18/16 at 02:00 Glucose (Glutose) 22.5 gm Q15M PRN PO DECREASED GLUCOSE; Start 07/18/16 at 02:00 Dextrose (D50w Syringe) 25 ml Q15M PRN IV DECREASED GLUCOSE Last administered on 07/24/16 17:48; Admin Dose 25 ML; Start 07/18/16 at 02:00 Dextrose (D50w Syringe) 50 ml Q15M PRN IV DECREASED GLUCOSE Last administered on 07/20/16 20:11; Admin Dose 50 ML; Start 07/18/16 at 02:00 Glucagon (Glucagen) 1 mg Q15M PRN IM DECREASED GLUCOSE; Start 07/18/16 at 02:00 Glucose 15 gm 15 gm Q15M PRN BUCCAL DECREASED GLUCOSE; Start 07/18/16 at 02:00 Levetiracetam/ Sodium Chloride (Keppra Iv/NS) 107.5 ml @ 430 mls/hr Q12 IVPB Last administered on 07/27/16 08:59; Admin Dose 430 MLS/HR; Start 07/18/16 at 15 :00 Mupirocin (Bactroban) 1 applic BID TOP Last administered on 07/27/16 09:00; Admin Dose 1 APPLIC; Start 07/19/16 at 12:00 Metronidazole (Flagyl) 500 mg Q8 PO Last administered on 07/27/16 14:57; Admin Dose 500 MG; Start 07/19/16 at 14:00 Polyethylene Glycol (Miralax) 17 gm DAILY NGT Last administered on 07/27/16 08 :59; Admin Dose 17 GM; Start 07/21/16 at 11:00 Collagenase (Santyl) 1 applic DAILY PRN TOP WHEN SOILED Last administered on 23:34; Admin Dose 1 APPLIC; Start 07/22/16 at 16:30 Heparin Sodium (Porcine) (Heparin (5000 Units/0.5 ml)) 5,000 unit BID SC Last administered on 07/27/16 08:57; Admin Dose 5,000 UNIT; Start 07/23/16 at 21:00 Insulin Human Regular (Humulin R) 3 unit Q6 SC Last administered on 07/27/16 17:21; Admin Dose 3 UNIT; Start 07/26/16 at 18:00 Metoclopramide HCl (Reglan) 5 mg Q6H IV Last administered on 07/27/16 17:16; Admin Dose 5 MG; Start 07/26/16 at 18:00 ISSA SIMS MD Jul 27, 2016 17:59
--- NOTE | 2016-07-27 18:32 | PN ---
Date/Time of Note Date/Time of Note DATE: 07/27/16 TIME: 18:31 Assessment/Plan VTE Prophylaxis VTE Prophylaxis Intervention: heparin Lines/Catheters IV [facility]from [facility] Saline [facility] Assessment/Plan Chief Complaint/Hosp Course 1. Cardiac arrest secondary to septic shock. The patient now remains off pressors. 2. Severe anoxic encephalopathy with rasta fixed and dilated pupils * Brain assessment shows minimal residual brain function * Patient was chronically on atropine eye drops which might explain dilated pupils but these have been stopped since 07/20/16 3. 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 4. Bilateral Multifocal Pneumonia causing Sepsis 5. End-stage renal disease on hemodialysis. 6. Acute on chronic respiratory failure, remains ventilator-dependent. 7. Anemia secondary to chronic kidney disease. 8. Methicillin-resistant Staphylococcus aureus nares. 9. Chronic dysphagia, on PEG feeds with high residuals. 10. Chronic debility secondary to chronically uncontrolled diabetes type 1 with recurrent episodes of pneumonia causing recurrent hospitalization and now trach and gastrostomy placement, with chronic muscle wasting and foot drop. 11. Diarrhea + high PEG feed residuals PLAN * Repeat C-diff / KUB abd to r/o ileus / Fibre added to regimen to hopefully thicken stools / TSH to r/o hyperthyroidism * Continue DM control per endo, appreciate review * Continue vent support / electrolyte and lab monitoring and intervene as indicated * Continue abx * Continue HD per renal / Note: Baker was placed on arrival, may need to be changed or d/c soon * Continue supportive care * [facility] cannot accept patient / SNF placement closer to mom pending PROPHYLAXIS: Heparin + Protonix IV Problems: Subjective 24 Hr Interval Summary Subjective hx not possible: pt non-verbal Exam/Review of Systems Vital Signs Vitals Vital Signs Date Time Temp Pulse Resp B/P Pulse Ox O2 Delivery O2 Flow Rate FiO2 07/27/16 16:59 97.5 92 18 137/85 96 07/27/16 16:54 30 07/27/16 04:00 Mechanical Ventilator Intake and Output 07/26/16 07/26/16 07/27/16 15:00 23:00 07:00 Intake Total 660 ml Output Total 225 ml Balance 435 ml Exam Constitutional: non-verbal Respiratory: clear to auscultation Cardiovascular: regular rate and rhythm Gastrointestinal: soft, No distended Musculoskeletal: nl extremities to inspection Results Result Diagram: 07/27/16 0550 07/27/16 0550 Results 24 hrs Laboratory Tests Test 07/26/16 23:19 07/27/16 05:27 07/27/16 05:50 07/27/16 12:22 Bedside Glucose 94 165 201 White Blood Count 13.9 H Red Blood Count 3.65 L Hemoglobin 10.8 L Hematocrit 36.2 L Mean Corpuscular Volume 99.2 Mean Corpuscular Hemoglobin 29.6 Mean Corpuscular Hemoglobin Concent 29.8 L Red Cell Distribution Width 17.9 H Platelet Count 302 Mean Platelet Volume 10.5 H Neutrophils % 82.9 H Lymphocytes % 10.9 L Monocytes % 4.4 Eosinophils % 1.0 Basophils % 0.4 Nucleated Red Blood Cells % 0.0 Neutrophils # 11.5 H Lymphocytes # 1.5 Monocytes # 0.6 Eosinophils # 0.1 Basophils # 0.1 Nucleated Red Blood Cells # 0.0 Prothrombin Time 18.2 H Prothrombin Time Ratio 1.4 INR International Normalized Ratio 1.50 Activated Partial Thromboplast Time 33.2 Sodium Level 145 H Potassium Level 4.2 Chloride Level 107 Carbon Dioxide Level 19 L Anion Gap 23 H Blood Urea Nitrogen 55 H Creatinine 3.44 H Glucose Level 167 # Calcium Level 9.1 Magnesium Level 2.3 Test 07/27/16 17:14 Bedside Glucose 97 Medications Medications Current Medications Ondansetron HCl (Zofran Inj) 4 mg Q6H PRN IV NAUSEA AND/OR VOMITING; Start at 16:00 Pantoprazole (Protonix Iv) 40 mg DAILY@06 IV Last administered on 07/27/16 05: 18; Admin Dose 40 MG; Start 07/18/16 at 06:00 Bisacodyl (Dulcolax Supp) 10 mg Q24H PRN [place] CONSTIPATION; Start 07/17/16 at 16: 00 Lorazepam (Ativan) 1 mg Q1H PRN IV seziure activity; Start 07/17/16 at 22:30 Acetaminophen (Tylenol Liquid) 650 mg Q6H PRN GTB PAIN AND OR ELEVATED TEMP Last administered on 07/22/16 01:05; Admin Dose 650 MG; Start 07/18/16 at 02:00 Miscellaneous Information 1 ea NOTE XX ; Start 07/18/16 at 02:00 Glucose (Glutose) 15 gm Q15M PRN PO DECREASED GLUCOSE; Start 07/18/16 at 02:00 Glucose (Glutose) 22.5 gm Q15M PRN PO DECREASED GLUCOSE; Start 07/18/16 at 02:00 Dextrose (D50w Syringe) 25 ml Q15M PRN IV DECREASED GLUCOSE Last administered on 07/24/16 17:48; Admin Dose 25 ML; Start 07/18/16 at 02:00 Dextrose (D50w Syringe) 50 ml Q15M PRN IV DECREASED GLUCOSE Last administered on 07/20/16 20:11; Admin Dose 50 ML; Start 07/18/16 at 02:00 Glucagon (Glucagen) 1 mg Q15M PRN IM DECREASED GLUCOSE; Start 07/18/16 at 02:00 Glucose 15 gm 15 gm Q15M PRN BUCCAL DECREASED GLUCOSE; Start 07/18/16 at 02:00 Levetiracetam/ Sodium Chloride (Keppra Iv/NS) 107.5 ml @ 430 mls/hr Q12 IVPB Last administered on 07/27/16 08:59; Admin Dose 430 MLS/HR; Start 07/18/16 at 15 :00 Mupirocin (Bactroban) 1 applic BID TOP Last administered on 07/27/16 09:00; Admin Dose 1 APPLIC; Start 07/19/16 at 12:00 Metronidazole (Flagyl) 500 mg Q8 PO Last administered on 07/27/16 14:57; Admin Dose 500 MG; Start 07/19/16 at 14:00 Polyethylene Glycol (Miralax) 17 gm DAILY NGT Last administered on 07/27/16 08 :59; Admin Dose 17 GM; Start 07/21/16 at 11:00 Collagenase (Santyl) 1 applic DAILY PRN TOP WHEN SOILED Last administered on 23:34; Admin Dose 1 APPLIC; Start 07/22/16 at 16:30 Heparin Sodium (Porcine) (Heparin (5000 Units/0.5 ml)) 5,000 unit BID SC Last administered on 07/27/16 08:57; Admin Dose 5,000 UNIT; Start 07/23/16 at 21:00 Insulin Human Regular (Humulin R) 3 unit Q6 SC Last administered on 07/27/16 17:21; Admin Dose 3 UNIT; Start 07/26/16 at 18:00 Metoclopramide HCl (Reglan) 5 mg Q6H IV Last administered on 07/27/16t 17:16; Admin Dose 5 MG; Start 07/26/16 at 18:00 DIANE GIBBONS Jul 27, 2016 18:32
[2016-07-28] VITALS (22 sets, daily range): BP systolic 96–122; BP diastolic 61–86; PULSE 88–106; RESP 17–31
[2016-07-28] MEDS: METOCLOPRAMIDE 10 MG INJ IV SCH ×4 (01:21→17:24)
[2016-07-28] MEDS: INSULIN REGULAR, HUMAN 100 UNIT/1 ML 3ML VIAL SC SCH ×4 (01:27→17:29)
[2016-07-28] MEDS: PANTOPRAZOLE 40 MG INJ IV SCH (05:43)
[2016-07-28] MEDS: metroNIDAZOLE 500 MG TAB PO SCH (05:43)
[2016-07-28] MEDS ORDERED: LANSOPRAZOLE 30 MG CAP GTB SCH (06:00)
--- NOTE | 2016-07-28 08:16 | PN ---
DATE: 07/27/2016 Mr. Baeza has been moved to med/surg. He remains a FULL CODE after my initial conversation with patient's mother, and then I spoke with her once again on 07/25/2016 and she still maintains hope th at he will improve and a Miracle will occur, and he will be able to talk and continue his normal le carlos of activity prior to this catastrophic hospitalization. Her understanding of his underlying con dition is poor. Patient says quality of life was good prior to this hospitalization; however, the p atient was living in a subacute unit. He received PEG tube, he was trached, unable to do any activi ties of daily living. There are no cultural issues that are involved or caregiver issues. PHYSICAL EXAMINATION: GENERAL: Shows a malnourished male, ashen-appearing on examination, nonresponsive to any verbal or tactile stimulation. VITAL SIGNS: Blood pressure 105/86, pulse of 98 and regular, respirations of 24, 98% saturation on 30 liters. HEENT: Normocephalic, atraumatic on examination. CHEST: Bilateral inspiratory and expiratory rhonchi on exam. COR: S1, S2, without S3, S4, murmur, gallop, rub. Normal rate, normal rhythm. ABDOMEN: Grossly benign. NEUROLOGICAL: He has no oculocephalics on examination. He does not respond to any verbal or tactil e stimulation. ASSESSMENT AND PLAN: Goals of care have been discussed with patient's mother. Once again, she stil l maintains the thought that he may improve and return to a subacute facility, being able to communi hailey. I had a long conversation with her about the fact that he probably will not do so; however, s he still adheres to her beliefs. Recommendations at this time are at least to try and curate a post-form prior to discharge. There a re no pain management or ethical issues at this time, as patient is making summary of decision on be half of her son. She has refused to change code to chemical or do not resuscitate. We will continu e to follow and support her, and gently readdressing the issue of code and level of care once again. Dictated By: IBETH COLLIER MD, LP/LAURA Conf#: [id number] DID#: [id number]
[2016-07-28 08:39] LABS: ADD SCAN DIFF NO
[2016-07-28 08:42] LABS: BASOPHILS % 0.2 % (0.0-2.0); EOSINOPHILS # 0.1 10^3/ul (0.0-0.5); EOSINOPHILS % 0.4 % (0.0-7.0); HEMATOCRIT 36.1 % (42.0-52.0); HEMOGLOBIN 10.9 g/dl (14.0-18.0); LYMPHOCYTES # 1.3 10^3/ul (0.8-2.9); LYMPHOCYTES % 6.8 % (15.0-51.0); MEAN CORPUSCULAR HEMOGLOBIN 29.9 pg (29.0-33.0); MEAN CORPUSCULAR HGB CONC 30.2 g/dl (32.0-37.0); MEAN CORPUSCULAR VOLUME 99.2 fl (82.0-101.0); MEAN PLATELET VOLUME 10.8 fl (7.4-10.4); MONOCYTES % 5.3 % (0.0-11.0); NEUTROPHIL # 16.9 10^3/ul (1.6-7.5); NEUTROPHILS % 86.9 % (39.0-77.0); PLATELET COUNT 275 10^3/UL (140-415); RED BLOOD COUNT 3.64 10^6/ul (4.70-6.10); RED CELL DISTRIBUTION WIDTH 18.3 % (11.5-14.5); WHITE BLOOD COUNT 19.5 10^3/ul (4.8-10.8)
--- NOTE | 2016-07-28 08:46 | CONS ---
Date/Time of Note Date/Time of Note DATE: 07/28/16 TIME: 08:41 Assessment/Plan Assessment/Plan Problems: (1) Debility, unspecified Status: Chronic Comment: We are suffering from lack of detail on this. However is very clear from his exam of the data we have from [facility] where he was transferred on March 11, 2016 after a stay at [place] that this is a long- term issue. He has limited muscular structure from the lack of activity which clearly has gone from at least 6 months. His overall prognosis on this alone is poor. (2) Anoxic brain injury Status: Acute Comment: He suffered an anoxic brain injury and has limited brain function. In addition were well into the hospitalization without any evidence of significant recovery. The likelihood of significant recovery to the point where he would be able to be conversant given how he was on arrival is nil. (3) Diabetes type I Status: Chronic Comment: According the paperwork from the facility his diabetes was a type 2 diabetes without complications of the patient's on on dialysis. That detail may not be accurate regardless the goal here will be to treat his sugars and keep him under control. Having some issues with his tube feedings due to residuals. Qualifiers: Diabetes mellitus complication status: with unspecified complications Qualified Code: E10.8 - Type 1 diabetes mellitus with complication (4) End stage kidney disease Status: Acute Comment: As per nephrology. Prognosis is poor (5) Respiratory failure Status: Acute Comment: This is a chronic problem that predates his admission here his prognosis for meaningful recovery from this is nil Qualifiers: Chronicity: acute on chronic Respiratory failure complication: hypoxia and hypercapnia Qualified Code: J96.21 - Acute on chronic respiratory failure with hypoxia and hypercapnia Consultation Date/Type/Reason Admit Date/Time Jul 17, 2016 at 13:33 Initial Consult Date 07/25/16 Type of Consultation: Endocrinology Reason for Consultation 35-year-old male chronic respiratory failure ventilator dependent with tracheostomy and feeding tube status post cardiac arrest at [facility] in [place]. He came in here with clear evidence of debility. He is a long-term diabetic although the paperwork from [facility] indicates type II but he may very well be type I. 24 HR Interval Summary Subjective hx not possible: pt non-verbal Exam/Review of Systems Vital Signs Vitals Vital Signs Date Time Temp Pulse Resp B/P Pulse Ox O2 Delivery O2 Flow Rate FiO2 07/28/16 07:35 99 20 98 30 07/28/16 07:35 98.2 102/65 07/27/16 04:00 Mechanical Ventilator Intake and Output 07/27/16 07/27/16 07/28/16 15:00 23:00 07:00 Intake Total 490 ml 217.5 ml Output Total 2200 ml 50 ml Balance -1710 ml 167.5 ml Exam Constitutional: non-verbal (Nonresponsive to noxious stimuli no pupillary response) Eyes: nl conjunctiva, nl lids, nl sclera Neck: non-tender, other (Tracheostomy present), supple Respiratory: clear to auscultation, normal air movement Cardiovascular: nl pulses, regular rate and rhythm Gastrointestinal: nl liver, spleen, non-tender, soft Extremities: other (There is a significant loss of muscular structure and tone indicating a long-term bedbound status) Results Result Diagram: 07/27/16 0550 07/27/16 0550 Results 24 hrs Laboratory Tests Test 07/27/16 12:22 07/27/16 17:14 07/28/16 01:18 07/28/16 05:45 Bedside Glucose 201 97 232 H 213 Medications Medications Current Medications Ondansetron HCl (Zofran Inj) 4 mg Q6H PRN IV NAUSEA AND/OR VOMITING; Start at 16:00 Pantoprazole (Protonix Iv) 40 mg DAILY@06 IV Last administered on 07/28/16 05: 43; Admin Dose 40 MG; Start 07/18/16 at 06:00 Bisacodyl (Dulcolax Supp) 10 mg Q24H PRN [place] CONSTIPATION; Start 07/17/16 at 16: 00 Lorazepam (Ativan) 1 mg Q1H PRN IV seziure activity; Start 07/17/16 at 22:30 Acetaminophen (Tylenol Liquid) 650 mg Q6H PRN GTB PAIN AND OR ELEVATED TEMP Last administered on 07/22/16 01:05; Admin Dose 650 MG; Start 07/18/16 at 02:00 Miscellaneous Information 1 ea NOTE XX ; Start 07/18/16 at 02:00 Glucose (Glutose) 15 gm Q15M PRN PO DECREASED GLUCOSE; Start 07/18/16 at 02:00 Glucose (Glutose) 22.5 gm Q15M PRN PO DECREASED GLUCOSE; Start 07/18/16 at 02:00 Dextrose (D50w Syringe) 25 ml Q15M PRN IV DECREASED GLUCOSE Last administered on 07/24/16 17:48; Admin Dose 25 ML; Start 07/18/16 at 02:00 Dextrose (D50w Syringe) 50 ml Q15M PRN IV DECREASED GLUCOSE Last administered on 07/20/16 20:11; Admin Dose 50 ML; Start 07/18/16 at 02:00 Glucagon (Glucagen) 1 mg Q15M PRN IM DECREASED GLUCOSE; Start 07/18/16 at 02:00 Glucose 15 gm 15 gm Q15M PRN BUCCAL DECREASED GLUCOSE; Start 07/18/16 at 02:00 Levetiracetam/ Sodium Chloride (Keppra Iv/NS) 107.5 ml @ 430 mls/hr Q12 IVPB Last administered on 07/27/16 22:37; Admin Dose 430 MLS/HR; Start 07/18/16 at 15 :00 Mupirocin (Bactroban) 1 applic BID TOP Last administered on 07/27/16 22:37; Admin Dose 1 APPLIC; Start 07/19/16 at 12:00 Metronidazole (Flagyl) 500 mg Q8 PO Last administered on 07/28/16 05:43; Admin Dose 500 MG; Start 07/19/16 at 14:00 Polyethylene Glycol (Miralax) 17 gm DAILY NGT Last administered on 07/27/16 08 :59; Admin Dose 17 GM; Start 07/21/16 at 11:00 Collagenase (Santyl) 1 applic DAILY PRN TOP WHEN SOILED Last administered on 23:34; Admin Dose 1 APPLIC; Start 07/22/16 at 16:30 Heparin Sodium (Porcine) (Heparin (5000 Units/0.5 ml)) 5,000 unit BID SC Last administered on 07/27/16 22:42; Admin Dose 5,000 UNIT; Start 07/23/16 at 21:00 Insulin Human Regular (Humulin R) 3 unit Q6 SC Last administered on 07/28/16 05:47; Admin Dose 3 UNIT; Start 07/26/16 at 18:00 Metoclopramide HCl (Reglan) 5 mg Q6H IV Last administered on 07/28/16 05:43; Admin Dose 5 MG; Start 07/26/16 at 18:00 ISSA SIMS MD Jul 28, 2016 08:46
[2016-07-28 08:59] LABS: CALCIUM 8.7 mg/dl (8.4-10.2); CREATININE 2.47 mg/dl (0.61-1.24); MAGNESIUM 2.3 mg/dl (1.7-2.5); PHOSPHORUS 4.3 mg/dl (2.5-4.9); POTASSIUM 4.4 mmol/L (3.5-5.1)
[2016-07-28] MEDS: POLYETHYLENE GLYCOL 17 GM PACKET NGT SCH (09:02)
[2016-07-28] MEDS: MUPIROCIN 2% 22 GM OINT TOP SCH ×2 (09:02→21:54)
[2016-07-28] MEDS: LEVETIRACETAM IV 750 MG in SOD CHLORIDE 0.9% 100 ML IVPB SCH ×2 (09:02→21:54)
[2016-07-28] MEDS: HEPARIN 5,000 UNIT/0.5 ML VIAL SC SCH ×2 (09:12→22:07)
--- NOTE | 2016-07-28 09:24 | PN ---
DATE: 07/28/2016 SUBJECTIVE: The patient had hemodialysis yesterday, tolerated well. No other events noted. The pat ient has noted diarrhea. OBJECTIVE: VITAL SIGNS: Blood pressure 102/56, respiration 20, pulse 99, temperature 98.2. HEENT: Head is normocephalic. NECK: Supple. HEART: Regular rate. LUNGS: Diminished breath sounds at the base. ABDOMEN: Soft, nontender to palpation without rebound or guarding. EXTREMITIES: Negative for clubbing, cyanosis, no edema. DERMATOLOGIC: No rashes. MUSCULOSKELETAL: No joint effusions. NEUROLOGIC: No change in exam. MEDICATIONS: The patient's medications have been reviewed. LABORATORY DATA: Has been reviewed. No new labs this morning. ASSESSMENT AND PLAN: 1. End-stage renal disease. The patient had hemodialysis yesterday, tolerated well. Plan for dial ysis tomorrow for 3 hours, 2K bath, calcium 2.5. 2. Hypernatremia. The patient is currently on free water flushes. Will follow up renal panel this morning. Continue free water flushes. 3. Anemia of chronic disease. Monitor H and H levels. Continue Epogen. 4. Ventilator dependent respiratory failure. Vent settings have been reviewed. ABG has been revie wed. Continue to monitor. 5. Dysphagia status post PEG tube, tube feeding. 5. Sepsis, status post shock. Continue current antibiotic regimen. 6. Encephalopathy, chronic. The patient has severe anoxic injury. Continue to monitor. Follow up with neurology. 7. Diabetes. Continue Accu-Cheks and insulin sliding scale. 8. Diarrhea. Will continue to monitor. Workup per primary team. 9. Status post cardiac arrest. Dictated By: KENTON MATAMOROS/LAURA Conf#: [id number] DID#: [id number]
--- NOTE | 2016-07-28 10:41 | CONS ---
Date/Time of Note Date/Time of Note DATE: 07/28/16 TIME: 10:38 Assessment/Plan Assessment/Plan Additional Assessment/Plan Ventilator settings; AC of 20, tidal volume 500, PEEP of 5, 30% FiO2. Assessment recommendations; 1. Patient admitted for cardiac arrest status post CPR resulting in severe anoxic brain injury. 2. Chronic respiratory failure. 3. Renal failure on hemodialysis. 4. Stable seizure disorder. 5. Severe bilateral pneumonia with marked radiological improvement. Patient off antibiotics now. Continue current supportive care. Patient can be discharged back to the half-way. Prognosis is dismal. Consultation Date/Type/Reason Admit Date/Time Jul 17, 2016 at 13:33 Type of Consultation: Pulmonary 24 HR Interval Summary Free Text/Dictation Patient condition remains unchanged. Remains totally unresponsive. No seizure activity noted. General exam: Young male, on ventilator via tracheostomy currently in no distress and remains completely unresponsive. Exam/Review of Systems Vital Signs Vitals Vital Signs Date Time Temp Pulse Resp B/P Pulse Ox O2 Delivery O2 Flow Rate FiO2 07/28/16 09:38 30 07/28/16 09:31 91 20 98 07/28/16 07:35 98.2 102/65 07/27/16 04:00 Mechanical Ventilator Intake and Output 07/27/16 07/27/16 07/28/16 15:00 23:00 07:00 Intake Total 490 ml 217.5 ml Output Total 2200 ml 50 ml Balance -1710 ml 167.5 ml Exam H EENT examination; supple neck, no JVD. No lymphadenopathy. Midline trachea. No thyromegaly. Pupils are dilated and nonreactive to light bilaterally. Doll's eye movements are negative. Tracheostomy in place. Insertion site is clean. No thyromegaly. No neck masses. Chest examination; clear to auscultation bilaterally. S1-S2 audible, no murmurs. Regular rhythm. Abdomen examination; soft, G-tube in place. No organomegaly. Bowel sounds audible. Extremity examination; no peripheral edema. BOLOGNA MAKER examination; patient remains totally unresponsive. Results Result Diagram: 07/28/16 0748 07/28/16 0748 Results 24 hrs Laboratory Tests Test 07/27/16 12:22 07/27/16 17:14 07/28/16 01:18 07/28/16 05:45 Bedside Glucose 201 97 232 H 213 Test 07/28/16 07:48 White Blood Count 19.5 #H Red Blood Count 3.64 L Hemoglobin 10.9 L Hematocrit 36.1 L Mean Corpuscular Volume 99.2 Mean Corpuscular Hemoglobin 29.9 Mean Corpuscular Hemoglobin Concent 30.2 L Red Cell Distribution Width 18.3 H Platelet Count 275 Mean Platelet Volume 10.8 H Neutrophils % 86.9 H Lymphocytes % 6.8 L Monocytes % 5.3 Eosinophils % 0.4 Basophils % 0.2 Nucleated Red Blood Cells % 0.0 Neutrophils # 16.9 H Lymphocytes # 1.3 Monocytes # 1.0 H Eosinophils # 0.1 Basophils # 0.0 Nucleated Red Blood Cells # 0.0 Sodium Level 139 Potassium Level 4.4 Chloride Level 104 Carbon Dioxide Level 23 Anion Gap 16 # Blood Urea Nitrogen 34 #H Creatinine 2.47 H Glucose Level 182 Calcium Level 8.7 Phosphorus Level 4.3 Magnesium Level 2.3 Medications Medications Current Medications Ondansetron HCl (Zofran Inj) 4 mg Q6H PRN IV NAUSEA AND/OR VOMITING; Start at 16:00 Pantoprazole (Protonix Iv) 40 mg DAILY@06 IV Last administered on 07/28/16 05: 43; Admin Dose 40 MG; Start 07/18/16 at 06:00 Bisacodyl (Dulcolax Supp) 10 mg Q24H PRN [place] CONSTIPATION; Start 07/17/16 at 16: 00 Lorazepam (Ativan) 1 mg Q1H PRN IV seziure activity; Start 07/17/16 at 22:30 Acetaminophen (Tylenol Liquid) 650 mg Q6H PRN GTB PAIN AND OR ELEVATED TEMP Last administered on 07/22/16 01:05; Admin Dose 650 MG; Start 07/18/16 at 02:00 Miscellaneous Information 1 ea NOTE XX ; Start 07/18/16 at 02:00 Glucose (Glutose) 15 gm Q15M PRN PO DECREASED GLUCOSE; Start 07/18/16 at 02:00 Glucose (Glutose) 22.5 gm Q15M PRN PO DECREASED GLUCOSE; Start 07/18/16 at 02:00 Dextrose (D50w Syringe) 25 ml Q15M PRN IV DECREASED GLUCOSE Last administered on 07/24/16 17:48; Admin Dose 25 ML; Start 07/18/16 at 02:00 Dextrose (D50w Syringe) 50 ml Q15M PRN IV DECREASED GLUCOSE Last administered on 07/20/16 20:11; Admin Dose 50 ML; Start 07/18/16 at 02:00 Glucagon (Glucagen) 1 mg Q15M PRN IM DECREASED GLUCOSE; Start 07/18/16 at 02:00 Glucose 15 gm 15 gm Q15M PRN BUCCAL DECREASED GLUCOSE; Start 07/18/16 at 02:00 Levetiracetam/ Sodium Chloride (Keppra Iv/NS) 107.5 ml @ 430 mls/hr Q12 IVPB Last administered on 07/28/16 09:02; Admin Dose 430 MLS/HR; Start 07/18/16 at 15 :00 Mupirocin (Bactroban) 1 applic BID TOP Last administered on 07/28/16 09:02; Admin Dose 1 APPLIC; Start 07/19/16 at 12:00 Metronidazole (Flagyl) 500 mg Q8 PO Last administered on 07/28/16 05:43; Admin Dose 500 MG; Start 07/19/16 at 14:00 Polyethylene Glycol (Miralax) 17 gm DAILY NGT Last administered on 07/28/16 09 :02; Admin Dose 17 GM; Start 07/21/16 at 11:00 Collagenase (Santyl) 1 applic DAILY PRN TOP WHEN SOILED Last administered on 23:34; Admin Dose 1 APPLIC; Start 07/22/16 at 16:30 Heparin Sodium (Porcine) (Heparin (5000 Units/0.5 ml)) 5,000 unit BID SC Last administered on 07/28/16 09:12; Admin Dose 5,000 UNIT; Start 07/23/16 at 21:00 Insulin Human Regular (Humulin R) 3 unit Q6 SC Last administered on 07/28/16 05:47; Admin Dose 3 UNIT; Start 07/26/16 at 18:00 Metoclopramide HCl (Reglan) 5 mg Q6H IV Last administered on 07/28/16 05:43; Admin Dose 5 MG; Start 07/26/16 at 18:00 CHANCE AVILA Jul 28, 2016 10:40
--- NOTE | 2016-07-28 13:36 | CONS ---
Date/Time of Note Date/Time of Note DATE: 07/28/16 TIME: 13:34 Assessment/Plan Assessment/Plan Chief Complaint/Hosp Course SUBJECTIVE: No changes. Noncommunicative, lying comfortably in bed. No fevers MICROBIOLOGY: Blood cultures since 07/20/2016 remain negative. ANTIMICROBIALS: The patient is on 1. Flagyl. 2. Bactroban to nares. INDWELLINGS: Trach, PEG, left upper extremity AV fistula, rectal tube and Baker. PHYSICAL EXAMINATION: GENERAL: Chronically ill-appearing, middle-aged white man who is unresponsive. HEENT: Head atraumatic, normocephalic. Pupils are dilated. Buccal mucosa dry. NECK: Supple. Tracheostomy present. CHEST: Rise symmetrical. Breath sounds diminished to bases. HEART: S1, S2. ABDOMEN: Soft. Bowel tones present. EXTREMITIES: Without cyanosis. ASSESSMENT: 1. Sepsis ==> resolving 2. Urinary tract infection per urinalysis. 3. Diarrhea, on empiric Flagyl. 4. Chronic respiratory failure, possible aspiration. 5. Anoxic encephalopathy status post cardiopulmonary arrest. 6. Diabetes. 7. Methicillin-resistant Staphylococcus aureus nares colonization. 8. End-stage renal disease, hemodialysis dependent. PLAN: The patient remains unchanged. Will dc rectal tube and Baker, dc Flagyl, berger cx prn [facility] staff Problems: Consultation Date/Type/Reason Admit Date/Time Jul 17, 2016 at 13:33 Type of Consultation: id Exam/Review of Systems Vital Signs Vitals Vital Signs Date Time Temp Pulse Resp B/P Pulse Ox O2 Delivery O2 Flow Rate FiO2 07/28/16 13:24 103 22 97 30 07/28/16 12:11 97.2 114/76 07/27/16 04:00 Mechanical Ventilator Intake and Output 07/27/16 07/27/16 07/28/16 15:00 23:00 07:00 Intake Total 490 ml 217.5 ml Output Total 2200 ml 50 ml Balance -1710 ml 167.5 ml Results Result Diagram: 07/28/16 0748 07/28/16 0748 Results 24 hrs Laboratory Tests Test 07/27/16 17:14 07/28/16 01:18 07/28/16 05:45 07/28/16 07:48 Bedside Glucose 97 232 H 213 White Blood Count 19.5 #H Red Blood Count 3.64 L Hemoglobin 10.9 L Hematocrit 36.1 L Mean Corpuscular Volume 99.2 Mean Corpuscular Hemoglobin 29.9 Mean Corpuscular Hemoglobin Concent 30.2 L Red Cell Distribution Width 18.3 H Platelet Count 275 Mean Platelet Volume 10.8 H Neutrophils % 86.9 H Lymphocytes % 6.8 L Monocytes % 5.3 Eosinophils % 0.4 Basophils % 0.2 Nucleated Red Blood Cells % 0.0 Neutrophils # 16.9 H Lymphocytes # 1.3 Monocytes # 1.0 H Eosinophils # 0.1 Basophils # 0.0 Nucleated Red Blood Cells # 0.0 Sodium Level 139 Potassium Level 4.4 Chloride Level 104 Carbon Dioxide Level 23 Anion Gap 16 # Blood Urea Nitrogen 34 #H Creatinine 2.47 H Glucose Level 182 Calcium Level 8.7 Phosphorus Level 4.3 Magnesium Level 2.3 Test 07/28/16 12:05 Bedside Glucose 271 H Medications Medications Current Medications Ondansetron HCl (Zofran Inj) 4 mg Q6H PRN IV NAUSEA AND/OR VOMITING; Start at 16:00 Pantoprazole (Protonix Iv) 40 mg DAILY@06 IV Last administered on 07/28/16 05: 43; Admin Dose 40 MG; Start 07/18/16 at 06:00 Bisacodyl (Dulcolax Supp) 10 mg Q24H PRN [place] CONSTIPATION; Start 07/17/16 at 16: 00 Lorazepam (Ativan) 1 mg Q1H PRN IV seziure activity; Start 07/17/16 at 22:30 Acetaminophen (Tylenol Liquid) 650 mg Q6H PRN GTB PAIN AND OR ELEVATED TEMP Last administered on 07/22/16 01:05; Admin Dose 650 MG; Start 07/18/16 at 02:00 Miscellaneous Information 1 ea NOTE XX ; Start 07/18/16 at 02:00 Glucose (Glutose) 15 gm Q15M PRN PO DECREASED GLUCOSE; Start 07/18/16 at 02:00 Glucose (Glutose) 22.5 gm Q15M PRN PO DECREASED GLUCOSE; Start 07/18/16 at 02:00 Dextrose (D50w Syringe) 25 ml Q15M PRN IV DECREASED GLUCOSE Last administered on 07/24/16 17:48; Admin Dose 25 ML; Start 07/18/16 at 02:00 Dextrose (D50w Syringe) 50 ml Q15M PRN IV DECREASED GLUCOSE Last administered on 07/20/16 20:11; Admin Dose 50 ML; Start 07/18/16 at 02:00 Glucagon (Glucagen) 1 mg Q15M PRN IM DECREASED GLUCOSE; Start 07/18/16 at 02:00 Glucose 15 gm 15 gm Q15M PRN BUCCAL DECREASED GLUCOSE; Start 07/18/16 at 02:00 Levetiracetam/ Sodium Chloride (Keppra Iv/NS) 107.5 ml @ 430 mls/hr Q12 IVPB Last administered on 07/28/16 09:02; Admin Dose 430 MLS/HR; Start 07/18/16 at 15 :00 Mupirocin (Bactroban) 1 applic BID TOP Last administered on 07/28/16 09:02; Admin Dose 1 APPLIC; Start 07/19/16 at 12:00 Metronidazole (Flagyl) 500 mg Q8 PO Last administered on 07/28/16 05:43; Admin Dose 500 MG; Start 07/19/16 at 14:00 Polyethylene Glycol (Miralax) 17 gm DAILY NGT Last administered on 07/28/16 09 :02; Admin Dose 17 GM; Start 07/21/16 at 11:00 Collagenase (Santyl) 1 applic DAILY PRN TOP WHEN SOILED Last administered on 23:34; Admin Dose 1 APPLIC; Start 07/22/16 at 16:30 Heparin Sodium (Porcine) (Heparin (5000 Units/0.5 ml)) 5,000 unit BID SC Last administered on 07/28/16 09:12; Admin Dose 5,000 UNIT; Start 07/23/16 at 21:00 Insulin Human Regular (Humulin R) 3 unit Q6 SC Last administered on 07/28/16 12:14; Admin Dose 3 UNIT; Start 07/26/16 at 18:00 Metoclopramide HCl (Reglan) 5 mg Q6H IV Last administered on 07/28/16 12:06; Admin Dose 5 MG; Start 07/26/16 at 18:00 MICKY MIRANDA NP Jul 28, 2016 13:36
--- NOTE | 2016-07-28 17:06 | PN ---
Date/Time of Note Date/Time of Note DATE: 07/28/16 TIME: 17:05 Assessment/Plan VTE Prophylaxis VTE Prophylaxis Intervention: heparin Lines/Catheters IV Catheter Type (from Nrs): Peripheral IV Assessment/Plan Chief Complaint/Hosp Course 1. Cardiac arrest secondary to septic shock. The patient now remains off pressors. 2. Severe anoxic encephalopathy with rasta fixed and dilated pupils * Brain assessment shows minimal residual brain function * Patient was chronically on atropine eye drops which might explain dilated pupils but these have been stopped since 07/20/16 3. 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 4. Bilateral Multifocal Pneumonia causing Sepsis 5. End-stage renal disease on hemodialysis. 6. Acute on chronic respiratory failure, remains ventilator-dependent. 7. Anemia secondary to chronic kidney disease. 8. Methicillin-resistant Staphylococcus aureus nares. 9. Chronic dysphagia, on PEG feeds with high residuals. 10. Chronic debility secondary to chronically uncontrolled diabetes type 1 with recurrent episodes of pneumonia causing recurrent hospitalization and now trach and gastrostomy placement, with chronic muscle wasting and foot drop. 11. Diarrhea + high PEG feed residuals PLAN * Repeat C-diff / KUB abd to r/o ileus / Fibre added to regimen to hopefully thicken stools / TSH to r/o hyperthyroidism * Continue DM control per endo, appreciate review * Continue vent support / electrolyte and lab monitoring and intervene as indicated * Continue abx * Continue HD per renal / Note: Baker was placed on arrival, may need to be changed or d/c soon * Continue supportive care * [facility] cannot accept patient / SNF placement closer to mom pending PROPHYLAXIS: Heparin + Protonix IV Problems: Subjective 24 Hr Interval Summary Subjective hx not possible: pt non-verbal Exam/Review of Systems Vital Signs Vitals Vital Signs Date Time Temp Pulse Resp B/P Pulse Ox O2 Delivery O2 Flow Rate FiO2 07/28/16 16:31 92 07/28/16 16:09 98.8 31 122/78 100 07/28/16 15:31 30 07/27/16 04:00 Mechanical Ventilator Intake and Output 07/27/16 07/27/16 07/28/16 15:00 23:00 07:00 Intake Total 490 ml 217.5 ml Output Total 2200 ml 50 ml Balance -1710 ml 167.5 ml Exam Constitutional: non-verbal Respiratory: clear to auscultation Cardiovascular: regular rate and rhythm Gastrointestinal: soft, No distended Musculoskeletal: nl extremities to inspection Results Result Diagram: 07/28/16 0748 07/28/16 0748 Results 24 hrs Laboratory Tests Test 07/27/16 17:14 07/28/16 01:18 07/28/16 05:45 07/28/16 07:48 Bedside Glucose 97 232 H 213 White Blood Count 19.5 #H Red Blood Count 3.64 L Hemoglobin 10.9 L Hematocrit 36.1 L Mean Corpuscular Volume 99.2 Mean Corpuscular Hemoglobin 29.9 Mean Corpuscular Hemoglobin Concent 30.2 L Red Cell Distribution Width 18.3 H Platelet Count 275 Mean Platelet Volume 10.8 H Neutrophils % 86.9 H Lymphocytes % 6.8 L Monocytes % 5.3 Eosinophils % 0.4 Basophils % 0.2 Nucleated Red Blood Cells % 0.0 Neutrophils # 16.9 H Lymphocytes # 1.3 Monocytes # 1.0 H Eosinophils # 0.1 Basophils # 0.0 Nucleated Red Blood Cells # 0.0 Sodium Level 139 Potassium Level 4.4 Chloride Level 104 Carbon Dioxide Level 23 Anion Gap 16 # Blood Urea Nitrogen 34 #H Creatinine 2.47 H Glucose Level 182 Calcium Level 8.7 Phosphorus Level 4.3 Magnesium Level 2.3 Test 07/28/16 12:05 Bedside Glucose 271 H Medications Medications Current Medications Ondansetron HCl (Zofran Inj) 4 mg Q6H PRN IV NAUSEA AND/OR VOMITING; Start at 16:00 Pantoprazole (Protonix Iv) 40 mg DAILY@06 IV Last administered on 07/28/16 05: 43; Admin Dose 40 MG; Start 07/18/16 at 06:00 Bisacodyl (Dulcolax Supp) 10 mg Q24H PRN [place] CONSTIPATION; Start 07/17/16 at 16: 00 Lorazepam (Ativan) 1 mg Q1H PRN IV seziure activity; Start 07/17/16 at 22:30 Acetaminophen (Tylenol Liquid) 650 mg Q6H PRN GTB PAIN AND OR ELEVATED TEMP Last administered on 07/22/16 01:05; Admin Dose 650 MG; Start 07/18/16 at 02:00 Miscellaneous Information 1 ea NOTE XX ; Start 07/18/16 at 02:00 Glucose (Glutose) 15 gm Q15M PRN PO DECREASED GLUCOSE; Start 07/18/16 at 02:00 Glucose (Glutose) 22.5 gm Q15M PRN PO DECREASED GLUCOSE; Start 07/18/16 at 02:00 Dextrose (D50w Syringe) 25 ml Q15M PRN IV DECREASED GLUCOSE Last administered on 07/24/16 17:48; Admin Dose 25 ML; Start 07/18/16 at 02:00 Dextrose (D50w Syringe) 50 ml Q15M PRN IV DECREASED GLUCOSE Last administered on 07/20/16 20:11; Admin Dose 50 ML; Start 07/18/16 at 02:00 Glucagon (Glucagen) 1 mg Q15M PRN IM DECREASED GLUCOSE; Start 07/18/16 at 02:00 Glucose 15 gm 15 gm Q15M PRN BUCCAL DECREASED GLUCOSE; Start 07/18/16 at 02:00 Levetiracetam/ Sodium Chloride (Keppra Iv/NS) 107.5 ml @ 430 mls/hr Q12 IVPB Last administered on 07/28/16 09:02; Admin Dose 430 MLS/HR; Start 07/18/16 at 15 :00 Mupirocin (Bactroban) 1 applic BID TOP Last administered on 07/28/16 09:02; Admin Dose 1 APPLIC; Start 07/19/16 at 12:00 Polyethylene Glycol (Miralax) 17 gm DAILY NGT Last administered on 07/28/16 09 :02; Admin Dose 17 GM; Start 07/21/16 at 11:00 Collagenase (Santyl) 1 applic DAILY PRN TOP WHEN SOILED Last administered on 23:34; Admin Dose 1 APPLIC; Start 07/22/16 at 16:30 Heparin Sodium (Porcine) (Heparin (5000 Units/0.5 ml)) 5,000 unit BID SC Last administered on 07/28/16 09:12; Admin Dose 5,000 UNIT; Start 07/23/16 at 21:00 Insulin Human Regular (Humulin R) 3 unit Q6 SC Last administered on 07/28/16 12:14; Admin Dose 3 UNIT; Start 07/26/16 at 18:00 Metoclopramide HCl (Reglan) 5 mg Q6H IV Last administered on 07/28/16 12:06; Admin Dose 5 MG; Start 07/26/16 at 18:00 DIANE GIBBONS Jul 28, 2016 17:06
[2016-07-29] VITALS (29 sets, daily range): BP systolic 80–140; BP diastolic 30–81; PULSE 85–98; RESP 1–29
[2016-07-29] MEDS: INSULIN REGULAR, HUMAN 100 UNIT/1 ML 3ML VIAL SC SCH ×4 (00:26→17:41)
[2016-07-29] MEDS: METOCLOPRAMIDE 10 MG INJ IV SCH ×4 (00:29→17:47)
[2016-07-29] MEDS: PANTOPRAZOLE 40 MG INJ IV SCH (06:03)
[2016-07-29 06:35] LABS: ADD SCAN DIFF NO
[2016-07-29 06:42] LABS: BASOPHILS % 0.2 % (0.0-2.0); EOSINOPHILS # 0.1 10^3/ul (0.0-0.5); EOSINOPHILS % 0.3 % (0.0-7.0); HEMATOCRIT 36.9 % (42.0-52.0); LYMPHOCYTES % 5.3 % (15.0-51.0); MEAN CORPUSCULAR HEMOGLOBIN 29.9 pg (29.0-33.0); MEAN CORPUSCULAR HGB CONC 29.8 g/dl (32.0-37.0); MEAN CORPUSCULAR VOLUME 100.3 fl (82.0-101.0); MEAN PLATELET VOLUME 10.6 fl (7.4-10.4); MONOCYTE # 1.1 10^3/ul (0.3-0.9); MONOCYTES % 5.8 % (0.0-11.0); NEUTROPHIL # 17.2 10^3/ul (1.6-7.5); NEUTROPHILS % 87.8 % (39.0-77.0); PLATELET COUNT 253 10^3/UL (140-415); RED BLOOD COUNT 3.68 10^6/ul (4.70-6.10); RED CELL DISTRIBUTION WIDTH 18.9 % (11.5-14.5); WHITE BLOOD COUNT 19.5 10^3/ul (4.8-10.8)
[2016-07-29 06:47] LABS: POTASSIUM 4.7 mmol/L (3.5-5.1)
[2016-07-29 06:50] LABS: CREATININE 3.02 mg/dl (0.61-1.24)
[2016-07-29 06:51] LABS: CALCIUM 8.8 mg/dl (8.4-10.2); PHOSPHORUS 5.3 mg/dl (2.5-4.9)
[2016-07-29] MEDS: LEVETIRACETAM IV 750 MG in SOD CHLORIDE 0.9% 100 ML IVPB SCH ×2 (08:36→20:35)
[2016-07-29] MEDS: POLYETHYLENE GLYCOL 17 GM PACKET NGT SCH (08:36)
[2016-07-29] MEDS: MUPIROCIN 2% 22 GM OINT TOP SCH ×2 (08:37→20:35)
[2016-07-29] MEDS: HEPARIN 5,000 UNIT/0.5 ML VIAL SC SCH ×2 (08:37→20:39)
--- NOTE | 2016-07-29 09:58 | PN ---
DATE: 07/29/2016 SUBJECTIVE: The patient is stable, no acute events overnight. No fevers, chills, nausea, vomiting. OBJECTIVE: VITAL SIGNS: Blood pressure is 140/74, respirations 20, pulse 84, temperature 97.8. HEENT: Head is normocephalic. NECK: Supple. HEART: Regular rate. LUNGS: Show diminished breath sounds at the base. ABDOMEN: Soft, nontender to palpation without rebound or guarding. EXTREMITIES: Negative for clubbing, cyanosis, no edema. DERMATOLOGIC: No rashes. MUSCULOSKELETAL: No joint effusions. NEUROLOGIC: No change in exam. MEDICATIONS: The patient's medications have been reviewed. LABORATORY DATA: Shows sodium 139, potassium 4.7, chloride 102, BUN 43, creatinine 3.02, phosphorus 5.3. White count 19.5, hemoglobin 11.0, hematocrit 36.9, platelet count is 253. ASSESSMENT AND PLAN: 1. End-stage renal disease. The patient is scheduled for hemodialysis today. Will dialyze for 3 h ours, 2K bath, calcium 2.5. 2. Hypernatremia, improved. Continue free water flushes. 3. Anemia of chronic disease. Continue to monitor hemoglobin and hematocrit levels. Will hold Epo gen at this time. 4. Ventilatory dependent respiratory failure. Vent settings have been reviewed. ABG has been revi ewed. Continue to monitor. 5. Dysphagia, status post PEG tube, tube feeding. 6. Sepsis, status post shock. The patient is on antibiotics, completing course. 7. Encephalopathy. Will continue to monitor. No change. 8. Diabetes. Continue Accu-Cheks and sliding scale. 9. Diarrhea, improving. Continue to monitor. 10. Status post code arrest. Dictated By: KENTON MATAMOROS/NTS Conf#: [id number] DID#: [id number]
--- NOTE | 2016-07-29 13:07 | CONS ---
Date/Time of Note Date/Time of Note DATE: 07/29/16 TIME: 13:06 Assessment/Plan Assessment/Plan Additional Assessment/Plan Ventilator settings; AC of 20, tidal volume 500, PEEP of 5, 30% FiO2. Assessment recommendations; 1. Patient admitted for cardiac arrest status post CPR resulting severe anoxic brain injury. 2. Chronic renal failure on hemodialysis. 3. Status post severe pneumonia. 4. Diarrhea, currently on Flagyl. 5. MRSA colonization of nares. Continue current treatment. Patient can be transferred to the intermediate. Prognosis is dismal. Consultation Date/Type/Reason Admit Date/Time Jul 17, 2016 at 13:33 Type of Consultation: Pulmonary 24 HR Interval Summary Free Text/Dictation Patient condition remains unchanged. Remains completely unresponsive. Has remained hemodynamically stable though. General exam; young male, on ventilator via tracheostomy unresponsive. Currently in no distress. Exam/Review of Systems Vital Signs Vitals Vital Signs Date Time Temp Pulse Resp B/P Pulse Ox O2 Delivery O2 Flow Rate FiO2 07/29/16 12:26 98.2 80 18 136/64 98 07/29/16 09:00 30 07/27/16 04:00 Mechanical Ventilator Intake and Output 07/28/16 07/28/16 07/29/16 15:00 23:00 07:00 Intake Total 120 ml 310 ml Output Total 10 ml 350 ml Balance 110 ml -40 ml Exam HEENT exam is; supple neck, no JVD. No lymphadenopathy. Midline trachea. Tracheostomy placed with clean insertion site. Pupils are dilated and nonreactive to light. Chest exam is; clear to auscultation. S1-S2 audible, no murmurs. Regular rhythm. Abdomen examination; soft, G-tube in place. Bowel sounds audible. No organomegaly. Scaphoid. Extremity exam is; no peripheral edema. 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 Results Result Diagram: 07/29/1615 07/29/1615 Results 24 hrs Laboratory Tests Test 07/28/16 17:23 07/29/16 00:17 07/29/16 06:02 07/29/16 06:15 Bedside Glucose 222 H 181 238 H White Blood Count 19.5 H Red Blood Count 3.68 L Hemoglobin 11.0 L Hematocrit 36.9 L Mean Corpuscular Volume 100.3 Mean Corpuscular Hemoglobin 29.9 Mean Corpuscular Hemoglobin Concent 29.8 L Red Cell Distribution Width 18.9 H Platelet Count 253 Mean Platelet Volume 10.6 H Neutrophils % 87.8 H Lymphocytes % 5.3 L Monocytes % 5.8 Eosinophils % 0.3 Basophils % 0.2 Nucleated Red Blood Cells % 0.0 Neutrophils # 17.2 H Lymphocytes # 1.0 Monocytes # 1.1 H Eosinophils # 0.1 Basophils # 0.0 Nucleated Red Blood Cells # 0.0 Sodium Level 139 Potassium Level 4.7 Chloride Level 102 Carbon Dioxide Level 21 Anion Gap 21 H Blood Urea Nitrogen 43 H Creatinine 3.02 H Glucose Level 245 H Calcium Level 8.8 Phosphorus Level 5.3 H Magnesium Level 2.3 Test 07/29/16 11:53 Bedside Glucose 344 H Medications Medications Current Medications Ondansetron HCl (Zofran Inj) 4 mg Q6H PRN IV NAUSEA AND/OR VOMITING; Start at 16:00 Pantoprazole (Protonix Iv) 40 mg DAILY@06 IV Last administered on 07/29/16 06: 03; Admin Dose 40 MG; Start 07/18/16 at 06:00 Bisacodyl (Dulcolax Supp) 10 mg Q24H PRN [place] CONSTIPATION; Start 07/17/16 at 16: 00 Lorazepam (Ativan) 1 mg Q1H PRN IV seziure activity; Start 07/17/16 at 22:30 Acetaminophen (Tylenol Liquid) 650 mg Q6H PRN GTB PAIN AND OR ELEVATED TEMP Last administered on 07/22/16 01:05; Admin Dose 650 MG; Start 07/18/16 at 02:00 Miscellaneous Information 1 ea NOTE XX ; Start 07/18/16 at 02:00 Glucose (Glutose) 15 gm Q15M PRN PO DECREASED GLUCOSE; Start 07/18/16 at 02:00 Glucose (Glutose) 22.5 gm Q15M PRN PO DECREASED GLUCOSE; Start 07/18/16 at 02:00 Dextrose (D50w Syringe) 25 ml Q15M PRN IV DECREASED GLUCOSE Last administered on 07/24/16 17:48; Admin Dose 25 ML; Start 07/18/16 at 02:00 Dextrose (D50w Syringe) 50 ml Q15M PRN IV DECREASED GLUCOSE Last administered on 07/20/16 20:11; Admin Dose 50 ML; Start 07/18/16 at 02:00 Glucagon (Glucagen) 1 mg Q15M PRN IM DECREASED GLUCOSE; Start 07/18/16 at 02:00 Glucose 15 gm 15 gm Q15M PRN BUCCAL DECREASED GLUCOSE; Start 07/18/16 at 02:00 Levetiracetam/ Sodium Chloride (Keppra Iv/NS) 107.5 ml @ 430 mls/hr Q12 IVPB Last administered on 07/29/16 08:36; Admin Dose 430 MLS/HR; Start 07/18/16 at 15 :00 Mupirocin (Bactroban) 1 applic BID TOP Last administered on 07/29/16 08:37; Admin Dose 1 APPLIC; Start 07/19/16 at 12:00 Polyethylene Glycol (Miralax) 17 gm DAILY NGT Last administered on 07/29/16 08 :36; Admin Dose 17 GM; Start 07/21/16 at 11:00 Collagenase (Santyl) 1 applic DAILY PRN TOP WHEN SOILED Last administered on 23:34; Admin Dose 1 APPLIC; Start 07/22/16 at 16:30 Heparin Sodium (Porcine) (Heparin (5000 Units/0.5 ml)) 5,000 unit BID SC Last administered on 07/29/16 08:37; Admin Dose 5,000 UNIT; Start 07/23/16 at 21:00 Insulin Human Regular (Humulin R) 3 unit Q6 SC Last administered on 07/29/16 11:57; Admin Dose 3 UNIT; Start 07/26/16 at 18:00 Metoclopramide HCl (Reglan) 5 mg Q6H IV Last administered on 07/29/16 12:03; Admin Dose 5 MG; Start 07/26/16 at 18:00 CHANCE AVILA Jul 29, 2016 13:07
[2016-07-29] MEDS ORDERED: ALBUMIN HUMAN 25% 100 ML IV ONE (14:00)
--- NOTE | 2016-07-29 14:12 | PN ---
Date/Time of Note Date/Time of Note DATE: 07/29/16 TIME: 14:10 Assessment/Plan VTE Prophylaxis VTE Prophylaxis Intervention: heparin Lines/Catheters IV C[facility]ter Type (from [facility] Sal[facility] Lock Urinary Cath still in place: No Assessment/Plan Chief Complaint/Hosp Course 1. Cardiac arrest secondary to septic shock. The patient now remains off pressors. 2. Severe anoxic encephalopathy with rasta fixed and dilated pupils * Brain assessment shows minimal residual brain function * Patient was chronically on atropine eye drops which might explain dilated pupils but these have been stopped since 07/20/16 3. 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 4. Bilateral Multifocal Pneumonia causing Sepsis 5. End-stage renal disease on hemodialysis. 6. Acute on chronic respiratory failure, remains ventilator-dependent. 7. Anemia secondary to chronic kidney disease. 8. Methicillin-resistant Staphylococcus aureus nares. 9. Chronic dysphagia, on PEG feeds with high residuals. 10. Chronic debility secondary to chronically uncontrolled diabetes type 1 with recurrent episodes of pneumonia causing recurrent hospitalization and now trach and gastrostomy placement, with chronic muscle wasting and foot drop. 11. Diarrhea + high PEG feed residuals PLAN * Continue DM control per endo, appreciate review * Continue vent support / electrolyte and lab monitoring and intervene as indicated * Continue abx * Continue HD per renal / Note: Baker was placed on arrival, may need to be changed or d/c soon * Continue supportive care * [facility] cannot accept patient / SNF placement closer to mom pending PROPHYLAXIS: Heparin + Protonix IV Problems: Subjective 24 Hr Interval Summary Subjective hx not possible: pt non-verbal Exam/Review of Systems Vital Signs Vitals Vital Signs Date Time Temp Pulse Resp B/P Pulse Ox O2 Delivery O2 Flow Rate FiO2 07/29/16 13:50 91 07/29/16 12:50 20 07/29/16 12:26 98.2 136/64 98 07/29/16 09:00 30 07/27/16 04:00 Mechanical Ventilator Intake and Output 07/28/16 07/28/16 07/29/16 15:00 23:00 07:00 Intake Total 120 ml 310 ml Output Total 10 ml 350 ml Balance 110 ml -40 ml Exam Constitutional: non-verbal Respiratory: clear to auscultation Cardiovascular: regular rate and rhythm Gastrointestinal: soft, No distended Musculoskeletal: nl extremities to inspection Results Result Diagram: 07/29/1615 07/29/16614 Results 24 hrs Laboratory Tests Test 07/28/16 17:23 07/29/16 00:17 07/29/16 06:02 07/29/16 06:15 Bedside Glucose 222 H 181 238 H White Blood Count 19.5 H Red Blood Count 3.68 L Hemoglobin 11.0 L Hematocrit 36.9 L Mean Corpuscular Volume 100.3 Mean Corpuscular Hemoglobin 29.9 Mean Corpuscular Hemoglobin Concent 29.8 L Red Cell Distribution Width 18.9 H Platelet Count 253 Mean Platelet Volume 10.6 H Neutrophils % 87.8 H Lymphocytes % 5.3 L Monocytes % 5.8 Eosinophils % 0.3 Basophils % 0.2 Nucleated Red Blood Cells % 0.0 Neutrophils # 17.2 H Lymphocytes # 1.0 Monocytes # 1.1 H Eosinophils # 0.1 Basophils # 0.0 Nucleated Red Blood Cells # 0.0 Sodium Level 139 Potassium Level 4.7 Chloride Level 102 Carbon Dioxide Level 21 Anion Gap 21 H Blood Urea Nitrogen 43 H Creatinine 3.02 H Glucose Level 245 H Calcium Level 8.8 Phosphorus Level 5.3 H Magnesium Level 2.3 Test 07/29/16 11:53 Bedside Glucose 344 H Medications Medications Current Medications Ondansetron HCl (Zofran Inj) 4 mg Q6H PRN IV NAUSEA AND/OR VOMITING; Start at 16:00 Pantoprazole (Protonix Iv) 40 mg DAILY@06 IV Last administered on 07/29/16 06: 03; Admin Dose 40 MG; Start 07/18/16 at 06:00 Bisacodyl (Dulcolax Supp) 10 mg Q24H PRN [place] CONSTIPATION; Start 07/17/16 at 16: 00 Lorazepam (Ativan) 1 mg Q1H PRN IV seziure activity; Start 07/17/16 at 22:30 Acetaminophen (Tylenol Liquid) 650 mg Q6H PRN GTB PAIN AND OR ELEVATED TEMP Last administered on 07/22/16 01:05; Admin Dose 650 MG; Start 07/18/16 at 02:00 Miscellaneous Information 1 ea NOTE XX ; Start 07/18/16 at 02:00 Glucose (Glutose) 15 gm Q15M PRN PO DECREASED GLUCOSE; Start 07/18/16 at 02:00 Glucose (Glutose) 22.5 gm Q15M PRN PO DECREASED GLUCOSE; Start 07/18/16 at 02:00 Dextrose (D50w Syringe) 25 ml Q15M PRN IV DECREASED GLUCOSE Last administered on 07/24/16 17:48; Admin Dose 25 ML; Start 07/18/16 at 02:00 Dextrose (D50w Syringe) 50 ml Q15M PRN IV DECREASED GLUCOSE Last administered on 07/20/16 20:11; Admin Dose 50 ML; Start 07/18/16 at 02:00 Glucagon (Glucagen) 1 mg Q15M PRN IM DECREASED GLUCOSE; Start 07/18/16 at 02:00 Glucose 15 gm 15 gm Q15M PRN BUCCAL DECREASED GLUCOSE; Start 07/18/16 at 02:00 Levetiracetam/ Sodium Chloride (Keppra Iv/NS) 107.5 ml @ 430 mls/hr Q12 IVPB Last administered on 07/29/16 08:36; Admin Dose 430 MLS/HR; Start 07/18/16 at 15 :00 Mupirocin (Bactroban) 1 applic BID TOP Last administered on 07/29/16 08:37; Admin Dose 1 APPLIC; Start 07/19/16 at 12:00 Polyethylene Glycol (Miralax) 17 gm DAILY NGT Last administered on 07/29/16 08 :36; Admin Dose 17 GM; Start 07/21/16 at 11:00 Collagenase (Santyl) 1 applic DAILY PRN TOP WHEN SOILED Last administered on 23:34; Admin Dose 1 APPLIC; Start 07/22/16 at 16:30 Heparin Sodium (Porcine) (Heparin (5000 Units/0.5 ml)) 5,000 unit BID SC Last administered on 07/29/16 08:37; Admin Dose 5,000 UNIT; Start 07/23/16 at 21:00 Insulin Human Regular (Humulin R) 3 unit Q6 SC Last administered on 07/29/16 11:57; Admin Dose 3 UNIT; Start 07/26/16 at 18:00 Metoclopramide HCl 5 mg 5 mg Q6H IV Last administered on 07/29/16 12:03; Admin Dose 5 MG; Start 07/26/16 at 18:00 Albumin Human (Albumin Human 25%) 100 ml @ 100 mls/hr ONCE ONCE IV Last administered on 4/12/17at 13:52; Admin Dose 100 MLS/HR; Start 07/29/16 at 14:00 ; Stop 07/29/16 at 14:59 DIANE GIBBONS Jul 29, 2016 14:12
--- NOTE | 2016-07-29 16:25 | CONS ---
Date/Time of Note Date/Time of Note DATE: 07/29/16 TIME: 16:24 Assessment/Plan Assessment/Plan Chief Complaint/Hosp Course SUBJECTIVE: No changes. Noncommunicative, lying comfortably in bed. No fevers INDWELLINGS: Trach, PEG, left upper extremity AV fistula, rectal tube. PHYSICAL EXAMINATION: GENERAL: Chronically ill-appearing, middle-aged white man who is unresponsive. HEENT: Head atraumatic, normocephalic. Pupils are dilated. Buccal mucosa dry. NECK: Supple. Tracheostomy present. CHEST: Rise symmetrical. Breath sounds diminished to bases. HEART: S1, S2. ABDOMEN: Soft. Bowel tones present. EXTREMITIES: Without cyanosis. ASSESSMENT: 1. Leukocytosis ?reactive 2. S/p septic shock 3. Diarrhea==> C dif negative. 4. Chronic respiratory failure, possible aspiration. 5. Anoxic encephalopathy status post cardiopulmonary arrest. 6. Diabetes. 7. Methicillin-resistant Staphylococcus aureus nares colonization. 8. End-stage renal disease, hemodialysis dependent. PLAN: Clinically unchanged. Off abx, berger cx prn DW staff Problems: Consultation Date/Type/Reason Admit Date/Time Jul 17, 2016 at 13:33 Type of Consultation: id Exam/Review of Systems Vital Signs Vitals Vital Signs Date Time Temp Pulse Resp B/P Pulse Ox O2 Delivery O2 Flow Rate FiO2 07/29/16 15:20 98 07/29/16 15:20 20 07/29/16 15:20 100 30 07/29/16 12:26 98.2 136/64 07/27/16 04:00 Mechanical Ventilator Intake and Output 07/28/16 07/28/16 07/29/16 15:00 23:00 07:00 Intake Total 120 ml 310 ml Output Total 10 ml 350 ml Balance 110 ml -40 ml Results Result Diagram: 07/29/16 0615 07/29/16 0615 Results 24 hrs Laboratory Tests Test 07/28/16 17:23 07/29/16 00:17 07/29/16 06:02 07/29/16 06:15 Bedside Glucose 222 H 181 238 H White Blood Count 19.5 H Red Blood Count 3.68 L Hemoglobin 11.0 L Hematocrit 36.9 L Mean Corpuscular Volume 100.3 Mean Corpuscular Hemoglobin 29.9 Mean Corpuscular Hemoglobin Concent 29.8 L Red Cell Distribution Width 18.9 H Platelet Count 253 Mean Platelet Volume 10.6 H Neutrophils % 87.8 H Lymphocytes % 5.3 L Monocytes % 5.8 Eosinophils % 0.3 Basophils % 0.2 Nucleated Red Blood Cells % 0.0 Neutrophils # 17.2 H Lymphocytes # 1.0 Monocytes # 1.1 H Eosinophils # 0.1 Basophils # 0.0 Nucleated Red Blood Cells # 0.0 Sodium Level 139 Potassium Level 4.7 Chloride Level 102 Carbon Dioxide Level 21 Anion Gap 21 H Blood Urea Nitrogen 43 H Creatinine 3.02 H Glucose Level 245 H Calcium Level 8.8 Phosphorus Level 5.3 H Magnesium Level 2.3 Test 07/29/16 11:53 07/29/16 14:34 Bedside Glucose 344 H 251 H Medications Medications Current Medications Ondansetron HCl (Zofran Inj) 4 mg Q6H PRN IV NAUSEA AND/OR VOMITING; Start at 16:00 Pantoprazole (Protonix Iv) 40 mg DAILY@06 IV Last administered on 07/29/16 06: 03; Admin Dose 40 MG; Start 07/18/16 at 06:00 Bisacodyl (Dulcolax Supp) 10 mg Q24H PRN [place] CONSTIPATION; Start 07/17/16 at 16: 00 Lorazepam (Ativan) 1 mg Q1H PRN IV seziure activity; Start 07/17/16 at 22:30 Acetaminophen (Tylenol Liquid) 650 mg Q6H PRN GTB PAIN AND OR ELEVATED TEMP Last administered on 07/22/16 01:05; Admin Dose 650 MG; Start 07/18/16 at 02:00 Miscellaneous Information 1 ea NOTE XX ; Start 07/18/16 at 02:00 Glucose (Glutose) 15 gm Q15M PRN PO DECREASED GLUCOSE; Start 07/18/16 at 02:00 Glucose (Glutose) 22.5 gm Q15M PRN PO DECREASED GLUCOSE; Start 07/18/16 at 02:00 Dextrose (D50w Syringe) 25 ml Q15M PRN IV DECREASED GLUCOSE Last administered on 07/24/16 17:48; Admin Dose 25 ML; Start 07/18/16 at 02:00 Dextrose (D50w Syringe) 50 ml Q15M PRN IV DECREASED GLUCOSE Last administered on 07/20/16 20:11; Admin Dose 50 ML; Start 07/18/16 at 02:00 Glucagon (Glucagen) 1 mg Q15M PRN IM DECREASED GLUCOSE; Start 07/18/16 at 02:00 Glucose 15 gm 15 gm Q15M PRN BUCCAL DECREASED GLUCOSE; Start 07/18/16 at 02:00 Levetiracetam/ Sodium Chloride (Keppra Iv/NS) 107.5 ml @ 430 mls/hr Q12 IVPB Last administered on 07/29/16 08:36; Admin Dose 430 MLS/HR; Start 07/18/16 at 15 :00 Mupirocin (Bactroban) 1 applic BID TOP Last administered on 07/29/16 08:37; Admin Dose 1 APPLIC; Start 07/19/16 at 12:00 Polyethylene Glycol (Miralax) 17 gm DAILY NGT Last administered on 07/29/16 08 :36; Admin Dose 17 GM; Start 07/21/16 at 11:00 Collagenase (Santyl) 1 applic DAILY PRN TOP WHEN SOILED Last administered on 23:34; Admin Dose 1 APPLIC; Start 07/22/16 at 16:30 Heparin Sodium (Porcine) (Heparin (5000 Units/0.5 ml)) 5,000 unit BID SC Last administered on 07/29/16 08:37; Admin Dose 5,000 UNIT; Start 07/23/16 at 21:00 Insulin Human Regular (Humulin R) 3 unit Q6 SC Last administered on 07/29/16 11:57; Admin Dose 3 UNIT; Start 07/26/16 at 18:00 Metoclopramide HCl (Reglan) 5 mg Q6H IV Last administered on 07/29/16 12:03; Admin Dose 5 MG; Start 07/26/16 at 18:00 MICKY MIRANDA NP Jul 29, 2016 16:25
--- NOTE | 2016-07-29 17:27 | RADRPT ---
PROCEDURE: XR Chest. CLINICAL INDICATION: Shortness of breath. TECHNIQUE: Single frontal view. COMPARISON: 07/26/2016. FINDINGS: The tracheostomy tube is in satisfactory position. There is a moderate right pleural effusion and r ight basilar atelectasis, slightly worse than seen previously. The left lung is clear and there is no left pleural effusion. The heart size is normal. There is no pneumothorax. IMPRESSION: 1. Tracheostomy tube. 2. Moderate right pleural effusion and right basilar atelectasis, slightly worse than seen previous ly. 3. Otherwise normal chest x-ray. RPTAT: QQ .Dank Snyder MD, MD Date Time Electronically viewed and signed by .Dank Snyder MD, MD on 07/29/2016 17:27 .R/
--- NOTE | 2016-07-29 18:23 | CONS ---
Date/Time of Note Date/Time of Note DATE: 07/29/16 TIME: 18:22 Assessment/Plan Assessment/Plan Problems: (1) Debility, unspecified Status: Chronic Comment: This is a chronic issue and clearly predates the last 3 months. Regardless his overall prognosis is extremely poor for any type of meaningful recovery (2) Anoxic brain injury Status: Acute Comment: As noted above the likelihood of his being able to interact with his external environment is now (3) Diabetes type I Status: Chronic Comment: Is not entirely clear this is a type I diabetic versus a type II. However will go ahead and adjust her regimen over to 1 to compensate for the tube feedings and get better sugar control Qualifiers: Diabetes mellitus complication status: with unspecified complications Qualified Code: E10.8 - Type 1 diabetes mellitus with complication Consultation Date/Type/Reason Admit Date/Time Jul 17, 2016 at 13:33 Initial Consult Date 07/25/16 Type of Consultation: Endocrinology Reason for Consultation Diabetes mellitus out of control on continuous tube feedings and otherwise unresponsive patient 24 HR Interval Summary Subjective hx not possible: pt non-verbal Exam/Review of Systems Vital Signs Vitals Vital Signs Date Time Temp Pulse Resp B/P Pulse Ox O2 Delivery O2 Flow Rate FiO2 07/29/16 17:05 92 20 100 30 07/29/16 16:43 98.8 120/81 07/27/16 04:00 Mechanical Ventilator Intake and Output 07/28/16 07/28/16 07/29/16 15:00 23:00 07:00 Intake Total 120 ml 310 ml Output Total 10 ml 350 ml Balance 110 ml -40 ml Exam Constitutional: non-verbal Results Result Diagram: 07/29/16 0615 07/29/16 0615 Results 24 hrs Laboratory Tests Test 07/29/16 00:17 07/29/16 06:02 07/29/16 06:15 07/29/16 11:53 Bedside Glucose 181 238 H 344 H White Blood Count 19.5 H Red Blood Count 3.68 L Hemoglobin 11.0 L Hematocrit 36.9 L Mean Corpuscular Volume 100.3 Mean Corpuscular Hemoglobin 29.9 Mean Corpuscular Hemoglobin Concent 29.8 L Red Cell Distribution Width 18.9 H Platelet Count 253 Mean Platelet Volume 10.6 H Neutrophils % 87.8 H Lymphocytes % 5.3 L Monocytes % 5.8 Eosinophils % 0.3 Basophils % 0.2 Nucleated Red Blood Cells % 0.0 Neutrophils # 17.2 H Lymphocytes # 1.0 Monocytes # 1.1 H Eosinophils # 0.1 Basophils # 0.0 Nucleated Red Blood Cells # 0.0 Sodium Level 139 Potassium Level 4.7 Chloride Level 102 Carbon Dioxide Level 21 Anion Gap 21 H Blood Urea Nitrogen 43 H Creatinine 3.02 H Glucose Level 245 H Calcium Level 8.8 Phosphorus Level 5.3 H Magnesium Level 2.3 Test 07/29/16 14:34 07/29/16 17:40 Bedside Glucose 251 H 297 H Medications Medications Current Medications Ondansetron HCl (Zofran Inj) 4 mg Q6H PRN IV NAUSEA AND/OR VOMITING; Start at 16:00 Pantoprazole (Protonix Iv) 40 mg DAILY@06 IV Last administered on 07/29/16 06: 03; Admin Dose 40 MG; Start 07/18/16 at 06:00 Bisacodyl (Dulcolax Supp) 10 mg Q24H PRN [place] CONSTIPATION; Start 07/17/16 at 16: 00 Lorazepam (Ativan) 1 mg Q1H PRN IV seziure activity; Start 07/17/16 at 22:30 Acetaminophen (Tylenol Liquid) 650 mg Q6H PRN GTB PAIN AND OR ELEVATED TEMP Last administered on 07/22/16 01:05; Admin Dose 650 MG; Start 07/18/16 at 02:00 Miscellaneous Information 1 ea NOTE XX ; Start 07/18/16 at 02:00 Glucose (Glutose) 15 gm Q15M PRN PO DECREASED GLUCOSE; Start 07/18/16 at 02:00 Glucose (Glutose) 22.5 gm Q15M PRN PO DECREASED GLUCOSE; Start 07/18/16 at 02:00 Dextrose (D50w Syringe) 25 ml Q15M PRN IV DECREASED GLUCOSE Last administered on 07/24/16 17:48; Admin Dose 25 ML; Start 07/18/16 at 02:00 Dextrose (D50w Syringe) 50 ml Q15M PRN IV DECREASED GLUCOSE Last administered on 07/20/16 20:11; Admin Dose 50 ML; Start 07/18/16 at 02:00 Glucagon (Glucagen) 1 mg Q15M PRN IM DECREASED GLUCOSE; Start 4/1/17 at 02:00 Glucose 15 gm 15 gm Q15M PRN BUCCAL DECREASED GLUCOSE; Start 07/18/16 at 02:00 Levetiracetam/ Sodium Chloride (Keppra Iv/NS) 107.5 ml @ 430 mls/hr Q12 IVPB Last administered on 07/29/16 08:36; Admin Dose 430 MLS/HR; Start 07/18/16 at 15 :00 Mupirocin (Bactroban) 1 applic BID TOP Last administered on 07/29/16 08:37; Admin Dose 1 APPLIC; Start 07/19/16 at 12:00 Polyethylene Glycol (Miralax) 17 gm DAILY NGT Last administered on 07/29/16 08 :36; Admin Dose 17 GM; Start 07/21/16 at 11:00 Collagenase (Santyl) 1 applic DAILY PRN TOP WHEN SOILED Last administered on 23:34; Admin Dose 1 APPLIC; Start 07/22/16 at 16:30 Heparin Sodium (Porcine) (Heparin (5000 Units/0.5 ml)) 5,000 unit BID SC Last administered on 07/29/16 08:37; Admin Dose 5,000 UNIT; Start 07/23/16 at 21:00 Insulin Human Regular (Humulin R) 3 unit Q6 SC Last administered on 07/29/16 17:41; Admin Dose 3 UNIT; Start 07/26/16 at 18:00 Metoclopramide HCl (Reglan) 5 mg Q6H IV Last administered on 07/29/16 17:47; Admin Dose 5 MG; Start 07/26/16 at 18:00 ISSA SIMS MD Jul 29, 2016 18:23
[2016-07-29] MEDS: NPH, HUMAN INSULIN ISOPHANE 3ML VIAL SC SCH (21:44)
[2016-07-30] VITALS (26 sets, daily range): BP systolic 84–144; BP diastolic 54–83; PULSE 86–96; RESP 20–27
[2016-07-30] MEDS: METOCLOPRAMIDE 10 MG INJ IV SCH ×4 (00:50→17:33)
[2016-07-30] MEDS: PANTOPRAZOLE 40 MG INJ IV SCH (05:26)
[2016-07-30] MEDS: NPH, HUMAN INSULIN ISOPHANE 3ML VIAL SC SCH ×3 (05:32→22:00)
[2016-07-30] MEDS: LEVETIRACETAM IV 750 MG in SOD CHLORIDE 0.9% 100 ML IVPB SCH ×2 (08:08→23:18)
[2016-07-30] MEDS: POLYETHYLENE GLYCOL 17 GM PACKET NGT SCH (08:08)
[2016-07-30] MEDS: MUPIROCIN 2% 22 GM OINT TOP SCH ×2 (08:10→21:00)
[2016-07-30] MEDS: HEPARIN 5,000 UNIT/0.5 ML VIAL SC SCH ×2 (08:11→21:00)
--- NOTE | 2016-07-30 09:18 | PN ---
DATE: 07/30/2016 SUBJECTIVE: The patient is stable. No events overnight. The patient had hemodialysis yesterday, w ith 1 liter removed. OBJECTIVE: VITAL SIGNS: Blood pressure is 71/54, respirations 24, pulse 96, temperature 98.7. HEENT: Head is normocephalic. NECK: Supple. HEART: Regular rate. LUNGS: Showed diminished breath sounds at the base. ABDOMEN: Soft, nontender to palpation. No rebound or guarding. EXTREMITIES: Negative for clubbing or cyanosis. No edema. DERMATOLOGIC: No rashes. MUSCULOSKELETAL: Have no joint effusion. NEUROLOGIC: No change in exam. MEDICATIONS: The patient's medications were reviewed. LABORATORY DATA: Reviewed. No new labs. Hip x-ray from 07/29/2016 was reviewed. ASSESSMENT AND PLAN: 1. End-stage renal disease. The patient had hemodialysis yesterday and tolerated it well. Plan fo r dialysis tomorrow. 2. Hypernatremia. Improved. Continue free water flushes. 3. Anemia of chronic disease. Continue to monitor hemoglobin and hematocrit levels. 4. Ventilator-dependent respiratory failure. Vent setting were reviewed. ABG was reviewed. Contin ue to monitor. 5. Dysphagia. Status post PEG tube, tube feeding. 6. Sepsis. Status post shock. The patient is completing an antibiotic course. 7. Encephalopathy. No change. 8. Diabetes. Continue Accu-Cheks and insulin sliding scale. 9. Diarrhea. Continue to monitor. 10. Status post Code Arrest. Dictated By: KENTON MATAMOROS/LAURA Conf#: [id number] DID#: [id number]
--- NOTE | 2016-07-30 10:28 | CONS ---
Date/Time of Note Date/Time of Note DATE: 07/30/16 TIME: 10:25 Assessment/Plan Assessment/Plan Additional Assessment/Plan Chest x-ray was reviewed from yesterday which is showing a small right pleural effusion. Ventilator settings; AC of 20, tidal volume 500, PEEP of 5, 30% FiO2. Assessment recommendations; next 1. Patient admitted with cardiac arrest resulting in severe anoxic brain injury. 2. Chronic respiratory failure. 3. Chronic renal failure. On hemodialysis. 4. Severe bilateral pneumonia with marked interval improvement. 5. History of seizure disorder. Continue current treatment. Prognosis is dismal. Consultation Date/Type/Reason Admit Date/Time Jul 17, 2016 at 13:33 Type of Consultation: Pulmonary 24 HR Interval Summary Free Text/Dictation Patient condition remains stable. Remains completely unresponsive. Has remained hemodynamically stable. General exam; young male, on ventilator via tracheostomy, unresponsive. Exam/Review of Systems Vital Signs Vitals Vital Signs Date Time Temp Pulse Resp B/P Pulse Ox O2 Delivery O2 Flow Rate FiO2 07/30/16 09:05 94 20 99 30 07/30/16 07:59 98.7 91/54 07/27/16 04:00 Mechanical Ventilator Intake and Output 07/29/16 07/29/16 07/30/16 15:00 23:00 07:00 Intake Total 1027.5 ml 350 ml Output Total 1500 ml 500 ml Balance -472.5 ml -150 ml Exam HEENT exam is; supple neck, tracheostomy in place with clean insertion site. Pupils are dilated and nonreactive to light. Doll's eye movements are negative. No neck masses. No thyromegaly. Chest exam; clear to auscultation. S1-S2 audible, no murmurs. Regular rhythm. Abdomen examination; soft, scaphoid. G-tube in place. Bowel sounds audible. Extremity exam; no peripheral edema. ANNUAL GIVING MANAGER examination; patient remains unresponsive. Results Result Diagram: 07/29/1615 07/29/1615 Results 24 hrs Laboratory Tests Test 07/29/16 11:53 07/29/16 14:34 07/29/16 17:40 07/29/16 21:31 Bedside Glucose 344 H 251 H 297 H 301 H Test 07/30/16 05:28 Bedside Glucose 287 H Medications Medications Current Medications Ondansetron HCl (Zofran Inj) 4 mg Q6H PRN IV NAUSEA AND/OR VOMITING; Start at 16:00 Pantoprazole (Protonix Iv) 40 mg DAILY@06 IV Last administered on 07/30/16 05: 26; Admin Dose 40 MG; Start 07/18/16 at 06:00 Bisacodyl (Dulcolax Supp) 10 mg Q24H PRN [place] CONSTIPATION; Start 07/17/16 at 16: 00 Lorazepam (Ativan) 1 mg Q1H PRN IV seziure activity; Start 07/17/16 at 22:30 Acetaminophen (Tylenol Liquid) 650 mg Q6H PRN GTB PAIN AND OR ELEVATED TEMP Last administered on 07/22/16 01:05; Admin Dose 650 MG; Start 07/18/16 at 02:00 Miscellaneous Information 1 ea NOTE XX ; Start 07/18/16 at 02:00 Glucose (Glutose) 15 gm Q15M PRN PO DECREASED GLUCOSE; Start 07/18/16 at 02:00 Glucose (Glutose) 22.5 gm Q15M PRN PO DECREASED GLUCOSE; Start 07/18/16 at 02:00 Dextrose (D50w Syringe) 25 ml Q15M PRN IV DECREASED GLUCOSE Last administered on 07/24/16 17:48; Admin Dose 25 ML; Start 07/18/16 at 02:00 Dextrose (D50w Syringe) 50 ml Q15M PRN IV DECREASED GLUCOSE Last administered on 07/20/16 20:11; Admin Dose 50 ML; Start 07/18/16 at 02:00 Glucagon (Glucagen) 1 mg Q15M PRN IM DECREASED GLUCOSE; Start 07/18/16 at 02:00 Glucose 15 gm 15 gm Q15M PRN BUCCAL DECREASED GLUCOSE; Start 07/18/16 at 02:00 Levetiracetam/ Sodium Chloride (Keppra Iv/NS) 107.5 ml @ 430 mls/hr Q12 IVPB Last administered on 07/30/16 08:08; Admin Dose 430 MLS/HR; Start 07/18/16 at 15 :00 Mupirocin (Bactroban) 1 applic BID TOP Last administered on 07/30/16 08:10; Admin Dose 1 APPLIC; Start 07/19/16 at 12:00 Polyethylene Glycol (Miralax) 17 gm DAILY NGT Last administered on 07/30/16 08 :08; Admin Dose 17 GM; Start 07/21/16 at 11:00 Collagenase (Santyl) 1 applic DAILY PRN TOP WHEN SOILED Last administered on 23:34; Admin Dose 1 APPLIC; Start 07/22/16 at 16:30 Heparin Sodium (Porcine) (Heparin (5000 Units/0.5 ml)) 5,000 unit BID SC Last administered on 07/30/16 08:11; Admin Dose 5,000 UNIT; Start 07/23/16 at 21:00 Metoclopramide HCl (Reglan) 5 mg Q6H IV Last administered on 07/30/16 05:27; Admin Dose 5 MG; Start 07/26/16 at 18:00 Insulin Human NPH (Humulin N) 8 unit Q8 SC Last administered on 07/30/16 05:32 ; Admin Dose 8 UNIT; Start 07/29/16 at 22:00 Insulin Aspart (Novolog Insulin Pen) NOVOLOG *MILD* ALGORI... Q4 SC ; Start at 09:00 CHANCE AVILA Jul 30, 2016 10:28
[2016-07-30] MEDS: INSULIN ASPART [NOVOLOG] 3 ML PEN SC SCH ×4 (10:55→21:00)
--- NOTE | 2016-07-30 13:33 | PN ---
DATE: 07/30/2016 SUBJECTIVE: There has been no change in Mr. Baeza's clinical course. In fact, he looks much mo re moribund than he has in prior days. I have not seen his mother visiting him for the last few day s since he was moved out of the intensive care unit. Background history: This gentleman sustained a cardiac arrest prior to hospitalization while he was in a subacute unit, and since that period of time, he has been vegetative. He has had multiple EEGs which show that he still has electrical acti vity. Before he left the intensive care unit, he was over breathing the ventilator which he is not doing at this time. SOCIAL HISTORY: The patient was living in a subacute unit once again. He has no understanding of h is condition and it was unclear whether or not he had understanding of his clinical condition prior to his hospitalization. In speaking to family members, her hope was that he would someday wake up a nd a miracle would occur and he would be released back to his prior hospitalization clinical conditi on, which was PEG trached, living in a subacute unit. That would be an acceptable quality of life a ccording to patient's mother. Her fear is that he will . Her strengths are unknown at this time , as she is somewhat a poor historian and it is difficult to get a good history from her. There are no cultural issues that I can ascertain. Communication preferences are directly one to one. There is no past experience with serious underlying medical conditions that I have ascertained from cricket cm's mother. PHYSICAL EXAMINATION: Unchanged compared to prior examination. He has no oculocephalics. Does not respond to any tactile stimulation, and he does not over breathe the ventilator. IMPRESSION: Vegetative condition, possibly brain . I will reorder an EEG at this time. GOALS OF CARE: Have been discussed with nursing staff. Estimated prognosis is extremely poor. PPS is less than 10%; however, family member, patient's mother, continues to refuse to change his code status. I will ask for a bioethics consultation. Dictated By: IBETH COLLIER MD, LP/LAURA Conf#: [id number] DID#: [id number]
--- NOTE | 2016-07-30 13:35 | PN ---
DATE: 07/30/2016 ADDENDUM. RECOMMENDATIONS: 1. Repeat EEG. There is no pain issues that I could clearly ascertain right now on this gentleman who is vegetative. 2. Psychological/social issues primarily revolve around his mother's expectations for future level of care. She is looking for a miracle. There are no legal issues. 3. Code status: She has refused to change. He is a FULL CODE. I will address a POLST form with h is mother prior to patient being discharged, although I think that she will not easily address that conversation. Dictated By: IBETH COLLIER MD LP/NTS Conf#: [id number] DID#: [id number]
--- NOTE | 2016-07-30 14:56 | CONS ---
Date/Time of Note Date/Time of Note DATE: 07/30/16 TIME: 14:56 Assessment/Plan Assessment/Plan Chief Complaint/Hosp Course SUBJECTIVE: No changes. Noncommunicative, lying comfortably in bed. No fevers INDWELLINGS: Trach, PEG, left upper extremity AV fistula, rectal tube. PHYSICAL EXAMINATION: GENERAL: Chronically ill-appearing, middle-aged white man who is unresponsive. HEENT: Head atraumatic, normocephalic. Pupils are dilated. Buccal mucosa dry. NECK: Supple. Tracheostomy present. CHEST: Rise symmetrical. Breath sounds diminished to bases. HEART: S1, S2. ABDOMEN: Soft. Bowel tones present. EXTREMITIES: Without cyanosis. ASSESSMENT: 1. Leukocytosis ?reactive 2. S/p septic shock 3. Diarrhea==> C dif negative. 4. Chronic respiratory failure, possible aspiration. 5. Anoxic encephalopathy status post cardiopulmonary arrest. 6. Diabetes. 7. Methicillin-resistant Staphylococcus aureus nares colonization. 8. End-stage renal disease, hemodialysis dependent. PLAN: Clinically unchanged. Off abx, berger cx prn DW staff Problems: Consultation Date/Type/Reason Admit Date/Time Jul 17, 2016 at 13:33 Type of Consultation: id Exam/Review of Systems Vital Signs Vitals Vital Signs Date Time Temp Pulse Resp B/P Pulse Ox O2 Delivery O2 Flow Rate FiO2 07/30/16 13:20 87 20 99 30 07/30/16 12:07 98.2 144/83 07/27/16 04:00 Mechanical Ventilator Intake and Output 07/29/16 07/29/16 07/30/16 15:00 23:00 07:00 Intake Total 1027.5 ml 350 ml Output Total 1500 ml 500 ml Balance -472.5 ml -150 ml Results Result Diagram: 07/29/16 0615 07/29/16 0615 Results 24 hrs Laboratory Tests Test 07/29/16 17:40 07/29/16 21:31 07/30/16 05:28 07/30/16 10:52 Bedside Glucose 297 H 301 H 287 H 250 H Test 07/30/16 13:41 Bedside Glucose 174 Medications Medications Current Medications Ondansetron HCl (Zofran Inj) 4 mg Q6H PRN IV NAUSEA AND/OR VOMITING; Start at 16:00 Pantoprazole (Protonix Iv) 40 mg DAILY@06 IV Last administered on 4/13/17at 05: 26; Admin Dose 40 MG; Start 07/18/16 at 06:00 Bisacodyl (Dulcolax Supp) 10 mg Q24H PRN [place] CONSTIPATION; Start 07/17/16 at 16: 00 Lorazepam (Ativan) 1 mg Q1H PRN IV seziure activity; Start 07/17/16 at 22:30 Acetaminophen (Tylenol Liquid) 650 mg Q6H PRN GTB PAIN AND OR ELEVATED TEMP Last administered on 07/22/16 01:05; Admin Dose 650 MG; Start 07/18/16 at 02:00 Miscellaneous Information 1 ea NOTE XX ; Start 07/18/16 at 02:00 Glucose (Glutose) 15 gm Q15M PRN PO DECREASED GLUCOSE; Start 07/18/16 at 02:00 Glucose (Glutose) 22.5 gm Q15M PRN PO DECREASED GLUCOSE; Start 07/18/16 at 02:00 Dextrose (D50w Syringe) 25 ml Q15M PRN IV DECREASED GLUCOSE Last administered on 07/24/16 17:48; Admin Dose 25 ML; Start 07/18/16 at 02:00 Dextrose (D50w Syringe) 50 ml Q15M PRN IV DECREASED GLUCOSE Last administered on 07/20/16 20:11; Admin Dose 50 ML; Start 07/18/16 at 02:00 Glucagon (Glucagen) 1 mg Q15M PRN IM DECREASED GLUCOSE; Start 07/18/16 at 02:00 Glucose 15 gm 15 gm Q15M PRN BUCCAL DECREASED GLUCOSE; Start 07/18/16 at 02:00 Levetiracetam/ Sodium Chloride (Keppra Iv/NS) 107.5 ml @ 430 mls/hr Q12 IVPB Last administered on 07/30/16 08:08; Admin Dose 430 MLS/HR; Start 07/18/16 at 15 :00 Mupirocin (Bactroban) 1 applic BID TOP Last administered on 07/30/16 08:10; Admin Dose 1 APPLIC; Start 07/19/16 at 12:00 Polyethylene Glycol (Miralax) 17 gm DAILY NGT Last administered on 07/30/16 08 :08; Admin Dose 17 GM; Start 07/21/16 at 11:00 Collagenase (Santyl) 1 applic DAILY PRN TOP WHEN SOILED Last administered on 23:34; Admin Dose 1 APPLIC; Start 07/22/16 at 16:30 Heparin Sodium (Porcine) (Heparin (5000 Units/0.5 ml)) 5,000 unit BID SC Last administered on 07/30/16 08:11; Admin Dose 5,000 UNIT; Start 07/23/16 at 21:00 Metoclopramide HCl (Reglan) 5 mg Q6H IV Last administered on 07/30/16 11:45; Admin Dose 5 MG; Start 07/26/16 at 18:00 Insulin Aspart (Novolog Insulin Pen) NOVOLOG *MILD* ALGORI... Q4 SC Last administered on 07/30/16 13:45; Admin Dose 1 UNIT; Start 07/30/16 at 09:00 Insulin Human NPH (Humulin N) 10 unit Q8 SC Last administered on 07/30/16 13: 46; Admin Dose 10 UNIT; Start 07/30/16 at 14:00 MICKY MIRANDA NP Jul 30, 2016 14:56
--- NOTE | 2016-07-30 17:20 | CONS ---
Date/Time of Note Date/Time of Note DATE: 07/30/16 TIME: 17:17 Assessment/Plan Assessment/Plan Problems: (1) Diabetes type I Status: Chronic Comment: Glucose remains above goal. Add correctional scale. Increase NPH to 10 units sq q8. Reeval tomorrow. Qualifiers: Diabetes mellitus complication status: with unspecified complications Qualified Code: E10.8 - Type 1 diabetes mellitus with complication Consultation Date/Type/Reason Admit Date/Time Jul 17, 2016 at 13:33 Initial Consult Date 07/25/16 Type of Consultation: Endocrinology Reason for Consultation T1DM management Referring Provider: ERMA JACOBS 24 HR Interval Summary Subjective hx not possible: pt non-verbal Exam/Review of Systems Vital Signs Vitals VS - Last 72 Hours, by Label Date Time Temp Pulse Resp B/P Pulse Ox O2 Delivery O2 Flow Rate FiO2 07/30/16 16:51 86 07/30/16 16:01 98.0 87 27 101/68 95 07/30/16 15:20 81 20 99 30 07/30/16 13:20 87 20 99 30 07/30/16 12:20 93 07/30/16 12:07 98.2 81 26 144/83 97 07/30/16 11:15 89 20 99 30 07/30/16 09:05 94 20 99 30 07/30/16 09:00 30 07/30/16 08:21 96 07/30/16 07:59 98.7 96 24 91/54 97 07/30/16 07:40 98 20 97 30 07/30/16 06:05 92 20 100 30 07/30/16 04:56 87 07/30/16 04:00 97.6 89 20 113/72 92 07/30/16 03:50 95 20 100 30 07/30/16 01:21 90 07/30/16 01:00 88 20 100 30 07/30/16 00:06 97.6 90 20 109/74 99 07/29/16 22:56 91 20 100 30 07/29/16 21:25 90 20 100 30 07/29/16 20:43 91 07/29/16 20:20 88 20 100 30 07/29/16 20:17 98.8 94 20 118/77 98 07/29/16 20:00 30 07/29/16 17:05 92 20 100 30 07/29/16 16:46 96 07/29/16 16:43 98.8 89 29 120/81 98 07/29/16 15:20 98 07/29/16 15:20 98 20 07/29/16 15:20 89 20 100 30 07/29/16 14:50 95 07/29/16 14:20 91 07/29/16 13:50 91 07/29/16 13:20 96 07/29/16 13:15 92 20 100 30 07/29/16 13:05 96 07/29/16 12:50 97 20 07/29/16 12:50 97 07/29/16 12:26 98.2 80 18 136/64 98 07/29/16 12:25 85 07/29/16 11:40 91 20 100 30 07/29/16 09:55 88 20 100 30 07/29/16 09:00 30 07/29/16 08:32 85 07/29/16 07:55 97.8 84 20 140/74 99 07/29/16 07:50 92 20 100 30 07/29/16 05:49 89 20 100 30 07/29/16 04:50 89 07/29/16 04:37 98.9 1 104/66 92 07/29/16 03:36 88 20 100 30 07/29/16 01:18 90 20 100 30 07/29/16 00:00 98.6 88 17 107/69 90 07/29/16 00:00 88 07/28/16 23:30 88 20 100 30 07/28/16 21:17 88 07/28/16 21:15 88 20 98 30 07/28/16 21:00 30 07/28/16 20:00 98.4 88 17 96/61 100 07/28/16 19:17 89 20 99 30 07/28/16 17:49 91 20 99 30 07/28/16 16:31 92 07/28/16 16:09 98.8 92 31 122/78 100 07/28/16 15:31 94 20 99 30 07/28/16 13:24 103 22 97 30 07/28/16 12:30 106 07/28/16 12:11 97.2 104 26 114/76 98 07/28/16 11:09 101 20 99 30 07/28/16 09:38 30 07/28/16 09:31 91 20 98 30 07/28/16 08:42 93 07/28/16 07:35 99 20 98 30 07/28/16 07:35 98.2 99 25 102/65 96 07/28/16 05:24 93 20 98 30 07/28/16 04:26 103 07/28/16 04:00 98.3 98 24 105/86 98 07/28/16 03:32 100 20 98 30 07/28/16 01:20 95 20 98 30 07/28/16 00:29 92 07/27/16 23:05 100 20 98 30 07/27/16 22:14 100 18 07/27/16 21:57 30 07/27/16 21:47 100 20 98 30 07/27/16 21:20 101 07/27/16 21:18 99 07/27/16 20:45 100 07/27/16 20:23 90 07/27/16 20:14 101 07/27/16 19:45 100 07/27/16 19:15 102 20 98 30 07/27/16 19:14 92 07/27/16 18:50 68 07/27/16 18:45 68 18 07/27/16 18:45 91 Vital Signs Date Time Temp Pulse Resp B/P Pulse Ox O2 Delivery O2 Flow Rate FiO2 07/30/16 16:51 86 07/30/16 16:01 98.0 27 101/68 95 07/30/16 15:20 30 07/27/16 04:00 Mechanical Ventilator Intake and Output 07/29/16 07/29/16 07/30/16 15:00 23:00 07:00 Intake Total 1027.5 ml 350 ml Output Total 1500 ml 500 ml Balance -472.5 ml -150 ml Exam Constitutional: frail, non-verbal, other (profoundly debilitated w/ profound temporal wasting), No alert Neck: other (tracheostomy on vent) Respiratory: clear to auscultation, normal air movement Cardiovascular: nl pulses, regular rate and rhythm, No edema, No murmurs/extra sounds, No rub Gastrointestinal: bowel sounds, nl liver, spleen, non-tender, soft, No mass, No rebound or guarding Musculoskeletal: nl extremities to inspection Extremities: normal pulses, No clubbing, No cyanosis, No edema Neurological: unresponsive Additional Comments Bedside Glucose - 72 Hours Test 07/28/16 01:18 07/28/16 05:45 07/28/16 12:05 07/28/16 17:23 Bedside Glucose 232mg/dL (70-220) H 213mg/dL (70-220) 271mg/dL (70-220) H 222mg/dL (70-220) H Test 07/29/16 00:17 07/29/16 06:02 07/29/16 11:53 07/29/16 14:34 Bedside Glucose 181mg/dL (70-220) 238mg/dL (70-220) H 344mg/dL (70-220) H 251mg/dL (70-220) H Test 07/29/16 17:40 07/29/16 21:31 07/30/16 05:28 07/30/16 10:52 Bedside Glucose 297mg/dL (70-220) H 301mg/dL (70-220) H 287mg/dL (70-220) H 250mg/dL (70-220) H Test 07/30/16 13:41 Bedside Glucose 174mg/dL (70-220) Results Result Diagram: 07/29/16 0615 07/29/16 0615 Results 24 hrs Laboratory Tests Test 07/29/16 17:40 07/29/16 21:31 07/30/16 05:28 07/30/16 10:52 Bedside Glucose 297 H 301 H 287 H 250 H Test 07/30/16 13:41 Bedside Glucose 174 Medications Medications Current Medications Ondansetron HCl (Zofran Inj) 4 mg Q6H PRN IV NAUSEA AND/OR VOMITING; Start at 16:00 Pantoprazole (Protonix Iv) 40 mg DAILY@06 IV Last administered on 07/30/16 05: 26; Admin Dose 40 MG; Start 07/18/16 at 06:00 Bisacodyl (Dulcolax Supp) 10 mg Q24H PRN [place] CONSTIPATION; Start 07/17/16 at 16: 00 Lorazepam (Ativan) 1 mg Q1H PRN IV seziure activity; Start 07/17/16 at 22:30 Acetaminophen (Tylenol Liquid) 650 mg Q6H PRN GTB PAIN AND OR ELEVATED TEMP Last administered on 07/22/16 01:05; Admin Dose 650 MG; Start 07/18/16 at 02:00 Miscellaneous Information 1 ea NOTE XX ; Start 07/18/16 at 02:00 Glucose (Glutose) 15 gm Q15M PRN PO DECREASED GLUCOSE; Start 07/18/16 at 02:00 Glucose (Glutose) 22.5 gm Q15M PRN PO DECREASED GLUCOSE; Start 07/18/16 at 02:00 Dextrose (D50w Syringe) 25 ml Q15M PRN IV DECREASED GLUCOSE Last administered on 07/24/16 17:48; Admin Dose 25 ML; Start 07/18/16 at 02:00 Dextrose (D50w Syringe) 50 ml Q15M PRN IV DECREASED GLUCOSE Last administered on 07/20/16 20:11; Admin Dose 50 ML; Start 07/18/16 at 02:00 Glucagon (Glucagen) 1 mg Q15M PRN IM DECREASED GLUCOSE; Start 07/18/16 at 02:00 Glucose 15 gm 15 gm Q15M PRN BUCCAL DECREASED GLUCOSE; Start 07/18/16 at 02:00 Levetiracetam/ Sodium Chloride (Keppra Iv/NS) 107.5 ml @ 430 mls/hr Q12 IVPB Last administered on 07/30/16 08:08; Admin Dose 430 MLS/HR; Start 07/18/16 at 15 :00 Mupirocin (Bactroban) 1 applic BID TOP Last administered on 07/30/16 08:10; Admin Dose 1 APPLIC; Start 07/19/16 at 12:00 Polyethylene Glycol (Miralax) 17 gm DAILY NGT Last administered on 07/30/16 08 :08; Admin Dose 17 GM; Start 07/21/16 at 11:00 Collagenase (Santyl) 1 applic DAILY PRN TOP WHEN SOILED Last administered on 23:34; Admin Dose 1 APPLIC; Start 07/22/16 at 16:30 Heparin Sodium (Porcine) (Heparin (5000 Units/0.5 ml)) 5,000 unit BID SC Last administered on 07/30/16 08:11; Admin Dose 5,000 UNIT; Start 07/23/16 at 21:00 Metoclopramide HCl (Reglan) 5 mg Q6H IV Last administered on 07/30/16 11:45; Admin Dose 5 MG; Start 07/26/16 at 18:00 Insulin Aspart (Novolog Insulin Pen) NOVOLOG *MILD* ALGORI... Q4 SC Last administered on 07/30/16 13:45; Admin Dose 1 UNIT; Start 07/30/16 at 09:00 Insulin Human NPH (Humulin N) 10 unit Q8 SC Last administered on 07/30/16 13: 46; Admin Dose 10 UNIT; Start 07/30/16 at 14:00 JENNIFER PEÑA MD Jul 30, 2016 17:20
--- NOTE | 2016-07-30 18:46 | PN ---
Date/Time of Note Date/Time of Note DATE: 07/30/16 TIME: 18:42 Assessment/Plan VTE Prophylaxis VTE Prophylaxis Intervention: heparin Lines/Catheters IV Catheter Type (from [facility] Urinary Cath still in place: No Assessment/Plan Chief Complaint/Hosp Course 1. Cardiac arrest secondary to septic shock- The patient now remains off pressors 2. Severe anoxic encephalopathy-now brain noted on EEG Dr. Penny of palliative care aware, will need to discuss with patient's mother 3. 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 4. Bilateral Multifocal Pneumonia causing Sepsis 5. End-stage renal disease on hemodialysis. 6. Acute on chronic respiratory failure, remains ventilator-dependent. 7. Anemia secondary to chronic kidney disease. 8. Methicillin-resistant Staphylococcus aureus nares. 9. Chronic dysphagia, on PEG feeds with high residuals. 10. Chronic debility secondary to chronically uncontrolled diabetes type 1 with recurrent episodes of pneumonia causing recurrent hospitalization and now trach and gastrostomy placement, with chronic muscle wasting and foot drop. 11. Diarrhea + high PEG feed residuals PROPHYLAXIS: Heparin + Protonix IV Problems: Subjective 24 Hr Interval Summary Subjective hx not possible: pt non-verbal Exam/Review of Systems Vital Signs Vitals Vital Signs Date Time Temp Pulse Resp B/P Pulse Ox O2 Delivery O2 Flow Rate FiO2 07/30/16 17:10 100 20 97 30 07/30/16 16:01 98.0 101/68 07/27/16 04:00 Mechanical Ventilator Intake and Output 07/29/16 07/29/16 07/30/16 15:00 23:00 07:00 Intake Total 1027.5 ml 350 ml Output Total 1500 ml 500 ml Balance -472.5 ml -150 ml Exam Constitutional: non-verbal Respiratory: clear to auscultation Cardiovascular: regular rate and rhythm Gastrointestinal: soft, No distended Musculoskeletal: nl extremities to inspection Results Result Diagram: 07/29/16 0615 07/29/16 0615 Results 24 hrs Laboratory Tests Test 07/29/16 21:31 07/30/16 05:28 07/30/16 10:52 07/30/16 13:41 Bedside Glucose 301 H 287 H 250 H 174 Test 07/30/16 17:30 Bedside Glucose 107 Medications Medications Current Medications Ondansetron HCl (Zofran Inj) 4 mg Q6H PRN IV NAUSEA AND/OR VOMITING; Start at 16:00 Pantoprazole (Protonix Iv) 40 mg DAILY@06 IV Last administered on 07/30/16 05: 26; Admin Dose 40 MG; Start 07/18/16 at 06:00 Bisacodyl (Dulcolax Supp) 10 mg Q24H PRN [place] CONSTIPATION; Start 07/17/16 at 16: 00 Lorazepam (Ativan) 1 mg Q1H PRN IV seziure activity; Start 07/17/16 at 22:30 Acetaminophen (Tylenol Liquid) 650 mg Q6H PRN GTB PAIN AND OR ELEVATED TEMP Last administered on 07/22/16 01:05; Admin Dose 650 MG; Start 07/18/16 at 02:00 Miscellaneous Information 1 ea NOTE XX ; Start 07/18/16 at 02:00 Glucose (Glutose) 15 gm Q15M PRN PO DECREASED GLUCOSE; Start 07/18/16 at 02:00 Glucose (Glutose) 22.5 gm Q15M PRN PO DECREASED GLUCOSE; Start 07/18/16 at 02:00 Dextrose (D50w Syringe) 25 ml Q15M PRN IV DECREASED GLUCOSE Last administered on 07/24/16 17:48; Admin Dose 25 ML; Start 07/18/16 at 02:00 Dextrose (D50w Syringe) 50 ml Q15M PRN IV DECREASED GLUCOSE Last administered on 07/20/16 20:11; Admin Dose 50 ML; Start 07/18/16 at 02:00 Glucagon (Glucagen) 1 mg Q15M PRN IM DECREASED GLUCOSE; Start 07/18/16 at 02:00 Glucose 15 gm 15 gm Q15M PRN BUCCAL DECREASED GLUCOSE; Start 07/18/16 at 02:00 Levetiracetam/ Sodium Chloride (Keppra Iv/NS) 107.5 ml @ 430 mls/hr Q12 IVPB Last administered on 07/30/16 08:08; Admin Dose 430 MLS/HR; Start 07/18/16 at 15 :00 Mupirocin (Bactroban) 1 applic BID TOP Last administered on 07/30/16 08:10; Admin Dose 1 APPLIC; Start 07/19/16 at 12:00 Polyethylene Glycol (Miralax) 17 gm DAILY NGT Last administered on 4/13/17at 08 :08; Admin Dose 17 GM; Start 07/21/16 at 11:00 Collagenase (Santyl) 1 applic DAILY PRN TOP WHEN SOILED Last administered on 23:34; Admin Dose 1 APPLIC; Start 07/22/16 at 16:30 Heparin Sodium (Porcine) (Heparin (5000 Units/0.5 ml)) 5,000 unit BID SC Last administered on 07/30/16 08:11; Admin Dose 5,000 UNIT; Start 07/23/16 at 21:00 Metoclopramide HCl (Reglan) 5 mg Q6H IV Last administered on 07/30/16 17:33; Admin Dose 5 MG; Start 07/26/16 at 18:00 Insulin Aspart (Novolog Insulin Pen) NOVOLOG *MILD* ALGORI... Q4 SC Last administered on 07/30/16 13:45; Admin Dose 1 UNIT; Start 07/30/16 at 09:00 Insulin Human NPH (Humulin N) 10 unit Q8 SC Last administered on 07/30/16 13: 46; Admin Dose 10 UNIT; Start 07/30/16 at 14:00 DIANE GIBBONS Jul 30, 2016 18:46
[2016-07-30] MEDS ORDERED: SOD CHLORIDE 0.9% 500 ML IV ONE (22:30)
--- NOTE | 2016-07-30 23:22 | CONS ---
DATE OF ADMISSION: 07/17/2016 DATE OF CONSULTATION: REFERRING PHYSICIAN: Dr. Tidwell Thank you for asking me to see the patient with you. HISTORY OF PRESENT ILLNESS: The patient is 35 years old with multiple medical problems which includ e cardiopulmonary arrest secondary to septic shock, severe anoxic encephalopathy, diabetes type 2, m ultifocal pneumonia, sepsis, end-stage renal disease on hemodialysis, acute on top of chronic respir atory failure on ventilation, anemia secondary to chronic kidney disease, MRSA infection, chronic dy sphagia, PEG tube feeding with high residual. The patient on multiple medications which include: 1. Epogen 6000 units subcutaneous once a day. 2. Humalog insulin 10 units. 3. NovoLog insulin. 4. Reglan 5 mg. 5. Protonix 40 mg once a day. 6. Tylenol 650 mg every 6 hours as needed. 7. ____ IV flush. 8. Zofran 4 mg every 6 hours. 9. Dulcolax 10 mg once a day. PHYSICAL EXAMINATION: GENERAL: On exam today, the patient does not follow any verbal or painful commands. CRANIAL NERVES: Cranial nerve II: Pupils with sluggish reaction to light. Cranial nerves III, IV and with extraocular muscles intact. Cranial nerves V and VII: Bilateral corneal reflex with we akness. Cranial nerves VIII through XII: Could not assess. MOTOR: The patient does not move for painful stimulation. SENSATION, GAIT AND COORDINATION: Could not assess. HEART: Regular rate and rhythm. LUNGS: Equal breath sounds with scattered wheeze. ABDOMEN: Soft, relaxed, nondistended. No tenderness. ASSESSMENT AND PLAN: 1. The patient is 35 years old. He is comatose with underlying multiple medical problems. Electro encephalogram done shows 1 to 2 Hz with low amplitude with poor prognosis. 2. Status post end-stage renal disease on dialysis. 3. Status post cardiopulmonary arrest. 4. Status post acute hypoxic encephalopathy. 5. Dysphagia with the patient with percutaneous endoscopic gastrostomy tube feeding. 6. Keep the patient on deep venous thrombosis prophylaxis as well as decubitus ulcer prophylaxis. Again, thank you for asking me to see the patient with you. Dictated By: MARY BETH CASILLAS/LAURA Conf#: [id number] DID#: [id number]
[2016-07-30] MEDS: DEXTROSE 50% 50 ML SYRINGE IV PRN (23:31)
[2016-07-31] VITALS (33 sets, daily range): BP systolic 84–121; BP diastolic 50–83; PULSE 90–103; RESP 18–25
[2016-07-31] MEDS: INSULIN ASPART [NOVOLOG] 3 ML PEN SC SCH ×6 (01:00→21:01)
--- NOTE | 2016-07-31 05:38 | NEURPT ---
DATE: REFERRING PHYSICIAN: Dr. Tidwell EEG done using 10-20 International electrode system with photic stimulation. Bilateral occipital hemispheres showed 1 to 2 Hz delta waves, low amplitude, symmetric bilaterally. Photic stimulation done didn't elicit drives. No epileptiform discharge or seizure activity was recorded. IMPRESSION: This is an abnormal electroencephalogram showed generelzed slowing consistent with underlying severe encephalopathy. No epileptiform discharge or seizure activity is recorded with poor prognosis. Again, thank you for asking me to see the patient with you. Dictated By: MARY BETH CASILLAS/LAURA Conf#: [id number] DID#: [id number] NESHA
[2016-07-31] MEDS: NPH, HUMAN INSULIN ISOPHANE 3ML VIAL SC SCH ×3 (06:00→21:00)
[2016-07-31] MEDS: PANTOPRAZOLE 40 MG INJ IV SCH (06:59)
[2016-07-31] MEDS: METOCLOPRAMIDE 10 MG INJ IV SCH ×4 (06:59→18:36)
[2016-07-31] MEDS: HEPARIN 5,000 UNIT/0.5 ML VIAL SC SCH ×2 (08:56→21:02)
[2016-07-31] MEDS: POLYETHYLENE GLYCOL 17 GM PACKET NGT SCH (08:58)
[2016-07-31] MEDS: MUPIROCIN 2% 22 GM OINT TOP SCH ×2 (08:59→20:57)
[2016-07-31] MEDS: LEVETIRACETAM IV 750 MG in SOD CHLORIDE 0.9% 100 ML IVPB SCH ×2 (09:02→20:56)
--- NOTE | 2016-07-31 09:53 | PN ---
DATE: 07/31/2016 SUBJECTIVE: The patient remains stable. The patient is scheduled for hemodialysis today. No other events noted. OBJECTIVE: VITAL SIGNS: Blood pressure 92/59, respirations 18, pulse 57, temperature 97.7. HEENT: Head is normocephalic. NECK: Supple. HEART: Regular rate. LUNGS: Show diminished breath sounds at the bases. ABDOMEN: Soft, nontender to palpation. No rebound or guarding. EXTREMITIES: Negative for clubbing, cyanosis. No edema. DERMATOLOGIC: No rashes. MUSCULOSKELETAL: No joint effusions. NEUROLOGIC: No change in exam. MEDICATIONS: The patient's medications have been reviewed. LABORATORY DATA: Has been reviewed. No new labs. ASSESSMENT AND PLAN: 1. End-stage renal disease. The patient is scheduled for dialysis today, we will dialysis for 3 ho urs, 3 K bath, calcium 2.5. 2. Hypernatremia, improved. Continue free water flushes. 3. Anemia of chronic disease. Continue to monitor hemoglobin and hematocrit. We will resume Epoge n at a lower dose, 6000 units after dialysis. 4. Ventilator-dependent respiratory failure. Vent settings have been reviewed. Continue to monito r. 5. Dysphagia, status PEG. Continue tube feedings. 6. Sepsis, status post shock. The patient has completed antibiotic course. 7. Encephalopathy with severe anoxic injury. No change. Continue to monitor. 8. Diabetes. Continue current insulin regimen. 9. Status post code arrest. The patient has an extremely poor prognosis. Dictated By: KENTON HARGROVE Conf#: [id number] DID#: [id number]
--- NOTE | 2016-07-31 12:16 | CONS ---
Date/Time of Note Date/Time of Note DATE: 07/31/16 TIME: 12:14 Assessment/Plan Assessment/Plan Additional Assessment/Plan Ventilator settings; AC of 20, tidal volume 500, PEEP of 5, 30% FiO2. Assessment recommendations; 1. Patient admitted with cardiac arrest status post prolonged CPR with likely significant anoxic brain injury. 2. History of diabetes, end-stage renal disease, seizure disorder. 3. Status post severe bilateral pneumonia with marked radiological improvement. Patient off antibiotics. 4. Patient does have spontaneous respirations. Recommendations: Patient can be transferred back to the long term with continuation of current supportive care. Overall prognosis remains dismal. Consultation Date/Type/Reason Admit Date/Time Jul 17, 2016 at 13:33 Type of Consultation: Pulmonary Referring Provider: ERMA JACOBS 24 HR Interval Summary Free Text/Dictation Patient condition remains unchanged. Remains profoundly unresponsive. No overt seizure activity noted. General exam; young male, on ventilator via tracheostomy currently in no distress, unresponsive. Exam/Review of Systems Vital Signs Vitals Vital Signs Date Time Temp Pulse Resp B/P Pulse Ox O2 Delivery O2 Flow Rate FiO2 07/31/16 11:26 98.5 93 18 87/83 96 07/31/16 11:05 30 Intake and Output 07/30/16 07/30/16 07/31/16 15:00 23:00 07:00 Intake Total 107.5 ml 320 ml 380 ml Output Total 200 ml 250 ml Balance 107.5 ml 120 ml 130 ml Exam HEENT exam is; supple neck, no JVD. No lymphadenopathy. Midline trachea. Tracheostomy in place with clean insertion site. Pupils are midsize and nonreactive to light. Chest exam is; clear to auscultation. S1-S2 audible, no murmurs. Regular rhythm. Abdomen exam is; soft, scaphoid, G-tube in place. Bowel sounds audible. Extremity exam is; no peripheral edema. ACCELERATOR SYSTEMS DIRECTOR exam is; patient remains unresponsive to Results Result Diagram: 07/29/16 0615 07/29/1615 Results 24 hrs Laboratory Tests Test 07/30/16 13:41 07/30/16 17:30 07/30/16 21:25 07/30/16 23:14 Bedside Glucose 174 107 83 64 L Test 07/30/16 23:30 07/30/16 23:58 07/31/16 06:05 07/31/16 06:20 Bedside Glucose 62 L 121 136 Magnesium Level 2.7 H Test 07/31/16 08:50 Bedside Glucose 171 Medications Medications Current Medications Ondansetron HCl (Zofran Inj) 4 mg Q6H PRN IV NAUSEA AND/OR VOMITING; Start at 16:00 Pantoprazole (Protonix Iv) 40 mg DAILY@06 IV Last administered on 07/31/16 06: 59; Admin Dose 40 MG; Start 07/18/16 at 06:00 Bisacodyl (Dulcolax Supp) 10 mg Q24H PRN [place] CONSTIPATION; Start 07/17/16 at 16: 00 Lorazepam (Ativan) 1 mg Q1H PRN IV seziure activity; Start 07/17/16 at 22:30 Acetaminophen (Tylenol Liquid) 650 mg Q6H PRN GTB PAIN AND OR ELEVATED TEMP Last administered on 07/22/16 01:05; Admin Dose 650 MG; Start 07/18/16 at 02:00 Miscellaneous Information 1 ea NOTE XX ; Start 07/18/16 at 02:00 Glucose (Glutose) 15 gm Q15M PRN PO DECREASED GLUCOSE; Start 07/18/16 at 02:00 Glucose (Glutose) 22.5 gm Q15M PRN PO DECREASED GLUCOSE; Start 07/18/16 at 02:00 Dextrose (D50w Syringe) 25 ml Q15M PRN IV DECREASED GLUCOSE Last administered on 07/30/16 23:31; Admin Dose 25 ML; Start 07/18/16 at 02:00 Dextrose (D50w Syringe) 50 ml Q15M PRN IV DECREASED GLUCOSE Last administered on 07/20/16 20:11; Admin Dose 50 ML; Start 07/18/16 at 02:00 Glucagon (Glucagen) 1 mg Q15M PRN IM DECREASED GLUCOSE; Start 07/18/16 at 02:00 Glucose 15 gm 15 gm Q15M PRN BUCCAL DECREASED GLUCOSE; Start 07/18/16 at 02:00 Levetiracetam/ Sodium Chloride (Keppra Iv/NS) 107.5 ml @ 430 mls/hr Q12 IVPB Last administered on 07/31/16 09:02; Admin Dose 430 MLS/HR; Start 07/18/16 at 15 :00 Mupirocin (Bactroban) 1 applic BID TOP Last administered on 07/31/16 08:59; Admin Dose 1 APPLIC; Start 07/19/16 at 12:00 Polyethylene Glycol (Miralax) 17 gm DAILY NGT Last administered on 07/30/16 08 :08; Admin Dose 17 GM; Start 07/21/16 at 11:00 Collagenase (Santyl) 1 applic DAILY PRN TOP WHEN SOILED Last administered on 23:34; Admin Dose 1 APPLIC; Start 07/22/16 at 16:30 Heparin Sodium (Porcine) (Heparin (5000 Units/0.5 ml)) 5,000 unit BID SC Last administered on 07/31/16 08:56; Admin Dose 5,000 UNIT; Start 07/23/16 at 21:00 Metoclopramide HCl (Reglan) 5 mg Q6H IV Last administered on 07/31/16 11:44; Admin Dose 5 MG; Start 07/26/16 at 18:00 Insulin Aspart (Novolog Insulin Pen) NOVOLOG *MILD* ALGORI... Q4 SC Last administered on 07/31/16 08:56; Admin Dose 1 UNIT; Start 07/30/16 at 09:00 Insulin Human NPH (Humulin N) 10 unit Q8 SC Last administered on 07/30/16 13: 46; Admin Dose 10 UNIT; Start 07/30/16 at 14:00 CHANCE AVILA Jul 31, 2016 12:16
[2016-07-31] MEDS ORDERED: ALBUMIN HUMAN 25% 100 ML IV ONE (14:00)
--- NOTE | 2016-07-31 15:38 | CONS ---
Date/Time of Note Date/Time of Note DATE: 07/31/16 TIME: 15:37 Assessment/Plan Assessment/Plan Chief Complaint/Hosp Course SUBJECTIVE: No changes. Noncommunicative, lying comfortably in bed. No fevers. HD in progress. Mother at bedside INDWELLINGS: Trach, PEG, left upper extremity AV fistula, rectal tube. PHYSICAL EXAMINATION: GENERAL: Chronically ill-appearing, middle-aged white man who is unresponsive. HEENT: Head atraumatic, normocephalic. Pupils are dilated. Buccal mucosa dry. NECK: Supple. Tracheostomy present. CHEST: Rise symmetrical. Breath sounds diminished to bases. HEART: S1, S2. ABDOMEN: Soft. Bowel tones present. EXTREMITIES: Without cyanosis. ASSESSMENT: 1. Leukocytosis ?reactive 2. S/p septic shock 3. Diarrhea==> C dif negative. 4. Chronic respiratory failure, possible aspiration. 5. Anoxic encephalopathy status post cardiopulmonary arrest. 6. Diabetes. 7. Methicillin-resistant Staphylococcus aureus nares colonization. 8. End-stage renal disease, hemodialysis dependent. PLAN: Clinically unchanged. Off abx, will berger cx prn DW staff Problems: Consultation Date/Type/Reason Admit Date/Time Jul 17, 2016 at 13:33 Type of Consultation: id Referring Provider: ERMA JACOBS Exam/Review of Systems Vital Signs Vitals Vital Signs Date Time Temp Pulse Resp B/P Pulse Ox O2 Delivery O2 Flow Rate FiO2 07/31/16 15:29 98.5 99 18 121/66 100 07/31/16 13:20 30 Intake and Output 07/30/16 07/30/16 07/31/16 15:00 23:00 07:00 Intake Total 107.5 ml 320 ml 380 ml Output Total 200 ml 250 ml Balance 107.5 ml 120 ml 130 ml Results Result Diagram: 07/29/16 0615 07/29/16 0615 Results 24 hrs Laboratory Tests Test 07/30/16 17:30 07/30/16 21:25 07/30/16 23:14 07/30/16 23:30 Bedside Glucose 107 83 64 L 62 L Test 07/30/16 23:58 07/31/16 06:05 07/31/16 06:20 07/31/16 08:50 Bedside Glucose 121 136 171 Magnesium Level 2.7 H Test 07/31/16 14:22 Bedside Glucose 198 Medications Medications Current Medications Ondansetron HCl (Zofran Inj) 4 mg Q6H PRN IV NAUSEA AND/OR VOMITING; Start at 16:00 Pantoprazole (Protonix Iv) 40 mg DAILY@06 IV Last administered on 07/31/16 06: 59; Admin Dose 40 MG; Start 07/18/16 at 06:00 Bisacodyl (Dulcolax Supp) 10 mg Q24H PRN [place] CONSTIPATION; Start 07/17/16 at 16: 00 Lorazepam (Ativan) 1 mg Q1H PRN IV seziure activity; Start 07/17/16 at 22:30 Acetaminophen (Tylenol Liquid) 650 mg Q6H PRN GTB PAIN AND OR ELEVATED TEMP Last administered on 07/22/16 01:05; Admin Dose 650 MG; Start 07/18/16 at 02:00 Miscellaneous Information 1 ea NOTE XX ; Start 07/18/16 at 02:00 Glucose (Glutose) 15 gm Q15M PRN PO DECREASED GLUCOSE; Start 07/18/16 at 02:00 Glucose (Glutose) 22.5 gm Q15M PRN PO DECREASED GLUCOSE; Start 07/18/16 at 02:00 Dextrose (D50w Syringe) 25 ml Q15M PRN IV DECREASED GLUCOSE Last administered on 07/30/16 23:31; Admin Dose 25 ML; Start 07/18/16 at 02:00 Dextrose (D50w Syringe) 50 ml Q15M PRN IV DECREASED GLUCOSE Last administered on 07/20/16 20:11; Admin Dose 50 ML; Start 07/18/16 at 02:00 Glucagon (Glucagen) 1 mg Q15M PRN IM DECREASED GLUCOSE; Start 07/18/16 at 02:00 Glucose 15 gm 15 gm Q15M PRN BUCCAL DECREASED GLUCOSE; Start 07/18/16 at 02:00 Levetiracetam/ Sodium Chloride (Keppra Iv/NS) 107.5 ml @ 430 mls/hr Q12 IVPB Last administered on 07/31/16 09:02; Admin Dose 430 MLS/HR; Start 07/18/16 at 15 :00 Mupirocin (Bactroban) 1 applic BID TOP Last administered on 07/31/16 08:59; Admin Dose 1 APPLIC; Start 07/19/16 at 12:00 Polyethylene Glycol (Miralax) 17 gm DAILY NGT Last administered on 07/30/16 08 :08; Admin Dose 17 GM; Start 07/21/16 at 11:00 Collagenase (Santyl) 1 applic DAILY PRN TOP WHEN SOILED Last administered on 23:34; Admin Dose 1 APPLIC; Start 07/22/16 at 16:30 Heparin Sodium (Porcine) (Heparin (5000 Units/0.5 ml)) 5,000 unit BID SC Last administered on 07/31/16 08:56; Admin Dose 5,000 UNIT; Start 07/23/16 at 21:00 Metoclopramide HCl (Reglan) 5 mg Q6H IV Last administered on 07/31/16 11:44; Admin Dose 5 MG; Start 07/26/16 at 18:00 Insulin Aspart (Novolog Insulin Pen) NOVOLOG *MILD* ALGORI... Q4 SC Last administered on 07/31/16 08:56; Admin Dose 1 UNIT; Start 07/30/16 at 09:00 Insulin Human NPH (Humulin N) 10 unit Q8 SC Last administered on 07/30/16 13: 46; Admin Dose 10 UNIT; Start 07/30/16 at 14:00 MICKY MIRANDA NP Jul 31, 2016 15:37
--- NOTE | 2016-07-31 17:21 | PN ---
Date/Time of Note Date/Time of Note DATE: 07/31/16 TIME: 17:16 Assessment/Plan VTE Prophylaxis VTE Prophylaxis Intervention: other (not on prophylaxis at this point in by primary team) Lines/Catheters IV Catheter Type (from Nrs): Saline Lock Urinary Cath still in place: No Subjective 24 Hr Interval Summary Free Text/Dictation 35 yr old chronically and acutely ill man with severe wasting, respiratory arrest. no spontaneous respirations, being taken to xray for thoracentesis diabetes now on q8 nph 10u plus premeal novolog, bloods sugar control overall better, could increase nph sl but would wait to see hows he progresses otherwise unable to examine as is being transported, noncommunicative Subjective hx not possible: pt non-verbal Exam/Review of Systems Vital Signs Vitals Vital Signs Date Time Temp Pulse Resp B/P Pulse Ox O2 Delivery O2 Flow Rate FiO2 07/31/16 16:15 99 07/31/16 15:29 98.5 18 121/66 100 07/31/16 15:15 30 Intake and Output 07/30/16 07/30/16 07/31/16 15:00 23:00 07:00 Intake Total 107.5 ml 320 ml 380 ml Output Total 200 ml 250 ml Balance 107.5 ml 120 ml 130 ml Results Result Diagram: 07/29/16 0615 07/29/16 0615 Results 24 hrs Laboratory Tests Test 07/30/16 17:30 07/30/16 21:25 07/30/16 23:14 07/30/16 23:30 Bedside Glucose 107 83 64 L 62 L Test 07/30/16 23:58 07/31/16 06:05 07/31/16 06:20 07/31/16 08:50 Bedside Glucose 121 136 171 Magnesium Level 2.7 H Test 07/31/16 14:22 Bedside Glucose 198 Medications Medications Current Medications Ondansetron HCl (Zofran Inj) 4 mg Q6H PRN IV NAUSEA AND/OR VOMITING; Start at 16:00 Pantoprazole (Protonix Iv) 40 mg DAILY@06 IV Last administered on 07/31/16t 06: 59; Admin Dose 40 MG; Start 07/18/16 at 06:00 Bisacodyl (Dulcolax Supp) 10 mg Q24H PRN [place] CONSTIPATION; Start 07/17/16 at 16: 00 Lorazepam (Ativan) 1 mg Q1H PRN IV seziure activity; Start 07/17/16 at 22:30 Acetaminophen (Tylenol Liquid) 650 mg Q6H PRN GTB PAIN AND OR ELEVATED TEMP Last administered on 07/22/16 01:05; Admin Dose 650 MG; Start 07/18/16 at 02:00 Miscellaneous Information 1 ea NOTE XX ; Start 07/18/16 at 02:00 Glucose (Glutose) 15 gm Q15M PRN PO DECREASED GLUCOSE; Start 07/18/16 at 02:00 Glucose (Glutose) 22.5 gm Q15M PRN PO DECREASED GLUCOSE; Start 07/18/16 at 02:00 Dextrose (D50w Syringe) 25 ml Q15M PRN IV DECREASED GLUCOSE Last administered on 07/30/16 23:31; Admin Dose 25 ML; Start 07/18/16 at 02:00 Dextrose (D50w Syringe) 50 ml Q15M PRN IV DECREASED GLUCOSE Last administered on 07/20/16 20:11; Admin Dose 50 ML; Start 07/18/16 at 02:00 Glucagon (Glucagen) 1 mg Q15M PRN IM DECREASED GLUCOSE; Start 07/18/16 at 02:00 Glucose 15 gm 15 gm Q15M PRN BUCCAL DECREASED GLUCOSE; Start 07/18/16 at 02:00 Levetiracetam/ Sodium Chloride (Keppra Iv/NS) 107.5 ml @ 430 mls/hr Q12 IVPB Last administered on 07/31/16 09:02; Admin Dose 430 MLS/HR; Start 07/18/16 at 15 :00 Mupirocin (Bactroban) 1 applic BID TOP Last administered on 07/31/16 08:59; Admin Dose 1 APPLIC; Start 07/19/16 at 12:00 Collagenase (Santyl) 1 applic DAILY PRN TOP WHEN SOILED Last administered on 23:34; Admin Dose 1 APPLIC; Start 07/22/16 at 16:30 Heparin Sodium (Porcine) (Heparin (5000 Units/0.5 ml)) 5,000 unit BID SC Last administered on 07/31/16 08:56; Admin Dose 5,000 UNIT; Start 07/23/16 at 21:00 Metoclopramide HCl (Reglan) 5 mg Q6H IV Last administered on 07/31/16 11:44; Admin Dose 5 MG; Start 07/26/16 at 18:00 Insulin Aspart (Novolog Insulin Pen) NOVOLOG *MILD* ALGORI... Q4 SC Last administered on 07/31/16 08:56; Admin Dose 1 UNIT; Start 07/30/16 at 09:00 Insulin Human NPH (Humulin N) 10 unit Q8 SC Last administered on 07/30/16 13: 46; Admin Dose 10 UNIT; Start 07/30/16 at 14:00 FEI LLANOS MD Jul 31, 2016 17:21
--- NOTE | 2016-07-31 18:07 | PN ---
Date/Time of Note Date/Time of Note DATE: 07/31/16 TIME: 18:05 Assessment/Plan VTE Prophylaxis VTE Prophylaxis Intervention: heparin Lines/Catheters IV [facility] Saline Lock Urinary Cath still in place: No Assessment/Plan Chief Complaint/Hosp Course 1. Cardiac arrest secondary to septic shock- The patient now remains off pressors 2. Severe anoxic encephalopathy-severe encephalopathy noted on EEG Dr. Penny of palliative care aware, will need to discuss with patient's mother Perfusion scan will be done to evaluate for brain , patient does over breathe the vent and hence apnea test would not be useful at this time, patient is either brain or in a vegetative state Family conference was held today with mother and she was explained about the current situation 3. 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 4. Bilateral Multifocal Pneumonia causing Sepsis 5. End-stage renal disease on hemodialysis. 6. Acute on chronic respiratory failure, remains ventilator-dependent. 7. Anemia secondary to chronic kidney disease. 8. Methicillin-resistant Staphylococcus aureus nares. 9. Chronic dysphagia, on PEG feeds with high residuals. 10. Chronic debility secondary to chronically uncontrolled diabetes type 1 with recurrent episodes of pneumonia causing recurrent hospitalization and now trach and gastrostomy placement, with chronic muscle wasting and foot drop. 11. Diarrhea + high PEG feed residuals PROPHYLAXIS: Heparin + Protonix IV Problems: Subjective 24 Hr Interval Summary Subjective hx not possible: pt non-verbal Exam/Review of Systems Vital Signs Vitals Vital Signs Date Time Temp Pulse Resp B/P Pulse Ox O2 Delivery O2 Flow Rate FiO2 07/31/16 16:15 99 07/31/16 15:29 98.5 18 121/66 100 07/31/16 15:15 30 Intake and Output 07/30/16 07/30/16 07/31/16 15:00 23:00 07:00 Intake Total 107.5 ml 320 ml 380 ml Output Total 200 ml 250 ml Balance 107.5 ml 120 ml 130 ml Exam Constitutional: non-verbal Respiratory: clear to auscultation Cardiovascular: regular rate and rhythm Gastrointestinal: soft, No distended Musculoskeletal: nl extremities to inspection Results Result Diagram: 07/29/16 0615 07/29/16 0615 Results 24 hrs Laboratory Tests Test 07/30/16 21:25 07/30/16 23:14 07/30/16 23:30 07/30/16 23:58 Bedside Glucose 83 64 L 62 L 121 Test 07/31/16 06:05 07/31/16 06:20 07/31/16 08:50 07/31/16 14:22 Magnesium Level 2.7 H Bedside Glucose 136 171 198 Medications Medications Current Medications Ondansetron HCl (Zofran Inj) 4 mg Q6H PRN IV NAUSEA AND/OR VOMITING; Start at 16:00 Pantoprazole (Protonix Iv) 40 mg DAILY@06 IV Last administered on 07/31/16 06: 59; Admin Dose 40 MG; Start 07/18/16 at 06:00 Bisacodyl (Dulcolax Supp) 10 mg Q24H PRN [place] CONSTIPATION; Start 07/17/16 at 16: 00 Lorazepam (Ativan) 1 mg Q1H PRN IV seziure activity; Start 07/17/16 at 22:30 Acetaminophen (Tylenol Liquid) 650 mg Q6H PRN GTB PAIN AND OR ELEVATED TEMP Last administered on 07/22/16 01:05; Admin Dose 650 MG; Start 07/18/16 at 02:00 Miscellaneous Information 1 ea NOTE XX ; Start 07/18/16 at 02:00 Glucose (Glutose) 15 gm Q15M PRN PO DECREASED GLUCOSE; Start 07/18/16 at 02:00 Glucose (Glutose) 22.5 gm Q15M PRN PO DECREASED GLUCOSE; Start 07/18/16 at 02:00 Dextrose (D50w Syringe) 25 ml Q15M PRN IV DECREASED GLUCOSE Last administered on 07/30/16 23:31; Admin Dose 25 ML; Start 07/18/16 at 02:00 Dextrose (D50w Syringe) 50 ml Q15M PRN IV DECREASED GLUCOSE Last administered on 07/20/16 20:11; Admin Dose 50 ML; Start 07/18/16 at 02:00 Glucagon (Glucagen) 1 mg Q15M PRN IM DECREASED GLUCOSE; Start 07/18/16 at 02:00 Glucose 15 gm 15 gm Q15M PRN BUCCAL DECREASED GLUCOSE; Start 07/18/16 at 02:00 Levetiracetam/ Sodium Chloride (Keppra Iv/NS) 107.5 ml @ 430 mls/hr Q12 IVPB Last administered on 07/31/16 09:02; Admin Dose 430 MLS/HR; Start 07/18/16 at 15 :00 Mupirocin (Bactroban) 1 applic BID TOP Last administered on 07/31/16 08:59; Admin Dose 1 APPLIC; Start 07/19/16 at 12:00 Collagenase (Santyl) 1 applic DAILY PRN TOP WHEN SOILED Last administered on 23:34; Admin Dose 1 APPLIC; Start 07/22/16 at 16:30 Heparin Sodium (Porcine) (Heparin (5000 Units/0.5 ml)) 5,000 unit BID SC Last administered on 07/31/16 08:56; Admin Dose 5,000 UNIT; Start 07/23/16 at 21:00 Metoclopramide HCl (Reglan) 5 mg Q6H IV Last administered on 07/31/16 11:44; Admin Dose 5 MG; Start 07/26/16 at 18:00 Insulin Aspart (Novolog Insulin Pen) NOVOLOG *MILD* ALGORI... Q4 SC Last administered on 07/31/16 08:56; Admin Dose 1 UNIT; Start 07/30/16 at 09:00 Insulin Human NPH (Humulin N) 10 unit Q8 SC Last administered on 07/30/16 13: 46; Admin Dose 10 UNIT; Start 07/30/16 at 14:00 DIANE GIBBONS Jul 31, 2016 18:07
[2016-07-31] MEDS: EPOETIN 3000 UNITS/1 ML INJ (ESRD) SC SCH (18:40)
--- NOTE | 2016-07-31 21:00 | RADRPT ---
PROCEDURE: Intracerebral perfusion study CLINICAL INDICATION: 35 year old patient with altered mental status. TECHNIQUE: Following the intravenous injection of 17.6 mCi of Tc-99m pertechnetate, multiple dynamic anterior images of the head were obtained along with multiple delayed anterior, posterior and later al images of the head up to 20 minutes post injection. COMPARISON: Previous intracerebral perfusion study dated July 22, 2016. CT scan of the brain dated July 19, 2016. FINDINGS: Multiple anterior dynamic images of the head demonstrate blood flow in the carotid arteries bilatera lly from the start of the study. Normally expected trident appearance of the intracerebral vessels is visualized, unchanged since the prior examination. Delayed anterior, posterior and lateral spot images of the head demonstrate activity in the transver se and sagittal sinuses unchanged since the previous study. IMPRESSION: No definite scintigraphic evidence to suggest the presence of brain , unchanged since the previ ous study. RPTAT: QQ .Margaret Richards MD, Date Time Electronically viewed and signed by .Margaret Richards MD, on 07/31/2016 21:00 .L/
[2016-08-01] VITALS (25 sets, daily range): BP systolic 88–94; BP diastolic 51–62; PULSE 84–94; RESP 16–24
[2016-08-01] MEDS: METOCLOPRAMIDE 10 MG INJ IV SCH ×5 (00:27→23:28)
[2016-08-01] MEDS: INSULIN ASPART [NOVOLOG] 3 ML PEN SC SCH ×6 (00:31→20:35)
[2016-08-01] MEDS: NPH, HUMAN INSULIN ISOPHANE 3ML VIAL SC SCH ×3 (05:26→21:49)
[2016-08-01] MEDS: PANTOPRAZOLE 40 MG INJ IV SCH (05:26)
[2016-08-01 07:00] LABS: ADD SCAN DIFF NO
[2016-08-01 07:05] LABS: BASOPHILS % 0.3 % (0.0-2.0); EOSINOPHILS # 0.1 10^3/ul (0.0-0.5); EOSINOPHILS % 0.4 % (0.0-7.0); HEMATOCRIT 34.3 % (42.0-52.0); HEMOGLOBIN 10.2 g/dl (14.0-18.0); LYMPHOCYTES % 6.6 % (15.0-51.0); MEAN CORPUSCULAR HEMOGLOBIN 30.5 pg (29.0-33.0); MEAN CORPUSCULAR HGB CONC 29.7 g/dl (32.0-37.0); MEAN CORPUSCULAR VOLUME 102.7 fl (82.0-101.0); MEAN PLATELET VOLUME 10.9 fl (7.4-10.4); MONOCYTES % 6.4 % (0.0-11.0); NEUTROPHIL # 13.6 10^3/ul (1.6-7.5); PLATELET COUNT 170 10^3/UL (140-415); RED BLOOD COUNT 3.34 10^6/ul (4.70-6.10); WHITE BLOOD COUNT 15.8 10^3/ul (4.8-10.8)
[2016-08-01 07:31] LABS: CALCIUM 8.9 mg/dl (8.4-10.2); CREATININE 2.21 mg/dl (0.61-1.24); MAGNESIUM 2.5 mg/dl (1.7-2.5); PHOSPHORUS 3.4 mg/dl (2.5-4.9); POTASSIUM 4.1 mmol/L (3.5-5.1)
[2016-08-01] MEDS: HEPARIN 5,000 UNIT/0.5 ML VIAL SC SCH ×2 (08:19→20:37)
[2016-08-01] MEDS: MUPIROCIN 2% 22 GM OINT TOP SCH ×2 (08:21→21:47)
[2016-08-01] MEDS: LEVETIRACETAM IV 750 MG in SOD CHLORIDE 0.9% 100 ML IVPB SCH ×2 (08:21→20:39)
--- NOTE | 2016-08-01 09:05 | PN ---
DATE: FOLLOWUP NOTE HISTORY OF PRESENT ILLNESS: The patient is a 35-year-old with multiple medical problems including ca rdiopulmonary arrest secondary to septic shock, severe anoxic encephalopathy, diabetes type 2, mild ____pneumonia, sepsis, end-stage renal disease on hemodialysis, acute on top of chronic respiratory failure, ventilation, anemia, chronic renal disease, MRSA infection, chronic dysphagia, PEG tube fee ding with high residual. CURRENT MEDICATIONS: Include: 1. Epogen 6000 units subcutaneous once a day. 2. Humalog insulin 10 units once a day. 3. NovoLog insulin. 4. Reglan 5 mg once a day. 5. Protonix 40 mg once a day. 6. Tylenol 650 mg every 6 hours as needed. 7. IV ____, 8. Zofran 4 mg every 6 hours as needed. 9. Dulcolax 10 mg once a day. PHYSICAL EXAMINATION: GENERAL: On exam today, the patient does not follow any verbal or painful stimuli. He is accompanied by his mother in the room. She came from ____yesterday. CRANIAL NERVES: Cranial nerve II pupils sluggishly reactive to light. Cranial nerves III, IV and V I diminished movement for doll's maneuver. Cranial nerves V and VII with weak corneal reflex. Cran ial nerves VIII through XII: Could not assess. MOTOR: The patient does not have movement for painful stimuli. Sensation, gait and coordination: Could not assess. HEART: Regular rate and rhythm. LUNGS: Equal breath sounds. ABDOMEN: Soft, relaxed, nondistended. No tenderness. ASSESSMENT AND PLAN: 1. The patient is a 35-year-old. He is comatose, unresponsive for verbal or painful stimuli. 2. Electroencephalogram with diffuse slowing extremely 1 Hz with poor prognosis, in which I counse led his mother as well as the primary physician for him. 3. History of end-stage renal disease; the patient is on dialysis ____. 4. Cardiopulmonary arrest. 5. History of acute hypoxic encephalopathy. 6. Dysphagia with PEG tube feeding with some residual. 7. To keep the patient under deep venous thrombosis prophylaxis as well as decubitus ulcer prophyla xis. Again, thank you for asking me to see the patient with you. Dictated By: MARY BETH CASILLAS/LAURA Conf#: [id number] [facility]#: [id number]
--- NOTE | 2016-08-01 10:14 | CONS ---
Date/Time of Note Date/Time of Note DATE: 08/01/16 TIME: 10:11 Assessment/Plan Assessment/Plan Problems: (1) Diabetes type I Status: Chronic Comment: Glucose levels mildly above goal on NPH 10 units q8. However, this dose just restarted and pt. previously hypoglycemic on same dose. Therefore will maintain and monitor for now. Given over all prognosis, not sure glycemic control is of high value in this patient. Qualifiers: Diabetes mellitus complication status: with unspecified complications Qualified Code: E10.8 - Type 1 diabetes mellitus with complication Consultation Date/Type/Reason Admit Date/Time Jul 17, 2016 at 13:33 Initial Consult Date 07/25/16 Type of Consultation: Endocrinology Reason for Consultation T1DM management Referring Provider: ERMA JACOBS 24 HR Interval Summary Subjective hx not possible: pt non-verbal Exam/Review of Systems Vital Signs Vitals VS - Last 72 Hours, by Label Date Time Temp Pulse Resp B/P Pulse Ox O2 Delivery O2 Flow Rate FiO2 08/01/16 09:10 87 24 97 30 08/01/16 08:27 92 08/01/16 07:24 98.6 92 18 91/54 93 08/01/16 07:15 84 22 98 30 08/01/16 05:33 86 21 98 30 08/01/16 04:24 84 08/01/16 04:12 98.2 85 16 92/57 98 08/01/16 03:35 81 20 98 30 08/01/16 01:48 85 20 99 30 08/01/16 01:10 94/62 08/01/16 00:50 97.2 91 17 88/51 94 08/01/16 00:45 85 07/31/16 23:33 91 20 99 30 07/31/16 21:37 30 07/31/16 21:32 88 20 100 30 07/31/16 20:30 98.9 89 18 102/67 96 07/31/16 20:30 90 07/31/16 19:46 90 20 98 30 07/31/16 17:10 94 22 100 30 07/31/16 16:15 99 07/31/16 15:29 98.5 99 18 121/66 100 07/31/16 15:15 103 07/31/16 15:15 99 21 07/31/16 15:15 97 22 99 30 4/14/17 14:45 103 14/17 14:30 96 14/17 14:15 96 14/17 14:00 99 14/17 13:45 96 14/17 13:30 95 14/17 13:20 98 25 97 30 17 13:15 95 17 13:00 94 17 12:56 97 17 12:45 95 17 12:15 92 26 17 11:26 98.5 93 18 87/83 96 07/31/16 11:05 69 23 98 30 17 09:30 93 22 97 30 07/31/16 09:00 30 17 08:23 91 07/31/16 07:45 98 21 98 30 07/31/16 07:26 97.7 56 18 92/59 99 07/31/16 06:00 97.7 93 18 99/59 07/31/16 04:55 88 20 99 30 17 04:04 90 07/31/16 04:01 97.6 99 20 92/56 99 07/31/16 02:57 92 20 98 30 07/31/16 01:35 88 21 97 30 07/31/16 00:04 95 07/31/16 00:00 30 07/30/16 23:52 97.6 89 20 91/56 98 17 23:15 89 20 98 30 17 21:05 94 22 96 30 17 20:20 94 23 98 30 17 20:06 97.6 61 20 84/54 97 07/30/17 20:03 95 07/30/17 17:10 100 20 97 30 07/30/17 16:51 86 07/30/17 16:01 98.0 87 27 101/68 95 13/17 15:20 81 20 99 30 07/30/17 13:20 87 20 99 30 07/30/17 12:20 93 17 12:07 98.2 81 26 144/83 97 13/17 11:15 89 20 99 30 07/30/17 09:05 94 20 99 30 17 09:00 30 4/13/17 08:21 96 4/13/17 07:59 98.7 96 24 91/54 97 07/30/16 07:40 98 20 97 30 07/30/16 06:05 92 20 100 30 07/30/16 04:56 87 07/30/16 04:00 97.6 89 20 113/72 92 07/30/16 03:50 95 20 100 30 07/30/16 01:21 90 07/30/16 01:00 88 20 100 30 07/30/16 00:06 97.6 90 20 109/74 99 07/29/16 22:56 91 20 100 30 07/29/16 21:25 90 20 100 30 07/29/16 20:43 91 07/29/16 20:20 88 20 100 30 07/29/16 20:17 98.8 94 20 118/77 98 07/29/16 20:00 30 07/29/16 17:05 92 20 100 30 07/29/16 16:46 96 07/29/16 16:43 98.8 89 29 120/81 98 07/29/16 15:20 98 07/29/16 15:20 98 20 07/29/16 15:20 89 20 100 30 07/29/16 14:50 95 07/29/16 14:20 91 07/29/16 13:50 91 07/29/16 13:20 96 07/29/16 13:15 92 20 100 30 07/29/16 13:05 96 07/29/16 12:50 97 20 07/29/16 12:50 97 07/29/16 12:26 98.2 80 18 136/64 98 07/29/16 12:25 85 07/29/16 11:40 91 20 100 30 Vital Signs Date Time Temp Pulse Resp B/P Pulse Ox O2 Delivery O2 Flow Rate FiO2 08/01/16 09:10 87 24 97 30 08/01/16 07:24 98.6 91/54 Intake and Output 07/31/16 07/31/16 08/01/16 14:59 22:59 06:59 Intake Total 107.5 ml 850 ml 457.5 ml Output Total 1300 ml 0 ml Balance 107.5 ml -450 ml 457.5 ml Exam Constitutional: frail, non-verbal, No alert Neck: other ((+) trach on vent) Respiratory: clear to auscultation, normal air movement Cardiovascular: nl pulses, regular rate and rhythm, No edema, No murmurs/extra sounds, No rub Gastrointestinal: bowel sounds, nl liver, spleen, non-tender, soft, No mass, No rebound or guarding Musculoskeletal: nl extremities to inspection Extremities: normal pulses, No clubbing, No cyanosis, No edema Neurological: unresponsive Additional Comments Bedside Glucose - 72 Hours Test 07/29/16 11:53 07/29/16 14:34 07/29/16 17:40 07/29/16 21:31 Bedside Glucose 344mg/dL (70-220) H 251mg/dL (70-220) H 297mg/dL (70-220) H 301mg/dL (70-220) H Test 07/30/16 05:28 07/30/16 10:52 07/30/16 13:41 07/30/16 17:30 Bedside Glucose 287mg/dL (70-220) H 250mg/dL (70-220) H 174mg/dL (70-220) 107mg/dL (70-220) Test 07/30/16 21:25 07/30/16 23:14 07/30/16 23:30 07/30/16 23:58 Bedside Glucose 83mg/dL (70-220) 64mg/dL (70-220) L 62mg/dL (70-220) L 121mg/dL (70-220) Test 07/31/16 06:20 07/31/16 08:50 07/31/16 14:22 07/31/16 18:31 Bedside Glucose 136mg/dL (70-220) 171mg/dL (70-220) 198mg/dL (70-220) 217mg/dL (70-220) Test 07/31/16 20:55 08/01/16 00:26 08/01/16 05:23 08/01/16 08:27 Bedside Glucose 196mg/dL (70-220) 177mg/dL (70-220) 231mg/dL (70-220) H 215mg/dL (70-220) Results Result Diagram: 08/01/16 0630 08/01/16 0630 Results 24 hrs Laboratory Tests Test 07/31/16 14:22 07/31/16 18:31 07/31/16 20:55 08/01/16 00:26 Bedside Glucose 198 217 196 177 Test 08/01/16 05:23 08/01/16 06:30 08/01/16 08:27 Bedside Glucose 231 H 215 White Blood Count 15.8 H Red Blood Count 3.34 L Hemoglobin 10.2 L Hematocrit 34.3 L Mean Corpuscular Volume 102.7 H Mean Corpuscular Hemoglobin 30.5 Mean Corpuscular Hemoglobin Concent 29.7 L Red Cell Distribution Width 19.0 H Platelet Count 170 # Mean Platelet Volume 10.9 H Neutrophils % 86.0 H Lymphocytes % 6.6 L Monocytes % 6.4 Eosinophils % 0.4 Basophils % 0.3 Nucleated Red Blood Cells % 0.0 Neutrophils # 13.6 H Lymphocytes # 1.0 Monocytes # 1.0 H Eosinophils # 0.1 Basophils # 0.0 Nucleated Red Blood Cells # 0.0 Sodium Level 138 Potassium Level 4.1 Chloride Level 105 Carbon Dioxide Level 24 Anion Gap 13 Blood Urea Nitrogen 37 H Creatinine 2.21 H Glucose Level 246 H Calcium Level 8.9 Phosphorus Level 3.4 Magnesium Level 2.5 Medications Medications Current Medications Ondansetron HCl (Zofran Inj) 4 mg Q6H PRN IV NAUSEA AND/OR VOMITING; Start at 16:00 Pantoprazole (Protonix Iv) 40 mg DAILY@06 IV Last administered on 08/01/16 05: 26; Admin Dose 40 MG; Start 07/18/16 at 06:00 Bisacodyl (Dulcolax Supp) 10 mg Q24H PRN [place] CONSTIPATION; Start 07/17/16 at 16: 00 Lorazepam (Ativan) 1 mg Q1H PRN IV seziure activity; Start 07/17/16 at 22:30 Acetaminophen (Tylenol Liquid) 650 mg Q6H PRN GTB PAIN AND OR ELEVATED TEMP Last administered on 07/22/16 01:05; Admin Dose 650 MG; Start 07/18/16 at 02:00 Miscellaneous Information 1 ea NOTE XX ; Start 07/18/16 at 02:00 Glucose (Glutose) 15 gm Q15M PRN PO DECREASED GLUCOSE; Start 07/18/16 at 02:00 Glucose (Glutose) 22.5 gm Q15M PRN PO DECREASED GLUCOSE; Start 07/18/16 at 02:00 Dextrose (D50w Syringe) 25 ml Q15M PRN IV DECREASED GLUCOSE Last administered on 07/30/16 23:31; Admin Dose 25 ML; Start 07/18/16 at 02:00 Dextrose (D50w Syringe) 50 ml Q15M PRN IV DECREASED GLUCOSE Last administered on 07/20/16 20:11; Admin Dose 50 ML; Start 07/18/16 at 02:00 Glucagon (Glucagen) 1 mg Q15M PRN IM DECREASED GLUCOSE; Start 07/18/16 at 02:00 Glucose 15 gm 15 gm Q15M PRN BUCCAL DECREASED GLUCOSE; Start 07/18/16 at 02:00 Levetiracetam/ Sodium Chloride (Keppra Iv/NS) 107.5 ml @ 430 mls/hr Q12 IVPB Last administered on 08/01/16 08:21; Admin Dose 430 MLS/HR; Start 07/18/16 at 15 :00 Mupirocin (Bactroban) 1 applic BID TOP Last administered on 08/01/16 08:21; Admin Dose 1 APPLIC; Start 07/19/16 at 12:00 Collagenase (Santyl) 1 applic DAILY PRN TOP WHEN SOILED Last administered on 23:34; Admin Dose 1 APPLIC; Start 07/22/16 at 16:30 Heparin Sodium (Porcine) (Heparin (5000 Units/0.5 ml)) 5,000 unit BID SC Last administered on 08/01/16 08:19; Admin Dose 5,000 UNIT; Start 07/23/16 at 21:00 Metoclopramide HCl (Reglan) 5 mg Q6H IV Last administered on 08/01/16 05:26; Admin Dose 5 MG; Start 07/26/16 at 18:00 Insulin Aspart (Novolog Insulin Pen) NOVOLOG *MILD* ALGORI... Q4 SC Last administered on 08/01/16 08:29; Admin Dose 2 UNIT; Start 07/30/16 at 09:00 Insulin Human NPH (Humulin N) 10 unit Q8 SC Last administered on 08/01/16 05: 26; Admin Dose 10 UNIT; Start 07/30/16 at 14:00 JENNIFER PEÑA MD Aug 01, 2016 10:14
--- NOTE | 2016-08-01 13:05 | PN ---
Date/Time of Note Date/Time of Note DATE: 08/01/16 TIME: 13:04 Assessment/Plan VTE Prophylaxis VTE Prophylaxis Intervention: other Lines/Catheters IV [facility]from [facility] Saline Lock Urinary Cath still in place: No Assessment/Plan Assessment/Plan 1. End-stage renal disease. will hold hd until goals of care are clarified 2. Hypernatremia, improved. Continue free water flushes. 3. Anemia of chronic disease. Continue to monitor hemoglobin and hematocrit. 4. Ventilator-dependent respiratory failure. Vent settings have been reviewed. Continue to monitor. 5. Dysphagia, status PEG. Continue tube feedings. 6. Sepsis, status post shock. The patient has completed antibiotic course. 7. Encephalopathy with severe anoxic injury. No change. Continue to monitor. 8. Diabetes. Continue current insulin regimen. 9. Status post code arrest. Subjective 24 Hr Interval Summary Free Text/Dictation SUBJECTIVE: The patient remains stable. last hd was yesterday. No other events noted. d/w his mother at the bedside OBJECTIVE: HEENT: Head is normocephalic. NECK: Supple. HEART: Regular rate. LUNGS: Show diminished breath sounds at the bases. ABDOMEN: Soft, nontender to palpation. No rebound or guarding. EXTREMITIES: Negative for clubbing, cyanosis. No edema. DERMATOLOGIC: No rashes. MUSCULOSKELETAL: No joint effusions. NEUROLOGIC: No change in exam. MEDICATIONS: The patient's medications have been reviewed. Exam/Review of Systems Vital Signs Vitals Vital Signs Date Time Temp Pulse Resp B/P Pulse Ox O2 Delivery O2 Flow Rate FiO2 08/01/16 12:34 92 08/01/16 11:49 98.6 20 92/54 100 08/01/16 09:10 30 Intake and Output 07/31/16 07/31/16 08/01/16 15:00 23:00 07:00 Intake Total 107.5 ml 850 ml 457.5 ml Output Total 1300 ml 0 ml Balance 107.5 ml -450 ml 457.5 ml Results Result Diagram: 08/01/16 0630 08/01/16 0630 Results 24 hrs Laboratory Tests Test 07/31/16 14:22 07/31/16 18:31 07/31/16 20:55 08/01/16 00:26 Bedside Glucose 198 217 196 177 Test 08/01/16 05:23 08/01/16 06:30 08/01/16 08:27 Bedside Glucose 231 H 215 White Blood Count 15.8 H Red Blood Count 3.34 L Hemoglobin 10.2 L Hematocrit 34.3 L Mean Corpuscular Volume 102.7 H Mean Corpuscular Hemoglobin 30.5 Mean Corpuscular Hemoglobin Concent 29.7 L Red Cell Distribution Width 19.0 H Platelet Count 170 # Mean Platelet Volume 10.9 H Neutrophils % 86.0 H Lymphocytes % 6.6 L Monocytes % 6.4 Eosinophils % 0.4 Basophils % 0.3 Nucleated Red Blood Cells % 0.0 Neutrophils # 13.6 H Lymphocytes # 1.0 Monocytes # 1.0 H Eosinophils # 0.1 Basophils # 0.0 Nucleated Red Blood Cells # 0.0 Sodium Level 138 Potassium Level 4.1 Chloride Level 105 Carbon Dioxide Level 24 Anion Gap 13 Blood Urea Nitrogen 37 H Creatinine 2.21 H Glucose Level 246 H Calcium Level 8.9 Phosphorus Level 3.4 Magnesium Level 2.5 Medications Medications Current Medications Ondansetron HCl (Zofran Inj) 4 mg Q6H PRN IV NAUSEA AND/OR VOMITING; Start at 16:00 Pantoprazole (Protonix Iv) 40 mg DAILY@06 IV Last administered on 08/01/16 05: 26; Admin Dose 40 MG; Start 07/18/16 at 06:00 Bisacodyl (Dulcolax Supp) 10 mg Q24H PRN MD CONSTIPATION; Start 07/17/16 at 16: 00 Lorazepam (Ativan) 1 mg Q1H PRN IV seziure activity; Start 07/17/16 at 22:30 Acetaminophen (Tylenol Liquid) 650 mg Q6H PRN GTB PAIN AND OR ELEVATED TEMP Last administered on 07/22/16 01:05; Admin Dose 650 MG; Start 07/18/16 at 02:00 Miscellaneous Information 1 ea NOTE XX ; Start 07/18/16 at 02:00 Glucose (Glutose) 15 gm Q15M PRN PO DECREASED GLUCOSE; Start 07/18/16 at 02:00 Glucose (Glutose) 22.5 gm Q15M PRN PO DECREASED GLUCOSE; Start 07/18/16 at 02:00 Dextrose (D50w Syringe) 25 ml Q15M PRN IV DECREASED GLUCOSE Last administered on 07/30/16 23:31; Admin Dose 25 ML; Start 07/18/16 at 02:00 Dextrose (D50w Syringe) 50 ml Q15M PRN IV DECREASED GLUCOSE Last administered on 07/20/16 20:11; Admin Dose 50 ML; Start 07/18/16 at 02:00 Glucagon (Glucagen) 1 mg Q15M PRN IM DECREASED GLUCOSE; Start 07/18/16 at 02:00 Glucose 15 gm 15 gm Q15M PRN BUCCAL DECREASED GLUCOSE; Start 07/18/16 at 02:00 Levetiracetam/ Sodium Chloride (Keppra Iv/NS) 107.5 ml @ 430 mls/hr Q12 IVPB Last administered on 08/01/16 08:21; Admin Dose 430 MLS/HR; Start 07/18/16 at 15 :00 Mupirocin (Bactroban) 1 applic BID TOP Last administered on 08/01/16 08:21; Admin Dose 1 APPLIC; Start 07/19/16 at 12:00 Collagenase (Santyl) 1 applic DAILY PRN TOP WHEN SOILED Last administered on 23:34; Admin Dose 1 APPLIC; Start 07/22/16 at 16:30 Heparin Sodium (Porcine) (Heparin (5000 Units/0.5 ml)) 5,000 unit BID SC Last administered on 08/01/16 08:19; Admin Dose 5,000 UNIT; Start 07/23/16 at 21:00 Metoclopramide HCl (Reglan) 5 mg Q6H IV Last administered on 08/01/16 12:26; Admin Dose 5 MG; Start 07/26/16 at 18:00 Insulin Aspart (Novolog Insulin Pen) NOVOLOG *MILD* ALGORI... Q4 SC Last administered on 08/01/16 08:29; Admin Dose 2 UNIT; Start 07/30/16 at 09:00 Insulin Human NPH (Humulin N) 10 unit Q8 SC Last administered on 08/01/16 05: 26; Admin Dose 10 UNIT; Start 07/30/16 at 14:00 GUSTAVO MATHEWS DO Aug 01, 2016 13:05
--- NOTE | 2016-08-01 21:50 | PN ---
Date/Time of Note Date/Time of Note DATE: 08/01/16 TIME: 21:47 Assessment/Plan VTE Prophylaxis VTE Prophylaxis Intervention: heparin Lines/Catheters IV Catheter Type (from Nrs): Saline Lock Urinary Cath still in place: No Assessment/Plan Assessment/Plan 1. S/p Cardiac arrest secondary to septic shock 2. Severe anoxic encephalopathy-severe encephalopathy noted on EEG s/p palliative care consult 3. Type I DM with Brittle sugar control, Endocrine following 4. Bilateral Multifocal Pneumonia causing Sepsis 5. End-stage renal disease on hemodialysis.- Nephrology has been following 6. Acute on chronic respiratory failure, remains ventilator-dependent. 7. Anemia secondary to chronic kidney disease. 8. Methicillin-resistant Staphylococcus aureus nares. 9. Chronic dysphagia, on PEG feeds with high residuals. 10. Chronic debility secondary to chronically uncontrolled diabetes type 1 with recurrent episodes of pneumonia causing recurrent hospitalization and now trach and gastrostomy placement, with chronic muscle wasting and foot drop. Heparin for DVT prophylaxis, Protonix for GI prophylaxis Subjective 24 Hr Interval Summary Free Text/Dictation remained stable on ventilator, BP stable Exam/Review of Systems Vital Signs Vitals Vital Signs Date Time Temp Pulse Resp B/P Pulse Ox O2 Delivery O2 Flow Rate FiO2 08/01/16 21:21 89 20 100 30 08/01/16 20:15 97.6 88/54 Intake and Output 07/31/16 07/31/16 08/01/16 15:00 23:00 07:00 Intake Total 107.5 ml 850 ml 457.5 ml Output Total 1300 ml 0 ml Balance 107.5 ml -450 ml 457.5 ml Exam Constitutional: frail, non-verbal, No alert Neck: other ((+) trach on vent) Respiratory: clear to auscultation, normal air movement Cardiovascular: nl pulses, regular rate and rhythm, No edema, No murmurs/extra sounds, No rub Gastrointestinal: bowel sounds, nl liver, spleen, non-tender, soft, No mass, No rebound or guarding Musculoskeletal: nl extremities to inspection Extremities: normal pulses, Neurological: non verbal, pt is trach on ventilator Results Result Diagram: 08/01/16 0630 08/01/16 0630 Results 24 hrs Laboratory Tests Test 08/01/16 00:26 08/01/16 05:23 08/01/16 06:30 08/01/16 08:27 Bedside Glucose 177 231 H 215 White Blood Count 15.8 H Red Blood Count 3.34 L Hemoglobin 10.2 L Hematocrit 34.3 L Mean Corpuscular Volume 102.7 H Mean Corpuscular Hemoglobin 30.5 Mean Corpuscular Hemoglobin Concent 29.7 L Red Cell Distribution Width 19.0 H Platelet Count 170 # Mean Platelet Volume 10.9 H Neutrophils % 86.0 H Lymphocytes % 6.6 L Monocytes % 6.4 Eosinophils % 0.4 Basophils % 0.3 Nucleated Red Blood Cells % 0.0 Neutrophils # 13.6 H Lymphocytes # 1.0 Monocytes # 1.0 H Eosinophils # 0.1 Basophils # 0.0 Nucleated Red Blood Cells # 0.0 Sodium Level 138 Potassium Level 4.1 Chloride Level 105 Carbon Dioxide Level 24 Anion Gap 13 Blood Urea Nitrogen 37 H Creatinine 2.21 H Glucose Level 246 H Calcium Level 8.9 Phosphorus Level 3.4 Magnesium Level 2.5 Test 08/01/16 14:14 08/01/16 17:28 08/01/16 20:33 Bedside Glucose 252 H 128 118 Medications Medications Current Medications Ondansetron HCl (Zofran Inj) 4 mg Q6H PRN IV NAUSEA AND/OR VOMITING; Start at 16:00 Pantoprazole (Protonix Iv) 40 mg DAILY@06 IV Last administered on 08/01/16 05: 26; Admin Dose 40 MG; Start 07/18/16 at 06:00 Bisacodyl (Dulcolax Supp) 10 mg Q24H PRN [place] CONSTIPATION; Start 07/17/16 at 16: 00 Lorazepam (Ativan) 1 mg Q1H PRN IV seziure activity; Start 07/17/16 at 22:30 Acetaminophen (Tylenol Liquid) 650 mg Q6H PRN GTB PAIN AND OR ELEVATED TEMP Last administered on 07/22/16 01:05; Admin Dose 650 MG; Start 07/18/16 at 02:00 Miscellaneous Information 1 ea NOTE XX ; Start 07/18/16 at 02:00 Glucose (Glutose) 15 gm Q15M PRN PO DECREASED GLUCOSE; Start 07/18/16 at 02:00 Glucose (Glutose) 22.5 gm Q15M PRN PO DECREASED GLUCOSE; Start 07/18/16 at 02:00 Dextrose (D50w Syringe) 25 ml Q15M PRN IV DECREASED GLUCOSE Last administered on 07/30/16 23:31; Admin Dose 25 ML; Start 07/18/16 at 02:00 Dextrose (D50w Syringe) 50 ml Q15M PRN IV DECREASED GLUCOSE Last administered on 07/20/16 20:11; Admin Dose 50 ML; Start 07/18/16 at 02:00 Glucagon (Glucagen) 1 mg Q15M PRN IM DECREASED GLUCOSE; Start 07/18/16 at 02:00 Glucose 15 gm 15 gm Q15M PRN BUCCAL DECREASED GLUCOSE; Start 07/18/16 at 02:00 Levetiracetam/ Sodium Chloride (Keppra Iv/NS) 107.5 ml @ 430 mls/hr Q12 IVPB Last administered on 08/01/16 20:39; Admin Dose 430 MLS/HR; Start 07/18/16 at 15 :00 Mupirocin (Bactroban) 1 applic BID TOP Last administered on 08/01/16 08:21; Admin Dose 1 APPLIC; Start 07/19/16 at 12:00 Collagenase (Santyl) 1 applic DAILY PRN TOP WHEN SOILED Last administered on 23:34; Admin Dose 1 APPLIC; Start 07/22/16 at 16:30 Heparin Sodium (Porcine) (Heparin (5000 Units/0.5 ml)) 5,000 unit BID SC Last administered on 08/01/16 20:37; Admin Dose 5,000 UNIT; Start 07/23/16 at 21:00 Metoclopramide HCl (Reglan) 5 mg Q6H IV Last administered on 08/01/16 17:34; Admin Dose 5 MG; Start 07/26/16 at 18:00 Insulin Aspart (Novolog Insulin Pen) NOVOLOG *MILD* ALGORI... Q4 SC Last administered on 08/01/16 14:19; Admin Dose 3 UNIT; Start 07/30/16 at 09:00 Insulin Human NPH (Humulin N) 10 unit Q8 SC Last administered on 08/01/16 14: 19; Admin Dose 10 UNIT; Start 07/30/16 at 14:00 PAMELA PIÑA MD Aug 01, 2016 21:50
[2016-08-02] VITALS (24 sets, daily range): BP systolic 77–113; BP diastolic 47–60; PULSE 79–87; RESP 12–20
[2016-08-02] MEDS: INSULIN ASPART [NOVOLOG] 3 ML PEN SC SCH ×6 (01:04→20:59)
[2016-08-02] MEDS: PANTOPRAZOLE 40 MG INJ IV SCH (05:35)
[2016-08-02] MEDS: METOCLOPRAMIDE 10 MG INJ IV SCH (05:35)
[2016-08-02] MEDS: NPH, HUMAN INSULIN ISOPHANE 3ML VIAL SC SCH ×3 (05:39→22:04)
[2016-08-02] MEDS: HEPARIN 5,000 UNIT/0.5 ML VIAL SC SCH ×2 (08:13→20:57)
[2016-08-02] MEDS: LEVETIRACETAM IV 750 MG in SOD CHLORIDE 0.9% 100 ML IVPB SCH ×2 (08:15→20:55)
[2016-08-02] MEDS: MUPIROCIN 2% 22 GM OINT TOP SCH ×2 (08:18→20:59)
--- NOTE | 2016-08-02 10:41 | PN ---
Date/Time of Note Date/Time of Note DATE: 08/02/16 TIME: 10:40 Assessment/Plan VTE Prophylaxis VTE Prophylaxis Intervention: other Lines/Catheters IV [facility] Type [facility]from [facility] Saline Lock Urinary Cath still in place: No Assessment/Plan Assessment/Plan 1. End-stage renal disease. will hold hd until goals of care are clarified 2. Hypernatremia, improved. Continue free water flushes. 3. Anemia of chronic disease. Continue to monitor hemoglobin and hematocrit. 4. Ventilator-dependent respiratory failure. Vent settings have been reviewed. Continue to monitor. 5. Dysphagia, status PEG. Continue tube feedings. 6. Sepsis, status post shock. The patient has completed antibiotic course. 7. Encephalopathy with severe anoxic injury. No change. Continue to monitor. 8. Diabetes. Continue current insulin regimen. 9. Status post code arrest. Subjective 24 Hr Interval Summary Free Text/Dictation SUBJECTIVE: The patient remains stable. last hd was 2 days ago d/w Dr Serrato OBJECTIVE: HEENT: Head is normocephalic. NECK: Supple. HEART: Regular rate. LUNGS: Show diminished breath sounds at the bases. ABDOMEN: Soft, nontender to palpation. No rebound or guarding. EXTREMITIES: Negative for clubbing, cyanosis. No edema. DERMATOLOGIC: No rashes. MUSCULOSKELETAL: No joint effusions. NEUROLOGIC: No change in exam. MEDICATIONS: The patient's medications have been reviewed. Exam/Review of Systems Vital Signs Vitals Vital Signs Date Time Temp Pulse Resp B/P Pulse Ox O2 Delivery O2 Flow Rate FiO2 08/02/16 09:52 85 20 97 30 08/02/16 07:58 98.3 113/52 Intake and Output 08/01/16 08/01/16 08/02/16 15:00 23:00 07:00 Intake Total 1007.5 ml 350 ml 500 ml Output Total 0 ml Balance 1007.5 ml 350 ml 500 ml Results Result Diagram: 08/01/16 0630 08/01/16 0630 Results 24 hrs Laboratory Tests Test 08/01/16 14:14 08/01/16 17:28 08/01/16 20:33 08/02/16 00:58 Bedside Glucose 252 H 128 118 146 Test 08/02/16 05:17 08/02/16 08:36 Bedside Glucose 183 158 Medications Medications Current Medications Ondansetron HCl (Zofran Inj) 4 mg Q6H PRN IV NAUSEA AND/OR VOMITING; Start at 16:00 Pantoprazole (Protonix Iv) 40 mg DAILY@06 IV Last administered on 08/02/16 05: 35; Admin Dose 40 MG; Start 07/18/16 at 06:00 Bisacodyl (Dulcolax Supp) 10 mg Q24H PRN [place] CONSTIPATION; Start 07/17/16 at 16: 00 Lorazepam (Ativan) 1 mg Q1H PRN IV seziure activity; Start 07/17/16 at 22:30 Acetaminophen (Tylenol Liquid) 650 mg Q6H PRN GTB PAIN AND OR ELEVATED TEMP Last administered on 07/22/16 01:05; Admin Dose 650 MG; Start 07/18/16 at 02:00 Miscellaneous Information 1 ea NOTE XX ; Start 07/18/16 at 02:00 Glucose (Glutose) 15 gm Q15M PRN PO DECREASED GLUCOSE; Start 07/18/16 at 02:00 Glucose (Glutose) 22.5 gm Q15M PRN PO DECREASED GLUCOSE; Start 07/18/16 at 02:00 Dextrose (D50w Syringe) 25 ml Q15M PRN IV DECREASED GLUCOSE Last administered on 07/30/16 23:31; Admin Dose 25 ML; Start 07/18/16 at 02:00 Dextrose (D50w Syringe) 50 ml Q15M PRN IV DECREASED GLUCOSE Last administered on 07/20/16 20:11; Admin Dose 50 ML; Start 07/18/16 at 02:00 Glucagon (Glucagen) 1 mg Q15M PRN IM DECREASED GLUCOSE; Start 07/18/16 at 02:00 Glucose 15 gm 15 gm Q15M PRN BUCCAL DECREASED GLUCOSE; Start 07/18/16 at 02:00 Levetiracetam/ Sodium Chloride (Keppra Iv/NS) 107.5 ml @ 430 mls/hr Q12 IVPB Last administered on 08/02/16 08:15; Admin Dose 430 MLS/HR; Start 07/18/16 at 15 :00 Mupirocin (Bactroban) 1 applic BID TOP Last administered on 08/02/16 08:18; Admin Dose 1 APPLIC; Start 07/19/16 at 12:00 Collagenase (Santyl) 1 applic DAILY PRN TOP WHEN SOILED Last administered on 23:34; Admin Dose 1 APPLIC; Start 07/22/16 at 16:30 Heparin Sodium (Porcine) (Heparin (5000 Units/0.5 ml)) 5,000 unit BID SC Last administered on 08/02/16 08:13; Admin Dose 5,000 UNIT; Start 07/23/16 at 21:00 Metoclopramide HCl (Reglan) 5 mg Q6H IV Last administered on 08/02/16 05:35; Admin Dose 5 MG; Start 07/26/16 at 18:00 Insulin Aspart (Novolog Insulin Pen) NOVOLOG *MILD* ALGORI... Q4 SC Last administered on 08/02/16 08:38; Admin Dose 1 UNIT; Start 07/30/16 at 09:00 Insulin Human NPH (Humulin N) 10 unit Q8 SC Last administered on 08/02/16 05: 39; Admin Dose 10 UNIT; Start 07/30/16 at 14:00 GUSTAVO MATHEWS DO Aug 02, 2016 10:41
--- NOTE | 2016-08-02 10:42 | CONS ---
Date/Time of Note Date/Time of Note DATE: 08/02/16 TIME: 10:40 Assessment/Plan Assessment/Plan Problems: (1) Diabetes type I Status: Chronic Comment: As predicted yesterday, ongoing use of NPH 10 q8 has been effective to normalized glucose. Now in goal range. Will continue. Qualifiers: Diabetes mellitus complication status: with unspecified complications Qualified Code: E10.8 - Type 1 diabetes mellitus with complication Consultation Date/Type/Reason Admit Date/Time Jul 17, 2016 at 13:33 Initial Consult Date 07/25/16 Type of Consultation: Endocrinology Reason for Consultation T1DM management Referring Provider: ERMA JACOBS 24 HR Interval Summary Subjective hx not possible: pt non-verbal Exam/Review of Systems Vital Signs Vitals VS - Last 72 Hours, by Label Date Time Temp Pulse Resp B/P Pulse Ox O2 Delivery O2 Flow Rate FiO2 08/02/16 09:52 85 20 97 30 08/02/16 08:47 85 08/02/16 07:58 98.3 74 12 113/52 94 08/02/16 05:42 83 20 98 30 08/02/16 04:29 97.6 83 20 100/60 99 08/02/16 04:26 80 08/02/16 03:05 86 20 98 30 08/02/16 01:20 85 20 99 30 08/02/16 01:01 87 08/02/16 00:14 97.8 71 20 94/53 97 08/01/16 23:46 87 20 99 30 08/01/16 21:21 89 20 100 30 08/01/16 21:00 30 08/01/16 20:54 86 08/01/16 20:15 97.6 90 18 88/54 96 08/01/16 19:46 87 20 100 30 08/01/16 17:30 86 22 98 30 08/01/16 16:19 94 08/01/16 15:59 97.9 92 16 93/51 98 08/01/16 15:12 89 22 98 30 08/01/16 13:48 91 22 97 30 08/01/16 12:34 92 08/01/16 11:49 98.6 91 20 92/54 100 08/01/16 09:10 87 24 97 30 08/01/16 09:00 30 08/01/16 08:27 92 4/15/17 07:24 98.6 92 18 91/54 93 15/17 07:15 84 22 98 30 15/17 05:33 86 21 98 30 15/17 04:24 84 15/17 04:12 98.2 85 16 92/57 98 15/17 03:35 81 20 98 30 15/17 01:48 85 20 99 30 15/17 01:10 94/62 15/17 00:50 97.2 91 17 88/51 94 15/17 00:45 85 14/17 23:33 91 20 99 30 14/17 21:37 30 14/17 21:32 88 20 100 30 14/17 20:30 98.9 89 18 102/67 96 14/17 20:30 90 14/17 19:46 90 20 98 30 14/17 17:10 94 22 100 30 14/17 16:15 99 14/17 15:29 98.5 99 18 121/66 100 14/17 15:15 103 14/17 15:15 99 21 14/17 15:15 97 22 99 30 14/17 14:45 103 14/17 14:30 96 14/17 14:15 96 14/17 14:00 99 14/17 13:45 96 14/17 13:30 95 14/17 13:20 98 25 97 30 14/17 13:15 95 14/17 13:00 94 14/17 12:56 97 14/17 12:45 95 14/17 12:15 92 26 14/17 11:26 98.5 93 18 87/83 96 14/17 11:05 69 23 98 30 14/17 09:30 93 22 97 30 14/17 09:00 30 14/17 08:23 91 14/17 07:45 98 21 98 30 14/17 07:26 97.7 56 18 92/59 99 14/17 06:00 97.7 93 18 99/59 14/17 04:55 88 20 99 30 4/14/17 04:04 90 4/14/17 04:01 97.6 99 20 92/56 99 07/31/16 02:57 92 20 98 30 07/31/16 01:35 88 21 97 30 07/31/16 00:04 95 07/31/16 00:00 30 07/30/16 23:52 97.6 89 20 91/56 98 07/30/16 23:15 89 20 98 30 07/30/16 21:05 94 22 96 30 07/30/16 20:20 94 23 98 30 07/30/16 20:06 97.6 61 20 84/54 97 07/30/16 20:03 95 07/30/16 17:10 100 20 97 30 07/30/16 16:51 86 07/30/16 16:01 98.0 87 27 101/68 95 07/30/16 15:20 81 20 99 30 07/30/16 13:20 87 20 99 30 07/30/16 12:20 93 07/30/16 12:07 98.2 81 26 144/83 97 07/30/16 11:15 89 20 99 30 Vital Signs Date Time Temp Pulse Resp B/P Pulse Ox O2 Delivery O2 Flow Rate FiO2 08/02/16 09:52 85 20 97 30 08/02/16 07:58 98.3 113/52 Intake and Output 08/01/16 08/01/16 08/02/16 15:00 23:00 07:00 Intake Total 1007.5 ml 350 ml 500 ml Output Total 0 ml Balance 1007.5 ml 350 ml 500 ml Exam Constitutional: frail, non-verbal, other (cachectic), No alert Neck: other ((+) trach on vent) Respiratory: clear to auscultation, normal air movement Cardiovascular: regular rate and rhythm, No edema, No murmurs/extra sounds, No rub Gastrointestinal: bowel sounds, nl liver, spleen, non-tender, soft, No mass, No rebound or guarding Musculoskeletal: nl extremities to inspection Extremities: normal pulses, No clubbing, No cyanosis, No edema Neurological: unresponsive Additional Comments Bedside Glucose - 72 Hours Test 07/30/16 10:52 07/30/16 13:41 07/30/16 17:30 07/30/16 21:25 Bedside Glucose 250mg/dL (70-220) H 174mg/dL (70-220) 107mg/dL (70-220) 83mg/dL (70-220) Test 07/30/16 23:14 07/30/16 23:30 07/30/16 23:58 07/31/16 06:20 Bedside Glucose 64mg/dL (70-220) L 62mg/dL (70-220) L 121mg/dL (70-220) 136mg/dL (70-220) Test 07/31/16 08:50 07/31/16 14:22 07/31/16 18:31 07/31/16 20:55 Bedside Glucose 171mg/dL (70-220) 198mg/dL (70-220) 217mg/dL (70-220) 196mg/dL (70-220) Test 08/01/16 00:26 08/01/16 05:23 08/01/16 08:27 08/01/16 14:14 Bedside Glucose 177mg/dL (70-220) 231mg/dL (70-220) H 215mg/dL (70-220) 252mg/dL (70-220) H Test 08/01/16 17:28 08/01/16 20:33 08/02/16 00:58 08/02/16 05:17 Bedside Glucose 128mg/dL (70-220) 118mg/dL (70-220) 146mg/dL (70-220) 183mg/dL (70-220) Test 08/02/16 08:36 Bedside Glucose 158mg/dL (70-220) Results Result Diagram: 08/01/1630 08/01/16 0630 Results 24 hrs Laboratory Tests Test 08/01/16 14:14 08/01/16 17:28 08/01/16 20:33 08/02/16 00:58 Bedside Glucose 252 H 128 118 146 Test 08/02/16 05:17 08/02/16 08:36 Bedside Glucose 183 158 Medications Medications Current Medications Ondansetron HCl (Zofran Inj) 4 mg Q6H PRN IV NAUSEA AND/OR VOMITING; Start at 16:00 Pantoprazole (Protonix Iv) 40 mg DAILY@06 IV Last administered on 08/02/16t 05: 35; Admin Dose 40 MG; Start 07/18/16 at 06:00 Bisacodyl (Dulcolax Supp) 10 mg Q24H PRN [place] CONSTIPATION; Start 07/17/16 at 16: 00 Lorazepam (Ativan) 1 mg Q1H PRN IV seziure activity; Start 07/17/16 at 22:30 Acetaminophen (Tylenol Liquid) 650 mg Q6H PRN GTB PAIN AND OR ELEVATED TEMP Last administered on 07/22/16 01:05; Admin Dose 650 MG; Start 07/18/16 at 02:00 Miscellaneous Information 1 ea NOTE XX ; Start 07/18/16 at 02:00 Glucose (Glutose) 15 gm Q15M PRN PO DECREASED GLUCOSE; Start 07/18/16 at 02:00 Glucose (Glutose) 22.5 gm Q15M PRN PO DECREASED GLUCOSE; Start 07/18/16 at 02:00 Dextrose (D50w Syringe) 25 ml Q15M PRN IV DECREASED GLUCOSE Last administered on 07/30/16 23:31; Admin Dose 25 ML; Start 07/18/16 at 02:00 Dextrose (D50w Syringe) 50 ml Q15M PRN IV DECREASED GLUCOSE Last administered on 07/20/16 20:11; Admin Dose 50 ML; Start 07/18/16 at 02:00 Glucagon (Glucagen) 1 mg Q15M PRN IM DECREASED GLUCOSE; Start 07/18/16 at 02:00 Glucose 15 gm 15 gm Q15M PRN BUCCAL DECREASED GLUCOSE; Start 07/18/16 at 02:00 Levetiracetam/ Sodium Chloride (Keppra Iv/NS) 107.5 ml @ 430 mls/hr Q12 IVPB Last administered on 08/02/16 08:15; Admin Dose 430 MLS/HR; Start 07/18/16 at 15 :00 Mupirocin (Bactroban) 1 applic BID TOP Last administered on 08/02/16 08:18; Admin Dose 1 APPLIC; Start 07/19/16 at 12:00 Collagenase (Santyl) 1 applic DAILY PRN TOP WHEN SOILED Last administered on 23:34; Admin Dose 1 APPLIC; Start 07/22/16 at 16:30 Heparin Sodium (Porcine) (Heparin (5000 Units/0.5 ml)) 5,000 unit BID SC Last administered on 4/16/17at 08:13; Admin Dose 5,000 UNIT; Start 07/23/16 at 21:00 Metoclopramide HCl (Reglan) 5 mg Q6H IV Last administered on 08/02/16 05:35; Admin Dose 5 MG; Start 07/26/16 at 18:00 Insulin Aspart (Novolog Insulin Pen) NOVOLOG *MILD* ALGORI... Q4 SC Last administered on 08/02/16 08:38; Admin Dose 1 UNIT; Start 07/30/16 at 09:00 Insulin Human NPH (Humulin N) 10 unit Q8 SC Last administered on 08/02/16 05: 39; Admin Dose 10 UNIT; Start 07/30/16 at 14:00 JENNIFER PEÑA MD Aug 02, 2016 10:42
--- NOTE | 2016-08-02 10:57 | PN ---
Date/Time of Note Date/Time of Note DATE: 08/02/16 TIME: 10:52 Assessment/Plan VTE Prophylaxis VTE Prophylaxis Intervention: heparin Lines/Catheters IV [facility] (from [facility] Saline Lock Urinary Cath still in place: No Assessment/Plan Assessment/Plan 1. S/p Cardiac arrest secondary to septic shock 2. Severe anoxic encephalopathy-severe encephalopathy noted on EEG- s/p palliative care consult 3. Type I DM with Brittle sugar control, Endocrine following 4. Bilateral Multifocal Pneumonia causing Sepsis 5. End-stage renal disease on hemodialysis.- Nephrology has been following 6. Acute on chronic respiratory failure, remains ventilator-dependent. 7. Anemia secondary to chronic kidney disease. 8. Methicillin-resistant Staphylococcus aureus nares. 9. Chronic dysphagia, on PEG feeds with high residuals. 10. Chronic debility secondary to chronically uncontrolled diabetes type 1 with recurrent episodes of pneumonia causing recurrent hospitalization and now trach and gastrostomy placement, with chronic muscle wasting and foot drop. Heparin for DVT prophylaxis, Protonix for GI prophylaxis s/p EEG d/c reglan IV Subjective 24 Hr Interval Summary Free Text/Dictation pt has been having diarrhea, S/p EEG and Neurology follow up, Endocrine following Exam/Review of Systems Vital Signs Vitals Vital Signs Date Time Temp Pulse Resp B/P Pulse Ox O2 Delivery O2 Flow Rate FiO2 08/02/16 09:52 85 20 97 30 08/02/16 07:58 98.3 113/52 Intake and Output 08/01/16 08/01/16 08/02/16 15:00 23:00 07:00 Intake Total 1007.5 ml 350 ml 500 ml Output Total 0 ml Balance 1007.5 ml 350 ml 500 ml Exam Constitutional: frail, non-verbal, No alert Neck: other ((+) trach on vent) Respiratory: clear to auscultation, normal air movement Cardiovascular: nl pulses, regular rate and rhythm, No edema, No murmurs/extra sounds, No rub Gastrointestinal: bowel sounds, nl liver, spleen, non-tender, soft, No mass, No rebound or guarding Musculoskeletal: nl extremities to inspection Extremities: normal pulses, Neurological: non verbal, pt is trach on ventilator Results Result Diagram: 08/01/16 0630 08/01/16 0630 Results 24 hrs Laboratory Tests Test 08/01/16 14:14 08/01/16 17:28 08/01/16 20:33 08/02/16 00:58 Bedside Glucose 252 H 128 118 146 Test 08/02/16 05:17 08/02/16 08:36 Bedside Glucose 183 158 Medications Medications Current Medications Ondansetron HCl (Zofran Inj) 4 mg Q6H PRN IV NAUSEA AND/OR VOMITING; Start at 16:00 Pantoprazole (Protonix Iv) 40 mg DAILY@06 IV Last administered on 08/02/16 05: 35; Admin Dose 40 MG; Start 07/18/16 at 06:00 Bisacodyl (Dulcolax Supp) 10 mg Q24H PRN [place] CONSTIPATION; Start 07/17/16 at 16: 00 Lorazepam (Ativan) 1 mg Q1H PRN IV seziure activity; Start 07/17/16 at 22:30 Acetaminophen (Tylenol Liquid) 650 mg Q6H PRN GTB PAIN AND OR ELEVATED TEMP Last administered on 07/22/16 01:05; Admin Dose 650 MG; Start 07/18/16 at 02:00 Miscellaneous Information 1 ea NOTE XX ; Start 07/18/16 at 02:00 Glucose (Glutose) 15 gm Q15M PRN PO DECREASED GLUCOSE; Start 07/18/16 at 02:00 Glucose (Glutose) 22.5 gm Q15M PRN PO DECREASED GLUCOSE; Start 07/18/16 at 02:00 Dextrose (D50w Syringe) 25 ml Q15M PRN IV DECREASED GLUCOSE Last administered on 07/30/16 23:31; Admin Dose 25 ML; Start 07/18/16 at 02:00 Dextrose (D50w Syringe) 50 ml Q15M PRN IV DECREASED GLUCOSE Last administered on 07/20/16 20:11; Admin Dose 50 ML; Start 07/18/16 at 02:00 Glucagon (Glucagen) 1 mg Q15M PRN IM DECREASED GLUCOSE; Start 07/18/16 at 02:00 Glucose 15 gm 15 gm Q15M PRN BUCCAL DECREASED GLUCOSE; Start 07/18/16 at 02:00 Levetiracetam/ Sodium Chloride (Keppra Iv/NS) 107.5 ml @ 430 mls/hr Q12 IVPB Last administered on 08/02/16 08:15; Admin Dose 430 MLS/HR; Start 07/18/16 at 15 :00 Mupirocin (Bactroban) 1 applic BID TOP Last administered on 08/02/16 08:18; Admin Dose 1 APPLIC; Start 07/19/16 at 12:00 Collagenase (Santyl) 1 applic DAILY PRN TOP WHEN SOILED Last administered on 23:34; Admin Dose 1 APPLIC; Start 07/22/16 at 16:30 Heparin Sodium (Porcine) (Heparin (5000 Units/0.5 ml)) 5,000 unit BID SC Last administered on 08/02/16 08:13; Admin Dose 5,000 UNIT; Start 07/23/16 at 21:00 Metoclopramide HCl (Reglan) 5 mg Q6H IV Last administered on 08/02/16 05:35; Admin Dose 5 MG; Start 07/26/16 at 18:00 Insulin Aspart (Novolog Insulin Pen) NOVOLOG *MILD* ALGORI... Q4 SC Last administered on 08/02/16 08:38; Admin Dose 1 UNIT; Start 07/30/16 at 09:00 Insulin Human NPH (Humulin N) 10 unit Q8 SC Last administered on 08/02/16 05: 39; Admin Dose 10 UNIT; Start 07/30/16 at 14:00 PAMELA PIÑA MD Aug 02, 2016 10:57
--- NOTE | 2016-08-02 15:13 | CONS ---
Date/Time of Note Date/Time of Note DATE: 08/02/16 TIME: 15:10 Assessment/Plan Assessment/Plan Additional Assessment/Plan Ventilator settings; AC of 20, tidal volume 500, PEEP of 5, 30% FiO2. Assessment recommendations; next 1. Patient admitted for cardiac arrest status post CPR with severe anoxic brain injury. 2. Patient does have spontaneous respirations. 3. History of renal failure, on hemodialysis. 4. History of seizure disorder. 5. Patient was admitted with severe bilateral pneumonia with marked radiological improvement. Off antibiotics now. Continue current supportive care. Patient be transferred to [facility]. Prognosis is extremely poor. Consultation Date/Type/Reason Admit Date/Time Jul 17, 2016 at 13:33 Type of Consultation: Pulmonary Referring Provider: ERMA JACOBS 24 HR Interval Summary Free Text/Dictation Patient condition remains unchanged. Remains completely unresponsive. Patient however has remained hemodynamically stable. Exam; young male, on ventilator via tracheostomy currently in no distress, unresponsive. Exam/Review of Systems Vital Signs Vitals Vital Signs Date Time Temp Pulse Resp B/P Pulse Ox O2 Delivery O2 Flow Rate FiO2 08/02/16 13:22 89 20 96 30 08/02/16 12:10 98.6 100/59 Intake and Output 08/01/16 08/01/16 08/02/16 15:00 23:00 07:00 Intake Total 1007.5 ml 350 ml 500 ml Output Total 0 ml Balance 1007.5 ml 350 ml 500 ml Exam HEENT exam is; supple neck, no JVD. No lymphadenopathy. Midline trachea. Tracheostomy in place with clean insertion site. Pupils are widely dilated and nonreactive to light. Doll's eye movements are negative. Chest exam; clear to auscultation. S1-S2 audible no murmurs regular rhythm. Abdomen exam is; scaphoid, G-tube in place. Bowel sounds are audible. No organomegaly. Extremity exam; no peripheral edema. CONTRACTING SUPPORT SPECIALIST examination; patient remains completely unresponsive. Results Result Diagram: 08/01/16 0630 08/01/16 0630 Results 24 hrs Laboratory Tests Test 08/01/16 17:28 08/01/16 20:33 08/02/16 00:58 08/02/16 05:17 Bedside Glucose 128 118 146 183 Test 08/02/16 08:36 08/02/16 12:14 08/02/16 14:11 Bedside Glucose 158 182 146 Medications Medications Current Medications Ondansetron HCl (Zofran Inj) 4 mg Q6H PRN IV NAUSEA AND/OR VOMITING; Start at 16:00 Pantoprazole (Protonix Iv) 40 mg DAILY@06 IV Last administered on 08/02/16 05: 35; Admin Dose 40 MG; Start 07/18/16 at 06:00 Bisacodyl (Dulcolax Supp) 10 mg Q24H PRN [place] CONSTIPATION; Start 07/17/16 at 16: 00 Lorazepam (Ativan) 1 mg Q1H PRN IV seziure activity; Start 07/17/16 at 22:30 Acetaminophen (Tylenol Liquid) 650 mg Q6H PRN GTB PAIN AND OR ELEVATED TEMP Last administered on 07/22/16 01:05; Admin Dose 650 MG; Start 07/18/16 at 02:00 Miscellaneous Information 1 ea NOTE XX ; Start 07/18/16 at 02:00 Glucose (Glutose) 15 gm Q15M PRN PO DECREASED GLUCOSE; Start 07/18/16 at 02:00 Glucose (Glutose) 22.5 gm Q15M PRN PO DECREASED GLUCOSE; Start 07/18/16 at 02:00 Dextrose (D50w Syringe) 25 ml Q15M PRN IV DECREASED GLUCOSE Last administered on 07/30/16 23:31; Admin Dose 25 ML; Start 07/18/16 at 02:00 Dextrose (D50w Syringe) 50 ml Q15M PRN IV DECREASED GLUCOSE Last administered on 07/20/16 20:11; Admin Dose 50 ML; Start 07/18/16 at 02:00 Glucagon (Glucagen) 1 mg Q15M PRN IM DECREASED GLUCOSE; Start 07/18/16 at 02:00 Glucose 15 gm 15 gm Q15M PRN BUCCAL DECREASED GLUCOSE; Start 07/18/16 at 02:00 Levetiracetam/ Sodium Chloride (Keppra Iv/NS) 107.5 ml @ 430 mls/hr Q12 IVPB Last administered on 08/02/16 08:15; Admin Dose 430 MLS/HR; Start 07/18/16 at 15 :00 Mupirocin (Bactroban) 1 applic BID TOP Last administered on 08/02/16 08:18; Admin Dose 1 APPLIC; Start 07/19/16 at 12:00 Collagenase (Santyl) 1 applic DAILY PRN TOP WHEN SOILED Last administered on 23:34; Admin Dose 1 APPLIC; Start 07/22/16 at 16:30 Heparin Sodium (Porcine) (Heparin (5000 Units/0.5 ml)) 5,000 unit BID SC Last administered on 08/02/16 08:13; Admin Dose 5,000 UNIT; Start 07/23/16 at 21:00 Insulin Aspart (Novolog Insulin Pen) NOVOLOG *MILD* ALGORI... Q4 SC Last administered on 08/02/16 12:17; Admin Dose 2 UNIT; Start 07/30/16 at 09:00 Insulin Human NPH (Humulin N) 10 unit Q8 SC Last administered on 08/02/16 14: 13; Admin Dose 10 UNIT; Start 07/30/16 at 14:00 CHANCE AVILA Aug 02, 2016 15:13
--- NOTE | 2016-08-02 23:51 | PN ---
DATE: HISTORY OF PRESENT ILLNESS: The patient is a 35-year-old male who has multiple medical problems, wh ich include cardiopulmonary arrest, septic shock, anoxic encephalopathy, diabetes type 2, pneumonia, sepsis, end-stage renal disease on dialysis, acute on top of chronic respiratory failure, ventilati on, anemia, chronic renal insufficiency, MRSA, chronic dysphagia, PEG tube feeding. CURRENT MEDICATIONS: Include: 1. Epogen 6000 units subcutaneous once a day. 2. Humalog insulin 10 units once a day. 3. Reglan 5 mg once a day. 4. Protonix 40 mg once a day. 5. Tylenol 650 mg every 6 hours. 6. Zofran 4 mg every 6 hours as needed. 7. Dulcolax 10 mg once a day as needed. PHYSICAL EXAMINATION: GENERAL: Today, the patient is not alert or awake. Does not follow any verbal commands. Does not move for painful stimuli. CRANIAL NERVES: Cranial nerve II: With sluggish reaction to light. Cranial nerves III, IV, and : Decreased movement for doll's maneuver. Cranial nerve V and VII: Weak corneal reflex. Cranial nerve VIII through XII: Could not assess. MOTOR: Does not move for painful stimuli. SENSATION, GAIT, COORDINATION: Could not assess. HEART: Regular rate and rhythm. LUNGS: Equal breath sounds. ABDOMEN: Soft, relaxed, nondistended. No tenderness. ASSESSMENT AND PLAN 1. The patient is a 35 years old, is comatose, unresponsive for verbal or painful stimuli. Electro encephalogram showed diffuse slowing with poor prognosis. 2. Status post cardiopulmonary arrest. 3. History of acute hypoxic encephalopathy. 4. Dysphagia with percutaneous endoscopic gastrostomy tube feeding with residual. 5. Keep the patient under deep venous thrombosis prophylaxis as well as decubitus ulcer prophylaxis . Again, thank you for asking me to see the patient. Dictated By: MARY BETH LOPES MD NA/NTS Conf#: [id number] DID#: [id number] CC: HUBER IBARRA MD;*EndCC*
[2016-08-03] VITALS (32 sets, daily range): BP systolic 81–145; BP diastolic 42–95; PULSE 78–98; RESP 12–25
[2016-08-03] MEDS: INSULIN ASPART [NOVOLOG] 3 ML PEN SC SCH ×6 (01:00→21:00)
[2016-08-03] MEDS: PANTOPRAZOLE 40 MG INJ IV SCH (05:17)
[2016-08-03] MEDS: NPH, HUMAN INSULIN ISOPHANE 3ML VIAL SC SCH ×3 (05:28→22:31)
--- NOTE | 2016-08-03 09:26 | PN ---
DATE: 08/03/2016 SUBJECTIVE: The patient remains critical, but stable. No significant neurological response. The p atient is on hemodialysis. No other events noted. OBJECTIVE: VITAL SIGNS: Blood pressure 98/55, respirations 20, pulse 83, temperature 97.4. HEENT: Head is normocephalic. NECK: Supple. HEART: Regular rate. LUNGS: Show diminished breath sounds at the base. ABDOMEN: Soft, nontender to palpation. No rebound or guarding. EXTREMITIES: Negative for clubbing or cyanosis. No edema. DERMATOLOGIC: No rashes. MUSCULOSKELETAL: No joint effusions. NEUROLOGIC: No change in exam. MEDICATIONS: Have been reviewed. LABORATORY DATA: Has been reviewed. No new labs. ASSESSMENT AND PLAN: 1. End-stage renal disease. The patient is scheduled for dialysis today with dialysis 3 hours, 2K bath, calcium 2.5. 2. Hyponatremia, improved. Continue free water flushes. 3. Anemia of chronic disease. Continue to monitor H and H levels. Continue Epogen. 4. Ventilator dependent respiratory failure. Vent settings reviewed. Continue to monitor. 5. Dysphagia, status post percutaneous endoscopic gastrostomy. Continue tube feeds. 6. Sepsis, status post shock. The patient is completing antibiotic course. 7. Encephalopathy, severe anoxic injury. No change. Continue to monitor. 8. Diabetes. Continue current insulin regimen. 9. Status post code arrest. Dictated By: KENTON MATAMOROS/LAURA Conf#: [id number] DID#: [id number]
--- NOTE | 2016-08-03 09:34 | PN ---
Date/Time of Note Date/Time of Note DATE: 08/03/16 TIME: 09:31 Assessment/Plan VTE Prophylaxis VTE Prophylaxis Intervention: heparin Lines/Catheters IV Catheter Type (from Nrs): Saline Lock Urinary Cath still in place: No Assessment/Plan Assessment/Plan 1. S/p Cardiac arrest secondary to septic shock 2. Severe anoxic encephalopathy-severe encephalopathy noted on EEG- s/p palliative care consult 3. Type I DM with Brittle sugar control, Endocrine following 4. Bilateral Multifocal Pneumonia causing Sepsis 5. End-stage renal disease on hemodialysis.- Nephrology has been following 6. Acute on chronic respiratory failure, remains ventilator-dependent. 7. Anemia secondary to chronic kidney disease. 8. Methicillin-resistant Staphylococcus aureus nares. 9. Chronic dysphagia, on PEG feeds with high residuals. 10. Chronic debility secondary to chronically uncontrolled diabetes type 1 with recurrent episodes of pneumonia causing recurrent hospitalization and now trach and gastrostomy placement, with chronic muscle wasting and foot drop. Heparin for DVT prophylaxis, Protonix for GI prophylaxis s/p EEG IV reglan has been discontinued IV keppra on HD as per Subjective 24 Hr Interval Summary Free Text/Dictation pt remained on ventilator, BP stable Exam/Review of Systems Vital Signs Vitals Vital Signs Date Time Temp Pulse Resp B/P Pulse Ox O2 Delivery O2 Flow Rate FiO2 08/03/16 08:23 90 08/03/16 07:30 23 96 30 08/03/16 04:15 97.4 98/55 Intake and Output 08/02/16 08/02/16 08/03/16 15:00 23:00 07:00 Intake Total 107.5 ml 350 ml 900 ml Output Total 1500 ml Balance 107.5 ml 350 ml -600 ml Exam Constitutional: frail, non-verbal, No alert Neck: other ((+) trach on vent) Respiratory: clear to auscultation, normal air movement Cardiovascular: nl pulses, regular rate and rhythm, No edema, No murmurs/extra sounds, No rub Gastrointestinal: bowel sounds, nl liver, spleen, non-tender, soft, No mass, No rebound or guarding Musculoskeletal: nl extremities to inspection Extremities: normal pulses, Neurological: non verbal, pt is trach on ventilator Results Result Diagram: 08/01/16 0630 08/01/16 0630 Results 24 hrs Laboratory Tests Test 08/02/16 12:14 08/02/16 14:11 08/02/16 17:53 08/02/16 20:54 Bedside Glucose 182 146 113 114 Test 08/03/16 01:00 08/03/16 05:15 08/03/16 08:23 Bedside Glucose 137 195 185 Medications Medications Current Medications Ondansetron HCl (Zofran Inj) 4 mg Q6H PRN IV NAUSEA AND/OR VOMITING; Start at 16:00 Pantoprazole (Protonix Iv) 40 mg DAILY@06 IV Last administered on 08/03/16 05: 17; Admin Dose 40 MG; Start 07/18/16 at 06:00 Bisacodyl (Dulcolax Supp) 10 mg Q24H PRN [place] CONSTIPATION; Start 07/17/16 at 16: 00 Lorazepam (Ativan) 1 mg Q1H PRN IV seziure activity; Start 07/17/16 at 22:30 Acetaminophen (Tylenol Liquid) 650 mg Q6H PRN GTB PAIN AND OR ELEVATED TEMP Last administered on 07/22/16 01:05; Admin Dose 650 MG; Start 07/18/16 at 02:00 Miscellaneous Information 1 ea NOTE XX ; Start 07/18/16 at 02:00 Glucose (Glutose) 15 gm Q15M PRN PO DECREASED GLUCOSE; Start 07/18/16 at 02:00 Glucose (Glutose) 22.5 gm Q15M PRN PO DECREASED GLUCOSE; Start 07/18/16 at 02:00 Dextrose (D50w Syringe) 25 ml Q15M PRN IV DECREASED GLUCOSE Last administered on 07/30/16 23:31; Admin Dose 25 ML; Start 07/18/16 at 02:00 Dextrose (D50w Syringe) 50 ml Q15M PRN IV DECREASED GLUCOSE Last administered on 07/20/16 20:11; Admin Dose 50 ML; Start 07/18/16 at 02:00 Glucagon (Glucagen) 1 mg Q15M PRN IM DECREASED GLUCOSE; Start 07/18/16 at 02:00 Glucose 15 gm 15 gm Q15M PRN BUCCAL DECREASED GLUCOSE; Start 07/18/16 at 02:00 Levetiracetam/ Sodium Chloride (Keppra Iv/NS) 107.5 ml @ 430 mls/hr Q12 IVPB Last administered on 08/02/16 20:55; Admin Dose 430 MLS/HR; Start 07/18/16 at 15 :00 Mupirocin (Bactroban) 1 applic BID TOP Last administered on 08/02/16 20:59; Admin Dose 1 APPLIC; Start 07/19/16 at 12:00 Collagenase (Santyl) 1 applic DAILY PRN TOP WHEN SOILED Last administered on 23:34; Admin Dose 1 APPLIC; Start 07/22/16 at 16:30 Heparin Sodium (Porcine) (Heparin (5000 Units/0.5 ml)) 5,000 unit BID SC Last administered on 08/02/16 20:57; Admin Dose 5,000 UNIT; Start 07/23/16 at 21:00 Insulin Aspart (Novolog Insulin Pen) NOVOLOG *MILD* ALGORI... Q4 SC Last administered on 08/03/16 05:18; Admin Dose 2 UNIT; Start 07/30/16 at 09:00 Insulin Human NPH (Humulin N) 10 unit Q8 SC Last administered on 08/03/16 05: 28; Admin Dose 10 UNIT; Start 07/30/16 at 14:00 PAMELA PIÑA MD Aug 03, 2016 09:33
[2016-08-03] MEDS: MUPIROCIN 2% 22 GM OINT TOP SCH ×2 (10:24→21:00)
[2016-08-03] MEDS: LEVETIRACETAM IV 750 MG in SOD CHLORIDE 0.9% 100 ML IVPB SCH ×2 (10:24→22:06)
[2016-08-03] MEDS: HEPARIN 5,000 UNIT/0.5 ML VIAL SC SCH ×2 (10:28→22:07)
--- NOTE | 2016-08-03 14:04 | CONS ---
Date/Time of Note Date/Time of Note DATE: 08/03/16 TIME: 14:02 Assessment/Plan Assessment/Plan Problems: (1) Diabetes type I Status: Chronic Comment: As noted previously we do not actually have definitive evidence this is type I versus type 2 diabetes mellitus. He is being treated as a type I diabetic. Given the overall totality of the state that he is and it does not matter which type he has as he has adequate sugar control on his current multiple daily injection regimen. The neurology note very softly but definitively points to this patient having a terrible prognosis. Specifically there is no meaningful expectation of meaningful recovery to the point where the patient will be able to verbally interact with the outside world Qualifiers: Diabetes mellitus complication status: with unspecified complications Qualified Code: E10.8 - Type 1 diabetes mellitus with complication Consultation Date/Type/Reason Admit Date/Time Jul 17, 2016 at 13:33 Initial Consult Date 07/25/16 Type of Consultation: Endocrinology Reason for Consultation Diabetes mellitus possibly type I versus type II and is extremely medically challenged individual Referring Provider: ERMA JACOBS 24 HR Interval Summary Subjective hx not possible: pt non-verbal, pt critical status Exam/Review of Systems Vital Signs Vitals Vital Signs Date Time Temp Pulse Resp B/P Pulse Ox O2 Delivery O2 Flow Rate FiO2 08/03/16 13:15 83 20 97 30 08/03/16 12:22 98.6 83/48 Intake and Output 08/02/16 08/02/16 08/03/16 15:00 23:00 07:00 Intake Total 107.5 ml 350 ml 900 ml Output Total 1500 ml Balance 107.5 ml 350 ml -600 ml Exam No changes Results Result Diagram: 08/01/16 0630 08/01/16 0630 Results 24 hrs Laboratory Tests Test 08/02/16 14:11 08/02/16 17:53 08/02/16 20:54 08/03/16 01:00 Bedside Glucose 146 113 114 137 Test 08/03/16 05:15 08/03/16 08:23 08/03/16 11:26 Bedside Glucose 195 185 157 Medications Medications Current Medications Ondansetron HCl (Zofran Inj) 4 mg Q6H PRN IV NAUSEA AND/OR VOMITING; Start at 16:00 Pantoprazole (Protonix Iv) 40 mg DAILY@06 IV Last administered on 08/03/16 05: 17; Admin Dose 40 MG; Start 07/18/16 at 06:00 Bisacodyl (Dulcolax Supp) 10 mg Q24H PRN [place] CONSTIPATION; Start 07/17/16 at 16: 00 Lorazepam (Ativan) 1 mg Q1H PRN IV seziure activity; Start 07/17/16 at 22:30 Acetaminophen (Tylenol Liquid) 650 mg Q6H PRN GTB PAIN AND OR ELEVATED TEMP Last administered on 07/22/16 01:05; Admin Dose 650 MG; Start 07/18/16 at 02:00 Miscellaneous Information 1 ea NOTE XX ; Start 07/18/16 at 02:00 Glucose (Glutose) 15 gm Q15M PRN PO DECREASED GLUCOSE; Start 07/18/16 at 02:00 Glucose (Glutose) 22.5 gm Q15M PRN PO DECREASED GLUCOSE; Start 07/18/16 at 02:00 Dextrose (D50w Syringe) 25 ml Q15M PRN IV DECREASED GLUCOSE Last administered on 07/30/16 23:31; Admin Dose 25 ML; Start 07/18/16 at 02:00 Dextrose (D50w Syringe) 50 ml Q15M PRN IV DECREASED GLUCOSE Last administered on 07/20/16 20:11; Admin Dose 50 ML; Start 07/18/16 at 02:00 Glucagon (Glucagen) 1 mg Q15M PRN IM DECREASED GLUCOSE; Start 07/18/16 at 02:00 Glucose 15 gm 15 gm Q15M PRN BUCCAL DECREASED GLUCOSE; Start 07/18/16 at 02:00 Levetiracetam/ Sodium Chloride (Keppra Iv/NS) 107.5 ml @ 430 mls/hr Q12 IVPB Last administered on 08/03/16 10:24; Admin Dose 430 MLS/HR; Start 07/18/16 at 15 :00 Mupirocin (Bactroban) 1 applic BID TOP Last administered on 08/03/16 10:24; Admin Dose 1 APPLIC; Start 07/19/16 at 12:00 Collagenase (Santyl) 1 applic DAILY PRN TOP WHEN SOILED Last administered on 23:34; Admin Dose 1 APPLIC; Start 07/22/16 at 16:30 Heparin Sodium (Porcine) (Heparin (5000 Units/0.5 ml)) 5,000 unit BID SC Last administered on 08/03/16 10:28; Admin Dose 5,000 UNIT; Start 07/23/16 at 21:00 Insulin Aspart (Novolog Insulin Pen) NOVOLOG *MILD* ALGORI... Q4 SC Last administered on 08/03/16 10:27; Admin Dose 2 UNIT; Start 07/30/16 at 09:00 Insulin Human NPH (Humulin N) 10 unit Q8 SC Last administered on 08/03/16 05: 28; Admin Dose 10 UNIT; Start 07/30/16 at 14:00 ISSA SIMS MD Aug 03, 2016 14:04
--- NOTE | 2016-08-03 14:09 | CONS ---
Date/Time of Note Date/Time of Note DATE: 08/03/16 TIME: 14:07 Consult Date/Type/Reason Admit Date/Time Jul 17, 2016 at 13:33 Type of Consultation: pulmonary Ordering Provider: ERMA JACOBS Subjective Patient remains comfortable overall condition unchanged Objective Vital Signs Date Time Temp Pulse Resp B/P Pulse Ox O2 Delivery O2 Flow Rate FiO2 08/03/16 13:15 83 20 97 30 08/03/16 12:22 98.6 83/48 Intake and Output 08/02/16 08/02/16 08/03/16 14:59 22:59 06:59 Intake Total 107.5 ml 350 ml 900 ml Output Total 1500 ml Balance 107.5 ml 350 ml -600 ml Exam PHYSICAL EXAMINATION GENERAL: Young gentleman on mechanical ventilation appears comfortable at rest VITAL SIGNS: see below. HEENT: Pupils equal, round, and reactive to light. Tracheostomy site clean and intact. CARDIAC: S1, S2, tachycardia. CHEST: Diminished air entry bilaterally. ABDOMEN: Mildly distended. Bowel sounds present no guarding or rebound EXTREMITIES: No cyanosis, clubbing or edema. NEUROLOGIC: Unable to assess Results/Medications Result Diagram: 08/01/16 0630 08/01/16 0630 Results 24 hrs Laboratory Tests Test 08/02/16 14:11 08/02/16 17:53 08/02/16 20:54 08/03/16 01:00 Bedside Glucose 146 113 114 137 Test 08/03/16 05:15 08/03/16 08:23 08/03/16 11:26 Bedside Glucose 195 185 157 Medications Current Medications Ondansetron HCl (Zofran Inj) 4 mg Q6H PRN IV NAUSEA AND/OR VOMITING; Start at 16:00 Pantoprazole (Protonix Iv) 40 mg DAILY@06 IV Last administered on 08/03/16 05: 17; Admin Dose 40 MG; Start 07/18/16 at 06:00 Bisacodyl (Dulcolax Supp) 10 mg Q24H PRN [place] CONSTIPATION; Start 07/17/16 at 16: 00 Lorazepam (Ativan) 1 mg Q1H PRN IV seziure activity; Start 07/17/16 at 22:30 Acetaminophen (Tylenol Liquid) 650 mg Q6H PRN GTB PAIN AND OR ELEVATED TEMP Last administered on 07/22/16 01:05; Admin Dose 650 MG; Start 07/18/16 at 02:00 Miscellaneous Information 1 ea NOTE XX ; Start 07/18/16 at 02:00 Glucose (Glutose) 15 gm Q15M PRN PO DECREASED GLUCOSE; Start 07/18/16 at 02:00 Glucose (Glutose) 22.5 gm Q15M PRN PO DECREASED GLUCOSE; Start 07/18/16 at 02:00 Dextrose (D50w Syringe) 25 ml Q15M PRN IV DECREASED GLUCOSE Last administered on 07/30/16 23:31; Admin Dose 25 ML; Start 07/18/16 at 02:00 Dextrose (D50w Syringe) 50 ml Q15M PRN IV DECREASED GLUCOSE Last administered on 07/20/16 20:11; Admin Dose 50 ML; Start 07/18/16 at 02:00 Glucagon (Glucagen) 1 mg Q15M PRN IM DECREASED GLUCOSE; Start 07/18/16 at 02:00 Glucose 15 gm 15 gm Q15M PRN BUCCAL DECREASED GLUCOSE; Start 07/18/16 at 02:00 Levetiracetam/ Sodium Chloride (Keppra Iv/NS) 107.5 ml @ 430 mls/hr Q12 IVPB Last administered on 08/03/16 10:24; Admin Dose 430 MLS/HR; Start 07/18/16 at 15 :00 Mupirocin (Bactroban) 1 applic BID TOP Last administered on 08/03/16 10:24; Admin Dose 1 APPLIC; Start 07/19/16 at 12:00 Collagenase (Santyl) 1 applic DAILY PRN TOP WHEN SOILED Last administered on 23:34; Admin Dose 1 APPLIC; Start 07/22/16 at 16:30 Heparin Sodium (Porcine) (Heparin (5000 Units/0.5 ml)) 5,000 unit BID SC Last administered on 08/03/16 10:28; Admin Dose 5,000 UNIT; Start 07/23/16 at 21:00 Insulin Aspart (Novolog Insulin Pen) NOVOLOG *MILD* ALGORI... Q4 SC Last administered on 08/03/16 10:27; Admin Dose 2 UNIT; Start 07/30/16 at 09:00 Insulin Human NPH (Humulin N) 10 unit Q8 SC Last administered on 08/03/16t 05: 28; Admin Dose 10 UNIT; Start 07/30/16 at 14:00 Assessment/Plan Chief Complaint/Hosp Course Assessment 1. Vent dependent respiratory failure 2. Status post cardiac arrest now with anoxic brain injury 2. Renal insufficiency 4. Persistent leukocytosis 5. Dysphagia with G-tube Plan 1. Continue mechanical ventilation 2. Continue antibiotics per ID 3. Wound care 4. Tube feeding as tolerated Disposition Consider [place] evaluation Problems: END[facility] PORTER [facility] Aug 03, 2016 14:09
[2016-08-03] MEDS: EPOETIN 3000 UNITS/1 ML INJ (ESRD) SC SCH (17:57)
[2016-08-03] MEDS: DEXTROSE 50% 50 ML SYRINGE IV PRN (18:12)
[2016-08-04] VITALS (23 sets, daily range): BP systolic 80–121; BP diastolic 50–69; PULSE 75–87; RESP 15–22
[2016-08-04] MEDS: INSULIN ASPART [NOVOLOG] 3 ML PEN SC SCH ×6 (01:00→21:00)
[2016-08-04] MEDS: DEXTROSE 50% 50 ML SYRINGE IV PRN ×6 (01:09→22:05)
[2016-08-04] MEDS ORDERED: NPH, HUMAN INSULIN ISOPHANE 3ML VIAL SC SCH ×2 (06:00→14:00)
[2016-08-04] MEDS: PANTOPRAZOLE 40 MG INJ IV SCH (06:28)
[2016-08-04] MEDS: NPH, HUMAN INSULIN ISOPHANE 3ML VIAL SC SCH ×3 (06:30→22:37)
[2016-08-04 06:34] LABS: ADD SCAN DIFF NO
[2016-08-04 06:38] LABS: ABNORMAL IP MESSAGE 1; BASOPHIL # 0.1 10^3/ul (0.0-0.1); BASOPHILS % 0.5 % (0.0-2.0); EOSINOPHILS # 0.1 10^3/ul (0.0-0.5); EOSINOPHILS % 1.2 % (0.0-7.0); HEMOGLOBIN 9.1 g/dl (14.0-18.0); LYMPHOCYTES % 8.6 % (15.0-51.0); MEAN CORPUSCULAR HEMOGLOBIN 30.5 pg (29.0-33.0); MEAN CORPUSCULAR HGB CONC 28.4 g/dl (32.0-37.0); MEAN CORPUSCULAR VOLUME 107.4 fl (82.0-101.0); MEAN PLATELET VOLUME 11.4 fl (7.4-10.4); MONOCYTE # 1.1 10^3/ul (0.3-0.9); MONOCYTES % 9.8 % (0.0-11.0); NEUTROPHIL # 9.3 10^3/ul (1.6-7.5); NEUTROPHILS % 79.5 % (39.0-77.0); PLATELET COUNT 155 10^3/UL (140-415); RED BLOOD COUNT 2.98 10^6/ul (4.70-6.10); RED CELL DISTRIBUTION WIDTH 18.6 % (11.5-14.5); WHITE BLOOD COUNT 11.7 10^3/ul (4.8-10.8)
[2016-08-04 07:06] LABS: CREATININE 2.24 mg/dl (0.61-1.24)
[2016-08-04 07:07] LABS: MAGNESIUM 2.7 mg/dl (1.7-2.5); PHOSPHORUS 3.9 mg/dl (2.5-4.9)
[2016-08-04] MEDS: LEVETIRACETAM IV 750 MG in SOD CHLORIDE 0.9% 100 ML IVPB SCH ×2 (09:30→22:35)
[2016-08-04] MEDS ORDERED: METOCLOPRAMIDE 10 MG INJ IV ONE (09:30)
--- NOTE | 2016-08-04 09:32 | PN ---
Date/Time of Note Date/Time of Note DATE: 08/04/16 TIME: 09:29 Assessment/Plan VTE Prophylaxis VTE Prophylaxis Intervention: heparin Lines/Catheters IV [facility]from [facility] Saline Lock Urinary Cath still in place: No Assessment/Plan Assessment/Plan 1. S/p Cardiac arrest secondary to septic shock 2. Severe anoxic encephalopathy-severe encephalopathy noted on EEG- s/p palliative care consult 3. Type I DM with Brittle sugar control, Endocrine following 4. Bilateral Multifocal Pneumonia causing Sepsis 5. End-stage renal disease on hemodialysis.- Nephrology has been following 6. Acute on chronic respiratory failure, remains ventilator-dependent. 7. Anemia secondary to chronic kidney disease. 8. Methicillin-resistant Staphylococcus aureus nares. 9. Chronic dysphagia, on PEG feeds with high residuals. 10. Chronic debility secondary to chronically uncontrolled diabetes type 1 with recurrent episodes of pneumonia causing recurrent hospitalization and now trach and gastrostomy placement, with chronic muscle wasting and foot drop. Heparin for DVT prophylaxis, Protonix for GI prophylaxis s/p EEG HD as per Nephrology IV reglan 10mg Q 6 hr pt has blood sugar down to 14 today, he has tube feeding problems yesterday with high residuals and pt received NPH as scheduled, Endocrine following, Nurse advised to follow up with Endocrine recommendation regarding NPH continue ventilator care as per pulmonary Subjective 24 Hr Interval Summary Free Text/Dictation pt has blood sugar down to 14 today, he has tube feeding problems yesterday with high residuals and pt received NPH as scheduled, Endocrine following Exam/Review of Systems Vital Signs Vitals Vital Signs Date Time Temp Pulse Resp B/P Pulse Ox O2 Delivery O2 Flow Rate FiO2 08/04/16 08:30 87 08/04/16 07:40 20 97 30 08/04/16 07:31 98.0 84/50 Intake and Output 08/03/16 08/03/16 08/04/16 15:00 23:00 07:00 Intake Total 107.5 ml 400 ml 507.5 ml Balance 107.5 ml 400 ml 507.5 ml Exam Constitutional: frail, non-verbal, not responding to commands, to his baseilne as per nursing staff Neck: other ((+) trach on vent) Respiratory: bilateral decreased BS, no wheezing Cardiovascular: nl pulses, regular rate and rhythm, Gastrointestinal: bowel sounds, nl liver, spleen, non-tender, soft, Musculoskeletal: nl extremities to inspection Extremities: normal pulses, Neurological: non verbal, pt is trach on ventilator Results Result Diagram: 08/04/16 0530 08/04/16 0530 Results 24 hrs Laboratory Tests Test 08/03/16 11:26 08/03/16 17:58 08/03/16 19:22 08/03/16 20:53 Bedside Glucose 157 62 L 85 78 Test 08/03/16 22:00 08/04/16 01:00 08/04/16 01:25 08/04/16 05:15 Bedside Glucose 71 51 L 109 29 *L Test 08/04/16 05:30 08/04/16 05:41 08/04/16 09:04 08/04/16 09:13 White Blood Count 11.7 #H Red Blood Count 2.98 L Hemoglobin 9.1 L Hematocrit 32.0 L Mean Corpuscular Volume 107.4 H Mean Corpuscular Hemoglobin 30.5 Mean Corpuscular Hemoglobin Concent 28.4 L Red Cell Distribution Width 18.6 H Platelet Count 155 Mean Platelet Volume 11.4 H Neutrophils % 79.5 H Lymphocytes % 8.6 L Monocytes % 9.8 Eosinophils % 1.2 Basophils % 0.5 Nucleated Red Blood Cells % 0.0 Neutrophils # 9.3 H Lymphocytes # 1.0 Monocytes # 1.1 H Eosinophils # 0.1 Basophils # 0.1 Nucleated Red Blood Cells # 0.0 Sodium Level 145 H Potassium Level 4.0 Chloride Level 106 Carbon Dioxide Level 24 Anion Gap 19 H Blood Urea Nitrogen 45 H Creatinine 2.24 H Glucose Level 163 Calcium Level 9.0 Phosphorus Level 3.9 Magnesium Level 2.7 H Bedside Glucose 132 14 *L 359 H Test 08/04/16 09:22 Bedside Glucose 285 H Medications Medications Current Medications Ondansetron HCl (Zofran Inj) 4 mg Q6H PRN IV NAUSEA AND/OR VOMITING; Start at 16:00 Pantoprazole (Protonix Iv) 40 mg DAILY@06 IV Last administered on 08/04/16t 06: 28; Admin Dose 40 MG; Start 07/18/16 at 06:00 Bisacodyl (Dulcolax Supp) 10 mg Q24H PRN [place] CONSTIPATION; Start 07/17/16 at 16: 00 Lorazepam (Ativan) 1 mg Q1H PRN IV seziure activity; Start 07/17/16 at 22:30 Acetaminophen (Tylenol Liquid) 650 mg Q6H PRN GTB PAIN AND OR ELEVATED TEMP Last administered on 07/22/16 01:05; Admin Dose 650 MG; Start 07/18/16 at 02:00 Miscellaneous Information 1 ea NOTE XX ; Start 07/18/16 at 02:00 Glucose (Glutose) 15 gm Q15M PRN PO DECREASED GLUCOSE; Start 07/18/16 at 02:00 Glucose (Glutose) 22.5 gm Q15M PRN PO DECREASED GLUCOSE; Start 07/18/16 at 02:00 Dextrose (D50w Syringe) 25 ml Q15M PRN IV DECREASED GLUCOSE Last administered on 08/04/16 01:09; Admin Dose 25 ML; Start 07/18/16 at 02:00 Dextrose (D50w Syringe) 50 ml Q15M PRN IV DECREASED GLUCOSE Last administered on 08/04/16 09:09; Admin Dose 50 ML; Start 07/18/16 at 02:00 Glucagon (Glucagen) 1 mg Q15M PRN IM DECREASED GLUCOSE; Start 07/18/16 at 02:00 Glucose 15 gm 15 gm Q15M PRN BUCCAL DECREASED GLUCOSE; Start 07/18/16 at 02:00 Levetiracetam/ Sodium Chloride (Keppra Iv/NS) 107.5 ml @ 430 mls/hr Q12 IVPB Last administered on 08/03/16 22:06; Admin Dose 430 MLS/HR; Start 07/18/16 at 15 :00 Mupirocin (Bactroban) 1 applic BID TOP Last administered on 08/03/16 21:00; Admin Dose 1 APPLIC; Start 07/19/16 at 12:00 Collagenase (Santyl) 1 applic DAILY PRN TOP WHEN SOILED Last administered on 23:34; Admin Dose 1 APPLIC; Start 07/22/16 at 16:30 Heparin Sodium (Porcine) (Heparin (5000 Units/0.5 ml)) 5,000 unit BID SC Last administered on 08/03/16 22:07; Admin Dose 5,000 UNIT; Start 07/23/16 at 21:00 Insulin Aspart (Novolog Insulin Pen) NOVOLOG *MILD* ALGORI... Q4 SC Last administered on 08/03/16 14:31; Admin Dose 1 UNIT; Start 07/30/16 at 09:00 Insulin Human NPH (Humulin N) 9 unit Q8 SC Last administered on 08/04/16 06:30 ; Admin Dose 9 UNIT; Start 08/03/16 at 22:22 PAMELA PIÑA MD Aug 04, 2016 09:31
[2016-08-04] MEDS: HEPARIN 5,000 UNIT/0.5 ML VIAL SC SCH ×2 (09:34→22:17)
[2016-08-04] MEDS: MUPIROCIN 2% 22 GM OINT TOP SCH ×2 (09:35→21:00)
--- NOTE | 2016-08-04 10:37 | PN ---
DATE: 08/04/2016 SUBJECTIVE: The patient had hemodialysis yesterday, tolerated it well. OBJECTIVE: VITAL SIGNS: Blood pressure is 84/50, respirations 19, pulse 84, temperature 98.0. I's and O's wer e reviewed. HEENT: Head is normocephalic. NECK: Supple. HEART: Regular rate. LUNGS: Show diminished breath sounds at the bases. ABDOMEN: Soft, nontender to palpation. No rebound or guarding. EXTREMITIES: Negative for clubbing, cyanosis. Trace edema. DERMATOLOGIC: No rashes. MUSCULOSKELETAL: The patient has noted muscle wasting upper and lower extremities. NEUROLOGIC: No change in exam. MEDICATIONS: The patient's medications have been reviewed. LABORATORY DATA: Shows sodium 145, potassium 4.0, chloride 106, BUN 45, creatinine 2.24. White cou nt 11.7, hemoglobin 9.1, hematocrit 32.0, platelet count is 155. ASSESSMENT AND PLAN: 1. End-stage renal disease. The patient had hemodialysis yesterday, tolerated it well. Plan for d ialysis tomorrow for 3 hours, 3 K bath, calcium 2.5. 2. Hypernatremia. We will increase free water flushes to 200 mL q.6h. 3. Anemia of chronic disease. Continue to monitor hemoglobin and hematocrit levels. Continue Epog en as needed. 4. Ventilator-dependent respiratory failure. Vent settings reviewed. Continue to monitor. 5. Dysphagia, status post percutaneous endoscopic gastrostomy. Continue tube feeds. 6. Sepsis, status post shock. The patient is completing antibiotic course. 7. Severe anoxic encephalopathy. No change. 8. Chronic muscle wasting. Continue to monitor. 9. Diabetes. Continue current insulin regimen. 10. Status post code arrest. Dictated By: KENTON BLAKE DO NR/NTS Conf#: [id number] DID#: [id number]
--- NOTE | 2016-08-04 10:48 | CONS ---
Date/Time of Note Date/Time of Note DATE: 08/04/16 TIME: 10:46 Assessment/Plan Assessment/Plan Additional Assessment/Plan Ventilator settings; AC of 20, tidal volume 500, PEEP of 5, 30% FiO2. Assessment recommendations; 1. Patient admitted for cardiac arrest, status post CPR with resultant severe anoxic brain injury. 2. Chronic respiratory failure. 3. End-stage renal disease on hemodialysis. 4. Patient also has severe pneumonia on admission with interval resolution. 5. Stable seizure disorder. 7. Diabetes. Continue current supportive care. Prognosis is extremely poor. Patient awaiting transfer to long term. Consultation Date/Type/Reason Admit Date/Time Jul 17, 2016 at 13:33 Type of Consultation: pulmonary Referring Provider: ERMA JACOBS 24 HR Interval Summary Free Text/Dictation Patient condition remains unchanged. Remains profoundly unresponsive. Has remained hemodynamically stable. General exam; young male, on ventilator via tracheostomy unresponsive. Exam/Review of Systems Vital Signs Vitals Vital Signs Date Time Temp Pulse Resp B/P Pulse Ox O2 Delivery O2 Flow Rate FiO2 08/04/16 09:15 85 21 99 45 08/04/16 07:31 98.0 84/50 Intake and Output 08/03/16 08/03/16 08/04/16 15:00 23:00 07:00 Intake Total 107.5 ml 400 ml 507.5 ml Balance 107.5 ml 400 ml 507.5 ml Exam HEENT exam is; supple neck, no JVD. No lymphadenopathy. Midline trachea. Tracheostomy in place. Pupils are widely dilated and nonreactive to light. Doll's eye movements are negative. Chest exam is; diminished but clear vessel. S1-S2 audible, no murmurs. Regular rhythm. Abdomen exam is; soft, G-tube in place. No organomegaly. Extremity exam is; no peripheral edema. RN PATIENT SERVICES examination; patient remains profoundly unresponsive. Results Result Diagram: 08/04/16 0530 08/04/16 0530 Results 24 hrs Laboratory Tests Test 08/03/16 11:26 08/03/16 17:58 08/03/16 19:22 08/03/16 20:53 Bedside Glucose 157 62 L 85 78 Test 08/03/16 22:00 08/04/16 01:00 08/04/16 01:25 08/04/16 05:15 Bedside Glucose 71 51 L 109 29 *L Test 08/04/16 05:30 08/04/16 05:41 08/04/16 09:04 08/04/16 09:13 White Blood Count 11.7 #H Red Blood Count 2.98 L Hemoglobin 9.1 L Hematocrit 32.0 L Mean Corpuscular Volume 107.4 H Mean Corpuscular Hemoglobin 30.5 Mean Corpuscular Hemoglobin Concent 28.4 L Red Cell Distribution Width 18.6 H Platelet Count 155 Mean Platelet Volume 11.4 H Neutrophils % 79.5 H Lymphocytes % 8.6 L Monocytes % 9.8 Eosinophils % 1.2 Basophils % 0.5 Nucleated Red Blood Cells % 0.0 Neutrophils # 9.3 H Lymphocytes # 1.0 Monocytes # 1.1 H Eosinophils # 0.1 Basophils # 0.1 Nucleated Red Blood Cells # 0.0 Sodium Level 145 H Potassium Level 4.0 Chloride Level 106 Carbon Dioxide Level 24 Anion Gap 19 H Blood Urea Nitrogen 45 H Creatinine 2.24 H Glucose Level 163 Calcium Level 9.0 Phosphorus Level 3.9 Magnesium Level 2.7 H Bedside Glucose 132 14 *L 359 H Test 08/04/16 09:22 08/04/16 09:46 Bedside Glucose 285 H 180 Medications Medications Current Medications Ondansetron HCl (Zofran Inj) 4 mg Q6H PRN IV NAUSEA AND/OR VOMITING; Start at 16:00 Pantoprazole (Protonix Iv) 40 mg DAILY@06 IV Last administered on 08/04/16 06: 28; Admin Dose 40 MG; Start 07/18/16 at 06:00 Bisacodyl (Dulcolax Supp) 10 mg Q24H PRN [place] CONSTIPATION; Start 07/17/16 at 16: 00 Lorazepam (Ativan) 1 mg Q1H PRN IV seziure activity; Start 07/17/16 at 22:30 Acetaminophen (Tylenol Liquid) 650 mg Q6H PRN GTB PAIN AND OR ELEVATED TEMP Last administered on 07/22/16 01:05; Admin Dose 650 MG; Start 07/18/16 at 02:00 Miscellaneous Information 1 ea NOTE XX ; Start 07/18/16 at 02:00 Glucose (Glutose) 15 gm Q15M PRN PO DECREASED GLUCOSE; Start 07/18/16 at 02:00 Glucose (Glutose) 22.5 gm Q15M PRN PO DECREASED GLUCOSE; Start 07/18/16 at 02:00 Dextrose (D50w Syringe) 25 ml Q15M PRN IV DECREASED GLUCOSE Last administered on 08/04/16 01:09; Admin Dose 25 ML; Start 07/18/16 at 02:00 Dextrose (D50w Syringe) 50 ml Q15M PRN IV DECREASED GLUCOSE Last administered on 08/04/16 09:09; Admin Dose 50 ML; Start 07/18/16 at 02:00 Glucagon (Glucagen) 1 mg Q15M PRN IM DECREASED GLUCOSE; Start 07/18/16 at 02:00 Glucose 15 gm 15 gm Q15M PRN BUCCAL DECREASED GLUCOSE; Start 07/18/16 at 02:00 Levetiracetam/ Sodium Chloride (Keppra Iv/NS) 107.5 ml @ 430 mls/hr Q12 IVPB Last administered on 08/04/16 09:30; Admin Dose 430 MLS/HR; Start 07/18/16 at 15 :00 Mupirocin (Bactroban) 1 applic BID TOP Last administered on 08/04/16 09:35; Admin Dose 1 APPLIC; Start 07/19/16 at 12:00 Collagenase (Santyl) 1 applic DAILY PRN TOP WHEN SOILED Last administered on 23:34; Admin Dose 1 APPLIC; Start 07/22/16 at 16:30 Heparin Sodium (Porcine) (Heparin (5000 Units/0.5 ml)) 5,000 unit BID SC Last administered on 08/04/16 09:34; Admin Dose 5,000 UNIT; Start 07/23/16 at 21:00 Insulin Aspart (Novolog Insulin Pen) NOVOLOG *MILD* ALGORI... Q4 SC Last administered on 08/03/16 14:31; Admin Dose 1 UNIT; Start 07/30/16 at 09:00 Insulin Human NPH (Humulin N) 9 unit Q8 SC Last administered on 08/04/16 06:30 ; Admin Dose 9 UNIT; Start 08/03/16 at 22:22 Metoclopramide HCl (Reglan) 10 mg Q6 IV ; Start 08/04/16 at 12:00 CHANCE AVILA Aug 04, 2016 10:48
[2016-08-04] MEDS: METOCLOPRAMIDE 10 MG INJ IV SCH ×2 (12:39→18:12)
--- NOTE | 2016-08-04 13:53 | CONS ---
Date/Time of Note Date/Time of Note DATE: 08/04/16 TIME: 13:50 Assessment/Plan Assessment/Plan Problems: (1) Diabetes type I Status: Chronic Comment: Our source of giving nutrition into the system has just failed. He will be on IV dextrose and hopefully his GI tract will reawaken. In the meantime will follow the orders were written and adjust the insulin dosing based on the not being able to take nutrition through the GI tract and avoid hypoglycemia. An additional note since his situation is changed I believe would be appropriate to consider repeating the neurologic evaluation as is my considered opinion that normally as he had a point where there is no meaningful hope of recovery but he may have actually had more injury to the brain leading to more formalized terminal diagnosis Qualifiers: Diabetes mellitus complication status: with unspecified complications Qualified Code: E10.8 - Type 1 diabetes mellitus with complication (2) Anoxic brain injury Status: Acute Comment: Severe. As above I believe it is appropriate to consider repeating the EEG now (3) Debility, unspecified Status: Chronic Comment: This predates his admission long-term. Chance of meaningful recovery if he did not have the anoxic brain injury would have been small anyway after the anoxic brain injury it is 0 (4) End stage kidney disease Status: Acute Comment: As per nephrology Consultation Date/Type/Reason Admit Date/Time Jul 17, 2016 at 13:33 Initial Consult Date 07/25/16 Type of Consultation: Endocrinology Reason for Consultation Diabetes mellitus type 1 versus type II in a patient with significant major medical illness prior to coming in with full arrest and a severe anoxic brain injury Referring Provider: ERMA JACOBS 24 HR Interval Summary Subjective hx not possible: pt non-verbal Exam/Review of Systems Vital Signs Vitals Vital Signs Date Time Temp Pulse Resp B/P Pulse Ox O2 Delivery O2 Flow Rate FiO2 08/04/16 12:18 80 08/04/16 12:00 97.8 22 121/63 99 Mechanical Ventilator 08/04/16 11:10 45 Intake and Output 08/03/16 08/03/16 08/04/16 15:00 23:00 07:00 Intake Total 107.5 ml 400 ml 507.5 ml Balance 107.5 ml 400 ml 507.5 ml Exam Patient's GI tract residuals have increase in the tube feeding had to be stopped. This led to hypoglycemic reactions. Please note the definition reaction was that we measured the sugar lows the patient has no outward signs of consciousness Results Result Diagram: 08/04/16 0530 08/04/16 0530 Results 24 hrs Laboratory Tests Test 08/03/16 17:58 08/03/16 19:22 08/03/16 20:53 08/03/16 22:00 Bedside Glucose 62 L 85 78 71 Test 08/04/16 01:00 08/04/16 01:25 08/04/16 05:15 08/04/16 05:30 Bedside Glucose 51 L 109 29 *L White Blood Count 11.7 #H Red Blood Count 2.98 L Hemoglobin 9.1 L Hematocrit 32.0 L Mean Corpuscular Volume 107.4 H Mean Corpuscular Hemoglobin 30.5 Mean Corpuscular Hemoglobin Concent 28.4 L Red Cell Distribution Width 18.6 H Platelet Count 155 Mean Platelet Volume 11.4 H Neutrophils % 79.5 H Lymphocytes % 8.6 L Monocytes % 9.8 Eosinophils % 1.2 Basophils % 0.5 Nucleated Red Blood Cells % 0.0 Neutrophils # 9.3 H Lymphocytes # 1.0 Monocytes # 1.1 H Eosinophils # 0.1 Basophils # 0.1 Nucleated Red Blood Cells # 0.0 Sodium Level 145 H Potassium Level 4.0 Chloride Level 106 Carbon Dioxide Level 24 Anion Gap 19 H Blood Urea Nitrogen 45 H Creatinine 2.24 H Glucose Level 163 Calcium Level 9.0 Phosphorus Level 3.9 Magnesium Level 2.7 H Test 08/04/16 05:41 08/04/16 09:04 08/04/16 09:13 08/04/16 09:22 Bedside Glucose 132 14 *L 359 H 285 H Test 08/04/16 09:46 08/04/16 10:51 08/04/16 13:02 08/04/16 13:24 Bedside Glucose 180 101 64 L 193 Test 08/04/16 13:43 Bedside Glucose 169 Medications Medications Current Medications Ondansetron HCl (Zofran Inj) 4 mg Q6H PRN IV NAUSEA AND/OR VOMITING; Start at 16:00 Pantoprazole (Protonix Iv) 40 mg DAILY@06 IV Last administered on 08/04/16t 06: 28; Admin Dose 40 MG; Start 07/18/16 at 06:00 Bisacodyl (Dulcolax Supp) 10 mg Q24H PRN [place] CONSTIPATION; Start 07/17/16 at 16: 00 Lorazepam (Ativan) 1 mg Q1H PRN IV seziure activity; Start 07/17/16 at 22:30 Acetaminophen (Tylenol Liquid) 650 mg Q6H PRN GTB PAIN AND OR ELEVATED TEMP Last administered on 07/22/16 01:05; Admin Dose 650 MG; Start 07/18/16 at 02:00 Miscellaneous Information 1 ea NOTE XX ; Start 07/18/16 at 02:00 Glucose (Glutose) 15 gm Q15M PRN PO DECREASED GLUCOSE; Start 07/18/16 at 02:00 Glucose (Glutose) 22.5 gm Q15M PRN PO DECREASED GLUCOSE; Start 07/18/16 at 02:00 Dextrose (D50w Syringe) 25 ml Q15M PRN IV DECREASED GLUCOSE Last administered on 08/04/16 01:09; Admin Dose 25 ML; Start 07/18/16 at 02:00 Dextrose (D50w Syringe) 50 ml Q15M PRN IV DECREASED GLUCOSE Last administered on 08/04/16 13:06; Admin Dose 50 ML; Start 07/18/16 at 02:00 Glucagon (Glucagen) 1 mg Q15M PRN IM DECREASED GLUCOSE; Start 07/18/16 at 02:00 Glucose 15 gm 15 gm Q15M PRN BUCCAL DECREASED GLUCOSE; Start 07/18/16 at 02:00 Levetiracetam/ Sodium Chloride (Keppra Iv/NS) 107.5 ml @ 430 mls/hr Q12 IVPB Last administered on 08/04/16 09:30; Admin Dose 430 MLS/HR; Start 07/18/16 at 15 :00 Mupirocin (Bactroban) 1 applic BID TOP Last administered on 08/04/16 09:35; Admin Dose 1 APPLIC; Start 07/19/16 at 12:00 Collagenase (Santyl) 1 applic DAILY PRN TOP WHEN SOILED Last administered on 23:34; Admin Dose 1 APPLIC; Start 07/22/16 at 16:30 Heparin Sodium (Porcine) (Heparin (5000 Units/0.5 ml)) 5,000 unit BID SC Last administered on 08/04/16 09:34; Admin Dose 5,000 UNIT; Start 07/23/16 at 21:00 Insulin Aspart (Novolog Insulin Pen) NOVOLOG *MILD* ALGORI... Q4 SC Last administered on 08/03/16 14:31; Admin Dose 1 UNIT; Start 07/30/16 at 09:00 Metoclopramide HCl (Reglan) 10 mg Q6 IV Last administered on 08/04/16 12:39; Admin Dose 10 MG; Start 08/04/16 at 12:00 Insulin Human NPH 3 unit 3 unit Q8 SC ; Start 08/04/16 at 14:00; Status UNV Dextrose (D5W) 1,000 ml @ 60 mls/hr [id number] IV ; Start 08/04/16 at 14:00; Status UNV ISSA SIMS MD Aug 04, 2016 13:53
[2016-08-04] MEDS: DEXTROSE 5% 1,000 ML IV SCH (14:11)
--- NOTE | 2016-08-04 22:19 | PN ---
DATE: REFERRING PHYSICIAN: Dr. Ibarra Thank you for asking me to see the patient with you. HISTORY OF PRESENT ILLNESS: The patient is a 35-year-old unfortunate. He has multiple medical problems including cardiopulmonary arrest, septic shock, severe anoxic encephalopathy, diabetes type 1, bilateral multifocal pneumonia, sepsis, endstage renal disease, hemodialysis, acute on top of chronic respiratory failure, ventilation dependent, anemia, methicillin resistant staph , chronic dysphagia with PEG tube feeding. CURRENT MEDICATIONS: Include: 1. Protonix 40 mg once a day. 2. Heparin 5000 twice a day. 3. Insulin NovoLog every 4 hours per sliding scale. 4. Tylenol 650 mg every 6 hours as needed. 5. Lorazepam 1 mg every 4 hours as needed for seizure activity. 6. Zofran 4 mg every 6 hours as needed. 7. Dulcolax 10 mg every 24 hours. PHYSICAL EXAMINATION: GENERAL: Today, the patient does not follow any verbal commands, does not respond for painful stimuli. CRANIAL NERVES: Cranial nerve II: Pupils with sluggish reaction to light. Cranial nerves III, IV, and decreased movement for doll's maneuver. Cranial nerves V and VII: Weak corneal reflex. Cranial nerves VIII through XII: Could not assess. MOTOR: Did not respond for painful stimuli. GAIT, COORDINATION, AND SENSATION: Could not assess. HEART: Regular rate and rhythm. LUNGS: Equal breath sounds. ABDOMEN: Soft, relaxed, nondistended. No tenderness. ASSESSMENT AND PLAN 1. The patient is 35 years old. He is comatose, unresponsive. 2. Status post cardiopulmonary arrest.possible clinical brain . 3. Status post acute hypoxic encephalopathy. 4. Dysphagia with percutaneous endoscopic gastrostomy tube feeding with residual. 5. We will keep the patient under deep venous thrombosis prophylaxis as well as decubitus ulcer prophylaxis. Again, thank you for asking me to see the patient with you. Please add the dictation [id number] to the patient ___. Dictated By: MARY BETH LOPES MD NA/NTS Conf#: [id number] DID#: [id number] CC: HUBER IBARRA MD;*EndCC* MTDD
[2016-08-05] VITALS (32 sets, daily range): BP systolic 88–143; BP diastolic 42–76; PULSE 66–90; RESP 15–22
[2016-08-05] MEDS: METOCLOPRAMIDE 10 MG INJ IV SCH ×4 (00:14→18:05)
[2016-08-05] MEDS: INSULIN ASPART [NOVOLOG] 3 ML PEN SC SCH ×6 (01:00→21:00)
[2016-08-05] MEDS: DEXTROSE 50% 50 ML SYRINGE IV PRN ×2 (01:28→08:51)
[2016-08-05] MEDS: PANTOPRAZOLE 40 MG INJ IV SCH (05:55)
[2016-08-05] MEDS: NPH, HUMAN INSULIN ISOPHANE 3ML VIAL SC SCH ×3 (05:57→22:20)
[2016-08-05] MEDS: DEXTROSE 5% 1,000 ML IV SCH ×2 (06:05→22:11)
[2016-08-05 07:28] LABS: ADD SCAN DIFF NO
[2016-08-05 07:37] LABS: BASOPHIL # 0.1 10^3/ul (0.0-0.1); BASOPHILS % 0.7 % (0.0-2.0); EOSINOPHILS # 0.2 10^3/ul (0.0-0.5); EOSINOPHILS % 2.9 % (0.0-7.0); HEMATOCRIT 30.6 % (42.0-52.0); HEMOGLOBIN 9.3 g/dl (14.0-18.0); LYMPHOCYTES # 0.9 10^3/ul (0.8-2.9); LYMPHOCYTES % 11.7 % (15.0-51.0); MEAN CORPUSCULAR HGB CONC 30.4 g/dl (32.0-37.0); MEAN PLATELET VOLUME 11.3 fl (7.4-10.4); MONOCYTE # 0.8 10^3/ul (0.3-0.9); MONOCYTES % 10.5 % (0.0-11.0); NEUTROPHIL # 5.4 10^3/ul (1.6-7.5); NEUTROPHILS % 73.9 % (39.0-77.0); PLATELET COUNT 172 10^3/UL (140-415); RED CELL DISTRIBUTION WIDTH 17.8 % (11.5-14.5); WHITE BLOOD COUNT 7.3 10^3/ul (4.8-10.8)
[2016-08-05 07:47] LABS: INR 1.34; PROTIME 16.7 Sec (12.2-14.2); PT RATIO 1.3
[2016-08-05 07:48] LABS: PARTIAL THROMBOPLASTIN TIME 44.7 Sec (25.0-35.0)
[2016-08-05 07:51] LABS: POTASSIUM 3.8 mmol/L (3.5-5.1)
[2016-08-05 07:53] LABS: CREATININE 2.79 mg/dl (0.61-1.24)
[2016-08-05] MEDS: LEVETIRACETAM IV 750 MG in SOD CHLORIDE 0.9% 100 ML IVPB SCH ×2 (08:35→22:05)
[2016-08-05] MEDS: HEPARIN 5,000 UNIT/0.5 ML VIAL SC SCH ×2 (08:44→22:20)
[2016-08-05] MEDS: MUPIROCIN 2% 22 GM OINT TOP SCH (09:04)
--- NOTE | 2016-08-05 09:08 | PN ---
DATE: 08/05/2016 SUBJECTIVE: The patient is stable. No events overnight. OBJECTIVE: VITAL SIGNS: Blood pressure 107/67, respiration 21, pulse 78, temperature 97.9. HEENT: Head is normocephalic. NECK: Shows trach. HEART: Regular rate. LUNGS: Show diminished breath sounds at the base. ABDOMEN: Soft, nontender to palpation. No rebound or guarding. EXTREMITIES: Negative for clubbing, cyanosis. No edema. DERMATOLOGIC: No rashes. MUSCULOSKELETAL: No joint effusions. NEUROLOGIC: No change in exam. MEDICATIONS: The patient's medications have been reviewed. LABORATORY DATA: Shows sodium 140, potassium 3.9, creatinine ____ , BUN 51, creatinine 2.79. White count 7.3, hemoglobin 9.3, hematocrit 30.6, platelet count is 172. ASSESSMENT AND PLAN: 1. End-stage renal disease. The patient is scheduled for dialysis today for 3 hours, 3 K bath, christoph cium 2.5. Will ultrafiltrate as tolerated. 2. Hypernatremia, improved. Continue current free water flushes. 3. Anemia of chronic disease. Continue to monitor hemoglobin and hematocrit levels. Continue Epoge n. 4. Ventilator dependent respiratory failure. Vent settings have been reviewed. ABG has been revie wed. Continue to monitor. 5. Dysphagia. Status post percutaneous endoscopic gastrostomy. Continue tube feeding. 6. Sepsis, status post shock. The patient is completing antibiotic course. 7. Severe anoxic encephalopathy. No change. 8. Chronic muscle wasting. Continue to monitor. 9. Diabetes. The patient had an episode of hypoglycemia, insulin regimen adjusted. 10. Status post code arrest. Dictated By: KENTON MATAMOROS/LAURA Conf#: [id number] DID#: [id number]
--- NOTE | 2016-08-05 11:37 | CONS ---
Date/Time of Note Date/Time of Note DATE: 08/05/16 TIME: 11:22 Assessment/Plan Assessment/Plan Chief Complaint/Hosp Course 35 year old male with history of chronic medical issues, Type I DM, ESRD, chronic respiratory failure with trach/PEG with prolonged admission post cardiac arrest with anoxic brain injury. He remains in a persistent vegetative state with absent brainstem responses and EEG pattern suggestive of severe encephalopathy. In light of his advanced comorbid medical issues and poor baseline condition, I agree with the other neurologists opinions of a poor prognosis for a meaningful neurologic recovery. Problems: Consultation Date/Type/Reason Admit Date/Time Jul 17, 2016 at 13:33 Date of Consultation: Aug 05, 2016 Type of Consultation: Neurology Reason for Consultation requested to evaluate for prognosis Referring Provider: PAMELA PIÑA MD Hx of Present Illness 35 year old male resident of a nursing facility with history of respiratory failure, Type I diabetes, ESRD on dialysis, dysphagia with PEG, encephalopathy was admitted to [facility] on 07/17 after suffering cardiac arrest at custodial facility. He underwent care by multiple specialists for management of sepsis, pneumonia, diabetes, renal failure, respiratory failure with trach/PEG requiring prolonged ICU stay with no improvement in neurologic exam. A Head CT was done on 07/19 that showed mild loss espinosa/white differentiation. Nuclear Scan showed no evidence to suggest brain on 07/22. Routine EEG 07/21: burst suppression pattern slowing of background, anoxic encephalopathy Repeat EEG 07/24: presence of severe suppression of bihemispheric distribution with epileptiform activity in the bifrontal and bitemporal region, consistent with severe encephalopathy Subjective hx not possible: pt non-verbal Psychological: No nl mood/affect Past Medical History Medical History: diabetes, renal disease Past Surgical History Past Surgical Hx: other (Not known) Social History Alcohol Use: other Smoking Status: Unknown if ever smoked Exam/Review of Systems Vital Signs Vitals Vital Signs Date Time Temp Pulse Resp B/P Pulse Ox O2 Delivery O2 Flow Rate FiO2 08/05/16 08:13 68 08/05/16 08:00 97.9 21 107/67 100 08/05/16 05:44 35 08/04/16 12:00 Mechanical Ventilator Intake and Output 08/04/16 08/04/16 08/05/16 15:00 23:00 07:00 Intake Total 400 ml Balance 400 ml Exam chronic ill- appearing eyes midway open no responsive to verbal stimuli no purposeful movement noted during exam CN: left pupil is 5-6 mm non-reactive, right pupil 4 mm non-reactive corneals are absent, absent response to nasal tickle, absent gag Motor: when noxious stimuli applied to left arm he does briefly jerk his head to the left with no further activity noted afterwards possibly a reflexive movement no other movement in other extremities diffuse atrophy and wasting to all muscle groups throughout Reflexes absent throughout Results Result Diagram: 08/05/16 0635 08/05/16 0635 Results 24 hrs Laboratory Tests Test 08/04/16 13:02 08/04/16 13:24 08/04/16 13:43 08/04/16 17:17 Bedside Glucose 64 L 193 169 95 Test 08/04/16 21:57 08/04/16 22:30 08/05/16 01:24 08/05/16 01:48 Bedside Glucose 64 L 121 69 L 124 Test 08/05/16 05:46 08/05/16 06:35 08/05/16 08:38 08/05/16 09:06 Bedside Glucose 84 65 L 167 White Blood Count 7.3 # Red Blood Count 3.00 L Hemoglobin 9.3 L Hematocrit 30.6 L Mean Corpuscular Volume 102.0 H Mean Corpuscular Hemoglobin 31.0 Mean Corpuscular Hemoglobin Concent 30.4 L Red Cell Distribution Width 17.8 H Platelet Count 172 Mean Platelet Volume 11.3 H Neutrophils % 73.9 Lymphocytes % 11.7 L Monocytes % 10.5 Eosinophils % 2.9 Basophils % 0.7 Nucleated Red Blood Cells % 0.0 Neutrophils # 5.4 Lymphocytes # 0.9 Monocytes # 0.8 Eosinophils # 0.2 Basophils # 0.1 Nucleated Red Blood Cells # 0.0 Prothrombin Time 16.7 H Prothrombin Time Ratio 1.3 INR International Normalized Ratio 1.34 Activated Partial Thromboplast Time 44.7 H Sodium Level 140 Potassium Level 3.8 Chloride Level 103 Carbon Dioxide Level 24 Anion Gap 17 H Blood Urea Nitrogen 51 H Creatinine 2.79 H Glucose Level 93 # Calcium Level 9.0 Medications Medications Current Medications Ondansetron HCl (Zofran Inj) 4 mg Q6H PRN IV NAUSEA AND/OR VOMITING; Start at 16:00 Pantoprazole (Protonix Iv) 40 mg DAILY@06 IV Last administered on 08/05/16 05: 55; Admin Dose 40 MG; Start 07/18/16 at 06:00 Bisacodyl (Dulcolax Supp) 10 mg Q24H PRN [place] CONSTIPATION; Start 07/17/16 at 16: 00 Lorazepam (Ativan) 1 mg Q1H PRN IV seziure activity; Start 07/17/16 at 22:30 Acetaminophen (Tylenol Liquid) 650 mg Q6H PRN GTB PAIN AND OR ELEVATED TEMP Last administered on 07/22/16 01:05; Admin Dose 650 MG; Start 07/18/16 at 02:00 Miscellaneous Information 1 ea NOTE XX ; Start 07/18/16 at 02:00 Glucose (Glutose) 15 gm Q15M PRN PO DECREASED GLUCOSE; Start 07/18/16 at 02:00 Glucose (Glutose) 22.5 gm Q15M PRN PO DECREASED GLUCOSE; Start 07/18/16 at 02:00 Dextrose (D50w Syringe) 25 ml Q15M PRN IV DECREASED GLUCOSE Last administered on 08/05/16 08:51; Admin Dose 25 ML; Start 07/18/16 at 02:00 Dextrose (D50w Syringe) 50 ml Q15M PRN IV DECREASED GLUCOSE Last administered on 08/04/16 13:06; Admin Dose 50 ML; Start 07/18/16 at 02:00 Glucagon (Glucagen) 1 mg Q15M PRN IM DECREASED GLUCOSE; Start 07/18/16 at 02:00 Glucose 15 gm 15 gm Q15M PRN BUCCAL DECREASED GLUCOSE; Start 07/18/16 at 02:00 Levetiracetam/ Sodium Chloride (Keppra Iv/NS) 107.5 ml @ 430 mls/hr Q12 IVPB Last administered on 08/05/16 08:35; Admin Dose 430 MLS/HR; Start 07/18/16 at 15 :00 Mupirocin (Bactroban) 1 applic BID TOP Last administered on 08/05/16 09:04; Admin Dose 1 APPLIC; Start 07/19/16 at 12:00 Collagenase (Santyl) 1 applic DAILY PRN TOP WHEN SOILED Last administered on 23:34; Admin Dose 1 APPLIC; Start 07/22/16 at 16:30 Heparin Sodium (Porcine) (Heparin (5000 Units/0.5 ml)) 5,000 unit BID SC Last administered on 08/05/16 08:44; Admin Dose 5,000 UNIT; Start 07/23/16 at 21:00 Insulin Aspart (Novolog Insulin Pen) NOVOLOG *MILD* ALGORI... Q4 SC Last administered on 08/03/16 14:31; Admin Dose 1 UNIT; Start 07/30/16 at 09:00 Metoclopramide HCl 10 mg 10 mg Q6 IV Last administered on 08/05/16 05:55; Admin Dose 10 MG; Start 08/04/16 at 12:00 Dextrose (D5W) 1,000 ml @ 60 mls/hr [id number] IV Last administered on 08/05/16 06:05; Admin Dose 60 MLS/HR; Start 08/04/16 at 14:00 Insulin Human NPH (Humulin N) 6 unit Q8 SC Last administered on 08/05/16 05:57 ; Admin Dose 6 UNIT; Start 08/04/16 at 14:00 MEGAN COOK MD Aug 05, 2016 11:33
--- NOTE | 2016-08-05 12:10 | PN ---
Date/Time of Note Date/Time of Note DATE: 08/05/16 TIME: 12:05 Assessment/Plan VTE Prophylaxis VTE Prophylaxis Intervention: SCD's Lines/Catheters IV Catheter Type (from [facility]): Saline Lock Urinary Cath still in place: No Assessment/Plan Assessment/Plan 35 year old male resident of a nursing facility with history of respiratory failure, Type I diabetes, ESRD on dialysis, dysphagia with PEG, encephalopathy was admitted to [facility] on 07/17 after suffering cardiac arrest at [facility]dc facility. He underwent care by multiple specialists for management of sepsis, pneumonia, diabetes, renal failure, respiratory failure with trach/PEG requiring prolonged ICU stay with no improvement in neurologic exam. 1. S/p Cardiac arrest secondary to septic shock 2. Severe anoxic encephalopathy-severe encephalopathy noted on EEG- s/p palliative care consult 3. Type I DM with Brittle sugar control, Endocrine following 4. Bilateral Multifocal Pneumonia causing Sepsis 5. End-stage renal disease on hemodialysis.- Nephrology has been following 6. Acute on chronic respiratory failure, remains ventilator-dependent. 7. Anemia secondary to chronic kidney disease. 8. Methicillin-resistant Staphylococcus aureus nares. 9. Chronic dysphagia, on PEG feeds with high residuals. 10. Chronic debility secondary to chronically uncontrolled diabetes type 1 with recurrent episodes of pneumonia causing recurrent hospitalization and now trach and gastrostomy placement, with chronic muscle wasting and foot drop. Heparin for DVT prophylaxis, Protonix for GI prophylaxis s/p EEG x 2 , s/p another neurologist evaluation yesterday, no meaningful neurological recovery, will request palliative to come back and talk to family HD as per Nephrology IV reglan 10mg Q 6 hr last BS 65, Endocrine following continue ventilator care as per pulmonary Subjective 24 Hr Interval Summary Free Text/Dictation s/p another neurology consult and evaluation, Exam/Review of Systems Vital Signs Vitals Vital Signs Date Time Temp Pulse Resp B/P Pulse Ox O2 Delivery O2 Flow Rate FiO2 08/05/16 11:34 97.9 67 21 115/76 100 08/05/16 05:44 35 08/04/16 12:00 Mechanical Ventilator Intake and Output 08/04/16 08/04/16 08/05/16 15:00 23:00 07:00 Intake Total 400 ml Balance 400 ml Exam Constitutional: frail, non-verbal, not responding to commands, to his baseilne as per nursing staff Neck: other ((+) trach on vent) Respiratory: bilateral decreased BS, no wheezing Cardiovascular: nl pulses, regular rate and rhythm, Gastrointestinal: bowel sounds, nl liver, spleen, non-tender, soft, Musculoskeletal: nl extremities to inspection Extremities: normal pulses, Neurological: non verbal, pt is trach on ventilator, reflexes absent throughout Results Result Diagram: 08/05/16 0635 08/05/16 0635 Results 24 hrs Laboratory Tests Test 08/04/16 13:02 08/04/16 13:24 08/04/16 13:43 08/04/16 17:17 Bedside Glucose 64 L 193 169 95 Test 08/04/16 21:57 08/04/16 22:30 08/05/16 01:24 08/05/16 01:48 Bedside Glucose 64 L 121 69 L 124 Test 08/05/16 05:46 08/05/16 06:35 08/05/16 08:38 08/05/16 09:06 Bedside Glucose 84 65 L 167 White Blood Count 7.3 # Red Blood Count 3.00 L Hemoglobin 9.3 L Hematocrit 30.6 L Mean Corpuscular Volume 102.0 H Mean Corpuscular Hemoglobin 31.0 Mean Corpuscular Hemoglobin Concent 30.4 L Red Cell Distribution Width 17.8 H Platelet Count 172 Mean Platelet Volume 11.3 H Neutrophils % 73.9 Lymphocytes % 11.7 L Monocytes % 10.5 Eosinophils % 2.9 Basophils % 0.7 Nucleated Red Blood Cells % 0.0 Neutrophils # 5.4 Lymphocytes # 0.9 Monocytes # 0.8 Eosinophils # 0.2 Basophils # 0.1 Nucleated Red Blood Cells # 0.0 Prothrombin Time 16.7 H Prothrombin Time Ratio 1.3 INR International Normalized Ratio 1.34 Activated Partial Thromboplast Time 44.7 H Sodium Level 140 Potassium Level 3.8 Chloride Level 103 Carbon Dioxide Level 24 Anion Gap 17 H Blood Urea Nitrogen 51 H Creatinine 2.79 H Glucose Level 93 # Calcium Level 9.0 Medications Medications Current Medications Ondansetron HCl (Zofran Inj) 4 mg Q6H PRN IV NAUSEA AND/OR VOMITING; Start at 16:00 Pantoprazole (Protonix Iv) 40 mg DAILY@06 IV Last administered on 08/05/16t 05: 55; Admin Dose 40 MG; Start 07/18/16 at 06:00 Bisacodyl (Dulcolax Supp) 10 mg Q24H PRN [place] CONSTIPATION; Start 07/17/16 at 16: 00 Lorazepam (Ativan) 1 mg Q1H PRN IV seziure activity; Start 07/17/16 at 22:30 Acetaminophen (Tylenol Liquid) 650 mg Q6H PRN GTB PAIN AND OR ELEVATED TEMP Last administered on 07/22/16 01:05; Admin Dose 650 MG; Start 07/18/16 at 02:00 Miscellaneous Information 1 ea NOTE XX ; Start 07/18/16 at 02:00 Glucose (Glutose) 15 gm Q15M PRN PO DECREASED GLUCOSE; Start 07/18/16 at 02:00 Glucose (Glutose) 22.5 gm Q15M PRN PO DECREASED GLUCOSE; Start 07/18/16 at 02:00 Dextrose (D50w Syringe) 25 ml Q15M PRN IV DECREASED GLUCOSE Last administered on 08/05/16 08:51; Admin Dose 25 ML; Start 07/18/16 at 02:00 Dextrose (D50w Syringe) 50 ml Q15M PRN IV DECREASED GLUCOSE Last administered on 08/04/16 13:06; Admin Dose 50 ML; Start 07/18/16 at 02:00 Glucagon (Glucagen) 1 mg Q15M PRN IM DECREASED GLUCOSE; Start 07/18/16 at 02:00 Glucose 15 gm 15 gm Q15M PRN BUCCAL DECREASED GLUCOSE; Start 07/18/16 at 02:00 Levetiracetam/ Sodium Chloride (Keppra Iv/NS) 107.5 ml @ 430 mls/hr Q12 IVPB Last administered on 08/05/16 08:35; Admin Dose 430 MLS/HR; Start 07/18/16 at 15 :00 Mupirocin (Bactroban) 1 applic BID TOP Last administered on 08/05/16 09:04; Admin Dose 1 APPLIC; Start 07/19/16 at 12:00 Collagenase (Santyl) 1 applic DAILY PRN TOP WHEN SOILED Last administered on 23:34; Admin Dose 1 APPLIC; Start 07/22/16 at 16:30 Heparin Sodium (Porcine) (Heparin (5000 Units/0.5 ml)) 5,000 unit BID SC Last administered on 08/05/16 08:44; Admin Dose 5,000 UNIT; Start 07/23/16 at 21:00 Insulin Aspart (Novolog Insulin Pen) NOVOLOG *MILD* ALGORI... Q4 SC Last administered on 08/03/16 14:31; Admin Dose 1 UNIT; Start 07/30/16 at 09:00 Metoclopramide HCl 10 mg 10 mg Q6 IV Last administered on 08/05/16 05:55; Admin Dose 10 MG; Start 08/04/16 at 12:00 Dextrose (D5W) 1,000 ml @ 60 mls/hr [id number] IV Last administered on 08/05/16 06:05; Admin Dose 60 MLS/HR; Start 08/04/16 at 14:00 Insulin Human NPH (Humulin N) 6 unit Q8 SC Last administered on 08/05/16 05:57 ; Admin Dose 6 UNIT; Start 08/04/16 at 14:00 PAMELA PIÑA MD Aug 05, 2016 12:10
--- NOTE | 2016-08-05 12:11 | CONS ---
Date/Time of Note Date/Time of Note DATE: 08/05/16 TIME: 12:09 Assessment/Plan Assessment/Plan Additional Assessment/Plan Ventilator settings; AC of 20, tidal volume 500, PEEP of 5, 30% FiO2. Assessment recommendations; next 1. Patient admitted for cardiac arrest status post CPR with severe anoxic brain injury. 2. Respiratory failure. 3. Stable seizure disorder. 4. Status post severe bilateral pneumonia with radiological improvement. Patient off antibiotics. 5. History of renal failure on hemodialysis. 6. History of seizure disorder. Continue current treatment. Transfer to long term. Prognosis is dismal. Consultation Date/Type/Reason Admit Date/Time Jul 17, 2016 at 13:33 Type of Consultation: Pulmonary Referring Provider: PAMELA PIÑA MD 24 HR Interval Summary Free Text/Dictation Patient condition remains unchanged. Remains profoundly unresponsive. Has remained hemodynamically stable. General exam; young male, on ventilator via tracheostomy unresponsive. Exam/Review of Systems Vital Signs Vitals Vital Signs Date Time Temp Pulse Resp B/P Pulse Ox O2 Delivery O2 Flow Rate FiO2 08/05/16 11:34 97.9 67 21 115/76 100 08/05/16 05:44 35 08/04/16 12:00 Mechanical Ventilator Intake and Output 08/04/16 08/04/16 08/05/16 15:00 23:00 07:00 Intake Total 400 ml Balance 400 ml Exam HEENT exam is; supple neck, no JVD. No lymphadenopathy. Midline trachea. No thyromegaly. Tracheostomy placed with clean insertion site. Pupils are widely dilated and nonreactive to light. Chest exam; clear to auscultation. S1-S2 audible, no murmurs. Regular rhythm. Abdomen exam is; scaphoid, G-tube in place. No organomegaly. Bowel sounds audible. Extremity exam; no peripheral edema. [employer]ULT [employer]UC[employer] examination; patient remains unresponsive. Results Result Diagram: 08/05/16 0635 08/05/16 0635 Results 24 hrs Laboratory Tests Test 08/04/16 13:02 08/04/16 13:24 08/04/16 13:43 08/04/16 17:17 Bedside Glucose 64 L 193 169 95 Test 08/04/16 21:57 08/04/16 22:30 08/05/16 01:24 08/05/16 01:48 Bedside Glucose 64 L 121 69 L 124 Test 08/05/16 05:46 08/05/16 06:35 08/05/16 08:38 08/05/16 09:06 Bedside Glucose 84 65 L 167 White Blood Count 7.3 # Red Blood Count 3.00 L Hemoglobin 9.3 L Hematocrit 30.6 L Mean Corpuscular Volume 102.0 H Mean Corpuscular Hemoglobin 31.0 Mean Corpuscular Hemoglobin Concent 30.4 L Red Cell Distribution Width 17.8 H Platelet Count 172 Mean Platelet Volume 11.3 H Neutrophils % 73.9 Lymphocytes % 11.7 L Monocytes % 10.5 Eosinophils % 2.9 Basophils % 0.7 Nucleated Red Blood Cells % 0.0 Neutrophils # 5.4 Lymphocytes # 0.9 Monocytes # 0.8 Eosinophils # 0.2 Basophils # 0.1 Nucleated Red Blood Cells # 0.0 Prothrombin Time 16.7 H Prothrombin Time Ratio 1.3 INR International Normalized Ratio 1.34 Activated Partial Thromboplast Time 44.7 H Sodium Level 140 Potassium Level 3.8 Chloride Level 103 Carbon Dioxide Level 24 Anion Gap 17 H Blood Urea Nitrogen 51 H Creatinine 2.79 H Glucose Level 93 # Calcium Level 9.0 Medications Medications Current Medications Ondansetron HCl (Zofran Inj) 4 mg Q6H PRN IV NAUSEA AND/OR VOMITING; Start at 16:00 Pantoprazole (Protonix Iv) 40 mg DAILY@06 IV Last administered on 08/05/16 05: 55; Admin Dose 40 MG; Start 07/18/16 at 06:00 Bisacodyl (Dulcolax Supp) 10 mg Q24H PRN [place] CONSTIPATION; Start 07/17/16 at 16: 00 Lorazepam (Ativan) 1 mg Q1H PRN IV seziure activity; Start 07/17/16 at 22:30 Acetaminophen (Tylenol Liquid) 650 mg Q6H PRN GTB PAIN AND OR ELEVATED TEMP Last administered on 07/22/16 01:05; Admin Dose 650 MG; Start 07/18/16 at 02:00 Miscellaneous Information 1 ea NOTE XX ; Start 07/18/16 at 02:00 Glucose (Glutose) 15 gm Q15M PRN PO DECREASED GLUCOSE; Start 07/18/16 at 02:00 Glucose (Glutose) 22.5 gm Q15M PRN PO DECREASED GLUCOSE; Start 07/18/16 at 02:00 Dextrose (D50w Syringe) 25 ml Q15M PRN IV DECREASED GLUCOSE Last administered on 08/05/16 08:51; Admin Dose 25 ML; Start 07/18/16 at 02:00 Dextrose (D50w Syringe) 50 ml Q15M PRN IV DECREASED GLUCOSE Last administered on 08/04/16 13:06; Admin Dose 50 ML; Start 07/18/16 at 02:00 Glucagon (Glucagen) 1 mg Q15M PRN IM DECREASED GLUCOSE; Start 07/18/16 at 02:00 Glucose 15 gm 15 gm Q15M PRN BUCCAL DECREASED GLUCOSE; Start 07/18/16 at 02:00 Levetiracetam/ Sodium Chloride (Keppra Iv/NS) 107.5 ml @ 430 mls/hr Q12 IVPB Last administered on 08/05/16 08:35; Admin Dose 430 MLS/HR; Start 07/18/16 at 15 :00 Mupirocin (Bactroban) 1 applic BID TOP Last administered on 08/05/16 09:04; Admin Dose 1 APPLIC; Start 07/19/16 at 12:00 Collagenase (Santyl) 1 applic DAILY PRN TOP WHEN SOILED Last administered on 23:34; Admin Dose 1 APPLIC; Start 07/22/16 at 16:30 Heparin Sodium (Porcine) (Heparin (5000 Units/0.5 ml)) 5,000 unit BID SC Last administered on 08/05/16 08:44; Admin Dose 5,000 UNIT; Start 07/23/16 at 21:00 Insulin Aspart (Novolog Insulin Pen) NOVOLOG *MILD* ALGORI... Q4 SC Last administered on 08/03/16 14:31; Admin Dose 1 UNIT; Start 07/30/16 at 09:00 Metoclopramide HCl 10 mg 10 mg Q6 IV Last administered on 08/05/16 05:55; Admin Dose 10 MG; Start 08/04/16 at 12:00 Dextrose (D5W) 1,000 ml @ 60 mls/hr [id number] IV Last administered on 08/05/16 06:05; Admin Dose 60 MLS/HR; Start 08/04/16 at 14:00 Insulin Human NPH (Humulin N) 6 unit Q8 SC Last administered on 08/05/16t 05:57 ; Admin Dose 6 UNIT; Start 08/04/16 at 14:00 CHANCE AVILA Aug 05, 2016 12:11
[2016-08-05] MEDS: EPOETIN 3000 UNITS/1 ML INJ (ESRD) SC SCH (18:06)
--- NOTE | 2016-08-05 18:24 | SP ---
DATE OF PROCEDURE: 08/05/2016 ADDENDUM The patient is an unfortunate 35-year-old male with multiple medical problems which includes end-stage renal disease, cardiopulmonary arrest and anoxic encephalopathy. The patient has irreversible coma. The patient's pupils are very reactive to light. The extraocular muscles with absence of doll's maneuver. No gag reflex .The patient is unresponsive to verbal or painful stimuli. Serial EEGs were done with no improvement in which the patient meets the criteria for brain . Dictated By: MARY BETH CASILLAS/LAURA Conf#: [id number] DID#: [id number] MTDD
--- NOTE | 2016-08-05 19:52 | CONS ---
Date/Time of Note Date/Time of Note DATE: 08/05/16 TIME: 19:50 Assessment/Plan Assessment/Plan Problems: (1) Diabetes type I Status: Chronic Comment: His sugar control is relatively stable. However more important issues are coming to ahead. Please see note from neurology Qualifiers: Diabetes mellitus complication status: with unspecified complications Qualified Code: E10.8 - Type 1 diabetes mellitus with complication (2) Anoxic brain injury Status: Acute Comment: Please see note from neurology. He meets the criteria for brain and as such this will change planning Consultation Date/Type/Reason Admit Date/Time Jul 17, 2016 at 13:33 Initial Consult Date 07/25/16 Type of Consultation: Endocrinology Reason for Consultation Diabetes mellitus Referring Provider: PAMELA PIÑA MD 24 HR Interval Summary Subjective hx not possible: pt non-verbal Exam/Review of Systems Vital Signs Vitals Vital Signs Date Time Temp Pulse Resp B/P Pulse Ox O2 Delivery O2 Flow Rate FiO2 08/05/16 17:20 76 22 99 35 08/05/16 15:46 98.6 94/51 08/04/16 12:00 Mechanical Ventilator Intake and Output 08/04/16 08/04/16 08/05/16 15:00 23:00 07:00 Intake Total 400 ml Balance 400 ml Exam No changes. Please see note from neurology Results Result Diagram: 08/05/16 0635 08/05/16 0635 Results 24 hrs Laboratory Tests Test 08/04/16 21:57 08/04/16 22:30 08/05/16 01:24 08/05/16 01:48 Bedside Glucose 64 L 121 69 L 124 Test 08/05/16 05:46 08/05/16 06:35 08/05/16 08:38 08/05/16 09:06 Bedside Glucose 84 65 L 167 White Blood Count 7.3 # Red Blood Count 3.00 L Hemoglobin 9.3 L Hematocrit 30.6 L Mean Corpuscular Volume 102.0 H Mean Corpuscular Hemoglobin 31.0 Mean Corpuscular Hemoglobin Concent 30.4 L Red Cell Distribution Width 17.8 H Platelet Count 172 Mean Platelet Volume 11.3 H Neutrophils % 73.9 Lymphocytes % 11.7 L Monocytes % 10.5 Eosinophils % 2.9 Basophils % 0.7 Nucleated Red Blood Cells % 0.0 Neutrophils # 5.4 Lymphocytes # 0.9 Monocytes # 0.8 Eosinophils # 0.2 Basophils # 0.1 Nucleated Red Blood Cells # 0.0 Prothrombin Time 16.7 H Prothrombin Time Ratio 1.3 INR International Normalized Ratio 1.34 Activated Partial Thromboplast Time 44.7 H Sodium Level 140 Potassium Level 3.8 Chloride Level 103 Carbon Dioxide Level 24 Anion Gap 17 H Blood Urea Nitrogen 51 H Creatinine 2.79 H Glucose Level 93 # Calcium Level 9.0 Test 08/05/16 13:08 08/05/16 18:03 Bedside Glucose 80 110 Medications Medications Current Medications Ondansetron HCl (Zofran Inj) 4 mg Q6H PRN IV NAUSEA AND/OR VOMITING; Start at 16:00 Pantoprazole (Protonix Iv) 40 mg DAILY@06 IV Last administered on 08/05/16 05: 55; Admin Dose 40 MG; Start 07/18/16 at 06:00 Bisacodyl (Dulcolax Supp) 10 mg Q24H PRN [place] CONSTIPATION; Start 07/17/16 at 16: 00 Lorazepam (Ativan) 1 mg Q1H PRN IV seziure activity; Start 07/17/16 at 22:30 Acetaminophen (Tylenol Liquid) 650 mg Q6H PRN GTB PAIN AND OR ELEVATED TEMP Last administered on 07/22/16 01:05; Admin Dose 650 MG; Start 07/18/16 at 02:00 Miscellaneous Information 1 ea NOTE XX ; Start 07/18/16 at 02:00 Glucose (Glutose) 15 gm Q15M PRN PO DECREASED GLUCOSE; Start 07/18/16 at 02:00 Glucose (Glutose) 22.5 gm Q15M PRN PO DECREASED GLUCOSE; Start 07/18/16 at 02:00 Dextrose (D50w Syringe) 25 ml Q15M PRN IV DECREASED GLUCOSE Last administered on 08/05/16 08:51; Admin Dose 25 ML; Start 07/18/16 at 02:00 Dextrose (D50w Syringe) 50 ml Q15M PRN IV DECREASED GLUCOSE Last administered on 08/04/16 13:06; Admin Dose 50 ML; Start 07/18/16 at 02:00 Glucagon (Glucagen) 1 mg Q15M PRN IM DECREASED GLUCOSE; Start 07/18/16 at 02:00 Glucose 15 gm 15 gm Q15M PRN BUCCAL DECREASED GLUCOSE; Start 07/18/16 at 02:00 Levetiracetam/ Sodium Chloride (Keppra Iv/NS) 107.5 ml @ 430 mls/hr Q12 IVPB Last administered on 08/05/16 08:35; Admin Dose 430 MLS/HR; Start 07/18/16 at 15 :00 Mupirocin (Bactroban) 1 applic BID TOP Last administered on 08/05/16 09:04; Admin Dose 1 APPLIC; Start 07/19/16 at 12:00 Collagenase (Santyl) 1 applic DAILY PRN TOP WHEN SOILED Last administered on 23:34; Admin Dose 1 APPLIC; Start 07/22/16 at 16:30 Heparin Sodium (Porcine) (Heparin (5000 Units/0.5 ml)) 5,000 unit BID SC Last administered on 08/05/16 08:44; Admin Dose 5,000 UNIT; Start 07/23/16 at 21:00 Insulin Aspart (Novolog Insulin Pen) NOVOLOG *MILD* ALGORI... Q4 SC Last administered on 08/03/16 14:31; Admin Dose 1 UNIT; Start 07/30/16 at 09:00 Metoclopramide HCl 10 mg 10 mg Q6 IV Last administered on 08/05/16 18:05; Admin Dose 10 MG; Start 08/04/16 at 12:00 Dextrose (D5W) 1,000 ml @ 60 mls/hr [id number] IV Last administered on 08/05/16 06:05; Admin Dose 60 MLS/HR; Start 08/04/16 at 14:00 Insulin Human NPH (Humulin N) 6 unit Q8 SC Last administered on 08/05/16 13:17 ; Admin Dose 6 UNIT; Start 08/04/16 at 14:00 ISSA SIMS MD Aug 05, 2016 19:52
[2016-08-06] VITALS (24 sets, daily range): BP systolic 125–153; BP diastolic 75–91; PULSE 57–70; RESP 13–22
[2016-08-06] MEDS: METOCLOPRAMIDE 10 MG INJ IV SCH ×4 (03:29→17:14)
[2016-08-06] MEDS: MUPIROCIN 2% 22 GM OINT TOP SCH ×3 (03:39→22:35)
[2016-08-06] MEDS: INSULIN ASPART [NOVOLOG] 3 ML PEN SC SCH ×6 (03:54→21:00)
[2016-08-06] MEDS: PANTOPRAZOLE 40 MG INJ IV SCH (05:57)
[2016-08-06] MEDS: NPH, HUMAN INSULIN ISOPHANE 3ML VIAL SC SCH ×3 (06:11→22:00)
--- NOTE | 2016-08-06 08:08 | PN ---
DATE: 08/06/2016 SUBJECTIVE: The patient had hemodialysis yesterday, with 500 mL removed. No other events noted. N o fevers, chills, nausea or vomiting. No shortness of breath. The patient remains obtunded, withou t any significant change. OBJECTIVE: VITAL SIGNS: Blood pressure 127/87, respirations 16, pulse 72, temperature 97.2. HEENT: Head is normocephalic. NECK: Supple. HEART: Regular rate. LUNGS: Showed diminished breath sounds at the base. ABDOMEN: Soft, nontender to palpation. No rebound or guarding. EXTREMITIES: Negative for clubbing or cyanosis. No edema. DERMATOLOGIC: No rashes. MUSCULOSKELETAL: Have no joint effusion. NEUROLOGIC: No change in exam. MEDICATIONS: The patient's medications have been reviewed. LABORATORY DATA: Is currently pending. ASSESSMENT AND PLAN: 1. End-stage renal disease. The patient had hemodialysis yesterday. Will plan for dialysis tomorr ow. 2. Hypernatremia. The patient is receiving D5W. Will follow up a renal panel. 3. Anemia of chronic disease. Continue to monitor hemoglobin and hematocrit levels. Continue Epog en. 4. Ventilator-dependent respiratory failure. Vent settings have been reviewed. ABG has been revie wed. Continue to monitor. 5. Dysphagia. Status post PEG. Continue tube feedings. 6. Sepsis status post shock. The patient has completed an antibiotic course. 7. Severe anoxic encephalopathy. No change. 8. Chronic muscle wasting. Continue to monitor. 9. Diabetes. Continue the current insulin regimen. 10. Status post Code Arrest. Dictated By: KENTON MATAMOROS/LAURA Conf#: [id number] DID#: [id number]
--- NOTE | 2016-08-06 08:17 | SP ---
DATE OF PROCEDURE: 08/05/2016 EEG REPORT HISTORY: The patient is a 35-year-old male who was admitted with cardiac arrest and sustained anoxi c brain injury and has been in a persistent vegetative state, with absent brainstem responses. Prev ious EEG was suggestive of severe encephalopathy. This is a followup EEG. PROCEDURE: Utilizing a 16-channel EEG machine, cap scalp electrodes were applied in accordance with the International 10-20 system. Oboqy-tv-[id number] and sskax-tf-eyw montages were displayed. Electric al impedances were measured and reported. The complete ACS protocol was followed. DESCRIPTION: There was no discernible electrical activity seen. By decreasing the sensitivity, lissy ctrical interference was noted at times during the tracing. Photic stimulation and hyperventilation had no response and there was no focal or epileptiform activity noted. INTERPRETATION: This EEG is consistent with brain . Please correlate clinically. Dictated By: TRISHA MARTINS/LAURA Conf#: [id number] DID#: [id number]
--- NOTE | 2016-08-06 08:58 | CONS ---
Date/Time of Note Date/Time of Note DATE: 08/06/16 TIME: 08:57 Assessment/Plan Assessment/Plan Problems: (1) Diabetes type I Status: Chronic Comment: Sugars are stable. Qualifiers: Diabetes mellitus complication status: with unspecified complications Qualified Code: E10.8 - Type 1 diabetes mellitus with complication (2) Anoxic brain injury Status: Acute Comment: Consistent with brain . Consultation Date/Type/Reason Admit Date/Time Jul 17, 2016 at 13:33 Initial Consult Date 07/25/16 Type of Consultation: Endocrinology Referring Provider: PAMELA PIÑA MD 24 HR Interval Summary Free Text/Dictation Please see consult from neurology and the follow-up EEG report Subjective hx not possible: pt non-verbal Exam/Review of Systems Vital Signs Vitals Vital Signs Date Time Temp Pulse Resp B/P Pulse Ox O2 Delivery O2 Flow Rate FiO2 08/06/16 08:28 67 08/06/16 07:59 97.6 18 129/86 100 08/06/16 07:35 35 08/04/16 12:00 Mechanical Ventilator Intake and Output 08/05/16 08/05/16 08/06/16 15:00 23:00 07:00 Intake Total 1757.5 ml 780 ml Output Total 1200 ml Balance 557.5 ml 780 ml Exam Constitutional: non-verbal Respiratory: clear to auscultation, normal air movement Results Result Diagram: 08/05/16 0635 08/05/16 0635 Results 24 hrs Laboratory Tests Test 08/05/16 09:06 08/05/16 13:08 08/05/16 18:03 08/05/16 20:21 Bedside Glucose 167 80 110 112 Test 08/06/16 03:28 08/06/16 05:57 Bedside Glucose 155 142 Medications Medications Current Medications Ondansetron HCl (Zofran Inj) 4 mg Q6H PRN IV NAUSEA AND/OR VOMITING; Start at 16:00 Pantoprazole (Protonix Iv) 40 mg DAILY@06 IV Last administered on 08/06/16t 05: 57; Admin Dose 40 MG; Start 07/18/16 at 06:00 Bisacodyl (Dulcolax Supp) 10 mg Q24H PRN [place] CONSTIPATION; Start 07/17/16 at 16: 00 Lorazepam (Ativan) 1 mg Q1H PRN IV seziure activity; Start 07/17/16 at 22:30 Acetaminophen (Tylenol Liquid) 650 mg Q6H PRN GTB PAIN AND OR ELEVATED TEMP Last administered on 07/22/16 01:05; Admin Dose 650 MG; Start 07/18/16 at 02:00 Miscellaneous Information 1 ea NOTE XX ; Start 07/18/16 at 02:00 Glucose (Glutose) 15 gm Q15M PRN PO DECREASED GLUCOSE; Start 07/18/16 at 02:00 Glucose (Glutose) 22.5 gm Q15M PRN PO DECREASED GLUCOSE; Start 07/18/16 at 02:00 Dextrose (D50w Syringe) 25 ml Q15M PRN IV DECREASED GLUCOSE Last administered on 08/05/16 08:51; Admin Dose 25 ML; Start 07/18/16 at 02:00 Dextrose (D50w Syringe) 50 ml Q15M PRN IV DECREASED GLUCOSE Last administered on 08/04/16 13:06; Admin Dose 50 ML; Start 07/18/16 at 02:00 Glucagon (Glucagen) 1 mg Q15M PRN IM DECREASED GLUCOSE; Start 07/18/16 at 02:00 Glucose 15 gm 15 gm Q15M PRN BUCCAL DECREASED GLUCOSE; Start 07/18/16 at 02:00 Levetiracetam/ Sodium Chloride (Keppra Iv/NS) 107.5 ml @ 430 mls/hr Q12 IVPB Last administered on 08/05/16 22:05; Admin Dose 430 MLS/HR; Start 07/18/16 at 15 :00 Mupirocin (Bactroban) 1 applic BID TOP Last administered on 08/06/16 03:39; Admin Dose 1 APPLIC; Start 07/19/16 at 12:00 Collagenase (Santyl) 1 applic DAILY PRN TOP WHEN SOILED Last administered on 23:34; Admin Dose 1 APPLIC; Start 07/22/16 at 16:30 Heparin Sodium (Porcine) (Heparin (5000 Units/0.5 ml)) 5,000 unit BID SC Last administered on 08/05/16 22:20; Admin Dose 5,000 UNIT; Start 07/23/16 at 21:00 Insulin Aspart (Novolog Insulin Pen) NOVOLOG *MILD* ALGORI... Q4 SC Last administered on 08/06/16 06:11; Admin Dose 1 UNIT; Start 07/30/16 at 09:00 Metoclopramide HCl 10 mg 10 mg Q6 IV Last administered on 08/06/16 05:57; Admin Dose 10 MG; Start 08/04/16 at 12:00 Dextrose (D5W) 1,000 ml @ 60 mls/hr [id number] IV Last administered on 08/05/16 22:11; Admin Dose 60 MLS/HR; Start 08/04/16 at 14:00 Insulin Human NPH (Humulin N) 6 unit Q8 SC Last administered on 08/06/16 06:11 ; Admin Dose 6 UNIT; Start 08/04/16 at 14:00 ISSA SIMS MD Aug 06, 2016 08:58
[2016-08-06] MEDS: LEVETIRACETAM IV 750 MG in SOD CHLORIDE 0.9% 100 ML IVPB SCH ×2 (09:36→22:25)
[2016-08-06] MEDS: HEPARIN 5,000 UNIT/0.5 ML VIAL SC SCH ×2 (10:08→22:31)
--- NOTE | 2016-08-06 10:14 | CONS ---
Date/Time of Note Date/Time of Note DATE: 08/06/16 TIME: 10:10 Consult Date/Type/Reason Admit Date/Time Jul 17, 2016 at 13:33 Initial Consult Date 08/05/16 Type of Consultation: Neurology Reason for Consultation prognosis evaluation Ordering Provider: PAMELA PIÑA MD Subjective EEG done on 08/05 consistent with flat waves, brain . Objective Vital Signs Date Time Temp Pulse Resp B/P Pulse Ox O2 Delivery O2 Flow Rate FiO2 08/06/16 09:47 65 20 100 35 08/06/16 07:59 97.6 129/86 08/04/16 12:00 Mechanical Ventilator Intake and Output 08/05/16 08/05/16 08/06/16 15:00 23:00 07:00 Intake Total 1757.5 ml 780 ml Output Total 1200 ml Balance 557.5 ml 780 ml Exam unarousable no response to verbal stimuli CN: absent pupillary response, absent corneals, absent gag Motor: absent response to noxious response seen yesterday was likely spinal reflex and not sales [employer] of cortical based movement Results/Medications Result Diagram: 08/05/16 0635 08/05/16 0635 Results 24 hrs Laboratory Tests Test 08/05/16 13:08 08/05/16 18:03 08/05/16 20:21 08/06/16 03:28 Bedside Glucose 80 110 112 155 Test 08/06/16 05:57 08/06/16 09:40 Bedside Glucose 142 110 Medications Current Medications Ondansetron HCl (Zofran Inj) 4 mg Q6H PRN IV NAUSEA AND/OR VOMITING; Start at 16:00 Pantoprazole (Protonix Iv) 40 mg DAILY@06 IV Last administered on 08/06/16 05: 57; Admin Dose 40 MG; Start 07/18/16 at 06:00 Bisacodyl (Dulcolax Supp) 10 mg Q24H PRN [place] CONSTIPATION; Start 07/17/16 at 16: 00 Lorazepam (Ativan) 1 mg Q1H PRN IV seziure activity; Start 07/17/16 at 22:30 Acetaminophen (Tylenol Liquid) 650 mg Q6H PRN GTB PAIN AND OR ELEVATED TEMP Last administered on 07/22/16 01:05; Admin Dose 650 MG; Start 07/18/16 at 02:00 Miscellaneous Information 1 ea NOTE XX ; Start 07/18/16 at 02:00 Glucose (Glutose) 15 gm Q15M PRN PO DECREASED GLUCOSE; Start 07/18/16 at 02:00 Glucose (Glutose) 22.5 gm Q15M PRN PO DECREASED GLUCOSE; Start 07/18/16 at 02:00 Dextrose (D50w Syringe) 25 ml Q15M PRN IV DECREASED GLUCOSE Last administered on 08/05/16 08:51; Admin Dose 25 ML; Start 07/18/16 at 02:00 Dextrose (D50w Syringe) 50 ml Q15M PRN IV DECREASED GLUCOSE Last administered on 08/04/16 13:06; Admin Dose 50 ML; Start 07/18/16 at 02:00 Glucagon (Glucagen) 1 mg Q15M PRN IM DECREASED GLUCOSE; Start 07/18/16 at 02:00 Glucose 15 gm 15 gm Q15M PRN BUCCAL DECREASED GLUCOSE; Start 07/18/16 at 02:00 Levetiracetam/ Sodium Chloride (Keppra Iv/NS) 107.5 ml @ 430 mls/hr Q12 IVPB Last administered on 08/06/16 09:36; Admin Dose 430 MLS/HR; Start 07/18/16 at 15 :00 Mupirocin (Bactroban) 1 applic BID TOP Last administered on 08/06/16 09:36; Admin Dose 1 APPLIC; Start 07/19/16 at 12:00 Collagenase (Santyl) 1 applic DAILY PRN TOP WHEN SOILED Last administered on 23:34; Admin Dose 1 APPLIC; Start 07/22/16 at 16:30 Heparin Sodium (Porcine) (Heparin (5000 Units/0.5 ml)) 5,000 unit BID SC Last administered on 08/06/16 10:08; Admin Dose 5,000 UNIT; Start 07/23/16 at 21:00 Insulin Aspart (Novolog Insulin Pen) NOVOLOG *MILD* ALGORI... Q4 SC Last administered on 08/06/16 06:11; Admin Dose 1 UNIT; Start 07/30/16 at 09:00 Metoclopramide HCl 10 mg 10 mg Q6 IV Last administered on 08/06/16 05:57; Admin Dose 10 MG; Start 08/04/16 at 12:00 Dextrose (D5W) 1,000 ml @ 60 mls/hr [id number] IV Last administered on 08/05/16 22:11; Admin Dose 60 MLS/HR; Start 08/04/16 at 14:00 Insulin Human NPH (Humulin N) 6 unit Q8 SC Last administered on 08/06/16 06:11 ; Admin Dose 6 UNIT; Start 08/04/16 at 14:00 Assessment/Plan Chief Complaint/Hosp Course 35 year old male with history of chronic medical issues, Type I DM, ESRD, chronic respiratory failure with trach/PEG with prolonged admission post cardiac arrest with anoxic brain injury. EEG done on 08/05 is now consistent with brain . There is no chance for neurologic recovery. Palliatve care consulted, at this point would move towards discussion for withdrawal of care with family given new EEG findings. Problems: MEGAN COOK MD Aug 06, 2016 10:14
--- NOTE | 2016-08-06 11:49 | PN ---
Date/Time of Note Date/Time of Note DATE: 08/06/16 TIME: 11:48 Assessment/Plan VTE Prophylaxis VTE Prophylaxis Intervention: heparin Lines/Catheters Urinary Cath still in place: No Assessment/Plan Assessment/Plan 35 year old male resident of a nursing facility with history of respiratory failure, Type I diabetes, ESRD on dialysis, dysphagia with PEG, encephalopathy was admitted to [facility] on 07/17 after suffering cardiac arrest at intermediate facility. He underwent care by multiple specialists for management of sepsis, pneumonia, diabetes, renal failure, respiratory failure with trach/PEG requiring prolonged ICU stay with no improvement in neurologic exam. 1. S/p Cardiac arrest secondary to septic shock 2. Severe anoxic encephalopathy-severe encephalopathy noted on EEG- s/p palliative care consult 3. Type I DM with Brittle sugar control, Endocrine following 4. Bilateral Multifocal Pneumonia causing Sepsis 5. End-stage renal disease on hemodialysis.- Nephrology has been following 6. Acute on chronic respiratory failure, remains ventilator-dependent. 7. Anemia secondary to chronic kidney disease. 8. Methicillin-resistant Staphylococcus aureus nares. 9. Chronic dysphagia, on PEG feeds with high residuals. 10. Chronic debility secondary to chronically uncontrolled diabetes type 1 with recurrent episodes of pneumonia causing recurrent hospitalization and now trach and gastrostomy placement, with chronic muscle wasting and foot drop. Heparin for DVT prophylaxis, Protonix for GI prophylaxis s/p EEG x 2 , s/p another neurologist evaluation yesterday, no meaningful neurological recovery, will request palliative to come back and talk to family HD as per Nephrology IV reglan 10mg Q 6 hr on D5 for hypoglycemia, Endocrine has been following continue ventilator care as per pulmonary Subjective 24 Hr Interval Summary Free Text/Dictation S/P another EEG and another neurologist opinion, still having high TF residual Exam/Review of Systems Vital Signs Vitals Vital Signs Date Time Temp Pulse Resp B/P Pulse Ox O2 Delivery O2 Flow Rate FiO2 08/06/16 11:43 97.8 98 18 142/75 65 08/06/16 11:04 35 08/04/16 12:00 Mechanical Ventilator Intake and Output 08/05/16 08/05/16 08/06/16 15:00 23:00 07:00 Intake Total 1757.5 ml 780 ml Output Total 1200 ml Balance 557.5 ml 780 ml Exam Constitutional: frail, non-verbal, not responding to commands, to his baseilne as per nursing staff Neck: other ((+) trach on vent) Respiratory: bilateral decreased BS, no wheezing Cardiovascular: nl pulses, regular rate and rhythm, Gastrointestinal: bowel sounds, nl liver, spleen, non-tender, soft, Musculoskeletal: nl extremities to inspection Extremities: normal pulses, Neurological: non verbal, pt is trach on ventilator, reflexes absent throughout Results Result Diagram: 08/05/16 0635 08/05/16 0635 Results 24 hrs Laboratory Tests Test 08/05/16 13:08 08/05/16 18:03 08/05/16 20:21 08/06/16 03:28 Bedside Glucose 80 110 112 155 Test 08/06/16 05:57 08/06/16 09:40 Bedside Glucose 142 110 Medications Medications Current Medications Ondansetron HCl (Zofran Inj) 4 mg Q6H PRN IV NAUSEA AND/OR VOMITING; Start at 16:00 Pantoprazole (Protonix Iv) 40 mg DAILY@06 IV Last administered on 08/06/16 05: 57; Admin Dose 40 MG; Start 07/18/16 at 06:00 Bisacodyl (Dulcolax Supp) 10 mg Q24H PRN [place] CONSTIPATION; Start 07/17/16 at 16: 00 Lorazepam (Ativan) 1 mg Q1H PRN IV seziure activity; Start 07/17/16 at 22:30 Acetaminophen (Tylenol Liquid) 650 mg Q6H PRN GTB PAIN AND OR ELEVATED TEMP Last administered on 07/22/16 01:05; Admin Dose 650 MG; Start 07/18/16 at 02:00 Miscellaneous Information 1 ea NOTE XX ; Start 07/18/16 at 02:00 Glucose (Glutose) 15 gm Q15M PRN PO DECREASED GLUCOSE; Start 07/18/16 at 02:00 Glucose (Glutose) 22.5 gm Q15M PRN PO DECREASED GLUCOSE; Start 07/18/16 at 02:00 Dextrose (D50w Syringe) 25 ml Q15M PRN IV DECREASED GLUCOSE Last administered on 08/05/16 08:51; Admin Dose 25 ML; Start 07/18/16 at 02:00 Dextrose (D50w Syringe) 50 ml Q15M PRN IV DECREASED GLUCOSE Last administered on 08/04/16 13:06; Admin Dose 50 ML; Start 07/18/16 at 02:00 Glucagon (Glucagen) 1 mg Q15M PRN IM DECREASED GLUCOSE; Start 07/18/16 at 02:00 Glucose 15 gm 15 gm Q15M PRN BUCCAL DECREASED GLUCOSE; Start 07/18/16 at 02:00 Levetiracetam/ Sodium Chloride (Keppra Iv/NS) 107.5 ml @ 430 mls/hr Q12 IVPB Last administered on 08/06/16 09:36; Admin Dose 430 MLS/HR; Start 07/18/16 at 15 :00 Mupirocin (Bactroban) 1 applic BID TOP Last administered on 08/06/16 09:36; Admin Dose 1 APPLIC; Start 07/19/16 at 12:00 Collagenase (Santyl) 1 applic DAILY PRN TOP WHEN SOILED Last administered on 23:34; Admin Dose 1 APPLIC; Start 07/22/16 at 16:30 Heparin Sodium (Porcine) (Heparin (5000 Units/0.5 ml)) 5,000 unit BID SC Last administered on 08/06/16 10:08; Admin Dose 5,000 UNIT; Start 07/23/16 at 21:00 Insulin Aspart (Novolog Insulin Pen) NOVOLOG *MILD* ALGORI... Q4 SC Last administered on 08/06/16 06:11; Admin Dose 1 UNIT; Start 07/30/16 at 09:00 Metoclopramide HCl 10 mg 10 mg Q6 IV Last administered on 08/06/16 05:57; Admin Dose 10 MG; Start 08/04/16 at 12:00 Dextrose (D5W) 1,000 ml @ 60 mls/hr [id number] IV Last administered on 08/05/16 22:11; Admin Dose 60 MLS/HR; Start 08/04/16 at 14:00 Insulin Human NPH (Humulin N) 6 unit Q8 SC Last administered on 08/06/16 06:11 ; Admin Dose 6 UNIT; Start 08/04/16 at 14:00 PAMELA PIÑA MD Aug 06, 2016 11:49
--- NOTE | 2016-08-06 12:02 | CONS ---
Date/Time of Note Date/Time of Note DATE: 08/06/16 TIME: 12:00 Assessment/Plan Assessment/Plan Additional Assessment/Plan Ventilator settings; AC of 20, tidal volume 500, PEEP of 5, 30% FiO2. Assessment recommendations; next 1. Patient admitted with cardiac arrest resulting in severe anoxic brain injury. 2. Respiratory failure. 3. Status post severe bilateral pneumonia with marked radiological improvement. 4. History of seizure disorder. 5. History of end-stage renal disease, on hemodialysis. Continue current treatment. Patient will transfer to the [facility]. Prognosis is extremely poor. Patient is a candidate to undergo apnea testing. However consent needs to be obtained from the patient's mother. Consultation Date/Type/Reason Admit Date/Time Jul 17, 2016 at 13:33 Type of Consultation: Pulmonary Referring Provider: PAMELA PIÑA MD 24 HR Interval Summary Free Text/Dictation Patient condition remains unchanged. Has remained hemodynamically stable. Remains completely unresponsive. General exam; young male, on ventilator via tracheostomy unresponsive. Currently in no distress. Exam/Review of Systems Vital Signs Vitals Vital Signs Date Time Temp Pulse Resp B/P Pulse Ox O2 Delivery O2 Flow Rate FiO2 08/06/16 11:43 97.8 98 18 142/75 65 08/06/16 11:04 35 08/04/16 12:00 Mechanical Ventilator Intake and Output 08/05/16 08/05/16 08/06/16 15:00 23:00 07:00 Intake Total 1757.5 ml 780 ml Output Total 1200 ml Balance 557.5 ml 780 ml Exam HEENT exam is; supple neck, no JVD. No lymphadenopathy. Midline trachea. Tracheostomy in place with clean insertion site. Pupils are midsize and nonreactive to light. Chest exam; clear to ulceration. S1-S2 audible, no murmurs. Regular rhythm. Abdomen exam is; scaphoid, G-tube in place. No organomegaly. Bowel sounds audible. Extremity examination; no peripheral edema. POST FORM REMOVER examination; patient remains unresponsive. Results Result Diagram: 08/05/16 0635 08/05/16 0635 Results 24 hrs Laboratory Tests Test 08/05/16 13:08 08/05/16 18:03 08/05/16 20:21 08/06/16 03:28 Bedside Glucose 80 110 112 155 Test 08/06/16 05:57 08/06/16 09:40 Bedside Glucose 142 110 Medications Medications Current Medications Ondansetron HCl (Zofran Inj) 4 mg Q6H PRN IV NAUSEA AND/OR VOMITING; Start at 16:00 Pantoprazole (Protonix Iv) 40 mg DAILY@06 IV Last administered on 08/06/16 05: 57; Admin Dose 40 MG; Start 07/18/16 at 06:00 Bisacodyl (Dulcolax Supp) 10 mg Q24H PRN [place] CONSTIPATION; Start 07/17/16 at 16: 00 Lorazepam (Ativan) 1 mg Q1H PRN IV seziure activity; Start 07/17/16 at 22:30 Acetaminophen (Tylenol Liquid) 650 mg Q6H PRN GTB PAIN AND OR ELEVATED TEMP Last administered on 07/22/16 01:05; Admin Dose 650 MG; Start 07/18/16 at 02:00 Miscellaneous Information 1 ea NOTE XX ; Start 07/18/16 at 02:00 Glucose (Glutose) 15 gm Q15M PRN PO DECREASED GLUCOSE; Start 07/18/16 at 02:00 Glucose (Glutose) 22.5 gm Q15M PRN PO DECREASED GLUCOSE; Start 07/18/16 at 02:00 Dextrose (D50w Syringe) 25 ml Q15M PRN IV DECREASED GLUCOSE Last administered on 08/05/16 08:51; Admin Dose 25 ML; Start 07/18/16 at 02:00 Dextrose (D50w Syringe) 50 ml Q15M PRN IV DECREASED GLUCOSE Last administered on 08/04/16 13:06; Admin Dose 50 ML; Start 07/18/16 at 02:00 Glucagon (Glucagen) 1 mg Q15M PRN IM DECREASED GLUCOSE; Start 07/18/16 at 02:00 Glucose 15 gm 15 gm Q15M PRN BUCCAL DECREASED GLUCOSE; Start 07/18/16 at 02:00 Levetiracetam/ Sodium Chloride (Keppra Iv/NS) 107.5 ml @ 430 mls/hr Q12 IVPB Last administered on 08/06/16 09:36; Admin Dose 430 MLS/HR; Start 07/18/16 at 15 :00 Mupirocin (Bactroban) 1 applic BID TOP Last administered on 08/06/16 09:36; Admin Dose 1 APPLIC; Start 07/19/16 at 12:00 Collagenase (Santyl) 1 applic DAILY PRN TOP WHEN SOILED Last administered on 23:34; Admin Dose 1 APPLIC; Start 07/22/16 at 16:30 Heparin Sodium (Porcine) (Heparin (5000 Units/0.5 ml)) 5,000 unit BID SC Last administered on 08/06/16 10:08; Admin Dose 5,000 UNIT; Start 07/23/16 at 21:00 Insulin Aspart (Novolog Insulin Pen) NOVOLOG *MILD* ALGORI... Q4 SC Last administered on 08/06/16 06:11; Admin Dose 1 UNIT; Start 07/30/16 at 09:00 Metoclopramide HCl 10 mg 10 mg Q6 IV Last administered on 08/06/16 05:57; Admin Dose 10 MG; Start 08/04/16 at 12:00 Dextrose (D5W) 1,000 ml @ 60 mls/hr [id number] IV Last administered on 08/05/16 22:11; Admin Dose 60 MLS/HR; Start 08/04/16 at 14:00 Insulin Human NPH (Humulin N) 6 unit Q8 SC Last administered on 08/06/16 06:11 ; Admin Dose 6 UNIT; Start 08/04/16 at 14:00 CHANCE AVILA Aug 06, 2016 12:02
--- NOTE | 2016-08-06 13:50 | CONS ---
DATE OF ADMISSION: 07/17/2016 DATE OF CONSULTATION: 08/06/2016 PALLIATIVE CARE PROGRESS NOTE I have reviewed the EEG findings that were read by Dr. Cunningham, which was done on 08/06/2016. The in terpretation was EEG consistent with brain . Please correlate clinically. Based on his findin gs, I suggest a bioethics meeting, as my prior interactions with the patient's mother have been disa ppointing. I understand that she has been making arrangements for his , but once again, my imp ressions are that this may be very difficult for his mother to understand. I have made contact with the case finisher, with [facility] cristina, and asked for a bioethics meeting to be scheduled, hopefully at the [facility] tomorrow, which will be 08/07/2016. I think it is important to have other members of the [facility] team explain to the patient's mother that any further care is futile. Participants, backgro und, and social information have been discussed with the patient's mother in detail after my prior v isits with her, were that there would be a miracle and that he would wake up and assume his prior ac ceptable quality of life. My impression was not a spiritual aspect to this, was not a cultural issu e. Communication has been once again difficult, as she is unfortunately failing to understand the g ravity of his medical disorder and continues to focus on why this happened to her son, how this happ ened at the facility, and what the level of care that was given to her son at the subacute facility before he was transferred to [facility]. That is the caregivers major concern. T he patient's mother has very poor understanding of the gravity of her son's medical problems unfortu nately. Physical exam and has not changed on this gentleman. He has no oculocephalics, he does not respond to any stimuli whatsoever. He has a negative gag reflex. My impressions are also brain de ath by both clinical and EEG criteria; however; in anticipation of his mother asking for confirmator y information, I will order an apnea test today and have asked for a bioethics consultation to be do ne. There is no prognosis. This gentleman will once he is removed from the ventilator. Therefo re, there are no indications or palliative performance scales or any other objective criteria of his current medical condition. There are no pain symptoms that we should address or psychological or s piritual issues. Social issues have been addressed above. Ethical dilemma, medication aspect, ther e are no ethical issues from the patient's medical team's standpoint, or legal, but the other issue s with family members we will address today. CODE STATUS: I will address with the chief steward/stewardess or the chief of bioethics today. There is no indication for POLST form or any other documentation on the patient's level of care. Dictated By: IBETH COLLIER MD LP/LAURA Conf#: [id number] DID#: [id number]
--- NOTE | 2016-08-06 14:24 | PN ---
DATE: 08/06/2016 PALLIATIVE CARE PROGRESS NOTE ADDENDUM This is an addendum to my note which was done earlier this day. I have had a discussion with the renato acosta of the bioethics committee, updated him insofar as the patient's both clinical and EEG criter ia for brain at this time. I have ordered an apnea test. My concern is that if at any time h e deteriorates, that with his current code situation, we would need to do CPR. Therefore, this was addressed and I discussed it with Dr. Perry. It is both of our opinions that the code status should be changed at this time to DO NOT RESUSCITATE. We will definitely discuss this with the patient's mother, although she is somewhat difficult to speak to by phone and she does live 5 hours away from the hospital. I have asked Stephanie in case management to proceed with the paperwork for a bioethics m irmakiko, hopefully tomorrow, 08/07/2016. Dictated By: IBETH COLLIER MD, LP/LAURA Conf#: [id number] DID#: [id number]
[2016-08-06] MEDS: DEXTROSE 5% 1,000 ML IV SCH ×2 (16:00→17:58)
[2016-08-07] VITALS (20 sets, daily range): BP systolic 78–116; BP diastolic 49–78; PULSE 58–72; RESP 14–22
[2016-08-07] MEDS: METOCLOPRAMIDE 10 MG INJ IV SCH ×3 (00:30→12:22)
[2016-08-07] MEDS: INSULIN ASPART [NOVOLOG] 3 ML PEN SC SCH ×4 (00:49→12:23)
[2016-08-07] MEDS: NPH, HUMAN INSULIN ISOPHANE 3ML VIAL SC SCH ×2 (04:53→15:01)
[2016-08-07] MEDS: PANTOPRAZOLE 40 MG INJ IV SCH (05:42)
[2016-08-07 06:48] LABS: ADD SCAN DIFF NO
[2016-08-07 06:56] LABS: BASOPHILS % 0.5 % (0.0-2.0); EOSINOPHILS # 0.1 10^3/ul (0.0-0.5); EOSINOPHILS % 2.3 % (0.0-7.0); HEMATOCRIT 32.8 % (42.0-52.0); HEMOGLOBIN 9.9 g/dl (14.0-18.0); LYMPHOCYTES # 0.7 10^3/ul (0.8-2.9); LYMPHOCYTES % 11.4 % (15.0-51.0); MEAN CORPUSCULAR HGB CONC 30.2 g/dl (32.0-37.0); MEAN CORPUSCULAR VOLUME 99.4 fl (82.0-101.0); MEAN PLATELET VOLUME 11.7 fl (7.4-10.4); MONOCYTE # 0.5 10^3/ul (0.3-0.9); MONOCYTES % 8.9 % (0.0-11.0); NEUTROPHIL # 4.6 10^3/ul (1.6-7.5); NEUTROPHILS % 76.4 % (39.0-77.0); PLATELET COUNT 113 10^3/UL (140-415); RED CELL DISTRIBUTION WIDTH 17.2 % (11.5-14.5)
[2016-08-07 07:39] LABS: POTASSIUM 4.1 mmol/L (3.5-5.1)
[2016-08-07 07:41] LABS: CREATININE 2.02 mg/dl (0.61-1.24)
[2016-08-07 07:42] LABS: CALCIUM 8.6 mg/dl (8.4-10.2); MAGNESIUM 2.5 mg/dl (1.7-2.5); PHOSPHORUS 3.1 mg/dl (2.5-4.9)
--- NOTE | 2016-08-07 09:06 | PN ---
DATE: 08/07/2016 SUBJECTIVE: The patient is stable. No events overnight. No fevers, chills, nausea, vomiting. No s hortness of breath. OBJECTIVE: VITAL SIGNS: Blood pressure 120/65, respirations 18, pulse 75, temperature 97.8. HEENT: Head is normocephalic. NECK: Supple. HEART: Regular rate. LUNGS: Show diminished breath sounds at the base. ABDOMEN: Soft, nontender to palpation without rebound or guarding. EXTREMITIES: Negative for clubbing, cyanosis, no edema. DERMATOLOGIC: No rashes. MUSCULOSKELETAL: No joint effusions. NEUROLOGIC: No change in exam. MEDICATIONS: The patient's medications have been reviewed. LABORATORY DATA: Showed sodium 133, potassium 4.1, chloride 37, creatinine 2.02, white count 6.0, h emoglobin 9.9, hematocrit 32.8, platelet count is 113. ASSESSMENT AND PLAN: 1. End-stage renal disease. Plan for dialysis today for 3 hours, 2K bath, calcium 2.5. 2. Hyponatremia, etiology secondary to free water flushes, hypertonic fluids. Will discontinue D5W and decrease rate of free water flushes. 3. Anemia of chronic disease. Continue to monitor hemoglobin and hematocrit levels. Continue Epog en. 4. Ventilator dependent respiratory failure. Vent settings reviewed. ABGs reviewed. Continue to monitor. 5. Dysphagia. Status post percutaneous endoscopic gastrostomy tube, tube feed. 6. Sepsis, status post shock. The patient is completing antibiotic course. 7. Severe anoxic brain injury. Continue to monitor. 8. Diabetes with episode of hypoglycemia. The patient's insulin regimen has been adjusted. Continu e to monitor. 10. Status post code arrest. Dictated By: KENTON MATAMOROS/LAURA Conf#: [id number] DID#: [id number]
[2016-08-07] MEDS: LEVETIRACETAM IV 750 MG in SOD CHLORIDE 0.9% 100 ML IVPB SCH (09:07)
[2016-08-07] MEDS: MUPIROCIN 2% 22 GM OINT TOP SCH (09:08)
[2016-08-07] MEDS: HEPARIN 5,000 UNIT/0.5 ML VIAL SC SCH (09:08)
--- NOTE | 2016-08-07 11:31 | PN ---
Date/Time of Note Date/Time of Note DATE: 08/07/16 TIME: 11:29 Assessment/Plan VTE Prophylaxis VTE Prophylaxis Intervention: heparin Lines/Catheters IV Catheter Type (from Nrs): Peripheral IV Urinary Cath still in place: No Assessment/Plan Assessment/Plan 35 year old male resident of a nursing facility with history of respiratory failure, Type I diabetes, ESRD on dialysis, dysphagia with PEG, encephalopathy was admitted to [facility] on 07/17 after suffering cardiac arrest at halfway facility. He underwent care by multiple specialists for management of sepsis, pneumonia, diabetes, renal failure, respiratory failure with trach/PEG requiring prolonged ICU stay with no improvement in neurologic exam. 1. S/p Cardiac arrest secondary to septic shock 2. Severe anoxic encephalopathy-severe encephalopathy noted on EEG- s/p palliative care consult 3. Type I DM with Brittle sugar control, Endocrine following 4. Bilateral Multifocal Pneumonia causing Sepsis 5. End-stage renal disease on hemodialysis.- Nephrology has been following 6. Acute on chronic respiratory failure, remains ventilator-dependent. 7. Anemia secondary to chronic kidney disease. 8. Methicillin-resistant Staphylococcus aureus nares. 9. Chronic dysphagia, on PEG feeds with high residuals. 10. Chronic debility secondary to chronically uncontrolled diabetes type 1 with recurrent episodes of pneumonia causing recurrent hospitalization and now trach and gastrostomy placement, with chronic muscle wasting and foot drop. Heparin for DVT prophylaxis, Protonix for GI prophylaxis s/p EEG x 2 , s/p another neurologist evaluation yesterday, no meaningful neurological recovery, plan for discussion in Bioethics meeting today. Plan for HD today per nephrology IV reglan 10mg Q 6 hr on D5 for hypoglycemia, Endocrine has been following continue ventilator care as per pulmonary Subjective 24 Hr Interval Summary Free Text/Dictation plan for HD today, plan for bioethics committee meeting today Exam/Review of Systems Vital Signs Vitals Vital Signs Date Time Temp Pulse Resp B/P Pulse Ox O2 Delivery O2 Flow Rate FiO2 08/07/16 11:20 97.8 62 22 101/55 97 08/07/16 09:30 35 08/04/16 12:00 Mechanical Ventilator Intake and Output 08/06/16 08/06/16 08/07/16 15:00 23:00 07:00 Intake Total 927.5 ml 1490 ml Balance 927.5 ml 1490 ml Exam Constitutional: frail, non-verbal, unresponsive Neck: other ((+) trach on vent) Respiratory: bilateral decreased BS, no wheezing Cardiovascular: nl pulses, regular rate and rhythm, Gastrointestinal: bowel sounds, nl liver, spleen, non-tender, soft, Musculoskeletal: nl extremities to inspection Extremities: normal pulses, Neurological: non verbal, pt is trach on ventilator, reflexes absent throughout Results Result Diagram: 08/07/16 0554 08/07/16 0554 Results 24 hrs Laboratory Tests Test 08/06/16 13:04 08/06/16 17:13 08/06/16 21:01 08/07/16 00:37 Bedside Glucose 100 90 116 149 Test 08/07/16 04:42 08/07/16 05:54 08/07/16 07:53 Bedside Glucose 187 203 White Blood Count 6.0 Red Blood Count 3.30 L Hemoglobin 9.9 L Hematocrit 32.8 L Mean Corpuscular Volume 99.4 Mean Corpuscular Hemoglobin 30.0 Mean Corpuscular Hemoglobin Concent 30.2 L Red Cell Distribution Width 17.2 H Platelet Count 113 #L Mean Platelet Volume 11.7 H Neutrophils % 76.4 Lymphocytes % 11.4 L Monocytes % 8.9 Eosinophils % 2.3 Basophils % 0.5 Nucleated Red Blood Cells % 0.0 Neutrophils # 4.6 Lymphocytes # 0.7 L Monocytes # 0.5 Eosinophils # 0.1 Basophils # 0.0 Nucleated Red Blood Cells # 0.0 Sodium Level 133 L Potassium Level 4.1 Chloride Level 98 Carbon Dioxide Level 25 Anion Gap 14 Blood Urea Nitrogen 37 #H Creatinine 2.02 H Glucose Level 197 # Calcium Level 8.6 Phosphorus Level 3.1 Magnesium Level 2.5 Medications Medications Current Medications Ondansetron HCl (Zofran Inj) 4 mg Q6H PRN IV NAUSEA AND/OR VOMITING; Start at 16:00 Pantoprazole (Protonix Iv) 40 mg DAILY@06 IV Last administered on 08/07/16t 05: 42; Admin Dose 40 MG; Start 07/18/16 at 06:00 Bisacodyl (Dulcolax Supp) 10 mg Q24H PRN [place] CONSTIPATION; Start 07/17/16 at 16: 00 Lorazepam (Ativan) 1 mg Q1H PRN IV seziure activity; Start 07/17/16 at 22:30 Acetaminophen (Tylenol Liquid) 650 mg Q6H PRN GTB PAIN AND OR ELEVATED TEMP Last administered on 07/22/16 01:05; Admin Dose 650 MG; Start 07/18/16 at 02:00 Miscellaneous Information 1 ea NOTE XX ; Start 07/18/16 at 02:00 Glucose (Glutose) 15 gm Q15M PRN PO DECREASED GLUCOSE; Start 07/18/16 at 02:00 Glucose (Glutose) 22.5 gm Q15M PRN PO DECREASED GLUCOSE; Start 07/18/16 at 02:00 Dextrose (D50w Syringe) 25 ml Q15M PRN IV DECREASED GLUCOSE Last administered on 08/05/16 08:51; Admin Dose 25 ML; Start 07/18/16 at 02:00 Dextrose (D50w Syringe) 50 ml Q15M PRN IV DECREASED GLUCOSE Last administered on 08/04/16 13:06; Admin Dose 50 ML; Start 07/18/16 at 02:00 Glucagon (Glucagen) 1 mg Q15M PRN IM DECREASED GLUCOSE; Start 07/18/16 at 02:00 Glucose 15 gm 15 gm Q15M PRN BUCCAL DECREASED GLUCOSE; Start 07/18/16 at 02:00 Levetiracetam/ Sodium Chloride (Keppra Iv/NS) 107.5 ml @ 430 mls/hr Q12 IVPB Last administered on 08/07/16 09:07; Admin Dose 430 MLS/HR; Start 07/18/16 at 15 :00 Mupirocin (Bactroban) 1 applic BID TOP Last administered on 08/07/16 09:08; Admin Dose 1 APPLIC; Start 07/19/16 at 12:00 Collagenase (Santyl) 1 applic DAILY PRN TOP WHEN SOILED Last administered on 23:34; Admin Dose 1 APPLIC; Start 07/22/16 at 16:30 Heparin Sodium (Porcine) (Heparin (5000 Units/0.5 ml)) 5,000 unit BID SC Last administered on 08/07/16 09:08; Admin Dose 5,000 UNIT; Start 07/23/16 at 21:00 Insulin Aspart (Novolog Insulin Pen) NOVOLOG *MILD* ALGORI... Q4 SC Last administered on 08/07/16 09:09; Admin Dose 2 UNIT; Start 07/30/16 at 09:00 Metoclopramide HCl (Reglan) 10 mg Q6 IV Last administered on 08/07/16 05:42; Admin Dose 10 MG; Start 08/04/16 at 12:00 Insulin Human NPH (Humulin N) 6 unit Q8 SC Last administered on 08/07/16 04:53 ; Admin Dose 6 UNIT; Start 08/04/16 at 14:00 PAMELA PIÑA MD Aug 07, 2016 11:30
--- NOTE | 2016-08-07 16:31 | CONS ---
Date/Time of Note Date/Time of Note DATE: 08/07/16 TIME: 16:29 Consult Date/Type/Reason Admit Date/Time Jul 17, 2016 at 13:33 Type of Consultation: Pulmonary Ordering Provider: PAMELA PIÑA MD Subjective Patient unresponsive on mechanical ventilation Pupils fixed and dilated No gag reflex He does however breathing above the set ventilator rate Objective Vital Signs Date Time Temp Pulse Resp B/P Pulse Ox O2 Delivery O2 Flow Rate FiO2 08/07/16 16:17 62 08/07/16 15:10 20 99 35 08/07/16 15:08 97.9 110/55 08/04/16 12:00 Mechanical Ventilator Intake and Output 08/06/16 08/06/16 08/07/16 15:00 23:00 07:00 Intake Total 927.5 ml 1490 ml Balance 927.5 ml 1490 ml Exam PHYSICAL EXAMINATION GENERAL: Young gentleman on mechanical ventilation appears comfortable at rest VITAL SIGNS: see below. HEENT: Pupils non reactive, tracheostomy site clean and intact. CARDIAC: S1, S2, CHEST: Diminished air entry bilaterally. ABDOMEN: Mildly distended. Bowel sounds present no guarding or rebound EXTREMITIES: No cyanosis, clubbing or edema. NEUROLOGIC: Unable to assess Results/Medications Result Diagram: 08/07/16 0554 08/07/16 0554 Results 24 hrs Laboratory Tests Test 08/06/16 17:13 08/06/16 21:01 08/07/16 00:37 08/07/16 04:42 Bedside Glucose 90 116 149 187 Test 08/07/16 05:54 08/07/16 07:53 08/07/16 12:21 White Blood Count 6.0 Red Blood Count 3.30 L Hemoglobin 9.9 L Hematocrit 32.8 L Mean Corpuscular Volume 99.4 Mean Corpuscular Hemoglobin 30.0 Mean Corpuscular Hemoglobin Concent 30.2 L Red Cell Distribution Width 17.2 H Platelet Count 113 #L Mean Platelet Volume 11.7 H Neutrophils % 76.4 Lymphocytes % 11.4 L Monocytes % 8.9 Eosinophils % 2.3 Basophils % 0.5 Nucleated Red Blood Cells % 0.0 Neutrophils # 4.6 Lymphocytes # 0.7 L Monocytes # 0.5 Eosinophils # 0.1 Basophils # 0.0 Nucleated Red Blood Cells # 0.0 Sodium Level 133 L Potassium Level 4.1 Chloride Level 98 Carbon Dioxide Level 25 Anion Gap 14 Blood Urea Nitrogen 37 #H Creatinine 2.02 H Glucose Level 197 # Calcium Level 8.6 Phosphorus Level 3.1 Magnesium Level 2.5 Bedside Glucose 203 216 Medications Current Medications Ondansetron HCl (Zofran Inj) 4 mg Q6H PRN IV NAUSEA AND/OR VOMITING; Start at 16:00 Pantoprazole (Protonix Iv) 40 mg DAILY@06 IV Last administered on 08/07/16 05: 42; Admin Dose 40 MG; Start 07/18/16 at 06:00 Bisacodyl (Dulcolax Supp) 10 mg Q24H PRN [place] CONSTIPATION; Start 07/17/16 at 16: 00 Lorazepam (Ativan) 1 mg Q1H PRN IV seziure activity; Start 07/17/16 at 22:30 Acetaminophen (Tylenol Liquid) 650 mg Q6H PRN GTB PAIN AND OR ELEVATED TEMP Last administered on 07/22/16 01:05; Admin Dose 650 MG; Start 07/18/16 at 02:00 Miscellaneous Information 1 ea NOTE XX ; Start 07/18/16 at 02:00 Glucose (Glutose) 15 gm Q15M PRN PO DECREASED GLUCOSE; Start 07/18/16 at 02:00 Glucose (Glutose) 22.5 gm Q15M PRN PO DECREASED GLUCOSE; Start 07/18/16 at 02:00 Dextrose (D50w Syringe) 25 ml Q15M PRN IV DECREASED GLUCOSE Last administered on 08/05/16 08:51; Admin Dose 25 ML; Start 07/18/16 at 02:00 Dextrose (D50w Syringe) 50 ml Q15M PRN IV DECREASED GLUCOSE Last administered on 08/04/16 13:06; Admin Dose 50 ML; Start 07/18/16 at 02:00 Glucagon (Glucagen) 1 mg Q15M PRN IM DECREASED GLUCOSE; Start 07/18/16 at 02:00 Glucose 15 gm 15 gm Q15M PRN BUCCAL DECREASED GLUCOSE; Start 07/18/16 at 02:00 Levetiracetam/ Sodium Chloride (Keppra Iv/NS) 107.5 ml @ 430 mls/hr Q12 IVPB Last administered on 08/07/16 09:07; Admin Dose 430 MLS/HR; Start 07/18/16 at 15 :00 Mupirocin (Bactroban) 1 applic BID TOP Last administered on 08/07/16 09:08; Admin Dose 1 APPLIC; Start 07/19/16 at 12:00 Collagenase (Santyl) 1 applic DAILY PRN TOP WHEN SOILED Last administered on 23:34; Admin Dose 1 APPLIC; Start 07/22/16 at 16:30 Heparin Sodium (Porcine) (Heparin (5000 Units/0.5 ml)) 5,000 unit BID SC Last administered on 08/07/16 09:08; Admin Dose 5,000 UNIT; Start 07/23/16 at 21:00 Insulin Aspart (Novolog Insulin Pen) NOVOLOG *MILD* ALGORI... Q4 SC Last administered on 08/07/16 12:23; Admin Dose 2 UNIT; Start 07/30/16 at 09:00 Metoclopramide HCl (Reglan) 10 mg Q6 IV Last administered on 08/07/16 12:22; Admin Dose 10 MG; Start 08/04/16 at 12:00 Insulin Human NPH (Humulin N) 6 unit Q8 SC Last administered on 08/07/16 15:01 ; Admin Dose 6 UNIT; Start 08/04/16 at 14:00 Assessment/Plan Chief Complaint/Hosp Course Assessment 1. Vent dependent respiratory failure 2. Status post cardiac arrest now with severe anoxic brain injury 2. Renal insufficiency 4. Persistent leukocytosis 5. Dysphagia with G-tube Plan 1. Continue mechanical ventilation 2. Continue antibiotics per ID 3. Wound care 4. Tube feeding as tolerated Disposition Patient has no hope of recovery prognosis is extremely poor he is close to brain Palliative care recommendations appreciated Problems: ENDER PORTER MD, [facility] Aug 07, 2016 16:31
--- NOTE | 2016-08-07 17:22 | EN ---
Date/Time of Note Date/Time of Note DATE: 08/07/16 TIME: 17:17 Event Note Medicine Medicine Event Note An extensive discussion was had with the patient's mother (deonna Baeza) and her sister the patient's aunt today. We had an extensive discussion on the patient's presentation of the hospital his clinical course the results of both EEGs the findings of the neurologist with the results of the apnea test. I have explained to them in detail and from several different directions that the patient's prognosis for meaningful recovery is nil. After 30 minutes spent answering all questions and making sure that both parties were fully apprised as to his clinical status they have requests that he is be maintained on DNR status; and transition over to comfort care. They wish to cease further dialysis activity. They wish that to have him placed on a morphine drip on the possibility that he might have any type of sensation of pain. Given that palliative care is already involved in his care the last Dr. Penny to assist with that. Please note the social media director Corwin Alvarez was present during this discussion as well. Respectfully MD BETHANY Barker JOSHUA A MD Aug 07, 2016 17:22
--- NOTE | 2016-08-07 17:31 | CONS ---
Date/Time of Note Date/Time of Note DATE: 08/07/16 TIME: 17:27 Assessment/Plan Assessment/Plan Problems: (1) Anoxic brain injury Status: Acute Comment: Patient has no meaningful chance of recovery. We are going to go over to comfort care and allow him to pass with dignity (2) Diabetes type I Status: Chronic Comment: Adequately controlled Qualifiers: Diabetes mellitus complication status: with unspecified complications Qualified Code: E10.8 - Type 1 diabetes mellitus with complication Consultation Date/Type/Reason Admit Date/Time Jul 17, 2016 at 13:33 Initial Consult Date 07/25/16 Type of Consultation: Endocrinology Reason for Consultation Diabetes mellitus type 1 Referring Provider: PAMELA PIÑA MD 24 HR Interval Summary Subjective hx not possible: pt non-verbal Exam/Review of Systems Vital Signs Vitals Vital Signs Date Time Temp Pulse Resp B/P Pulse Ox O2 Delivery O2 Flow Rate FiO2 08/07/16 16:17 62 08/07/16 15:10 20 99 35 08/07/16 15:08 97.9 110/55 08/04/16 12:00 Mechanical Ventilator Intake and Output 08/06/16 08/06/16 08/07/16 15:00 23:00 07:00 Intake Total 927.5 ml 1490 ml Balance 927.5 ml 1490 ml Results Patient without meaningful recovery. Please see the other note we had an extensive discussion with the family. Result Diagram: 08/07/16 0554 08/07/16 0554 Results 24 hrs Laboratory Tests Test 08/06/16 21:01 08/07/16 00:37 08/07/16 04:42 08/07/16 05:54 Bedside Glucose 116 149 187 White Blood Count 6.0 Red Blood Count 3.30 L Hemoglobin 9.9 L Hematocrit 32.8 L Mean Corpuscular Volume 99.4 Mean Corpuscular Hemoglobin 30.0 Mean Corpuscular Hemoglobin Concent 30.2 L Red Cell Distribution Width 17.2 H Platelet Count 113 #L Mean Platelet Volume 11.7 H Neutrophils % 76.4 Lymphocytes % 11.4 L Monocytes % 8.9 Eosinophils % 2.3 Basophils % 0.5 Nucleated Red Blood Cells % 0.0 Neutrophils # 4.6 Lymphocytes # 0.7 L Monocytes # 0.5 Eosinophils # 0.1 Basophils # 0.0 Nucleated Red Blood Cells # 0.0 Sodium Level 133 L Potassium Level 4.1 Chloride Level 98 Carbon Dioxide Level 25 Anion Gap 14 Blood Urea Nitrogen 37 #H Creatinine 2.02 H Glucose Level 197 # Calcium Level 8.6 Phosphorus Level 3.1 Magnesium Level 2.5 Test 08/07/16 07:53 08/07/16 12:21 Bedside Glucose 203 216 Medications Medications Current Medications Ondansetron HCl (Zofran Inj) 4 mg Q6H PRN IV NAUSEA AND/OR VOMITING; Start at 16:00 Pantoprazole (Protonix Iv) 40 mg DAILY@06 IV Last administered on 08/07/16 05: 42; Admin Dose 40 MG; Start 07/18/16 at 06:00 Bisacodyl (Dulcolax Supp) 10 mg Q24H PRN [place] CONSTIPATION; Start 07/17/16 at 16: 00 Lorazepam (Ativan) 1 mg Q1H PRN IV seziure activity; Start 07/17/16 at 22:30 Acetaminophen (Tylenol Liquid) 650 mg Q6H PRN GTB PAIN AND OR ELEVATED TEMP Last administered on 07/22/16 01:05; Admin Dose 650 MG; Start 07/18/16 at 02:00 Miscellaneous Information 1 ea NOTE XX ; Start 07/18/16 at 02:00 Glucose (Glutose) 15 gm Q15M PRN PO DECREASED GLUCOSE; Start 07/18/16 at 02:00 Glucose (Glutose) 22.5 gm Q15M PRN PO DECREASED GLUCOSE; Start 07/18/16 at 02:00 Dextrose (D50w Syringe) 25 ml Q15M PRN IV DECREASED GLUCOSE Last administered on 08/05/16 08:51; Admin Dose 25 ML; Start 07/18/16 at 02:00 Dextrose (D50w Syringe) 50 ml Q15M PRN IV DECREASED GLUCOSE Last administered on 08/04/16 13:06; Admin Dose 50 ML; Start 07/18/16 at 02:00 Glucagon (Glucagen) 1 mg Q15M PRN IM DECREASED GLUCOSE; Start 07/18/16 at 02:00 Glucose 15 gm 15 gm Q15M PRN BUCCAL DECREASED GLUCOSE; Start 07/18/16 at 02:00 Levetiracetam/ Sodium Chloride (Keppra Iv/NS) 107.5 ml @ 430 mls/hr Q12 IVPB Last administered on 08/07/16 09:07; Admin Dose 430 MLS/HR; Start 07/18/16 at 15 :00 Mupirocin (Bactroban) 1 applic BID TOP Last administered on 08/07/16 09:08; Admin Dose 1 APPLIC; Start 07/19/16 at 12:00 Collagenase (Santyl) 1 applic DAILY PRN TOP WHEN SOILED Last administered on 23:34; Admin Dose 1 APPLIC; Start 07/22/16 at 16:30 Heparin Sodium (Porcine) (Heparin (5000 Units/0.5 ml)) 5,000 unit BID SC Last administered on 08/07/16 09:08; Admin Dose 5,000 UNIT; Start 07/23/16 at 21:00 Insulin Aspart (Novolog Insulin Pen) NOVOLOG *MILD* ALGORI... Q4 SC Last administered on 08/07/16 12:23; Admin Dose 2 UNIT; Start 07/30/16 at 09:00 Metoclopramide HCl (Reglan) 10 mg Q6 IV Last administered on 08/07/16 12:22; Admin Dose 10 MG; Start 08/04/16 at 12:00 Insulin Human NPH (Humulin N) 6 unit Q8 SC Last administered on 08/07/16 15:01 ; Admin Dose 6 UNIT; Start 08/04/16 at 14:00 ISSA SIMS MD Aug 07, 2016 17:31
[2016-08-07] MEDS: morphine (DRIP) 100 MG/100 ML 100 ML IV SCH (18:25)
[2016-08-08 00:04] VITALS: PULSE 58
[2016-08-08] MEDS: morphine (DRIP) 100 MG/100 ML 100 ML IV SCH ×2 (01:41→09:27)
[2016-08-08 04:04] VITALS: PULSE 56
[2016-08-08 07:48] VITALS: BP 52/28; RESP 15
[2016-08-08 08:59] VITALS: PULSE 51
--- NOTE | 2016-08-08 12:17 | CONS ---
Date/Time of Note Date/Time of Note DATE: 08/08/16 TIME: 12:16 Assessment/Plan Assessment/Plan Additional Assessment/Plan Patient 9:56 am 08/08/2016 Consultation Date/Type/Reason Admit Date/Time Jul 17, 2016 at 13:33 Initial Consult Date 07/25/16 Type of Consultation: Endocrinology Referring Provider: PAMELA PIÑA MD 24 HR Interval Summary Free Text/Dictation Patient 9:56 am Exam/Review of Systems Vital Signs Vitals Vital Signs Date Time Temp Pulse Resp B/P Pulse Ox O2 Delivery O2 Flow Rate FiO2 08/08/16 08:59 51 08/08/16 07:48 15 52/28 74 08/08/16 07:45 10.0 08/07/16 20:00 97.0 08/07/16 15:10 35 08/04/16 12:00 Mechanical Ventilator Intake and Output 08/07/16 08/07/16 08/08/16 15:00 23:00 07:00 Intake Total 570.5 ml 105 ml Balance 570.5 ml 105 ml Results Result Diagram: 08/07/16 0554 08/07/16 0554 Results 24 hrs Laboratory Tests Test 08/07/16 12:21 Bedside Glucose 216 Medications Medications Current Medications Morphine Sulfate/ Sodium Chloride (morphine) 100 ml @ 1 mls/hr TITRATE IV Last administered on 08/08/16t 09:27; Admin Dose 1 MLS/HR; Start 08/07/16 at 18:00 MANASA LOWE MD Aug 08, 2016 12:17
--- NOTE | 2016-08-08 14:47 | DES ---
DATE OF ADMISSION: 07/17/2016 DATE OF : 08/08/2016 DIAGNOSIS: 1. Cardiopulmonary arrest, secondary to sepsis, as well as anoxic brain injury. 2. Diabetes type 1 with multiple complications including end-stage renal disease, debility, respira tory failure, recurrent pneumonia; ultimately sepsis. HOSPITAL COURSE: The patient was a 35-year-old male with multiple medical issues secondary to type 1 diabetes mellitus that was poorly managed. The patient had multiple episodes of pneumonia, had ch ronic vent dependency, as well as a PEG tube dependent. Patient resided in a longterm facili ty, had multiple decubitus ulcers. The patient was found pulseless in the SNF. CPR was performed. The patient did have return of circulation. The patient had anoxic brain injury and ultimately was nonresponsive and was felt to be in a vegetative state. The patient did have some brainstem activi ty, as he was breathing for himself; but, once again, he was in a complete vegetative state, was com pletely unresponsive. After discussion with Palliative Care, it was decided that the patient would benefit from comfort ca re secondary to his poor prognosis, his multiple comorbidities. The patient went into asystole at 9:56 a.m. on 08/08/2016 and was pronounced by myself at 10:35 a.m. , on 08/14/2016. The patient had no pulse, no heart sounds, no respiratory sounds, no pupillary re flex, and had no response to noxious stimuli. Dictated By: DIANE GIBBONS MD BS/NTS Conf#: [id number] DID#: [id number]
== END 2016-08-08 13:15 | disposition expired | DRG 870 ==
LOC: E/R 12:05 → ICU 13:33 → TEL 07-23 12:53
PROVIDERS: ADMIT Family Medicine; ATTEND Family Medicine
PROC: 5A1955Z Respiratory Ventilation, Greater than 96 Consecutive Hours (ICD-10-PCS; principal; 2016-07-17)
PROC: 30233N1 Transfusion of Nonautologous Red Blood Cells into Peripheral Vein, Percutaneous Approach (ICD-10-PCS; 2016-07-17)
PROC: 5A1D60Z (ICD-10-PCS; 2016-07-18)
DX: A41.9 Sepsis, unspecified organism (principal); I46.9 Cardiac arrest, cause unspecified; J96.21 Acute and chronic respiratory failure with hypoxia; J69.0 Pneumonitis due to inhalation of food and vomit; G93.40 Encephalopathy, unspecified; G92 Toxic encephalopathy; J96.10 Chronic respiratory failure, unspecified whether with hypoxia or hypercapnia; N18.6 End stage renal disease; G93.1 Anoxic brain damage, not elsewhere classified; Z99.11 Dependence on respirator [ventilator] status; N30.00 Acute cystitis without hematuria; E87.1 Hypo-osmolality and hyponatremia; R65.20 Severe sepsis without septic shock; D53.9 Nutritional anemia, unspecified; Z93.0 Tracheostomy status; E10.22 Type 1 diabetes mellitus with diabetic chronic kidney disease; Z99.2 Dependence on renal dialysis; D63.1 Anemia in chronic kidney disease; Z22.322 Carrier or suspected carrier of Methicillin resistant Staphylococcus aureus; Z93.1 Gastrostomy status; M21.379 Foot drop, unspecified foot; Z66 Do not resuscitate; G40.909 Epilepsy, unspecified, not intractable, without status epilepticus
CPT/HCPCS: 36415; 36430; 36600; 70450; 71010; 74000; 78606; 80048; 80053; 80076; 80202; 81001; 81003; 82607; 82746; 82803; 82962; 83036; 83605; 83690; 83735; 84100; 84132; 84443; 84484; 85014; 85018; 85025; 85049; 85362; 85378; 85384; 85610; 85670; 85730; 86850; 86900; 86901; 86920; 87040; 87045; 87075; 87081; 87086; 90935; 93005; 93306; 94002; 94003; 95819; 96365; 96366; 96375; A9512; C9113; J0456; J0692; J0696; J0886; J1644; J1815; J1953; J2060; J2185; J2270; J2543; J2765; J3370; J3480; J7030; J7040; J7042; J7060; J7070; P9016; P9047